=== PATIENT | male | born 1945 | race Caucasian/White ===

== ENCOUNTER 2018-05-02 20:27 | Inpatient (IN) | payer MEDICARE, OTHER ==
[~2018-05-02] VITALS: Ht 193 cm; Wt 123.4 kg
[~2018-05-02 20:27] MED LIST: ADDERALL 20 MG20 MG; ADDERALL 20 MG20 MG PO; ADDERALL 5 MG TA5 MG PO; AMLODIPINE BESYL5 MG PO; ASPIRIN BUFFER325 MG PO; ASPIRIN325 MG PO; AVAPRO150 MG PO; AVAPRO300 MG PO; AVAPRO75 MG PO; AVODART0.5 MG; BETA GLUCAN; BETA GLUCAN PO; CARAFATE1 GM/10 ML PO; COQ-10100 MG PO; COQ10 SG 100 S1 EACH PO; COUMADIN5 MG PO; DAILY VITAMIN1 EAC3 PO; DEMADEX10 MG PO; DEMADEX20 MG PO; DIOVAN HCT 1601 EACH PO; GABAPENTIN300 MG PO; GLUCOPHAGE500 MG PO; GLUCOSAMINE1000 MG PO; HUMALOG100 UNIT/3 SQ; INSULIN ASPART; INSULIN ASPART SQ; KEFLEX500 MG PO; LEVEMIR; LEVEMIR100 UNIT/1 SQ; LISINOPRIL20 MG PO; LOPRESSOR100 MG PO; LYCOPENE10 MG PO; METFORMIN HCL500 MG; METOLAZONE5 MG PO; METOPROLOL TART50 MG PO; MINOXIDIL2.5 MG PO; MIRALAX17 GM PO; NIACIN500 MG PO; NORCO 10-325 T1 EACH PO; NOVOLOG100 UNIT/1 SQ; NOVOLOG100 UNITS/ SQ; PLANT STEROLS PO; POTASSIUM CHLO10 MEQ PO; POTASSIUM PO; PRADAXA150 MG PO; PURE TAURINE500 MG PO; RAPAFLO8 MG; RAPAFLO8 MG PO; RESTORIL30 MG PO; ROBAXIN-750750 MG; STOOL SOFTENER240 MG PO; SUSTENEX PO; TURMERIC1 GM PO; VITAMIN D31000 UNI2 PO; XANAX0.5 MG PO; Z MINOXIDIL PO; Z.0.DIGOXIN250 MCG PO; Z.0.LISINOPRIL20 MG PO; Z.0.LOPRESSOR100 MG PO; Z.0.PRADAXA150 MG PO; Z.0.TORSEMIDE20 MG PO; Z.1.DIOVAN HCT 1601 PO; [UNRECOGNIZED DRUG - OTHER]; [UNRECOGNIZED DRUG - OTHER] PO; [UNRECOGNIZED DRUG - OTHER] PO; [UNRECOGNIZED DRUG - OTHER] PO; [UNRECOGNIZED DRUG - OTHER] PO; [UNRECOGNIZED DRUG - OTHER] PO; [UNRECOGNIZED DRUG - OTHER] SQ; [UNRECOGNIZED DRUG - OTHER] SQ
[2018-05-02] MEDS ORDERED: ONDANSETRON HCL INJ 2 MG/ML VIAL IV STA (20:44)
[2018-05-02] MEDS ORDERED: MORPHINE SULFATE 2 MG/ML SYR IV ONE (20:44)
[2018-05-02] MEDS ORDERED: ASPIRIN 81 MG CHEW TAB PO ONE (20:45)
[2018-05-02 21:20] LABS: BASOPHILS % 0.2 % (0.0-1.0); HEMATOCRIT 39.9 % (38.2-49.6); HEMOGLOBIN 13.3 g/dL (14.0-18.0); LYMPHOCYTES # (AUTO) 0.5 (1.0-3.2); LYMPHOCYTES % 3.3 % (18.0-39.1); MEAN CORPUSCULAR HGB CONC 33.3 g/dL (31-35); MEAN CORPUSCULAR VOLUME 87.1 fL (81-99); MONOCYTES # (AUTO) 1.5 (0.2-0.8); MONOCYTES % 9.1 % (4.4-11.3); NEUTROPHILS # (AUTO) 14.1 (2.1-6.9); NEUTROPHILS % 86.7 % (38.7-80.0); PLATELET COUNT 167 x10e3/uL (140-360); RED BLOOD COUNT 4.58 x10e6/uL (4.3-5.7); RED CELL DISTRIBUTION WIDTH 13.8 % (11.7-14.4)
[2018-05-02 21:22] LABS: INR 0.96; PROTHROMBIN TIME 13.7 seconds (11.9-14.5)
[2018-05-02 21:23] LABS: PARTIAL THROMBOPLASTIN TIME 33.6 seconds (23.8-35.5)
[2018-05-02 21:33] LABS: ALANINE AMINOTRANSFERASE 27 IU/L (0-55); ALBUMIN 3.6 g/dL (3.5-5.0); ALKALINE PHOSPHATASE 75 IU/L (40-150); ANION GAP 20.3 mmol/L (8-16); BLOOD UREA NITROGEN 16 mg/dL (7-26); BUN/CREATININE RATIO 12 (6-25); CALCIUM 9.5 mg/dL (8.4-10.2); CARBON DIOXIDE 21 mmol/L (22-29); CHLORIDE 98 mmol/L (98-107); CREATINE KINASE 233 IU/L (30-200); CREATININE, SERUM 1.29 mg/dL (0.72-1.25); EST GLOMERULAR FILTRATION RATE 55 ML/MIN (60-); GLUCOSE 339 mg/dL (74-118); MAGNESIUM 1.8 MG/DL (1.3-2.1); POTASSIUM 4.3 mmol/L (3.5-5.1); SODIUM 135 mmol/L (136-145)
[2018-05-02 21:37] LABS: LIPASE < 4 U/L (8-78)
--- NOTE | 2018-05-02 21:38 | Diagnostic Imaging Report ---
EXAMINATION: CHEST SINGLE (PORTABLE) INDICATION: Shortness of breath, history of cardiac disease COMPARISON: 11/22/2014 FINDINGS: TUBES and LINES: None. LUNGS: Lungs are not well inflated. Areas of interlobular septi thickening There is mild prominence of the central pulmonary vasculature, consistent with pulmonary venous congestion. PLEURA: No pleural effusion or pneumothorax. HEART AND MEDIASTINUM: Cardiac size is moderately enlarged. There are atherosclerotic calcifications within the aorta. There is evidence of a proximal descending aortic stent graft BONES AND SOFT TISSUES: No acute osseous lesion. Soft tissues are unremarkable. UPPER ABDOMEN: No free air under the diaphragm. IMPRESSION: Findings are compatible with mild cartilage thinning pulmonary edema Signed by: Dr. Saw Mendoza M.D. on 05/02/2018 9:34 PM
[2018-05-02 21:53] LABS: THYROID STIMULATING HORMONE 0.589 uIU/mL (0.350-4.940)
[2018-05-02] MEDS ORDERED: ACETAMINOPHEN 325 MG TAB PO ONE (23:00)
[2018-05-02 23:04] LABS: BILIRUBIN,URINE NEGATIVE (NEGATIVE); CLARITY,URINE CLEAR (CLEAR); COLOR,URINE YELLOW (YELLOW); KETONES,URINE 1+ (NEGATIVE); LEUKOCYTE ESTERASE ,URINE NEGATIVE (NEGATIVE); NITRITE,URINE NEGATIVE (NEGATIVE); PROTEIN,URINE DIPSTICK NEGATIVE (NEGATIVE); URINE UROBILINOGEN 0.2 mg/dL (0.2 - 1)
--- NOTE | 2018-05-02 23:06 | Diagnostic Imaging Report ---
EXAM: CT Chest WITH contrast 05/02/2018 9:57 PM INDICATION: Pulmonary embolism COMPARISON: None TECHNIQUE: Chest was scanned utilizing a multidetector helical scanner from the lung apex through the level of the adrenal glands without administration of IV contrast. Coronal and sagittal reformations were obtained. PE protocol was performed. IV CONTRAST: 100 mL of Isovue-370 RADIATION DOSE: Total DLP: 703.94 mGy*cm Estimated effective dose: (DLP x 0.014 x size factor) mSv COMPLICATIONS: None FINDINGS: LINES/ TUBES: None. LUNGS AND AIRWAYS: There is bibasilar atelectasis. More confluent airspace disease in the right lung base may represent developing infection Airways are normal. PLEURA: The pleural spaces are clear. HEART AND MEDIASTINUM: The thyroid gland is normal. No mediastinal, hilar or axillary lymphadenopathy. The heart is mildly enlarged. There is severe dilatation of the left atrium and mild dilatation of the left ventricle. There is no pericardial effusion. There are moderate atherosclerotic calcifications in the aorta and coronary arteries. There is a distal aortic arch and proximal descending aortic stent graft. The pulmonary artery measures 3.6 cm in diameter, dilated. Next UPPER ABDOMEN: Limited non-contrast views of the upper abdomen show no abnormality within the visualized liver, spleen, pancreas, or kidneys. The adrenal glands are normal. BONES: The visualized bony thorax is within normal limits. SOFT TISSUES: Unremarkable. IMPRESSION: 1. Cardiomegaly and coronary artery disease. 2. Aortic stent graft is in good position without evidence of complications. 3. No evidence of pulmonary embolism. 4. Bibasilar atelectasis. 5. More confluent airspace opacity in the right lower lobe may represent early infection. Signed by: Dr. Saw Mendoza M.D. on 05/02/2018 11:03 PM
[2018-05-02 23:07] LABS: BACTERIA,URINE RARE /HPF; MUCUS,URINE FEW (RARE)
[2018-05-02] MEDS ORDERED: ACETAMINOPHEN 1000 MG/100 ML IV STA (23:14)
[2018-05-02] MEDS ORDERED: ACETAMINOPHEN 1000 MG/100 ML IV PRN (23:15)
[2018-05-02] MEDS ORDERED: DEXTROSE 50% SYRINGE 50 ML IV PRN (23:15)
[2018-05-02] MEDS: ALBUTEROL SULF 0.083% NEB SOLN 3 ML NEB NEB SCH (23:15)
[2018-05-02] MEDS ORDERED: PIPER-TAZ 3.375 GM 50 ML IV SCH (23:15)
[2018-05-03] VITALS (15 sets, daily range): BP systolic 108–184; BP diastolic 48–88
[2018-05-03] MEDS: IPRATROPIUM BROMIDE 0.02% 2.5 ML NEB NEB SCH ×4 (01:00→19:30)
[2018-05-03] MEDS ORDERED: INSULIN REGULAR, HUMAN 100 UNIT/1 ML 3ML VIAL SQ ONE (01:45)
[2018-05-03] MEDS ORDERED: SODIUM CHLORIDE 0.9% 1000ML 1,000 ML IV ONE (01:45)
[2018-05-03] MEDS: VANCOMYCIN HCL 1GM/NS 250 ML BAG IV SCH ×3 (01:50→23:22)
[2018-05-03] MEDS ORDERED: SODIUM CHLORIDE 0.9% 50ML 50 ML ONE (02:48)
[2018-05-03] MEDS ORDERED: IOPAMIDOL 370 MG/ML 200 ML INFUS..BTL INJ ONE (02:49)
[2018-05-03] MEDS: ALBUTEROL SULF 0.083% NEB SOLN 3 ML NEB NEB SCH ×6 (03:00→23:50)
[2018-05-03] MEDS: HYDROCODONE/APAP 10MG-325MG TAB PO PRN ×2 (03:51→19:05)
[2018-05-03] MEDS ORDERED: KETOROLAC TROMETHAMINE 30 MG/ML VIAL IV STA (04:59)
[2018-05-03 05:07] LABS: BASOPHILS % 0.2 % (0.0-1.0); EOSINOPHILS % 0.1 % (0.0-6.0); HEMATOCRIT 38.8 % (38.2-49.6); HEMOGLOBIN 12.7 g/dL (14.0-18.0); LYMPHOCYTES # (AUTO) 0.6 (1.0-3.2); LYMPHOCYTES % 4.1 % (18.0-39.1); MEAN CORPUSCULAR HEMOGLOBIN 28.9 pg (28-32); MEAN CORPUSCULAR HGB CONC 32.7 g/dL (31-35); MEAN CORPUSCULAR VOLUME 88.2 fL (81-99); MONOCYTES # (AUTO) 1.5 (0.2-0.8); MONOCYTES % 10.3 % (4.4-11.3); NEUTROPHILS # (AUTO) 11.9 (2.1-6.9); NEUTROPHILS % 84.5 % (38.7-80.0); PLATELET COUNT 150 x10e3/uL (140-360); RED CELL DISTRIBUTION WIDTH 13.6 % (11.7-14.4)
[2018-05-03 05:38] LABS: ALANINE AMINOTRANSFERASE 23 IU/L (0-55); ALBUMIN 3.1 g/dL (3.5-5.0); ALBUMIN/GLOBULIN RATIO 0.9 (0.8-2.0); ALKALINE PHOSPHATASE 69 IU/L (40-150); ANION GAP 15.9 mmol/L (8-16); BLOOD UREA NITROGEN 13 mg/dL (7-26); BUN/CREATININE RATIO 12 (6-25); CALCIUM 9.1 mg/dL (8.4-10.2); CARBON DIOXIDE 25 mmol/L (22-29); CHLORIDE 100 mmol/L (98-107); CREATINE KINASE 192 IU/L (30-200); EST GLOMERULAR FILTRATION RATE > 60 ML/MIN (60-); GLUCOSE 245 mg/dL (74-118); POTASSIUM 3.9 mmol/L (3.5-5.1); SODIUM 137 mmol/L (136-145)
[2018-05-03] MEDS: METOLAZONE 5 MG TAB PO SCH (08:14)
[2018-05-03] MEDS: SUCRALFATE 1 GM/10 ML SUSP PO SCH (08:14)
[2018-05-03] MEDS: GABAPENTIN 300 MG CAP PO SCH ×3 (08:14→20:55)
[2018-05-03] MEDS: TORSEMIDE 10 MG TAB PO SCH (08:14)
[2018-05-03] MEDS: MINOXIDIL 2.5 MG TAB PO SCH (08:14)
[2018-05-03] MEDS: TAMSULOSIN HCL 0.4 MG CAP PO SCH (08:14)
[2018-05-03] MEDS: AMLODIPINE BESYLATE 5 MG TAB PO SCH (08:14)
[2018-05-03] MEDS: LISINOPRIL 20 MG TAB PO SCH ×2 (08:15→17:24)
[2018-05-03] MEDS: METOPROLOL TARTRATE 50 MG TAB PO SCH ×2 (08:15→17:24)
[2018-05-03] MEDS: PIPER-TAZ 3.375 GM 50 ML IV SCH ×2 (08:18→21:14)
[2018-05-03] MEDS: INSULIN REGULAR, HUMAN 100 UNIT/1 ML 3ML VIAL SQ SCH ×4 (08:18→20:56)
[2018-05-03] MEDS ORDERED: NON-FORMULARY MEDICATION (Silodosin (Rapaflo) 8 MG) PO SCH (09:00)
[2018-05-03] MEDS ORDERED: RAPAFLO 8 MG PO SCH (09:00)
[2018-05-03] MEDS ORDERED: METFORMIN HCL 500 MG TAB PO SCH (09:00)
[2018-05-03 13:07] LABS: LYMPHOCYTES % (MANUAL) 7 % (19-48); MONOCYTES % (MANUAL) 8 % (3.4-9.0); NEUTROPHILS % (MANUAL) 85 % (40-74); PLATELET ESTIMATE ADEQUATE; PLATELET MORPHOLOGY COMMENT NORMAL; RBC MORPHOLOGY COMMENT NORMAL
[2018-05-03 13:08] LABS: ANISOCYTOSIS SLIGHT
[2018-05-03 14:26] LABS: CREATINE KINASE MB 2.3 ng/mL (0-5.0)
--- NOTE | 2018-05-03 16:08 | Diagnostic Imaging Report ---
RIGHT SHOULDER - 2 VIEWS HISTORY: Pain, cellulitis COMPARISON: None available. FINDINGS: Soft tissue attenuation partially limits sensitivity of the exam. Bones: No acute displaced fracture. Mild lateral downsloping of the acromion. Joints: Mild degenerative changes of the acromioclavicular joint. Soft tissues: Incidentally, partially visualized aortic stent graft IMPRESSION: 1. No acute radiographic abnormality. 2. Specifically, no radiographic evidence of osteomyelitis. 3. Lateral downsloping of the acromium, can be associated with impingement syndrome. 4. Mild acromioclavicular osteoarthrosis. Signed by: Dr. Sunil Feliciano D.O., M.M.M. on 05/03/2018 4:04 PM
[2018-05-03] MEDS: ALPRAZOLAM 0.5 MG TAB PO SCH (20:55)
[2018-05-04] VITALS (12 sets, daily range): BP systolic 104–145; BP diastolic 51–84
[2018-05-04] MEDS: HYDROCODONE/APAP 10MG-325MG TAB PO PRN (02:51)
[2018-05-04] MEDS: ALBUTEROL SULF 0.083% NEB SOLN 3 ML NEB NEB SCH ×5 (03:30→19:30)
[2018-05-04] MEDS: IPRATROPIUM BROMIDE 0.02% 2.5 ML NEB NEB SCH ×4 (03:30→19:30)
[2018-05-04] MEDS: PIPER-TAZ 3.375 GM 50 ML IV SCH ×3 (05:21→21:06)
[2018-05-04] MEDS ORDERED: HYDROMORPHONE 1MG/1ML INJ IV PRN (07:15)
[2018-05-04 08:03] LABS: BASOPHILS % 0.2 % (0.0-1.0); EOSINOPHILS # (AUTO) 0.1 (0.0-0.4); EOSINOPHILS % 0.4 % (0.0-6.0); HEMATOCRIT 35.7 % (38.2-49.6); HEMOGLOBIN 11.7 g/dL (14.0-18.0); LYMPHOCYTES # (AUTO) 0.7 (1.0-3.2); MEAN CORPUSCULAR HGB CONC 32.8 g/dL (31-35); MEAN CORPUSCULAR VOLUME 88.6 fL (81-99); MONOCYTES # (AUTO) 1.2 (0.2-0.8); MONOCYTES % 10.3 % (4.4-11.3); NEUTROPHILS % 82.7 % (38.7-80.0); PLATELET COUNT 148 x10e3/uL (140-360); RED BLOOD COUNT 4.03 x10e6/uL (4.3-5.7); RED CELL DISTRIBUTION WIDTH 13.4 % (11.7-14.4)
[2018-05-04] MEDS: TAMSULOSIN HCL 0.4 MG CAP PO SCH (08:16)
[2018-05-04] MEDS: TORSEMIDE 10 MG TAB PO SCH (08:16)
[2018-05-04] MEDS: MINOXIDIL 2.5 MG TAB PO SCH (08:16)
[2018-05-04] MEDS: SUCRALFATE 1 GM/10 ML SUSP PO SCH (08:16)
[2018-05-04] MEDS: ACETAMINOPHEN 325 MG TAB PO PRN (08:17)
[2018-05-04] MEDS: AMLODIPINE BESYLATE 5 MG TAB PO SCH (08:17)
[2018-05-04] MEDS: METOLAZONE 5 MG TAB PO SCH (08:17)
[2018-05-04] MEDS: GABAPENTIN 300 MG CAP PO SCH ×3 (08:17→21:04)
[2018-05-04] MEDS: METOPROLOL TARTRATE 50 MG TAB PO SCH ×2 (08:17→17:19)
[2018-05-04] MEDS: LISINOPRIL 20 MG TAB PO SCH ×2 (08:17→17:19)
[2018-05-04] MEDS: INSULIN REGULAR, HUMAN 100 UNIT/1 ML 3ML VIAL SQ SCH ×4 (08:18→21:00)
[2018-05-04 08:25] LABS: ALANINE AMINOTRANSFERASE 34 IU/L (0-55); ALBUMIN 2.5 g/dL (3.5-5.0); ALBUMIN/GLOBULIN RATIO 0.7 (0.8-2.0); ALKALINE PHOSPHATASE 80 IU/L (40-150); ANION GAP 12.7 mmol/L (8-16); BLOOD UREA NITROGEN 15 mg/dL (7-26); BUN/CREATININE RATIO 15 (6-25); CARBON DIOXIDE 26 mmol/L (22-29); CHLORIDE 98 mmol/L (98-107); CREATININE, SERUM 0.97 mg/dL (0.72-1.25); EST GLOMERULAR FILTRATION RATE > 60 ML/MIN (60-); GLUCOSE 280 mg/dL (74-118); POTASSIUM 3.7 mmol/L (3.5-5.1); SODIUM 133 mmol/L (136-145)
[2018-05-04] MEDS ORDERED: HYDROMORPHONE 2MG/ML 2 MG/ML ML IV PRN (08:45)
[2018-05-04] MEDS ORDERED: NON-FORMULARY MEDICATION (Insulin Detemir (Levemir) 30 UNITS) SQ SCH (09:00)
[2018-05-04] MEDS ORDERED: INSULIN GLARGINE 100 UNITS/1 ML 3ML PEN SQ SCH (09:00)
[2018-05-04] MEDS: INSULIN DETEMIR 100 UNIT/ML PEN SQ SCH ×2 (12:03→21:05)
[2018-05-04] MEDS: INSULIN LISPRO 100 UNIT/1 ML 3ML VIAL SQ SCH ×2 (12:04→17:20)
[2018-05-04] MEDS: VANCOMYCIN HCL 1GM/NS 250 ML BAG IV SCH (12:06)
[2018-05-04 14:11] LABS: CREATINE KINASE MB 2.4 ng/mL (0-5.0)
[2018-05-04] MEDS ORDERED: SODIUM CHLORIDE 0.9% 250ML 250 ML ONE (15:42)
[2018-05-04] MEDS ORDERED: NALOXONE HCL INJ 0.4 MG/ML AMP IV PRN (16:45)
[2018-05-04] MEDS: HYDROMORPHONE 2MG/ML 2 MG/ML ML IV PRN ×2 (17:19→21:00)
--- NOTE | 2018-05-04 18:53 | Diagnostic Imaging Report ---
History: Pain right side of the neck Comparison studies: None Technique: Axial, coronal and sagittal images from the skull base to the thoracic inlet. Coronal and sagittal images reconstructed from the axial data. Intravenous contrast: 100 cc of Omnipaque 300. Findings: Soft tissues: No abnormalities. Masses: None. Lymph nodes: No radiographically significant adenopathy. Vessels: Atherosclerotic calcifications of the carotid pole with at least moderate stenosis on the left. Partially visualized descending aorta stent. Glands (thyroid, parotid and submandibular): Partially calcified right inferior pole thyroid nodule measuring 1.2 cm. The remaining glands are normal in size and symmetric. No other masses. . Orbits: No abnormalities. Paranasal sinuses: Clear. Temporal bones: No abnormalities. Skull base and facial bones: Intact. Cervical spine: Facet hypertrophy and uncinate process hypertrophy results in multilevel foraminal narrowing severe right at C4-C6; and moderate bilateral at C6-7. Fused C5-6. Diffuse posterior disc osteophyte complex C6-7 results in moderate canal stenosis. Changes of the atlantoaxial joint IMPRESSION: 1. Moderate to severe degenerative changes of the cervical spine. 2. Atherosclerotic calcifications of the carotid bulbs results in at least moderate stenosis of the left. 3. Partially calcified right thyroid nodule measuring 1.2 cm. No other significant neck abnormality. Signed by: DR Mazin Marin M.D. on 05/04/2018 6:49 PM
--- NOTE | 2018-05-04 19:00 | Consultation ---
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 Comes in after a long trip, found to have fever, chills, pain on his right shoulder, right side of his neck. The patient felt really bad today after and then got progressively worse, finally came here. Apparently, he has had gram-positive cocci in the blood. Infectious disease was consulted. Patient is just having severe pain on his right side. PAST MEDICAL HISTORY: Obesity; TEVAR type-B aortic dissection, October 2014; hypertension; sleep apnea; diabetes mellitus; atrial fibrillation, status post ablation in 2014, morbidly obese patient, degenerative joint disease, severe spinal stenosis, anemia, blood transfusion in 2014, hyperlipidemia, aortic dissection TEVAR in October 2011, tonsillectomy, 3rd left toe amputation, status post A-flutter, orchiectomy. ALLERGIES: NKA. SOCIAL HISTORY: There is no smoking, drug abuse, alcohol abuse. FAMILY HISTORY: Otherwise, hypertension. REVIEW OF SYSTEMS GENERAL: He is just not feeling well and in severe pain. HEENT: There is no headache, visual changes, hearing changes. GI: There is no nausea. No vomiting. CARDIAC: There is no arrhythmia. NEURO: No seizure activity. He does have pain on the right side. SKIN: There are no other rashes. LABORATORY DATA: Reviewed. Blood culture showing Staph aureus. White count on admission 16, today 12.09. Hemoglobin 11, sodium 133, potassium 3.7, creatinine 0.97. Liver enzymes 37. MEDICATIONS: He is currently on Atrovent, Zosyn, vancomycin, Dilaudid, Humalog. PHYSICAL EXAMINATION GENERAL: He is currently alert, oriented, does not seem to be in acute distress. VITALS: Stable. Currently afebrile. HEENT: Not icteric. NECK: Supple. CHEST: Clear. HEART: S1 and S2. No S3, S4, or murmur. ABDOMEN: Soft. EXTREMITIES: No edema. IMPRESSION 1. Sepsis on admission in a patient with history of thoracic endovascular aortic repair, history of obesity, concerned about infection, endocarditis. Would increase the vancomycin dose to 2 g q.12. Would recommend to obtain a transesophageal echocardiogram. 2. Pain in the right side of his shoulder. Would need a magnetic resonance imaging of the shoulder with contrast. Computed tomography of the cervical spine. We will follow with you. Job#: [id number] LPA
--- NOTE | 2018-05-04 19:08 | Diagnostic Imaging Report ---
EXAM: CT Abdomen and Pelvis WITH contrast INDICATION: Pain, infection COMPARISON: None. TECHNIQUE: Abdomen and pelvis were scanned utilizing a multidetector helical scanner from the lung base to the pubic symphysis after administration of IV contrast. Coronal and sagittal reformations were obtained. Routine protocol was performed. Scan was performed when during portal venous phase. IV CONTRAST: 100 mL of Isovue-370 ORAL CONTRAST: None RADIATION DOSE: Total DLP: 1290.06 mGy*cm Estimated effective dose: (DLP x 0.015 x size factor) mSv COMPLICATIONS: None FINDINGS: LINES and TUBES: None. LOWER THORAX: Small bilateral pleural effusions and atelectasis right greater than left. Confluent airspace opacity in the right lower lobe with air bronchogram. HEPATOBILIARY: No focal hepatic lesions. No biliary ductal dilation. GALLBLADDER: No radio-opaque stones or sludge. No wall thickening. SPLEEN: No splenomegaly. PANCREAS: No focal masses or ductal dilatation. ADRENALS: No adrenal nodules KIDNEYS/URETERS: Kidneys enhance symmetrically. No hydronephrosis. No cystic or solid mass lesions. No stones. GI TRACT: No abnormal distention, wall thickening, or evidence of bowel obstruction. There are diverticula within the colon without evidence of diverticulitis. Appendix is not clearly identified. There is however no fat stranding or adenopathy in the right lower quadrant to suggest appendicitis. PELVIC ORGANS/BLADDER: Duffy catheter is suboptimally positioned with balloon inflated within the prostatic urethra. The prostate is mildly enlarged. LYMPH NODES: No lymphadenopathy. VESSELS: There is severe atherosclerotic disease in the aorta and major arterial branches. PERITONEUM / RETROPERITONEUM: No free air or fluid. BONES: There are moderate to severe degenerative changes in the lumbar spine. SOFT TISSUES: There is a fat containing umbilical hernia. IMPRESSION: 1. No evidence of acute intra-abdominal or pelvic abnormality. 2. Small bilateral pleural effusions and atelectasis. 3. There is consolidation in the right lower lobe with mild air bronchogram. Differential diagnosis may include aspiration or developing pneumonia. 4. Repositioning of Duffy catheter is recommended. The balloon is inflated within the prostatic urethra. Repositioning should be performed after deflating the balloon. Signed by: Dr. Saw Mendoza M.D. on 05/04/2018 7:04 PM
[2018-05-04] MEDS ORDERED: IOPAMIDOL 370 MG/ML 200 ML INFUS..BTL INJ ONE (19:50)
[2018-05-04] MEDS ORDERED: SODIUM CHLORIDE 0.9% 50ML 50 ML ONE (19:50)
[2018-05-04] MEDS: ALPRAZOLAM 0.5 MG TAB PO SCH (21:04)
[2018-05-04] MEDS: VANCOMYCIN HCL 2 GM in SODIUM CHLORIDE 0.9% 500ML 500 ML IV SCH (22:23)
[2018-05-04] MEDS ORDERED: VANCOMYCIN HCL 1GM/NS 250 ML BAG IV SCH (23:15)
[2018-05-05] VITALS (10 sets, daily range): BP systolic 95–135; BP diastolic 48–81
[2018-05-05] MEDS: IPRATROPIUM BROMIDE 0.02% 2.5 ML NEB NEB SCH ×4 (01:00→18:55)
[2018-05-05] MEDS: ALBUTEROL SULF 0.083% NEB SOLN 3 ML NEB NEB SCH ×6 (02:00→23:00)
[2018-05-05] MEDS: HYDROMORPHONE 2MG/ML 2 MG/ML ML IV PRN ×3 (05:18→19:15)
[2018-05-05] MEDS: PIPER-TAZ 3.375 GM 50 ML IV SCH ×3 (05:18→21:49)
[2018-05-05] MEDS ORDERED: GADOBENATE DIMEGLUMINE 1 ML IV ONE (09:12)
[2018-05-05] MEDS: INSULIN DETEMIR 100 UNIT/ML PEN SQ SCH ×2 (12:07→21:35)
[2018-05-05] MEDS: INSULIN REGULAR, HUMAN 100 UNIT/1 ML 3ML VIAL SQ SCH ×3 (12:07→21:00)
[2018-05-05] MEDS: INSULIN LISPRO 100 UNIT/1 ML 3ML VIAL SQ SCH ×2 (12:07→16:50)
[2018-05-05] MEDS: SUCRALFATE 1 GM/10 ML SUSP PO SCH (12:21)
[2018-05-05] MEDS: MINOXIDIL 2.5 MG TAB PO SCH (12:22)
[2018-05-05] MEDS: TAMSULOSIN HCL 0.4 MG CAP PO SCH (12:22)
[2018-05-05] MEDS: TORSEMIDE 10 MG TAB PO SCH (12:22)
[2018-05-05] MEDS: METOPROLOL TARTRATE 50 MG TAB PO SCH ×2 (12:22→18:26)
[2018-05-05] MEDS: METOLAZONE 5 MG TAB PO SCH (12:23)
[2018-05-05] MEDS: GABAPENTIN 300 MG CAP PO SCH ×3 (12:23→21:49)
[2018-05-05] MEDS: AMLODIPINE BESYLATE 5 MG TAB PO SCH (12:23)
[2018-05-05] MEDS: VANCOMYCIN HCL 2 GM in SODIUM CHLORIDE 0.9% 500ML 500 ML IV SCH ×2 (12:23→22:54)
[2018-05-05] MEDS: LISINOPRIL 20 MG TAB PO SCH ×2 (12:23→18:27)
--- NOTE | 2018-05-05 12:31 | Diagnostic Imaging Report ---
Exam: foot series, 3 views. Clinical History: Rule out osteomyelitis. Comparison: Report from MRI foot from 11/25/11. No images are available for review. Findings: There has been amputation of the second through fifth toes. There is soft tissue edema at the distal aspects of the second through metatarsals. There is focal gas adjacent to the third metatarsal head. There appear to be linear lucencies and erosions involving the second and third metatarsal heads. There is soft tissue edema within the great toe. No definite destructive bony changes involving the first metatarsal or great toe. No evidence of fracture or malalignment. Impression: Status post amputation of the second through fifth toes. Findings suspicious for osteomyelitis involving the second and third metatarsal heads, which could be evaluated with MRI if clinically indicated. Signed by: Dr. Jessica Dsouza MD on 05/05/2018 12:28 PM
--- NOTE | 2018-05-05 15:23 | Consultation ---
DATE OF CONSULTATION: May 05, 2018 REASON FOR CONSULTATION: Bacteremia with Staph aureus. HISTORY: This is a 72-year-old gentleman who is know us with past medical history of hypertension, dyslipidemia, diabetes mellitus, history of type B aortic dissection, treated with stenting starting distal to the left subclavian through the thoracic descending aorta. He is also known to have atrial fibrillation and flutter, status post ablation in May 2014. Patient does have also chronic swelling of the lower extremities with chronic venous stasis and repeated infection. In fact, he does have also peripheral neuropathy. He does have amputation of all the left foot toes with the exception of the great toe. There is nonhealing ulcer, which is chronic on the bottom of the left foot on the metatarsal area. 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 He started having severe right shoulder pain. He thought he pulled the muscle. The pain was very severe. He came to the emergency room on May 02, 2018. Chest x-ray and CT scan were suggestive of possible early right lower lobe pneumonia. Patient started on antibiotics. CT scan done at that time showed nicely positioned stent in the descending thoracic aorta. No pus and no abnormalities were noted. Blood culture came back positive showing Staph aureus, seen by Dr. Cedeno. Cardiac consultation is obtained for worry about aortic valve endocarditis. Patient seen and evaluated today. He does have fever and chills since admission. He does have only one IV site and is not changed and I inspected it and it looks clear. He does have the swelling and the cellulitis of the lower extremity, worse on the left leg and he is telling me it is now better. He does have his usual easy fatigability, shortness of breath on exertion. PAST MEDICAL HISTORY 1. Descending aortic aneurysm TVAR for complicated type B aortic dissection in October 2013. 2. Hypertension. 3. Diabetes mellitus. 4. Sleep apnea. 5. Atrial flutter ablation in May 2014. 6. Morbid obesity. 7. Severe degenerative joint disease with spinal stenosis. 8. Anemia. 9. Severe peripheral neuropathy. 10. Repeated skin infection. 11. Amputation of the left foot toes with the exception of the great toe. 12. Chronic ulcer on the bottom of his foot at the metatarsal level. 13. Chronic skin changes. 14. Past history of scrotal infection in October 2016. 15. Tonsillectomy. 16. Orchiectomy. FAMILY HISTORY: Mother at age 84 with liver tumor. Father at age 65 from CVA complication and was hypertensive. Two siblings are healthy. Two children are also healthy. SOCIAL HISTORY: He is . 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 He is life-long time nonsmoker. He is rarely taking drink of alcohol. CURRENT MEDICATIONS: Include Zaroxolyn 5 mg a day. Torsemide 20 mg a day. Metoprolol 100 mg twice a day. Lisinopril 20 mg twice a day. Amlodipine 5 mg a day. Insulin. Flomax 0.4 mg a day. Minoxidil 2.5 mg a day. Gabapentin 300 mg 3 times a day. Since admission, patient on vancomycin and Zosyn. ALLERGIES: NONE. REVIEW OF SYSTEMS GENERAL: Weakness, fatigue. SKIN: Chronic skin changes of the lower extremities and nonhealing ulcer on the left foot with redness and now "it is better." HEENT: Denies any vision problem. PULMONARY: [id number] shortness of breath on exertion. Activities are limited. Sleep apnea. CARDIAC: No angina. GI: No nausea. No vomiting. : Increased frequency of urination LOWER EXTREMITY: chronic severe peripheral neuropathy, chronic skin changes, ulcer on the foot. MUSCULOSKELETAL: Aches and pain. Others, right shoulder pain. HEMATOLOGY: No easy bruising or bleeding. PHYSICAL EXAMINATION VITALS: Height of 6 feet 4 inches, weight of 320 pounds, blood pressure 135/55, heart rate of 80, respiratory rate of 18, temperature currently at 98. HEENT: Pupils are equal and reactive. There are no conjunctival lesions. NECK: No elevation of jugular venous pulsation. CHEST: Clear to auscultation and percussion. HEART: PMI 5th left intercostal space. Normal 1st and 2nd heart sounds. ABDOMEN: Soft. No organomegaly. EXTREMITIES: Chronic skin changes. Amputation of the left foot toes with the exception of the great toe. Nonhealing ulcer of the left foot. IV site, no infection. NEUROLOGIC: Awake, alert, and oriented. LABORATORY DATA: Sodium of 133, potassium of 3.7, BUN of 15, creatinine of 1. White blood cell count of 12,000, hemoglobin 7.7, hematocrit 35%, platelet count of 148,000. Urine culture positive for Enterobacter. Blood culture is positive for Staph aureus. X-rays report as per chart. IMPRESSION AND PLAN 1. Staphylococcus aureus bacteremia. 2. Most likely sores is his left leg and left foot. 3. Right shoulder pain. 4. Hypertension. 5. Status post repair thoracic vascular aortic repair. 6. Chronic cellulitis of the lower extremities. 7. Obesity. 8. Chronic left ventricular diastolic dysfunction. Most likely source of infection as I mentioned is from the left lower extremity. He is on appropriate therapy. I reviewed his x-ray. Patient never had any aortic valve procedures or replacement. So, we discussed the case with Dr. Cedeno who will be satisfied with transthoracic echo for the time being. We will do more blood culture to ensure clearance of blood, regardless patient need prolonged therapy because of the presence of thoracic endograft and need to be treated as such. We will follow patient progression pending on his scores, pending on the finding further steps to be done. Case discussed and explained. Job#: [id number] EZIO
[2018-05-05] MEDS: ACETAMINOPHEN 325 MG TAB PO PRN (19:15)
[2018-05-05] MEDS ORDERED: METOPROLOL TARTRATE 50 MG TAB PO ONE (20:30)
[2018-05-05] MEDS: ALPRAZOLAM 0.5 MG TAB PO SCH (21:49)
[2018-05-06] MEDS: IPRATROPIUM BROMIDE 0.02% 2.5 ML NEB NEB SCH ×4 (01:00→19:15)
[2018-05-06] MEDS: ALBUTEROL SULF 0.083% NEB SOLN 3 ML NEB NEB SCH ×5 (03:00→19:15)
[2018-05-06 03:05] VITALS: BP 144/79
[2018-05-06] MEDS: HYDROMORPHONE 2MG/ML 2 MG/ML ML IV PRN ×7 (03:14→22:45)
[2018-05-06 04:31] VITALS: BP 115/70
[2018-05-06] MEDS: PIPER-TAZ 3.375 GM 50 ML IV SCH (05:03)
[2018-05-06 05:24] LABS: BASOPHILS % 0.4 % (0.0-1.0); EOSINOPHILS # (AUTO) 0.2 (0.0-0.4); EOSINOPHILS % 1.6 % (0.0-6.0); HEMATOCRIT 38.4 % (38.2-49.6); HEMOGLOBIN 12.4 g/dL (14.0-18.0); LYMPHOCYTES # (AUTO) 0.9 (1.0-3.2); MEAN CORPUSCULAR HEMOGLOBIN 28.9 pg (28-32); MEAN CORPUSCULAR HGB CONC 32.3 g/dL (31-35); MEAN CORPUSCULAR VOLUME 89.5 fL (81-99); MONOCYTES # (AUTO) 1.2 (0.2-0.8); MONOCYTES % 12.6 % (4.4-11.3); NEUTROPHILS # (AUTO) 7.4 (2.1-6.9); NEUTROPHILS % 75.6 % (38.7-80.0); PLATELET COUNT 193 x10e3/uL (140-360); RED BLOOD COUNT 4.29 x10e6/uL (4.3-5.7); RED CELL DISTRIBUTION WIDTH 13.6 % (11.7-14.4)
[2018-05-06 05:54] LABS: ALANINE AMINOTRANSFERASE 34 IU/L (0-55); ALBUMIN 2.3 g/dL (3.5-5.0); ALBUMIN/GLOBULIN RATIO 0.6 (0.8-2.0); ALKALINE PHOSPHATASE 73 IU/L (40-150); ANION GAP 9.3 mmol/L (8-16); BLOOD UREA NITROGEN 16 mg/dL (7-26); BUN/CREATININE RATIO 20 (6-25); CALCIUM 8.5 mg/dL (8.4-10.2); CARBON DIOXIDE 29 mmol/L (22-29); CHLORIDE 97 mmol/L (98-107); CHOL/HDL RATIO 3.7 (3.9-4.7); CHOLESTEROL 151 MD/DL (0-199); CREATININE, SERUM 0.82 mg/dL (0.72-1.25); EST GLOMERULAR FILTRATION RATE > 60 ML/MIN (60-); HDL CHOLESTEROL 41 MG/DL (40-60); LDL CHOLESTEROL 99 MG/DL (60-130); POTASSIUM 3.3 mmol/L (3.5-5.1); SODIUM 132 mmol/L (136-145); TRIGLYCERIDES 55 MG/DL (0-149)
[2018-05-06] MEDS: ACETAMINOPHEN 325 MG TAB PO PRN (06:06)
[2018-05-06 06:15] LABS: GLUCOSE 58 mg/dL (74-118)
[2018-05-06 07:00] VITALS: BP 100/50
[2018-05-06] MEDS: INSULIN LISPRO 100 UNIT/1 ML 3ML VIAL SQ SCH ×3 (07:30→16:30)
[2018-05-06] MEDS: INSULIN REGULAR, HUMAN 100 UNIT/1 ML 3ML VIAL SQ SCH ×4 (07:30→20:38)
--- NOTE | 2018-05-06 08:15 | Diagnostic Imaging Report ---
TECHNIQUE: Magnetic resonance imaging of the RIGHT SHOULDER was performed WITHOUT injected contrast. COMPARISON: None available. HISTORY: Right shoulder pain FINDINGS: MUSCLES AND TENDONS: Rotator Cuff: Tendons: The rotator cuff tendons intact. No tear. Muscles: No focal muscle atrophy. Biceps Tendon: The long head of the biceps tendon is intact and within the intertubercular groove. GLENOHUMERAL JOINT: Glenoid Labrum: Fraying of the superior and posterior labrum. Articular Cartilage: Thickness cartilage loss. AC JOINT AND ACROMION: Mild hypertrophic degenerative changes of the acromioclavicular joint. The acromion is unremarkable. BONE: No focal or infiltrative bone marrow replacing abnormality. No acute fracture. SOFT TISSUES: Mild edema of the soft tissues of the anterior shoulder. IMPRESSION: Soft tissue edema/cellulitis of the shoulder. No abscess or osteomyelitis. Intact rotator cuff. Signed by: Dr. Idris Alexander M.D. on 05/06/2018 8:11 AM
[2018-05-06] MEDS: SUCRALFATE 1 GM/10 ML SUSP PO SCH (08:16)
[2018-05-06] MEDS: TAMSULOSIN HCL 0.4 MG CAP PO SCH (08:16)
[2018-05-06] MEDS: TORSEMIDE 10 MG TAB PO SCH (08:16)
[2018-05-06] MEDS: GABAPENTIN 300 MG CAP PO SCH ×3 (08:16→21:08)
[2018-05-06] MEDS: AMLODIPINE BESYLATE 5 MG TAB PO SCH (08:17)
[2018-05-06] MEDS: METOLAZONE 5 MG TAB PO SCH (08:17)
[2018-05-06] MEDS: METOPROLOL TARTRATE 50 MG TAB PO SCH ×3 (08:34→18:21)
[2018-05-06] MEDS: MINOXIDIL 2.5 MG TAB PO SCH (08:34)
[2018-05-06] MEDS: LISINOPRIL 20 MG TAB PO SCH (08:35)
[2018-05-06] MEDS: INSULIN DETEMIR 100 UNIT/ML PEN SQ SCH ×2 (08:45→21:00)
[2018-05-06 09:00] LABS: ANISOCYTOSIS SLIGHT; PLATELET ESTIMATE ADEQUATE; PLATELET MORPHOLOGY COMMENT NORMAL; RBC MORPHOLOGY COMMENT NORMAL
[2018-05-06] MEDS ORDERED: INSULIN DETEMIR 100 UNIT/ML PEN SQ ONE (09:00)
[2018-05-06 09:54] VITALS: BP 100/50
--- NOTE | 2018-05-06 10:43 | Consultation ---
DATE OF CONSULTATION: May 06, 2018 REASON FOR CONSULTATION: Nonhealing ulcerations to both lower extremities with patient being an insulin-dependent diabetic. HISTORY OF PRESENT ILLNESS: This is a pleasant 72-year-old white male with a history of insulin-dependent diabetes and hypertension for more than 20+ years, who just came back from [place] from multiple flights having some musculoskeletal pain to right side of his body. He was found to have gram-positive cocci in his blood, is denying any history of fever, chills, nausea or vomiting at this time. PAST MEDICAL HISTORY: Remarkable for insulin-dependent diabetes and hypertension. PAST SURGICAL HISTORY: Remarkable for left foot surgery, multiple toe amputations, and aortic stent. SOCIAL HISTORY: No smoking, drinking, or recreational drug use. Lives with his . Has 2 kids. CURRENT MEDICATIONS: Noted and listed in the chart including IV vancomycin. FAMILY HISTORY: Remarkable for diabetes. ALLERGIES: PATIENT DENIES. REVIEW OF SYSTEMS: CARDIAC: Denying any palpitations or arrhythmias. RESPIRATORY: Denies any shortness of breath, productive cough. GASTROINTESTINAL: Denies any diarrhea or constipation. GENITOURINARY: Denies any problems voiding. VITAL SIGNS: Afebrile, pulse rate 77, respirations 18, blood pressure 115/70, O2 saturation 95%. LABS: Noted. Has a white blood cell count dropping from 16.2 to 9.7, hemoglobin 12.4 with a platelet count of 193,000. PODIATRIC PHYSICAL EXAMINATION: Reveals the following: VASCULATURE: Both the DP and PT are palpable, but diminished. Skin temperature between warm and cool to touch . NEUROLOGICAL: Reveals a complete loss of protective sensation when utilizing [employer] 5.07 monofilament wire. MUSCULOSKELETAL: Reveals muscle mass to be symmetrical. Muscle strength to be 3/5 to 4/5 to all muscle groups. DERMATOLOGICAL: There is a grade 2 ulcer/grade 2 to 3 ulceration, plantar aspect, left foot measuring 1.5 to 2 cm diameter. Necrotic scab noted. No bone or tendon exposed. Has bullae to the dorsal aspect of the second toe, right foot. Grade 2 ulcer, distal aspect, third digit right with periwound cellulitis present. Has eczema to both legs with dry excoriations noted from the knee distally. ASSESSMENT: 1. Diabetic neuropathy. 2. Grade 3 ulcer, left. 3. Grade 2 ulcer, right. 4. Bullae formation, second toe, right foot with eczema and neuropathy. PLAN: Continue IV antibiotics. Will start Santyl followed by diluted wet-to-dry Betadine to both ulcerations. Lac-Hydrin 12% lotion to both legs and feet daily. X-rays, 3 views, both feet will be ordered. Will continue to follow. Job#: [id number]
--- NOTE | 2018-05-06 12:20 | Diagnostic Imaging Report ---
Exam: Left foot 3 views, right foot 3 views History: Cellulitis Comparison: Left foot 3 views 05/05/2018 Findings: Left foot: No appreciable interval change relative to 05/05/2018. Persistent findings include post amputation defects of the second through fifth rays at the level of the metatarsophalangeal joints, with findings again suspicious for osteomyelitis involving the second and third residual metatarsal heads. Postsurgical changes related to first ray amputation of the distal phalanx also unchanged. Right foot: No acute, displaced fracture or dislocation. Appropriate alignment between the medial cuneiform and second metatarsal base in keeping with an intact Lisfranc ligament. No osseous destructive changes. Soft tissues are unremarkable. Impression: Postsurgical changes of the left foot with findings again suspicious for osteomyelitis of the second and third metatarsal heads, unchanged relative to 05/05/2018. No acute osseous abnormalities of the right foot. Signed by: Dr. Clement Cartagena M.D. on 05/06/2018 12:17 PM
[2018-05-06] MEDS ORDERED: CEFAZOLIN SOD 1 GM/D5W 50ML 50 ML IV SCH (14:00)
[2018-05-06] MEDS: CEFAZOLIN SOD 1 GM VIAL IV SCH ×2 (14:37→22:48)
[2018-05-06] MEDS ORDERED: BALSAM PERU/CASTOR OIL 60 GM OINT...G. TP PRN (16:00)
[2018-05-06] MEDS: COLLAGENASE 5 GM TUBE TOP SCH (16:28)
[2018-05-06] MEDS: AMMONIUM LACTATE 12% LOTION 225GM BTL TOP SCH (16:28)
--- NOTE | 2018-05-06 16:34 | Diagnostic Imaging Report ---
Examination: Single AP view of the chest. COMPARISON: CT chest 05/02/2018 INDICATION: PICC placement DISCUSSION: Interval placement of a left upper extremity PICC. The tip terminates over the expected region of the low superior vena cava. Lungs remain well-inflated. Bibasilar subsegmental atelectasis. No new consolidation. Stable cardiomediastinal contour with descending aortic endograft. No overt pulmonary edema. No acute osseous abnormality. IMPRESSION: Tip of left upper extremity PICC projects over the low superior vena cava. Signed by: Dr. Clement Cartagena M.D. on 05/06/2018 4:31 PM
[2018-05-06] MEDS ORDERED: INSULIN LISPRO 100 UNIT/1 ML 3ML VIAL SQ SCH (17:45)
[2018-05-06] MEDS ORDERED: POTASSIUM CHLORIDE 20 MEQ TAB CR PO ONE (17:45)
[2018-05-06] MEDS: HYDROCODONE/APAP 10MG-325MG TAB PO PRN (18:00)
[2018-05-06] MEDS: RIFAMPIN 300 MG CAP PO SCH (18:45)
[2018-05-06 20:00] VITALS: BP 122/61
[2018-05-06] MEDS: ALPRAZOLAM 0.5 MG TAB PO SCH (21:08)
[2018-05-06] MEDS ORDERED: SODIUM CHLORIDE 0.9% 50ML 50 ML ONE (22:27)
[2018-05-07] VITALS: BP 140/70
[2018-05-07] MEDS: IPRATROPIUM BROMIDE 0.02% 2.5 ML NEB NEB SCH ×4 (00:10→19:35)
[2018-05-07] MEDS: ALBUTEROL SULF 0.083% NEB SOLN 3 ML NEB NEB SCH ×7 (00:10→19:35)
[2018-05-07] MEDS: HYDROMORPHONE 2MG/ML 2 MG/ML ML IV PRN ×5 (02:50→22:30)
[2018-05-07 04:00] VITALS: BP 137/68
[2018-05-07] MEDS ORDERED: SODIUM CHLORIDE 0.9% 50ML 50 ML ONE ×2 (06:12→22:09)
[2018-05-07] MEDS: CEFAZOLIN SOD 1 GM VIAL IV SCH ×3 (06:20→22:30)
[2018-05-07] MEDS: INSULIN LISPRO 100 UNIT/1 ML 3ML VIAL SQ SCH ×3 (07:30→18:49)
[2018-05-07] MEDS: INSULIN REGULAR, HUMAN 100 UNIT/1 ML 3ML VIAL SQ SCH ×4 (07:30→20:32)
[2018-05-07] MEDS: SUCRALFATE 1 GM/10 ML SUSP PO SCH (07:34)
[2018-05-07] MEDS: RIFAMPIN 300 MG CAP PO SCH ×2 (07:34→16:22)
[2018-05-07] MEDS: TORSEMIDE 10 MG TAB PO SCH (07:59)
[2018-05-07 08:00] VITALS: BP 165/88
[2018-05-07] MEDS: GABAPENTIN 300 MG CAP PO SCH ×3 (08:00→20:20)
[2018-05-07] MEDS: LISINOPRIL 20 MG TAB PO SCH (08:00)
[2018-05-07] MEDS: HYDROCODONE/APAP 10MG-325MG TAB PO PRN (08:00)
[2018-05-07] MEDS: METOLAZONE 5 MG TAB PO SCH (08:00)
[2018-05-07] MEDS: METOPROLOL TARTRATE 50 MG TAB PO SCH ×2 (08:00→16:22)
[2018-05-07] MEDS ORDERED: BALSAM PERU/CASTOR OIL 5 GM OINT...G. TP SCH (09:00)
[2018-05-07] MEDS: BALSAM PERU/CASTOR OIL 60 GM OINT...G. TP SCH (09:55)
[2018-05-07] MEDS: AMMONIUM LACTATE 12% LOTION 225GM BTL TOP SCH (09:55)
[2018-05-07] MEDS: COLLAGENASE 5 GM TUBE TOP SCH (09:55)
[2018-05-07] MEDS: ACETAMINOPHEN 325 MG TAB PO PRN (10:12)
--- NOTE | 2018-05-07 10:12 | Progress Note ---
DATE: May 07, 2018 SUBJECTIVE: Patient is at bedside. Doing somewhat better. Denies any history fever, chills, nausea, or vomiting. OBJECTIVE VITALS: Afebrile, pulse rate 77, respirations 18, blood pressure 137/68, O2 saturation 99%. EXTREMITIES: Ulcerations to both lower extremities looking better. Has a grade 3 ulcer on plantar aspect of left foot. Grade 2 ulcer to the distal aspect, 3rd digit with a bullae formation on dorsal aspect, 2nd digit, right foot. LABS: Noted. White blood cell count 9.7. ASSESSMENT 1. Grade 3 ulcer, left. 2. Grade 2 ulcer, right with bullae. 3. Diabetic neuropathy. 4. Cellulitis. PLAN: Will continue IV antibiotics. Continue local wound care. Continue offloading. Ulcerations will be debrided possibly tomorrow. Job#: [id number] [place]
[2018-05-07] MEDS: INSULIN DETEMIR 100 UNIT/ML PEN SQ SCH ×2 (10:14→20:32)
[2018-05-07 12:00] VITALS: BP 161/77
[2018-05-07] MEDS ORDERED: BISACODYL 5 MG TAB EC PO ONE (12:00)
[2018-05-07] MEDS: HYDROCODONE/APAP 10MG-325MG TAB PO SCH ×3 (12:35→20:20)
[2018-05-07 16:00] VITALS: BP 159/80
[2018-05-07 20:00] VITALS: BP 148/69
[2018-05-07] MEDS: TAMSULOSIN HCL 0.4 MG CAP PO SCH (20:20)
[2018-05-07] MEDS: ALPRAZOLAM 0.5 MG TAB PO SCH (20:20)
[2018-05-08] VITALS (7 sets, daily range): BP systolic 136–157; BP diastolic 66–96
[2018-05-08] MEDS: HYDROCODONE/APAP 10MG-325MG TAB PO SCH ×7 (00:08→23:39)
[2018-05-08] MEDS: IPRATROPIUM BROMIDE 0.02% 2.5 ML NEB NEB SCH ×4 (03:00→18:55)
[2018-05-08] MEDS: ALBUTEROL SULF 0.083% NEB SOLN 3 ML NEB NEB SCH ×6 (03:00→22:35)
[2018-05-08] MEDS: HYDROMORPHONE 2MG/ML 2 MG/ML ML IV PRN ×4 (05:25→18:25)
[2018-05-08] MEDS ORDERED: SODIUM CHLORIDE 0.9% 50ML 50 ML ONE (05:48)
[2018-05-08 05:51] LABS: BASOPHILS % 0.3 % (0.0-1.0); EOSINOPHILS # (AUTO) 0.1 (0.0-0.4); EOSINOPHILS % 1.3 % (0.0-6.0); HEMATOCRIT 35.8 % (38.2-49.6); HEMOGLOBIN 11.6 g/dL (14.0-18.0); LYMPHOCYTES # (AUTO) 0.9 (1.0-3.2); LYMPHOCYTES % 8.7 % (18.0-39.1); MEAN CORPUSCULAR HEMOGLOBIN 28.6 pg (28-32); MEAN CORPUSCULAR HGB CONC 32.4 g/dL (31-35); MEAN CORPUSCULAR VOLUME 88.4 fL (81-99); MONOCYTES % 9.7 % (4.4-11.3); NEUTROPHILS # (AUTO) 8.1 (2.1-6.9); NEUTROPHILS % 78.9 % (38.7-80.0); PLATELET COUNT 238 x10e3/uL (140-360); RED BLOOD COUNT 4.05 x10e6/uL (4.3-5.7); RED CELL DISTRIBUTION WIDTH 13.4 % (11.7-14.4)
[2018-05-08 06:07] LABS: ANION GAP 14.2 mmol/L (8-16); BLOOD UREA NITROGEN 10 mg/dL (7-26); BUN/CREATININE RATIO 12 (6-25); CALCIUM 9.6 mg/dL (8.4-10.2); CARBON DIOXIDE 33 mmol/L (22-29); CHLORIDE 91 mmol/L (98-107); CREATININE, SERUM 0.81 mg/dL (0.72-1.25); EST GLOMERULAR FILTRATION RATE > 60 ML/MIN (60-); GLUCOSE 167 mg/dL (74-118); POTASSIUM 3.2 mmol/L (3.5-5.1); SODIUM 135 mmol/L (136-145)
[2018-05-08] MEDS: CEFAZOLIN SOD 1 GM VIAL IV SCH ×3 (06:17→21:10)
[2018-05-08] MEDS ORDERED: POTASSIUM CHLORIDE 20 MEQ TAB CR PO ONE (08:15)
[2018-05-08] MEDS: TORSEMIDE 10 MG TAB PO SCH (08:27)
[2018-05-08] MEDS: SUCRALFATE 1 GM/10 ML SUSP PO SCH (08:27)
[2018-05-08] MEDS: RIFAMPIN 300 MG CAP PO SCH ×2 (08:28→17:14)
[2018-05-08] MEDS: METOPROLOL TARTRATE 50 MG TAB PO SCH ×2 (08:28→17:13)
[2018-05-08] MEDS: GABAPENTIN 300 MG CAP PO SCH ×3 (08:28→19:59)
[2018-05-08] MEDS: LISINOPRIL 20 MG TAB PO SCH (08:28)
[2018-05-08] MEDS: METOLAZONE 5 MG TAB PO SCH (08:28)
[2018-05-08] MEDS: AMMONIUM LACTATE 12% LOTION 225GM BTL TOP SCH (08:29)
[2018-05-08] MEDS: BALSAM PERU/CASTOR OIL 60 GM OINT...G. TP SCH (08:29)
[2018-05-08] MEDS: INSULIN REGULAR, HUMAN 100 UNIT/1 ML 3ML VIAL SQ SCH ×4 (08:30→21:00)
[2018-05-08] MEDS: INSULIN LISPRO 100 UNIT/1 ML 3ML VIAL SQ SCH ×3 (08:30→17:16)
[2018-05-08] MEDS: INSULIN DETEMIR 100 UNIT/ML PEN SQ SCH ×2 (08:30→21:00)
--- NOTE | 2018-05-08 09:05 | Progress Note ---
DATE: May 08, 2018 SUBJECTIVE: Patient is feeling better. In better spirits today. Denies any history of fever, chills, nausea, or vomiting. OBJECTIVE VITAL SIGNS: Afebrile, pulse rate 77, respirations 18, blood pressure 152/67, O2 saturation 95%. EXTREMITIES: Ulcerations to both lower extremities stabilizing. Has a grade 2 ulcer plantar aspect left foot measuring 1.5 to 2 cm in diameter with necrosis noted down to muscle. No bone or tendon exposed. Periwound cellulitis present with minimal foul smell. Has a grade 2 ulcer of distal aspect of 3rd digit of right foot will bullae formation to the dorsal aspect of the 2nd toe, right foot. Pedal pulses are palpable. LABS: Show a white blood cell count of 10.2, hemoglobin 11.6, hematocrit 35.8 with a platelet count of 238,000. ASSESSMENT 1. Diabetic neuropathy. 2. Grade 3 ulcer, left. 3. Grade 2 ulcer, right with bullae of 2nd toe, right foot. PLAN: Sharp excisional debridement was performed to both the left and right foot. Necrotic tissue was removed down to muscle, including muscle of left foot and down to subcutaneous tissue, including subcutaneous of right 3rd digit. Necrotic tissue was sharply excised until good viable bleeding tissue was achieved. Sterile dressing was applied. Will continue Santyl followed by diluted wet-to-dry Betadine to affected areas. Bullae was also I and D. Will continue offloading and Cefazolin 1 g IVPB q.8 h. Job#: [id number] KATEY
[2018-05-08] MEDS: COLLAGENASE 5 GM TUBE TOP SCH (09:19)
--- NOTE | 2018-05-08 15:11 | Consultation ---
DATE OF CONSULTATION: May 08, 2018 CHIEF COMPLAINT: Right shoulder pain. HISTORY OF PRESENT ILLNESS: The patient is a 72-year-old gentleman who was complaining of right shoulder pain. He states that about 10 days ago he had to travel to and from [place]. He says he was on a plane for about 10 hours. He was carrying his roller suitcase. He says that when he got home he had some pain diffusely around his right chest and shoulder. He was seen in the emergency room. There was some concern that he may have developed a pulmonary embolism. He had a full workup for this and a cardiac event. Both of these were negative. He was noted to have some pneumonia. Because of his previous medical history and placement of an aortic stent, he was admitted for IV antibiotics. He was also noted to have a urinary tract infection. He has been in the hospital getting antibiotics, [place] and occasional Dilaudid. He states that the shoulder pain has been progressive. Orthopedic consultation was requested. PAST MEDICAL HISTORY: Please see admission H and P. He has multiple medical comorbidities including diabetes, hypertension, and the previous aortic dissection. PHYSICAL EXAMINATION: In general, he is in no obvious distress. He has nasal cannula oxygen at present. He is morbidly obese and weighs about 320 pounds. His BMI is roughly 39. Gross inspection of his right shoulder reveals no swelling, redness or atrophy. There is no specific point tenderness or fluctuance. Active range of motion is uncomfortable, but he demonstrates 160 degrees of elevation and abduction. Internal rotation is roughly to his posterior-superior iliac spine. The passive range of motion is painful. Strength testing is compromised secondary to discomfort. He has markedly positive impingement signs. LABORATORY STUDIES: X-rays were reviewed. There are no bone abnormalities. MRI was reviewed. There is no evidence of a rotator cuff tear. There is also no evidence of an abscess. He is noted to have some generalized soft-tissue inflammation. White blood cell count is 10.2. IMPRESSION: Rotator cuff impingement/tendonitis, right shoulder. The findings and options were discussed with the patient. He is presently admitted for IV antibiotics. It do not see any evidence of an infection coming from his shoulder. We will obtain the medicine for a subacromial corticosteroid injection. The patient is in agreement that he would like to try this. We will likely be able to follow him up as an outpatient. Thank you for the consultation. Job#: [id number] JOSE RAFAEL
[2018-05-08] MEDS: ALPRAZOLAM 0.5 MG TAB PO SCH (19:59)
[2018-05-08] MEDS: TAMSULOSIN HCL 0.4 MG CAP PO SCH (19:59)
[2018-05-09] VITALS (8 sets, daily range): BP systolic 139–188; BP diastolic 65–89
[2018-05-09] MEDS: HYDROMORPHONE 2MG/ML 2 MG/ML ML IV PRN ×5 (02:15→23:40)
[2018-05-09] MEDS: IPRATROPIUM BROMIDE 0.02% 2.5 ML NEB NEB SCH ×4 (02:15→20:25)
[2018-05-09] MEDS: HYDROCODONE/APAP 10MG-325MG TAB PO SCH ×6 (05:15→21:33)
[2018-05-09] MEDS: CEFAZOLIN SOD 1 GM VIAL IV SCH ×3 (05:23→21:34)
[2018-05-09] MEDS: ALBUTEROL SULF 0.083% NEB SOLN 3 ML NEB NEB SCH ×5 (07:30→23:45)
[2018-05-09] MEDS: INSULIN REGULAR, HUMAN 100 UNIT/1 ML 3ML VIAL SQ SCH ×4 (07:30→21:33)
[2018-05-09] MEDS ORDERED: MOVANTIK PO (08:24)
[2018-05-09] MEDS: MOVANTIK PO SCH (09:00)
[2018-05-09] MEDS ORDERED: MOVANTIK PO SCH (09:00)
--- NOTE | 2018-05-09 09:05 | Progress Note ---
DATE: May 09, 2018 SUBJECTIVE: Patient is doing somewhat better. Still having some pain to his right shoulder and right pec area. Denies any history of fever, chills, nausea, or vomiting. Has some burning sensation and tingling to the plantar forefoot aspect of both feet. OBJECTIVE VITAL SIGNS: Afebrile, pulse rate 76, respirations 18, blood pressure 188/87, O2 saturation 94%. EXTREMITIES: Ulcerations to both lower extremities improving. Decreased cellulitis. Negative foul smell. Ulceration to the plantar aspect of the left foot is less than 2.5 cm in diameter. The ulcer to the 3rd digit right foot is less than 1.5 cm in diameter with decreased cellulitis and negative foul smell. Minimal drainage. Pedal pulses are palpable. LABS: Show a white blood cell count of 10.2, hemoglobin 11.6 with a platelet count of 238,000. ASSESSMENT 1. Diabetic neuropathy. 2. Grade 3 ulcer, left. 3. Grade 2 ulcer, right with cellulitis. PLAN: Continue local wound care. Continue IV antibiotics. Continue off loading. Will continue to follow. Job#: [id number] [place]
[2018-05-09] MEDS: INSULIN DETEMIR 100 UNIT/ML PEN SQ SCH ×2 (09:13→21:30)
[2018-05-09] MEDS: INSULIN LISPRO 100 UNIT/1 ML 3ML VIAL SQ SCH ×3 (09:13→16:30)
[2018-05-09] MEDS: LISINOPRIL 20 MG TAB PO SCH (09:14)
[2018-05-09] MEDS: METOPROLOL TARTRATE 50 MG TAB PO SCH ×2 (09:14→17:08)
[2018-05-09] MEDS: GABAPENTIN 300 MG CAP PO SCH ×3 (09:14→20:45)
[2018-05-09] MEDS: METOLAZONE 5 MG TAB PO SCH (09:14)
[2018-05-09] MEDS: BALSAM PERU/CASTOR OIL 60 GM OINT...G. TP SCH (09:14)
[2018-05-09] MEDS: RIFAMPIN 300 MG CAP PO SCH ×2 (09:14→17:08)
[2018-05-09] MEDS: BACLOFEN 10 MG TAB PO SCH ×3 (09:14→20:45)
[2018-05-09] MEDS: SUCRALFATE 1 GM/10 ML SUSP PO SCH (09:14)
[2018-05-09] MEDS: TORSEMIDE 10 MG TAB PO SCH (09:14)
[2018-05-09] MEDS: COLLAGENASE 5 GM TUBE TOP SCH (11:26)
[2018-05-09] MEDS: AMMONIUM LACTATE 12% LOTION 225GM BTL TOP SCH (11:26)
[2018-05-09] MEDS: ALPRAZOLAM 0.5 MG TAB PO SCH (20:45)
[2018-05-09] MEDS: TAMSULOSIN HCL 0.4 MG CAP PO SCH (20:45)
[2018-05-10] VITALS (7 sets, daily range): BP systolic 143–192; BP diastolic 66–84
[2018-05-10] MEDS: ALBUTEROL SULF 0.083% NEB SOLN 3 ML NEB NEB SCH ×6 (03:45→23:20)
[2018-05-10] MEDS: IPRATROPIUM BROMIDE 0.02% 2.5 ML NEB NEB SCH ×5 (03:45→23:20)
[2018-05-10] MEDS: HYDROCODONE/APAP 10MG-325MG TAB PO SCH ×6 (04:27→21:00)
[2018-05-10] MEDS: CEFAZOLIN SOD 1 GM VIAL IV SCH ×3 (05:45→22:06)
[2018-05-10] MEDS: BISACODYL 5 MG TAB EC PO SCH (06:03)
--- NOTE | 2018-05-10 08:53 | Progress Note ---
DATE: May 10, 2018 SUBJECTIVE: Patient seen at bedside. Doing better. Decreased pain to his right shoulder. Denies any history of fever, chills, nausea, vomiting. OBJECTIVE: Vitals: Afebrile. Pulse rate 78, respirations 20. Blood pressure 192/84. O2 saturation 94%. Labs noted. White blood cell count 10.2. Ulcerations to both lower extremities continue to improve. Grade-3 ulcer to the plantar aspect of the left foot measuring 2.5 to 3 cm in diameter with a grade-2 ulcer at the distal aspect of 3rd digit right. ASSESSMENT 1. Grade-3 ulcer left and grade-2 ulcer right. 2. Diabetic neuropathy with cellulitis. PLAN: Will continue cefazolin 1 gram IV piggyback q.8 h. Continue local wound care. Continue offloading. Will continue to follow. Job#: [id number]
[2018-05-10] MEDS: INSULIN DETEMIR 100 UNIT/ML PEN SQ SCH ×2 (09:00→22:07)
[2018-05-10] MEDS: INSULIN LISPRO 100 UNIT/1 ML 3ML VIAL SQ SCH ×3 (09:00→17:59)
[2018-05-10] MEDS: INSULIN REGULAR, HUMAN 100 UNIT/1 ML 3ML VIAL SQ SCH ×4 (09:00→20:08)
[2018-05-10] MEDS: BACLOFEN 10 MG TAB PO SCH ×3 (09:01→22:06)
[2018-05-10] MEDS: AMMONIUM LACTATE 12% LOTION 225GM BTL TOP SCH (09:01)
[2018-05-10] MEDS: RIFAMPIN 300 MG CAP PO SCH ×2 (09:01→17:58)
[2018-05-10] MEDS: METOPROLOL TARTRATE 50 MG TAB PO SCH ×2 (09:01→17:58)
[2018-05-10] MEDS: TORSEMIDE 10 MG TAB PO SCH (09:01)
[2018-05-10] MEDS: COLLAGENASE 5 GM TUBE TOP SCH (09:01)
[2018-05-10] MEDS: GABAPENTIN 300 MG CAP PO SCH ×3 (09:01→22:06)
[2018-05-10] MEDS: LISINOPRIL 20 MG TAB PO SCH (09:01)
[2018-05-10] MEDS: BALSAM PERU/CASTOR OIL 60 GM OINT...G. TP SCH (09:01)
[2018-05-10] MEDS: METOLAZONE 5 MG TAB PO SCH (09:01)
[2018-05-10] MEDS: SUCRALFATE 1 GM/10 ML SUSP PO SCH (09:01)
[2018-05-10] MEDS: MOVANTIK PO SCH (09:02)
[2018-05-10] MEDS: HYDROMORPHONE 2MG/ML 2 MG/ML ML IV PRN ×3 (11:00→22:27)
[2018-05-10] MEDS: GUAIFENESIN 600 MG TAB PO SCH ×2 (13:24→17:58)
[2018-05-10] MEDS ORDERED: GUAIFENESIN 600 MG TAB PO SCH (17:00)
[2018-05-10] MEDS ORDERED: IOPAMIDOL 370 MG/ML 200 ML INFUS..BTL INJ ONE (19:06)
[2018-05-10] MEDS ORDERED: SODIUM CHLORIDE 0.9% 50ML 50 ML ONE (19:06)
[2018-05-10] MEDS: TAMSULOSIN HCL 0.4 MG CAP PO SCH (22:05)
[2018-05-11] VITALS (8 sets, daily range): BP systolic 155–206; BP diastolic 70–89
[2018-05-11] MEDS: HYDROCODONE/APAP 10MG-325MG TAB PO SCH ×6 (00:20→20:30)
[2018-05-11] MEDS: BISACODYL 5 MG TAB EC PO SCH (00:49)
[2018-05-11] MEDS ORDERED: BISACODYL 5 MG TAB EC PO PRN (01:00)
[2018-05-11] MEDS: ALBUTEROL SULF 0.083% NEB SOLN 3 ML NEB NEB SCH ×6 (02:52→23:04)
[2018-05-11] MEDS: ACETAMINOPHEN 325 MG TAB PO PRN (04:53)
[2018-05-11] MEDS: CEFAZOLIN SOD 1 GM VIAL IV SCH ×3 (05:24→22:00)
[2018-05-11] MEDS: IPRATROPIUM BROMIDE 0.02% 2.5 ML NEB NEB SCH ×3 (07:00→19:07)
[2018-05-11] MEDS: INSULIN REGULAR, HUMAN 100 UNIT/1 ML 3ML VIAL SQ SCH ×4 (07:30→20:44)
[2018-05-11] MEDS: HYDROMORPHONE 2MG/ML 2 MG/ML ML IV PRN ×4 (07:46→22:00)
[2018-05-11] MEDS: HYDRALAZINE HCL 20 MG/ML VIAL IV PRN ×2 (07:46→12:15)
[2018-05-11] MEDS: SUCRALFATE 1 GM/10 ML SUSP PO SCH (09:05)
[2018-05-11] MEDS: BACLOFEN 10 MG TAB PO SCH ×3 (09:05→20:30)
[2018-05-11] MEDS: TORSEMIDE 10 MG TAB PO SCH (09:05)
[2018-05-11] MEDS: MOVANTIK PO SCH (09:05)
[2018-05-11] MEDS: INSULIN LISPRO 100 UNIT/1 ML 3ML VIAL SQ SCH ×3 (09:05→17:17)
[2018-05-11] MEDS: COLLAGENASE 5 GM TUBE TOP SCH (09:06)
[2018-05-11] MEDS: METOPROLOL TARTRATE 50 MG TAB PO SCH ×2 (09:06→17:18)
[2018-05-11] MEDS: INSULIN DETEMIR 100 UNIT/ML PEN SQ SCH ×2 (09:06→20:44)
[2018-05-11] MEDS: LISINOPRIL 20 MG TAB PO SCH ×2 (09:06→17:18)
[2018-05-11] MEDS: AMMONIUM LACTATE 12% LOTION 225GM BTL TOP SCH (09:06)
[2018-05-11] MEDS: GUAIFENESIN 600 MG TAB PO SCH ×2 (09:06→17:18)
[2018-05-11] MEDS: METOLAZONE 5 MG TAB PO SCH (09:06)
[2018-05-11] MEDS: RIFAMPIN 300 MG CAP PO SCH ×2 (09:06→17:18)
[2018-05-11] MEDS: GABAPENTIN 300 MG CAP PO SCH ×3 (09:06→20:30)
[2018-05-11] MEDS: BALSAM PERU/CASTOR OIL 60 GM OINT...G. TP SCH (09:07)
[2018-05-11] MEDS ORDERED: HYDRALAZINE HCL 20 MG/ML VIAL IV PRN (11:00)
--- NOTE | 2018-05-11 16:10 | Progress Note ---
DATE: May 11, 2018 SUBJECTIVE: Patient seen at bedside. Doing better. Decreased pain and tenderness. Denies any history of fever, chills, nausea, or vomiting. OBJECTIVE VITAL SIGNS: Afebrile, pulse rate 59, respirations 20, blood pressure 193/73, and O2 saturation 95%. EXTREMITIES: Ulceration to the left and right foot healing and is down to muscle and subcutaneous tissue left and 3rd digit right foot respectively. There is some drainage. Negative foul smell. Cellulitis is greatly diminished. LABS: Noted. Has a white blood cell count 10.2, hemoglobin 11.6 with a platelet count of 238. ASSESSMENT 1. Grade III ulcer left foot. 2. Diabetic neuropathy with grade II ulcer, 3rd digit right. PLAN: Sharp excisional debridement of the ulcers were carried down to muscle and subcutaneous tissue respectively to the left and right foot until good viable bleeding tissue was achieved via sharp dissection. Sterile dressing was applied. We will continue applying Santyl followed by diluted wet-to-dry Betadine. Continue IV antibiotics. Continue offloading as best as possible. We will continue to follow him as before. Job#: [id number] ÓSCAR
[2018-05-11 17:21] LABS: BILIRUBIN,URINE NEGATIVE (NEGATIVE); CLARITY,URINE CLEAR (CLEAR); COLOR,URINE YELLOW (YELLOW); KETONES,URINE NEGATIVE (NEGATIVE); LEUKOCYTE ESTERASE ,URINE TRACE (NEGATIVE); NITRITE,URINE NEGATIVE (NEGATIVE); PROTEIN,URINE DIPSTICK NEGATIVE (NEGATIVE); URINE UROBILINOGEN 0.2 mg/dL (0.2 - 1)
[2018-05-11 17:41] LABS: EPITHELIAL CELLS,URINE FEW /LPF; TRANSITIONAL EPI CELLS,URINE FEW
[2018-05-11 17:42] LABS: RBC,URINE 21-50 /HPF (0-5)
[2018-05-11 17:44] LABS: BACTERIA,URINE RARE /HPF; WBC,URINE (MAN) 0-5 /HPF (0-5)
[2018-05-11 17:45] LABS: HYALINE CASTS 0-1 (0-1)
--- NOTE | 2018-05-11 19:42 | Diagnostic Imaging Report ---
EXAM: CT CHEST W INDICATION: Clavicle, sternal osteomyelitis COMPARISON: CT of the chest August 14, 2013 TECHNIQUE: Multidetector CT scanning of the chest was performed. Coronal and sagittal multiplanar reformations were obtained. Dose modulation, iterative reconstruction, and/or weight based adjustment of the mA/kV was utilized to reduce the radiation dose to as low as reasonably achievable. Routine protocol performed. IV Contrast: 100 cc Isovue-370 CTDIvol has been reviewed. It is below the limits set by the Radiation Protocol Committee (RPC). FINDINGS: LUNGS AND AIRWAYS: The trachea and major bronchi are unremarkable. No consolidations or edema. PLEURA: Trace bilateral pleural effusions. HEART, MEDIASTINUM, VESSELS: Left approach PICC terminates at the atriocaval junction. Trace pericardial effusion. The heart is mildly enlarged. There is a descending thoracic aortic stent graft. No mediastinal mass or lymphadenopathy. UPPER ABDOMEN: No acute findings MUSCULOSKELETAL: There is mild asymmetric enlargement of the right pectoralis muscle (series 2, image 14) and mild asymmetric soft tissue swelling of the anterior and posterior aspects of the right sternoclavicular joint. No erosive changes. IMPRESSION: There is mild asymmetric enlargement of the right pectoralis muscle medially and mild asymmetric soft tissue swelling of the anterior and posterior aspects of the right sternoclavicular joint without CT findings of osteomyelitis. Consider MRI to evaluate for septic right sternoclavicular joint. Signed by: Dr. Yenny Vilchis M.D. on 05/11/2018 7:39 PM
[2018-05-11] MEDS: TAMSULOSIN HCL 0.4 MG CAP PO SCH (20:30)
[2018-05-11] MEDS ORDERED: ALPRAZOLAM 0.5 MG TAB PO PRN (21:00)
[2018-05-11] MEDS ORDERED: SODIUM CHLORIDE 0.9% 50ML 50 ML ONE (21:50)
[2018-05-12] VITALS: BP 184/76
[2018-05-12] MEDS: HYDROCODONE/APAP 10MG-325MG TAB PO SCH ×7 (00:24→23:58)
[2018-05-12] MEDS: HYDRALAZINE HCL 20 MG/ML VIAL IV PRN ×2 (01:16→17:45)
[2018-05-12] MEDS: HYDROMORPHONE 2MG/ML 2 MG/ML ML IV PRN ×4 (01:16→23:29)
[2018-05-12] MEDS: ALBUTEROL SULF 0.083% NEB SOLN 3 ML NEB NEB SCH ×5 (02:05→19:15)
[2018-05-12] MEDS: IPRATROPIUM BROMIDE 0.02% 2.5 ML NEB NEB SCH ×4 (02:05→19:15)
[2018-05-12 04:00] VITALS: BP 136/70
[2018-05-12] MEDS ORDERED: SODIUM CHLORIDE 0.9% 50ML 50 ML ONE ×2 (05:31→23:26)
[2018-05-12 06:16] LABS: BASOPHILS % 0.4 % (0.0-1.0); EOSINOPHILS # (AUTO) 0.1 (0.0-0.4); EOSINOPHILS % 1.8 % (0.0-6.0); HEMOGLOBIN 12.7 g/dL (14.0-18.0); LYMPHOCYTES # (AUTO) 1.1 (1.0-3.2); LYMPHOCYTES % 13.6 % (18.0-39.1); MEAN CORPUSCULAR HEMOGLOBIN 28.3 pg (28-32); MEAN CORPUSCULAR HGB CONC 32.6 g/dL (31-35); MEAN CORPUSCULAR VOLUME 86.9 fL (81-99); MONOCYTES # (AUTO) 0.7 (0.2-0.8); MONOCYTES % 8.7 % (4.4-11.3); NEUTROPHILS # (AUTO) 5.7 (2.1-6.9); NEUTROPHILS % 73.6 % (38.7-80.0); PLATELET COUNT 314 x10e3/uL (140-360); RED BLOOD COUNT 4.49 x10e6/uL (4.3-5.7); RED CELL DISTRIBUTION WIDTH 13.6 % (11.7-14.4)
[2018-05-12] MEDS: CEFAZOLIN SOD 1 GM VIAL IV SCH ×3 (06:22→22:30)
[2018-05-12 06:51] LABS: ALANINE AMINOTRANSFERASE 24 IU/L (0-55); ALBUMIN 3.1 g/dL (3.5-5.0); ALBUMIN/GLOBULIN RATIO 0.7 (0.8-2.0); ALKALINE PHOSPHATASE 70 IU/L (40-150); ANION GAP 17.4 mmol/L (8-16); BLOOD UREA NITROGEN 10 mg/dL (7-26); BUN/CREATININE RATIO 13 (6-25); CARBON DIOXIDE 29 mmol/L (22-29); CHLORIDE 98 mmol/L (98-107); CREATININE, SERUM 0.75 mg/dL (0.72-1.25); EST GLOMERULAR FILTRATION RATE > 60 ML/MIN (60-); GLUCOSE 97 mg/dL (74-118); POTASSIUM 3.4 mmol/L (3.5-5.1); SODIUM 141 mmol/L (136-145)
[2018-05-12] MEDS: INSULIN REGULAR, HUMAN 100 UNIT/1 ML 3ML VIAL SQ SCH ×4 (07:30→20:13)
[2018-05-12 08:00] VITALS: BP 178/74
[2018-05-12] MEDS: CIPROFLOXACIN 250 MG TAB PO SCH ×2 (08:30→17:24)
[2018-05-12] MEDS: BACLOFEN 10 MG TAB PO SCH ×3 (08:30→20:23)
[2018-05-12] MEDS: SUCRALFATE 1 GM/10 ML SUSP PO SCH (08:30)
[2018-05-12] MEDS: MOVANTIK PO SCH (08:30)
[2018-05-12] MEDS: TORSEMIDE 10 MG TAB PO SCH (08:30)
[2018-05-12] MEDS: INSULIN LISPRO 100 UNIT/1 ML 3ML VIAL SQ SCH ×3 (08:30→17:23)
[2018-05-12] MEDS: INSULIN DETEMIR 100 UNIT/ML PEN SQ SCH ×2 (08:31→20:23)
[2018-05-12] MEDS: RIFAMPIN 300 MG CAP PO SCH ×2 (08:31→17:25)
[2018-05-12] MEDS: METOPROLOL TARTRATE 50 MG TAB PO SCH ×2 (08:31→17:25)
[2018-05-12] MEDS: GABAPENTIN 300 MG CAP PO SCH ×3 (08:31→20:23)
[2018-05-12] MEDS: GUAIFENESIN 600 MG TAB PO SCH ×2 (08:31→17:25)
[2018-05-12] MEDS: PHENAZOPYRIDINE HCL 100 MG TAB PO SCH ×3 (08:31→17:26)
[2018-05-12] MEDS: METOLAZONE 5 MG TAB PO SCH (08:31)
[2018-05-12] MEDS: COLLAGENASE 5 GM TUBE TOP SCH (08:31)
[2018-05-12] MEDS: LISINOPRIL 20 MG TAB PO SCH ×2 (08:31→17:25)
[2018-05-12] MEDS: AMMONIUM LACTATE 12% LOTION 225GM BTL TOP SCH (08:31)
[2018-05-12] MEDS: BALSAM PERU/CASTOR OIL 60 GM OINT...G. TP SCH (08:32)
[2018-05-12 12:00] VITALS: BP 157/71
--- NOTE | 2018-05-12 14:28 | Progress Note ---
DATE: May 12, 2018 SUBJECTIVE: Patient seen at bedside. Doing better. Denies any history of fever, chills, nausea, or vomiting. Decreased pain to his right shoulder. OBJECTIVE VITAL SIGNS: Afebrile. Pulse rate 56, respirations 20, blood pressure 157/71, and O2 saturation 95%. EXTREMITIES: Pedal pulses are palpable. Ulceration to the left and right foot respectively doing better, down to muscle and subcutaneous tissue. There is decreased drainage. No foul smell. Decreased edema with decreased cellulitis. LABS: Noted. Has a white blood cell count of 7.72, hemoglobin 12.7, hematocrit 39.0 with a platelet count of 314. ASSESSMENT: Grade III ulcer left, grade II ulcer right, measuring 1.5 to 2 cm in diameter left foot and less than 1.5 cm in diameter 3rd digit right with diabetic neuropathy and cellulitis. PLAN: We will continue ciprofloxacin. Continue cefazolin IV. Continue local wound care. Continue offloading. We will continue to follow. Job#: [id number] [facility]
[2018-05-12 16:00] VITALS: BP 180/81
[2018-05-12 20:00] VITALS: BP 143/61
--- NOTE | 2018-05-12 20:05 | Consultation ---
DATE OF CONSULTATION: May 11, 2018 UROLOGY CONSULTATION REASON FOR CONSULTATION: Urinary discomfort. HISTORY OF PRESENT ILLNESS: Young Puga is a 72-year-old man who has been a long-standing patient of Dr. Enrique Linda. Dr. Enrique Linda is currently unavailable and urological consultation was sought with him, I am seeing the patient in coverage. Patient has an enlarged prostate. He has had prostate biopsies in the past that were negative for carcinoma. 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 He is status post bilateral orchiectomy due to atrophic testes that were uncomfortable. 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 The nurse evaluated the patient with a bladder scanner and was found to have a postvoid residual of only 37 mL. The patient takes no alpha-rishi medication. He used to be on a 5-alpha reductase inhibitor but this was discontinued due to the fact that it did not seem to make a difference in the urination and it caused hirsutism. The patient is currently hospitalized due to sepsis and had a Duffy catheter in place for the first several days of the hospitalization. PAST MEDICAL AND SURGICAL HISTORY 1. Obesity. 2. TEVAR type B aortic dissection, status post aortic stent placement. 3. Hypertension. 4. Sleep apnea. 5. Diabetes mellitus. 6. Atrial fibrillation. 7. Status post ablation for atrial fibrillation. 8. Degenerative joint disease. 9. Severe spinal stenosis. 10. Anemia. 11. Hyperlipidemia. 12. Status post tonsillectomy. 13. 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 14. History of atrial flutter. 15. Status post bilateral orchiectomy. 16. Hypergonadism. 17. Prostatism. 18. Elevated PSA with negative biopsies. 19. Right shoulder pain. 20. Pneumonia. ALLERGIES: NONE KNOWN. CURRENT MEDICATIONS: Please refer to the MAR. SOCIAL HISTORY: The patient denies smoking, alcohol, and drug use. 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 FAMILY HISTORY: Noncontributory to the active urological problems. It is significant for hypertension. REVIEW OF SYSTEMS: Consistent with the above history of present illness and past medical history, otherwise negative for all other systems. PHYSICAL EXAMINATION GENERAL: A very pleasant elderly man, sitting up in bed, in no apparent distress. VITAL SIGNS: He is currently afebrile. Vital signs are currently stable. ABDOMEN: Soft, nondistended, and nontender. He is obese. GENITOURINARY: Testes are absent. There is erythema at the distal penis as well as the glans penis consistent with chronic balanoposthitis. Meatus appears normal. No obvious or suspicious genitourinary lesions. For the remainder of the physical examination systems, please refer to the admission history and physical on the chart. LABORATORY STUDIES: The patient had a urine culture that was positive for Enterobacter aerogenes upon admission to the hospital. The patient had a white blood cell count that was highly elevated but it is now normalized at 10,260. Patient's last hemoglobin was 11.6. Platelets are normal at 238,000. The patient's last sodium was low at 135 as well as potassium was low at 3.2. Urinalysis performed today revealed 21 to 50 rbc's, 0 to 5 wbc's, and rare bacteria. Urine culture is not pending from today yet. CT scan of the abdomen and pelvis from May 04 revealed that the Duffy catheter balloon was inflated within the prostatic urethra, and the prostate was enlarged. ASSESSMENT 1. Incomplete bladder emptying with postvoid residual of 37 mL. 2. Benign prostatic hypertrophy. 3. Elevated prostate specific antigen with negative prostate biopsies. 4. Balanoposthitis. 5. Hypergonadism, on testosterone replacement. 6. Leukocytosis, improved. 7. Anemia. 8. Hyponatremia. 9. Hypokalemia. 10. Microhematuria. 11. Urinary tract infection that has been treated. 12. Urethral trauma with Duffy balloon inflated in the prostatic urethra. PLAN 1. I have asked for a urine culture, and I will reorder that. 2. I will order the patient Pyridium. 3. The patient is on broad-spectrum antibiotics; however, the patient's prior urine culture was resistant to cefazolin. We will place the patient empirically on Bactrim to which the prior infection was sensitive. 4. I instructed the patient in penile care for his balanoposthitis. 5. Ongoing urologic followup is a must. 6. The patient has microhematuria which will need followup. 7. The patient at some point should have a cystoscopic examination to ensure there is no residual damage from the malpositioned Duffy catheter. Thank you very much for involving us in the care of your patient. We will turn the case back over to Dr. Linda upon his return. Job#: [id number] LPA cc:DR. GLIBERT DOMINGUEZ
[2018-05-12] MEDS: TAMSULOSIN HCL 0.4 MG CAP PO SCH (20:23)
[2018-05-13] VITALS: BP 122/70
[2018-05-13] MEDS: IPRATROPIUM BROMIDE 0.02% 2.5 ML NEB NEB SCH ×2 (00:02→08:10)
[2018-05-13] MEDS: ALBUTEROL SULF 0.083% NEB SOLN 3 ML NEB NEB SCH ×4 (00:02→11:00)
[2018-05-13 04:00] VITALS: BP 169/79
[2018-05-13] MEDS: HYDROCODONE/APAP 10MG-325MG TAB PO SCH ×3 (04:58→12:05)
[2018-05-13 05:58] LABS: BASOPHILS % 0.3 % (0.0-1.0); EOSINOPHILS # (AUTO) 0.1 (0.0-0.4); HEMATOCRIT 39.6 % (38.2-49.6); HEMOGLOBIN 12.6 g/dL (14.0-18.0); MEAN CORPUSCULAR HEMOGLOBIN 28.1 pg (28-32); MEAN CORPUSCULAR HGB CONC 31.8 g/dL (31-35); MEAN CORPUSCULAR VOLUME 88.2 fL (81-99); MONOCYTES # (AUTO) 0.5 (0.2-0.8); MONOCYTES % 7.1 % (4.4-11.3); NEUTROPHILS # (AUTO) 5.1 (2.1-6.9); NEUTROPHILS % 73.7 % (38.7-80.0); PLATELET COUNT 300 x10e3/uL (140-360); RED BLOOD COUNT 4.49 x10e6/uL (4.3-5.7); RED CELL DISTRIBUTION WIDTH 13.7 % (11.7-14.4)
[2018-05-13] MEDS: HYDROMORPHONE 2MG/ML 2 MG/ML ML IV PRN (05:58)
[2018-05-13] MEDS: CEFAZOLIN SOD 1 GM VIAL IV SCH (06:01)
[2018-05-13 06:09] LABS: ALANINE AMINOTRANSFERASE 24 IU/L (0-55); ALBUMIN 3.1 g/dL (3.5-5.0); ALBUMIN/GLOBULIN RATIO 0.7 (0.8-2.0); ALKALINE PHOSPHATASE 65 IU/L (40-150); ANION GAP 15.6 mmol/L (8-16); BLOOD UREA NITROGEN 12 mg/dL (7-26); BUN/CREATININE RATIO 14 (6-25); CALCIUM 9.6 mg/dL (8.4-10.2); CARBON DIOXIDE 28 mmol/L (22-29); CHLORIDE 99 mmol/L (98-107); CREATININE, SERUM 0.87 mg/dL (0.72-1.25); EST GLOMERULAR FILTRATION RATE > 60 ML/MIN (60-); GLUCOSE 222 mg/dL (74-118); POTASSIUM 3.6 mmol/L (3.5-5.1); SODIUM 139 mmol/L (136-145)
[2018-05-13 07:05] VITALS: BP 171/81
[2018-05-13 07:20] VITALS: BP 171/81
[2018-05-13] MEDS: CIPROFLOXACIN 250 MG TAB PO SCH (08:21)
[2018-05-13] MEDS: LISINOPRIL 20 MG TAB PO SCH (08:21)
[2018-05-13] MEDS: TORSEMIDE 10 MG TAB PO SCH (08:21)
[2018-05-13] MEDS: GABAPENTIN 300 MG CAP PO SCH (08:21)
[2018-05-13] MEDS: SUCRALFATE 1 GM/10 ML SUSP PO SCH (08:21)
[2018-05-13] MEDS: PHENAZOPYRIDINE HCL 100 MG TAB PO SCH (08:21)
[2018-05-13] MEDS: GUAIFENESIN 600 MG TAB PO SCH (08:21)
[2018-05-13] MEDS: METOPROLOL TARTRATE 50 MG TAB PO SCH (08:21)
[2018-05-13] MEDS: MOVANTIK PO SCH (08:21)
[2018-05-13] MEDS: RIFAMPIN 300 MG CAP PO SCH (08:21)
[2018-05-13] MEDS: METOLAZONE 5 MG TAB PO SCH (08:21)
[2018-05-13] MEDS: BACLOFEN 10 MG TAB PO SCH (08:21)
[2018-05-13] MEDS: INSULIN REGULAR, HUMAN 100 UNIT/1 ML 3ML VIAL SQ SCH ×2 (08:24→12:10)
[2018-05-13] MEDS: INSULIN DETEMIR 100 UNIT/ML PEN SQ SCH (08:24)
[2018-05-13] MEDS: BALSAM PERU/CASTOR OIL 60 GM OINT...G. TP SCH (08:24)
[2018-05-13] MEDS: INSULIN LISPRO 100 UNIT/1 ML 3ML VIAL SQ SCH ×2 (08:24→12:06)
--- NOTE | 2018-05-13 09:13 | Progress Note ---
DATE: May 13, 2018 SUBJECTIVE: Patient seen at bedside, ready to go home. Denies any history of fever, chills, nausea or vomiting. OBJECTIVE: Vitals: Afebrile. Vital signs stable. Ulcerations to both lower extremities continue to improve. Grade-3 ulcer left foot. Grade-2 ulcer, 3rd digit, right. Periwound cellulitis present. No foul smell. Minimal drainage. ASSESSMENT: Grade-3 ulcer with diabetic neuropathy with cellulitis with a grade-2 ulcer, 2nd toe, right. PLAN: Will continue local wound care. Patient will continue oral antibiotics at home. He is to follow up within a couple of weeks in the office. Instructed on proper offloading with a surgical shoe. Job#: [id number]
[2018-05-13] MEDS: AMMONIUM LACTATE 12% LOTION 225GM BTL TOP SCH (10:35)
[2018-05-13] MEDS: COLLAGENASE 5 GM TUBE TOP SCH (10:35)
[2018-05-13 10:57] VITALS: BP 167/73
--- OUTSIDE RECORDS SUMMARY | 2018-05-14 10:58 | XMS REPORT ---
Author Author [facility] Address Unknown Phone Unavailable Care Team Providers Care Assistant Professor Of Education Name Role Phone GILBERT DOMINGUEZ Unavailable Unavailable Problems This patient has no known problems. Allergies, Adverse Reactions, Alerts This patient has no known allergies or adverse reactions. Medications This patient has no known medications. Results Test Description Test Time Test Comments Text Results Atomic Results Result Comments CT CHEST W 2018-05-11 19:24:00 [place] [address] Patient Name: ISAAC STILL MR #: [id number] : 1945 Age/Sex: 72/M Req #: [id number] Adm Physician: GILBERT DOMINGUEZ MD Ordered by: GREGORY HERNANDES MD Report #: [id number] Location: [facility] Room/Bed: [facility] Procedure: [id number] CT/CT CHEST W Exam Date: 05/10/18 Exam Time: 1824 REPORT STATUS: Signed EXAM: CT CHEST W INDICATION: Clavicle, sternal osteomyelitis COMPARISON: CT of the chest August 14, 2013 TECHNIQUE: Multidetector CT scanning of the chest was performed. Coronal and sagittal multiplanar reformations were obtained. Dose modulation, iterative reconstruction, and/or weight based adjustment of the mA/kV was utilized to reduce the radiation dose to as low as reasonably achievable. Routine protocol performed. IV Contrast: 100 cc Isovue-370 CTDIvol has been reviewed. It is below the limits set by the Radiation Protocol Committee (RPC). FINDINGS: LUNGS AND AIRWAYS: The trachea and major bronchi are unremarkable. No consolidations or edema. PLEURA: Trace bilateral pleural effusions. HEART, MEDIASTINUM, VESSELS: Left approach PICC terminates at the atriocaval junction. Trace pericardial effusion. The heart is mildly enlarged. There is a descending thoracic aortic stent graft. No mediastinal mass or lymphadenopathy. UPPER ABDOMEN: No acute findings MUSCULOSKELETAL: There is mild asymmetric enlargement of the right pectoralis muscle (series 2, image 14) and mild asymmetric soft tissue swelling of the anterior and posterior aspects of the right sternoclavicular joint. No erosive changes. IMPRESSION: There is mild asymmetric enlargement of the right pectoralis muscle medially and mild asymmetric soft tissue swelling of the anterior and posterior aspects of the right sternoclavicular joint without CT findings of osteomyelitis. Consider MRI to evaluate for septic right sternoclavicular joint. Signed by: Dr. Viet Vilchis M.D. on 05/11/2018 7:39 PM Dictated By: VIET VILCHIS MD 38 Transcribed By: BARTOLOME on 05/11/181938 COPY TO: GREGORY HERNANDES MD CHEST XRAY LINE PLACEMENT 2018-05-06 16:30:00 [place] [address] Patient Name: ISAAC STILL MR #: [id number] : 1945 Age/Sex: 72/M Req #: [id number] Adm Physician: GILBERT DOMINGUEZ MD Ordered by: ISAIAS BUSTILLO Report #: [id number] Location: [facility] Room/Bed: [place] [address] Procedure: [id number] DX/CHEST XRAY LINE PLACEMENT Exam Date: 05/06/18 Exam Time: 1600 REPORT STATUS: Signed Examination: Single AP view of the chest. COMPARISON: CT chest 05/02/2018 INDICATION: PICC placement DISCUSSION: Interval placement of a left upper extremity PICC. The tip terminates over the expected region of the low superior vena cava. Lungs remain well-inflated. Bibasilar subsegmental atelectasis. No new consolidation. Stable cardiomediastinal contour with descending aortic endograft. No overt pulmonary edema. No acute osseous abnormality. IMPRESSION: Tip of left upper extremity PICC projects over the low superior vena cava. Signed by: Dr. Chrissy Cartagena M.D. on 05/06/2018 4:31 PM Dictated By: CHRISSY CARTAGENA MD 1631 Transcribed By: BARTOLOME on 05/06/18 1631 COPY TO: ISAIAS BUSTILLO PA FOOT COMPLETE BILATERAL 2018-05-06 12:15:00 [place] [address] Patient Name: ISAAC STILL MR #: [id number] : 1945 Age/Sex: 72/M Req #: [id number] Adm Physician: GILBERT DOMINGUEZ MD Ordered by: SAUNDRA ENG DPJero Report #: [id number] Location: [facility] Room/Bed: [place] [address] Procedure: [id number] DX/FOOT COMPLETE BILATERAL Exam Date: 05/06/18 Exam Time: 1102 REPORT STATUS: Signed Exam: Left foot 3 views, right foot 3 views History: Cellulitis Comparison: Left foot 3 views 05/05/2018 Findings: Left foot: No appreciable interval change relative to 05/05/2018. Persistent findings include post amputation defects of the second through fifth rays at the level of the metatarsophalangeal joints, with findings again suspicious for osteomyelitis involving the second and third residual metatarsal heads. Postsurgical changes related to first ray amputation of the distal phalanx also unchanged. Right foot: No acute, displaced fracture or dislocation. Appropriate alignment between the medial cuneiform and second metatarsal base in keeping with an intact Lisfranc ligament. No osseous destructive changes. Soft tissues are unremarkable. Impression: Postsurgical changes of the left foot with findings again suspicious for osteomyelitis of the second and third metatarsal heads, unchanged relative to 05/05/2018. No acute osseous abnormalities of the right foot. Signed by: Dr. Chrissy Cartagena M.D. on 05/06/2018 12:17 PM Dictated By: CHRISSY CARTAGENA MD 1217 Transcribed By: BARTOLOME on 05/06/18 1217 COPY TO: SAUNDRA ENG DPM MRI SHOULDER RIGHT WWO 2018-05-06 08:09:00 [place] [address] Patient Name: ISAAC STILL MR #: [id number] : 1945 Age/Sex: 72/M Req #: [id number] Adm Physician: GILBERT DOMINGUEZ MD Ordered by: GREGORY HERNANDES MD Report #: [id number] Location: [facility] Room/Bed: [place] [address] Procedure: [id number] MRI/MRI SHOULDER RIGHT WWO Exam Date: Exam Time: REPORT STATUS: Signed TECHNIQUE: Magnetic resonance imaging of the RIGHT SHOULDER was performed WITHOUT injected contrast. COMPARISON: None available. HISTORY: Right shoulder pain FINDINGS: MUSCLES AND TENDONS: Rotator Cuff: Tendons: The rotator cuff tendons intact. No tear. Muscles: No focal muscle atrophy. Biceps Tendon: The long head of the biceps tendon is intact and within the intertubercular groove. GLENOHUMERAL JOINT: Glenoid Labrum: Fraying of the superior and posterior labrum. Articular Cartilage: Thickness cartilage loss. AC JOINT AND ACROMION: Mild hypertrophic degenerative changes of the acromioclavicular joint. The acromion is unremarkable. BONE: No focal or infiltrative bone marrow replacing abnormality. No acute fracture. SOFT TISSUES: Mild edema of the soft tissues of the anterior shoulder. IMPRESSION: Soft tissue edema/cellulitis of the shoulder. No abscess or osteomyelitis. Intact rotator cuff. Signed by: Dr. Pj Mares M.D. on 05/06/2018 8:11 AM Dictated By: PJ MARES MD 0 Transcribed By: BARTOLOME on 05/06/18810 COPY TO: GREGORY HERNANDES MD FOOT LEFT COMPLETE 2018-05-05 12:24:00 [place] [address] Patient Name: ISAAC STILL MR #: [id number] : 1945 Age/Sex: 72/M Req #: [id number] Adm Physician: GILBERT DOMINGUEZ MD Ordered by: GILBERT DOMINGUEZ MD Report #: [id number] Location: [facility] Room/Bed: [place] [address] Procedure: [id number] DX/FOOT LEFT COMPLETE Exam Date: 05/05/18 Exam Time: 1040 REPORT STATUS: Signed Exam: foot series, 3 views. Clinical History: Rule out osteomyelitis. Comparison: Report from MRI foot from 11/25/11. No images are available for review. Findings: There has been amputation of the second through fifth toes. There is soft tissue edema at the distal aspects of the second through metatarsals. There is focal gas adjacent to the third metatarsal head. There appear to be linear lucencies and erosions involving the second and third metatarsal heads. There is soft tissue edema within the great toe. No definite destructive bony changes involving the first metatarsal or great toe. No evidence of fracture or malalignment. Impression: Status post amputation of the second through fifth toes. Findings suspicious for osteomyelitis involving the second and third metatarsal heads, which could be evaluated with MRI if clinically indicated. Signed by: Dr. Sadia Patel MD on 05/05/2018 12:28 PM Dictated By: SADIA PATEL MD 1228 Transcribed By: BARTOLOME on 05/05/18 1228 COPY TO: GILBERT DOMINGUEZ MD CT ABDOMEN/PELVIS W 2018-05-04 19:00:00 [place] [address] Patient Name: ISAAC STILL MR #: [id number] : 1945 Age/Sex: 72/M Req #: [id number] Adm Physician: GILBERT DOMINGUEZ MD Ordered by: GREGORY HERNANDES MD Report #: [id number] Location: [facility] Room/Bed: [place] [address] Procedure: [id number] CT/CT ABDOMEN/PELVIS W Exam Date: 05/04/18 Exam Time: 1740 REPORT STATUS: Signed EXAM: CT Abdomen and Pelvis WITH contrast INDICATION: Pain, infection COMPARISON: None. TECHNIQUE: Abdomen and pelvis were scanned utilizing a multidetector helical scanner from the lung base to the pubic symphysis after administration of IV contrast. Coronal and sagittal reformations were obtained. Routine protocol was performed. Scan was performed when during portal venous phase. IV CONTRAST: 100 mL of Isovue-370 ORAL CONTRAST: None RADIATION DOSE: Total DLP: 1290.06 mGy*cm Estimated effective dose: (DLP x 0.015 x size factor) mSv COMPLICATIONS: None FINDINGS: LINES and TUBES: None. LOWER THORAX: Small bilateral pleural effusions and atelectasis right greater than left. Confluent airspace opacity in the right lower lobe with air bronchogram. HEPATOBILIARY: No focal hepatic lesions. No biliary ductal dilation. GALLBLADDER: No radio-opaque stones or sludge. No wall thickening. SPLEEN: No splenomegaly. PANCREAS: No focal masses or ductal dilatation. ADRENALS: No adrenal nodules KIDNEYS/URETERS: Kidneys enhance symmetrically. No hydronephrosis. No cystic or solid mass lesions. No stones. GI TRACT: No abnormal distention, wall thickening, or evidence of bowel obstruction. There are diverticula within the colon without evidence of diverticulitis. Appendix is not clearly identified. There is however no fat stranding or adenopathy in the right lower quadrant to suggest appendicitis. PELVIC ORGANS/BLADDER: Duffy catheter is suboptimally positioned with balloon inflated within the prostatic urethra. The prostate is mildly enlarged. LYMPH NODES: No lymphadenopathy. VESSELS: There is severe atherosclerotic disease in the aorta and major arterial branches. PERITONEUM / RETROPERITONEUM: No free air or fluid. BONES: There are moderate to severe degenerative changes in the lumbar spine. SOFT TISSUES: There is a fat containing umbilical hernia. IMPRESSION: 1. No evidence of acute intra-abdominal or pelvic abnormality. 2. Small bilateral pleural effusions and atelectasis. 3. There is conso lidation in the right lower lobe with mild air bronchogram. Differential diagnosis may include aspiration or developing pneumonia. 4. Repositioning of Duffy catheter is recommended. The balloon is inflated within the prostatic urethra. Repositioning should be performed after deflating the balloon. Signed by: Dr. Saw Mendoza M.D. on 05/04/2018 7:04 PM Dictated By: SAW ANTONIO MD 03 Transcribed By: BARTOLOME on 05/04/181903 COPY TO: GREGORY HERNANDES MD CT SOFT TISSUE NECK W 2018-05-04 18:42:00 [place] [id number] [place] [address] Patient Name: ISAAC STILL MR #: [id number] : 1945 Age/Sex: 72/M Req #: [id number] Adm Physician: GILBERT DOMINGUEZ MD Ordered by: GREGORY HERNANDES MD Report #: [id number] Location: [facility] Room/Bed: [place] [address] Procedure: [id number] CT/CT SOFT TISSUE NECK W Exam Date: 05/04/18 Exam Time: 1740 REPORT STATUS: Signed History: Pain right side of the neck Comparison studies: None Technique: Axial, coronal and sagittal images from the skull base to the thoracic inlet. Coronal and sagittal images reconstructed from the axial data. Intravenous contrast: 100 cc of Omnipaque 300. Findings: Soft tissues: No abnormalities. Masses: None. Lymph nodes: No radiographically significant adenopathy. Vessels: Atherosclerotic calcifications of the carotid pole with at least moderate stenosis on the left. Partially visualized descending aorta stent. Glands (thyroid, parotid and submandibular): Partially calcified right inferior pole thyroid nodule measuring 1.2 cm. The remaining glands are normal in size and symmetric. No other masses. . Orbits: No abnormalities. Paranasal sinuses: Clear. Temporal bones: No abnormalities. Skull base and facial bones: Intact. Cervical spine: Facet hypertrophy and uncinate process hypertrophy results in multilevel foraminal narrowing severe right at C4-C6; and moderate bilateral at C6-7. Fused C5-6. Diffuse posterior disc osteophyte complex C6-7 results in moderate canal stenosis. Changes of the atlantoaxial joint IMPRESSION: 1. Moderate to severe degenerative changes of the cervical spine. 2. Atherosclerotic calcifications of the carotid bulbs results in at least moderate stenosis of the left. 3. Partially calcified right thyroid nodule measuring 1.2 cm. No other significant neck abnormality. Signed by: DR Mazin Marni M.D. on 05/04/2018 6:49 PM Dictated By: MAZIN CHACON MD 48 Transcribed By: BARTOLOME on 05/04/181848 COPY TO: GREGORY HERNANDES MD SHOULDER RIGHT COMPLETE 2018-05-03 16:02:00 [place] [address] Patient Name: ISAAC STILL MR #: [id number] : 1945 Age/Sex: 72/M Req #: [id number] [facility] Physician: GILBERT DOMINGUEZ MD Ordered by: GILBERT DOMINGUEZ MD Report #: [id number] Location: [facility] Room/Bed: [place] [address] Procedure: [id number] DX/SHOULDER RIGHT COMPLETE Exam Date: Exam Time: REPORT STATUS: Signed RIGHT SHOULDER - 2 VIEWS HISTORY: Pain, cellulitis COMPARISON: None available. FINDINGS: Soft tissue attenuation partially limits sensitivity of the exam. Bones: No acute displaced fracture. Mild lateral downsloping of the acromion. Joints: Mild degenerative changes of the acromioclavicular joint. Soft tissues: Incidentally, partially visualized aortic stent graft IMPRESSION: 1. No acute radiographic abnormality. 2. Specifically, no radiographic evidence of osteomyelitis. 3. Lateral downsloping of the acromium, can be associated with impingement syndrome. 4. Mild acromioclavicular osteoarthrosis. Signed by: Dr. Sunil Khan D.O., M.M.M. on 05/03/2018 4:04 PM Dictated By: SUNIL KHAN DO 1604 Transcribed By: BARTOLOME on 05/03/18 160 COPY TO: GILBERT DOMINGUEZ MD CT CHEST W 2018-05-02 22:59:00 [place] [address] Patient Name: ISAAC STILL MR #: [id number] : 1945 Age/Sex: 72/M Req #: [id number] Adm Physician: Ordered by: NICOLE SHERIFF MD Report #: [id number] Location: ER Room/Bed: Procedure: [id number] CT/CT CHEST W Exam Date: 05/02/18 Exam Time: 3 REPORT STATUS: Signed EXAM: CT Chest WITH contrast 05/02/2018 9:57 PM INDICATION: Pulmonary embolism COMPARISON: None TECHNIQUE: Chest was scanned utilizing a multidetector helical scanner from the lung apex through the level of the adrenal glands without administration of IV contrast. Coronal and sagittal reformations were obtained. PE protocol was performed. IV CONTRAST: 100 mL of Isovue-370 RADIATION DOSE: Total DLP: 703.94 mGy*cm Estimated effective dose: (DLP x 0.014 x size factor) mSv COMPLICATIONS: None FINDINGS: LINES/ TUBES: None. LUNGS AND AIRWAYS: There is bibasilar atelectasis. More confluent airspace disease in the right lung base may represent developing infection Airways are normal. PLEURA: The pleural spaces are clear. HEART AND MEDIASTINUM: The thyroid gland is normal. No mediastinal, hilar or axillary lymphadenopathy. The heart is mildly enlarged. There is severe dilatation of the left atrium and mild dilatation of the left ventricle. There is no pericardial effusion. There are moderate atherosclerotic calcifications in the aorta and coronary arteries. There is a distal aortic arch and proximal descending aortic stent graft. The pulmonary artery measures 3.6 cm in diameter, dilated. Next UPPER ABDOMEN: Limited non-contrast views of the upper abdomen show no abnormality within the visualized liver, spleen, pancreas, or kidneys. The adrenal glands are normal. BONES: The visualized bony thorax is within normal limits. SOFT TISSUES: Unremarkable. IMPRESSION: 1. Cardiomegaly and coronary artery disease. 2. Aortic stent graft is in good position without evidence of complications. 3. No evidence of pulmonary embolism. 4. Bibasilar atelectasis. 5. More confluent airspace opacity in the right lower lobe may represent early infection. Signed by: Dr. Saw Mendoza M.D. on 05/02/2018 11:03 PM Dictated By: SAW ANTONIO MD 02 Transcribed By: BARTOLOME on 05/02/182302 COPY TO: NICOLE SHERIFF MD CHEST SINGLE (PORTABLE) 2018-05-02 21:31:00 [place] [address] Patient Name: ISAAC STILL MR #: [id number] : 1945 Age/Sex: 72/M Req #: [id number] Adm Physician: Ordered by: JUAN SOLORIO APPEALS EXAMINER Report #: [id number] Location: ER Room/Bed: Procedure: [id number] DX/CHEST SINGLE (PORTABLE) Exam Date: 05/02/18 Exam Time: 2100 REPORT STATUS: Signed EXAMINATION: CHEST SINGLE (PORTABLE) INDICATION: Shortness of breath, history of cardiac disease COMPARISON: 11/22/2014 FINDINGS: TUBES and LINES: None. LUNGS: Lungs are not well inflated. Areas of interlobular septi thickening There is mild prominence of the central pulmonary vasculature, consistent with pulmonary venous congestion. PLEURA: No pleural effusion or pneumothorax. HEART AND MEDIASTINUM: Cardiac size is moderately enlarged. There are atherosclerotic calcifications within the aorta. There is evidence of a proximal descending aortic stent graft BONES AND SOFT TISSUES: No acute osseous lesion. Soft tissues are unremarkable. UPPER ABDOMEN: No free air under the diaphragm. IMPRESSION: Findings are compatible with mild cartilage thinning pulmonary edema Signed by: Dr. Saw Mendoza M.D. on 05/02/2018 9:34 PM Dictated By: SAW ANTONIO MD 33 Transcribed By: BARTOLOME on 05/02/182133 COPY TO: JUAN SOLORIO NP
--- NOTE | 2018-06-14 23:25 | Discharge Summary ---
DISCHARGE DIAGNOSES 1. Pneumonia right lower lobe. 2. Hypertension. 3. Diabetes. HISTORY OF PRESENT ILLNESS AND HOSPITAL COURSE: See hospital chart for full details. Patient is a gentleman who presented with right chest pain, was noticed to have evidence of right lower lobe pneumonia on chest x-ray. He was brought in and placed on IV antibiotics. He had blood cultures positive for Staph aureus secondary to methicillin-sensitive Staph aureus pneumonia. He had a lot of right shoulder pain with an extensive workup showing soft tissue issues but evidence of abscess. Echo showed an EF of 55%. At the time of discharge, patient was actually doing much better. He was discharged home with cefazolin for 8 weeks and rifampin for 2-4 weeks and follow up with Dr. Cedeno. Please see hospital chart for full details. GILBERT DOMINGUEZ MD Job#: [id number] JASMEET
== END 2018-05-13 12:14 | disposition home or self-care (01) | DRG 853 ==
LOC: ER 20:27 → ERHOLD 23:14 → IMCU 05-03 02:17 → MED/SURG3 05-06 18:18
PROVIDERS: ADMIT Internal Medicine; ATTEND Internal Medicine
PROC: 02HV33Z Insertion of Infusion Device into Superior Vena Cava, Percutaneous Approach (ICD-10-PCS; 2018-05-06)
PROC: 0KBW0ZZ Excision of Left Foot Muscle, Open Approach (ICD-10-PCS; principal; 2018-05-08)
PROC: 0JBQ0ZZ Excision of Right Foot Subcutaneous Tissue and Fascia, Open Approach (ICD-10-PCS; 2018-05-08)
PROC: 0KBW0ZZ Excision of Left Foot Muscle, Open Approach (ICD-10-PCS; 2018-05-11)
PROC: 0JBQ0ZZ Excision of Right Foot Subcutaneous Tissue and Fascia, Open Approach (ICD-10-PCS; 2018-05-11)
DX: A41.01 Sepsis due to Methicillin susceptible Staphylococcus aureus (principal); J15.211 Pneumonia due to Methicillin susceptible Staphylococcus aureus; I71.01 Dissection of thoracic aorta; I33.0 Acute and subacute infective endocarditis; L03.116 Cellulitis of left lower limb; I13.0 Hypertensive heart and chronic kidney disease with heart failure and stage 1 through stage 4 chronic kidney disease, or unspecified chronic kidney disease; I50.32 Chronic diastolic (congestive) heart failure; N39.0 Urinary tract infection, site not specified; E87.1 Hypo-osmolality and hyponatremia; L03.113 Cellulitis of right upper limb; M86.8X7 Other osteomyelitis, ankle and foot; T85.79XA Infection and inflammatory reaction due to other internal prosthetic devices, implants and grafts, initial encounter; E11.22 Type 2 diabetes mellitus with diabetic chronic kidney disease; N18.3 Chronic kidney disease, stage 3 (moderate); E11.42 Type 2 diabetes mellitus with diabetic polyneuropathy; M54.9 Dorsalgia, unspecified; E66.9 Obesity, unspecified; R06.03 Acute respiratory distress; Z89.422 Acquired absence of other left toe(s); L97.529 Non-pressure chronic ulcer of other part of left foot with unspecified severity; L97.519 Non-pressure chronic ulcer of other part of right foot with unspecified severity; Z79.4 Long term (current) use of insulin; R23.8 Other skin changes; M25.811 Other specified joint disorders, right shoulder; E29.0 Testicular hyperfunction; R33.9 Retention of urine, unspecified; N40.0 Benign prostatic hyperplasia without lower urinary tract symptoms; N47.6 Balanoposthitis; E87.6 Hypokalemia; R31.29 Other microscopic hematuria; T19.0XXA Foreign body in urethra, initial encounter; T83.091A Other mechanical complication of indwelling urethral catheter, initial encounter; E11.628 Type 2 diabetes mellitus with other skin complications; Z68.38 Body mass index [BMI] 38.0-38.9, adult; G47.33 Obstructive sleep apnea (adult) (pediatric); E11.69 Type 2 diabetes mellitus with other specified complication; I48.91 Unspecified atrial fibrillation
CPT/HCPCS: 36415; 36569; 70491; 71045; 71260; 74177; 80048; 80053; 80061; 80202; 81001; 82550; 82553; 82948; 83605; 83690; 83735; 83880; 84443; 84484; 85025; 85379; 85610; 85730; 87040; 87071; 87086; 87186; 87205; 93005; 93306; 93880; 94640; 94660; 96360; 96365; 96372; 97139; 99284; J0360; J0690; J1885; J2270; J2405; J2543; J3370; J7030; J7040; J7050; Q9967

== ENCOUNTER → 2018-05-16 | Outpatient (CLI) | payer MEDICARE, OTHER ==
[~2018-05-16] MED LIST changes: +MOVANTIK PO
--- NOTE | 2018-05-16 16:25 | Diagnostic Imaging Report ---
Examination: Single AP view of the chest. COMPARISON: CT chest 05/10/2018 INDICATION: PICC line placement IMPRESSION: 1. Lines and Tubes: Interval placement of right-sided PICC line with distal tip projecting in the proximal to mid SVC. 2. Lungs are grossly clear. No consolidation or effusion. 3. Mild enlargement of the cardiac silhouette. Pulmonary vasculature is normal. 4. No acute bony abnormalities. Signed by: Dr. Herb Buck M.D. on 05/16/2018 4:22 PM
== END ==
LOC: DX 15:31
PROVIDERS: ATTEND Internal Medicine Infectious Disease
DX: L03.113 Cellulitis of right upper limb (principal)
CPT/HCPCS: 36569; 71045

== ENCOUNTER → 2018-06-21 | Outpatient (CLI) | payer MEDICARE, OTHER ==
--- NOTE | 2018-06-21 10:06 | Diagnostic Imaging Report ---
PROCEDURE: A single AP view of the chest (two separate views). COMPARISON: [facility], , CHEST XRAY LINE PLACEMENT, 05/16/2018, 16:14. INDICATIONS: BACTEREMIA FINDINGS: Lines/tubes: Initial chest shows a left-sided PICC extending into the neck and internal jugular vein. Second image after placement of a PICC from the right side demonstrates the tip overlying the SVC. Lungs: The lungs are well inflated and clear. There is no evidence of pneumonia or pulmonary edema. Pleura: There is no pleural effusion or pneumothorax. Heart and mediastinum: The heart and the mediastinum are unremarkable. Thoracic aortic stent graft is noted. Bones: No acute bony abnormality. Degenerative changes of the spine. IMPRESSION: 1. No acute cardiopulmonary disease. 2. Right PICC in appropriate location. Alec Mason D.O. Dictated by: Alec Mason D.O. on 06/21/2018 at 10:15 Electronically approved by: Alec Mason D.O. on 06/21/2018 at 10:15
== END ==
LOC: DX 07:48
PROVIDERS: ATTEND Internal Medicine Infectious Disease
DX: R78.81 Bacteremia (principal)
CPT/HCPCS: 36569; 71045

== ENCOUNTER → 2018-09-10 | Day surgery (SDC) | payer MEDICARE, OTHER ==
[~2018-09-10] MED LIST changes: +ACETAMINOPHEN 1000 MG/100 ML 100 ML IV ONE; +CITALOPRAM HBR20 MG PO; +EPHEDRINE SULFATE INJ 50 MG/10 ML SYR ONE; +FENTANYL CITRATE/PF 100MCG/2 ML INJ ONE; +HYDROCODONE/APAP 7.5MG-325MG 1 EA TAB ONE; +HYDROMORPHONE 2MG/ML 2 MG/ML ML ONE; +INSULIN REGULAR, HUMAN 100 UNIT/1 ML 3ML VIAL ONE; +KETOROLAC TROMETHAMINE 30 MG/ML VIAL ONE; +LIDOCAINE HCL 2% LOCAL INJ 5 ML SDV VIAL INJ ONE; +MIDAZOLAM HCL 2 MG/2 ML VIAL ONE; +MORPHINE SULFATE INJ 10 MG/ML ONE; +ONDANSETRON HCL INJ 2MG/ML 2ML 2 MG/ML VIAL ONE; +PROPOFOL IV EMULSION 10 MG/ML 20 ML VIAL ONE; +SEVOFLURANE INHAL SOLN 250 ML PEN BTL ONE
[2018-09-10 11:16] LABS: BASOPHILS % 0.3 % (0.0-1.0); EOSINOPHILS # (AUTO) 0.1 (0.0-0.4); EOSINOPHILS % 1.7 % (0.0-6.0); HEMATOCRIT 36.8 % (38.2-49.6); HEMOGLOBIN 11.6 g/dL (14.0-18.0); LYMPHOCYTES # (AUTO) 0.8 (1.0-3.2); LYMPHOCYTES % 11.2 % (18.0-39.1); MEAN CORPUSCULAR HGB CONC 31.5 g/dL (31-35); MEAN CORPUSCULAR VOLUME 88.9 fL (81-99); MONOCYTES # (AUTO) 0.7 (0.2-0.8); MONOCYTES % 8.7 % (4.4-11.3); NEUTROPHILS # (AUTO) 5.8 (2.1-6.9); PLATELET COUNT 235 x10e3/uL (140-360); RED BLOOD COUNT 4.14 x10e6/uL (4.3-5.7); RED CELL DISTRIBUTION WIDTH 12.8 % (11.7-14.4)
[2018-09-10 11:36] LABS: ALANINE AMINOTRANSFERASE 20 IU/L (0-55); ALBUMIN 3.3 g/dL (3.5-5.0); ALBUMIN/GLOBULIN RATIO 0.9 (0.8-2.0); ALKALINE PHOSPHATASE 83 IU/L (40-150); BLOOD UREA NITROGEN 17 mg/dL (7-26); BUN/CREATININE RATIO 17 (6-25); CARBON DIOXIDE 23 mmol/L (22-29); CHLORIDE 100 mmol/L (98-107); CREATININE, SERUM 1.03 mg/dL (0.72-1.25); EST GLOMERULAR FILTRATION RATE > 60 ML/MIN (60-); GLUCOSE 210 mg/dL (74-118); SODIUM 134 mmol/L (136-145)
[2018-09-10 15:00] VITALS: BP 103/48
--- NOTE | 2018-09-10 15:13 | Operative Report ---
DATE OF PROCEDURE: September 10, 2018 PREOPERATIVE DIAGNOSIS: Abscess of the left upper leg and knee. POSTOPERATIVE DIAGNOSIS: Abscess of the left upper leg and knee. OPERATION PERFORMED: Incision and drainage of abscess of the left upper leg and knee. ANESTHESIA: General. COMPLICATIONS: None. ESTIMATED BLOOD LOSS: Minimal. DESCRIPTION OF PROCEDURE: With the patient lying in bed in the supine position under good general anesthesia, the left leg was prepped with Betadine solution and draped in the usual manner. An incision was then made in the lowest aspect of the fluctuant abscess of the left leg below the knee, and immediately a large gush of pus was encountered. Cultures were taken. The abscess cavity was then entered and it communicated all the way down to the midline of the area just below the patella and also lateral to this area. All of this was slowly and carefully aspirated. A 2nd incision was then made anteriorly at the highest most point. The whole wound was then copiously irrigated with dilute Betadine solution. After this was done, a Alis was placed to communicate the 2 wounds to keep them from closing. The wounds were then packed with 0.25-inch Iodoform gauze. A dressing was applied. The sponge, lap and needle count was correct. The patient tolerated the procedure well and returned to the recovery room in stable condition. Job#: [id number] KATEY
== END | disposition home or self-care (01) ==
LOC: OR 10:07
PROVIDERS: ATTEND Surgery
DX: L02.416 Cutaneous abscess of left lower limb (principal); I83.90 Asymptomatic varicose veins of unspecified lower extremity; M19.90 Unspecified osteoarthritis, unspecified site; E11.9 Type 2 diabetes mellitus without complications; G47.33 Obstructive sleep apnea (adult) (pediatric); I10 Essential (primary) hypertension; I44.0 Atrioventricular block, first degree; I45.10 Unspecified right bundle-branch block; E66.01 Morbid (severe) obesity due to excess calories; F32.9 Major depressive disorder, single episode, unspecified; F41.9 Anxiety disorder, unspecified; Z79.4 Long term (current) use of insulin
CPT/HCPCS: 10061; 36415; 80053; 82948; 85025; 87071; 87075; 87186; 87205; 93005; J0131; J1170; J1885; J2001; J2250; J2270; J2405; J2704

== ENCOUNTER 2019-01-27 12:57 | Inpatient (IN) | payer MEDICARE, OTHER ==
[~2019-01-27] VITALS: Ht 193 cm; Wt 124.7 kg
[~2019-01-27 12:57] MED LIST changes: -ACETAMINOPHEN 1000 MG/100 ML 100 ML IV ONE; -EPHEDRINE SULFATE INJ 50 MG/10 ML SYR ONE; -FENTANYL CITRATE/PF 100MCG/2 ML INJ ONE; -HYDROCODONE/APAP 7.5MG-325MG 1 EA TAB ONE; -HYDROMORPHONE 2MG/ML 2 MG/ML ML ONE; -INSULIN REGULAR, HUMAN 100 UNIT/1 ML 3ML VIAL ONE; -KETOROLAC TROMETHAMINE 30 MG/ML VIAL ONE; -LIDOCAINE HCL 2% LOCAL INJ 5 ML SDV VIAL INJ ONE; -MIDAZOLAM HCL 2 MG/2 ML VIAL ONE; -MORPHINE SULFATE INJ 10 MG/ML ONE; -ONDANSETRON HCL INJ 2MG/ML 2ML 2 MG/ML VIAL ONE; -PROPOFOL IV EMULSION 10 MG/ML 20 ML VIAL ONE; -SEVOFLURANE INHAL SOLN 250 ML PEN BTL ONE
[2019-01-27 15:42] LABS: BASOPHILS % 0.2 % (0.0-1.0); EOSINOPHILS # (AUTO) 0.1 (0.0-0.4); EOSINOPHILS % 0.7 % (0.0-6.0); HEMATOCRIT 33.9 % (38.2-49.6); HEMOGLOBIN 11.4 g/dL (14.0-18.0); LYMPHOCYTES # (AUTO) 0.8 (1.0-3.2); LYMPHOCYTES % 10.2 % (18.0-39.1); MEAN CORPUSCULAR HGB CONC 33.6 g/dL (31-35); MEAN CORPUSCULAR VOLUME 86.3 fL (81-99); MONOCYTES # (AUTO) 0.6 (0.2-0.8); MONOCYTES % 7.3 % (4.4-11.3); NEUTROPHILS # (AUTO) 6.7 (2.1-6.9); NEUTROPHILS % 81.2 % (38.7-80.0); PLATELET COUNT 277 x10e3/uL (140-360); RED BLOOD COUNT 3.93 x10e6/uL (4.3-5.7); RED CELL DISTRIBUTION WIDTH 13.2 % (11.7-14.4)
[2019-01-27 15:44] LABS: BILIRUBIN,URINE NEGATIVE (NEGATIVE); CLARITY,URINE SL CLOUDY (CLEAR); COLOR,URINE YELLOW (YELLOW); KETONES,URINE NEGATIVE (NEGATIVE); LEUKOCYTE ESTERASE ,URINE MODERATE (NEGATIVE); NITRITE,URINE NEGATIVE (NEGATIVE); PROTEIN,URINE DIPSTICK NEGATIVE (NEGATIVE); URINE UROBILINOGEN 0.2 mg/dL (0.2 - 1)
[2019-01-27 15:54] LABS: INR 1.02; PARTIAL THROMBOPLASTIN TIME 33.7 seconds (23.8-35.5); PROTHROMBIN TIME 13.9 seconds (11.9-14.5)
[2019-01-27 16:01] LABS: BACTERIA,URINE MODERATE /HPF; RBC,URINE 0-5 /HPF (0-5); WBC,URINE (MAN) 21-50 /HPF (0-5)
[2019-01-27 16:11] LABS: ALANINE AMINOTRANSFERASE 27 IU/L (0-55); ALBUMIN 3.6 g/dL (3.5-5.0); ALBUMIN/GLOBULIN RATIO 1.3 (0.8-2.0); ALKALINE PHOSPHATASE 49 IU/L (40-150); ANION GAP 16.9 mmol/L (8-16); BLOOD UREA NITROGEN 17 mg/dL (7-26); BUN/CREATININE RATIO 16 (6-25); CALCIUM 8.9 mg/dL (8.4-10.2); CARBON DIOXIDE 24 mmol/L (22-29); CHLORIDE 100 mmol/L (98-107); CREATINE KINASE 53 IU/L (30-200); CREATININE, SERUM 1.05 mg/dL (0.72-1.25); EST GLOMERULAR FILTRATION RATE > 60 ML/MIN (60-); GLUCOSE 174 mg/dL (74-118); POTASSIUM 3.9 mmol/L (3.5-5.1); SODIUM 137 mmol/L (136-145)
--- NOTE | 2019-01-27 17:16 | Diagnostic Imaging Report ---
EXAMINATION: CHEST SINGLE (PORTABLE) INDICATION: Shortness of breath COMPARISON: Multiple prior chest radiograph, most recently of 05/16/2018; chest CT of 05/10/2018 FINDINGS: TUBES and LINES: EKG leads overlie the chest LUNGS: The lungs are moderately inflated. There is perihilar fullness and indistinctness of the pulmonary vasculature. PLEURA: No pleural effusion or pneumothorax. HEART AND MEDIASTINUM: Mild cardiomegaly. Unchanged appearance of thoracic aortic stent graft. BONES AND SOFT TISSUES: No acute fracture or dislocation Soft tissues are unremarkable. UPPER ABDOMEN: No free air under the diaphragm. IMPRESSION: Mild pulmonary edema. No focal pneumonia. Signed by: Azul Escobedo MD on 01/27/2019 5:13 PM
[2019-01-27] MEDS ORDERED: CEFTRIAXONE SOD 1 GM/NS 50 ML 50 ML IV ONE (18:15)
[2019-01-27] MEDS ORDERED: ALPRAZOLAM 0.5 MG TAB PO ONE (18:15)
[2019-01-27] MEDS ORDERED: HYDROCODONE/APAP 10MG-325MG TAB PO ONE (18:15)
[2019-01-27] MEDS ORDERED: ALPRAZOLAM 0.25 MG TAB PO NR (19:00)
[2019-01-27] MEDS ORDERED: HYDROCODONE/APAP 5MG-325MG TAB PO NR (19:00)
[2019-01-27] MEDS ORDERED: MEROPENEM 500MG/ NS 50ML 50 ML IV SCH (19:15)
[2019-01-27] MEDS ORDERED: SODIUM CHLORIDE FLUSH 10 ML SYR INJ PRN (19:15)
[2019-01-27] MEDS ORDERED: HYDROCODONE/APAP 10MG-325MG TAB PO NR (19:15)
[2019-01-27] MEDS ORDERED: ONDANSETRON HCL INJ 2MG/ML 2ML 2 MG/ML VIAL IV PRN (19:15)
--- OUTSIDE RECORDS SUMMARY | 2019-01-27 19:47 | XMS REPORT | Clinical Summary ---
Author Author [facility] Organization [facility] Address Unknown Phone Unavailable Care Team Providers Care Psychiatry Teacher Name Role Phone Manoj Navarro MD PCP Allergies No Known Allergies Medications End Date Status Medication Sig Dispensed Refills Start Date Active ALPRAZolam (XANAX) 0.5 MG Take 1 tablet 0 tablet by mouth 2 9 (two) times a day. Active baclofen (LIORESAL) 10 MG Take 1 tablet 0 tablet by mouth 3 9 (three) times a day. Active busPIRone (BUSPAR) 10 MG Take 10 mg by 0 tablet mouth 2 (two) 9 times a day. Active citalopram (CeleXA) 20 MG Take 20 mg by 1 tablet mouth every 9 evening. Active dextroamphetamine-ampheta Take 1 tablet 0 mine (ADDERALL) 30 mg by mouth 2 9 tablet (two) times a day. 0600 AND 1200 Active HYDROcodone-acetaminophen Take 1 tablet 0 (NORCO) 10-325 mg per by mouth 9 tablet every 8 (eight) hours as needed. Active lisinopril Take 20 mg by 1 (PRINIVIL,ZESTRIL) 20 mg mouth 2 (two) 9 tablet times a day. Active metFORMIN (GLUCOPHAGE) Take 500 mg 0 500 mg tablet by mouth 2 9 (two) times a day with meals. Active minoxidil (LONITEN) 10 MG Take 10 mg by 4 tablet mouth 2 (two) 9 times a day. Active predniSONE (DELTASONE) 5 Take 5 mg by 0 mg tablet mouth every 9 morning. Active tamsulosin (FLOMAX) 0.4 Take 1 3 mg capsule capsule by 9 mouth 2 (two) times a day. Active predniSONE (DELTASONE) 5 Take 2.5 mg 0 mg tablet by mouth every evening. Active insulin detemir U-100 Inject 20 0 (LEVEMIR) 100 unit/mL Units under injection the skin 2 (two) times a day. Active insulin ASPART (NovoLOG) Inject 25 0 100 unit/mL injection Units under the skin 3 (three) times a day before meals. Active metOLazone (ZAROXOLYN) 5 Take 5 mg by 0 MG tablet mouth daily as needed. Active naloxegol (MOVANTIK) 25 Take 25 mg by 0 mg tablet tablet mouth daily as needed. Active torsemide (DEMADEX) 20 MG Take 20 mg by 0 tablet mouth daily as needed. Active acetaminophen (TYLENOL) Take 500 mg 0 500 MG tablet by mouth every 6 (six) hours as needed for mild pain. Active alpha lipoic acid 300 mg Take 1 0 capsule capsule by mouth every morning. Active THIAMINE HCL, VITAMIN B1, Take 160 mg 0 ORAL by mouth every morning. Active BETA 1,3 GLUCAN, BULK, Take 250 mg 0 MISC by mouth every morning. Active coenzyme Q10 400 mg Take 1 0 capsule capsule by mouth 2 (two) times a day. Active MAGNESIUM ORAL Take 1 tablet 0 by mouth every morning. Active multivitamin (THERAGRAN) Take 1 tablet 0 tablet by mouth every morning. Active NON FORMULARY Take 1 tablet 0 by mouth every morning. nattokinase 200mg tablet Active niacin 500 MG tablet Take 500 mg 0 by mouth 3 (three) times a day with meals. Active NON FORMULARY Take 1 tablet 0 by mouth every morning. theracurmin tablet Active cyanocobalamin (VITAMIN Take 500 mcg 0 B-12) 500 MCG tablet by mouth daily with lunch. Active ascorbic acid, vitamin C, Take 1,000 mg 0 (VITAMIN C) 1000 MG by mouth tablet daily with lunch. Active cholecalciferol, vitamin Take 5,000 0 D3, (VITAMIN D3) 5,000 Units by unit capsule mouth daily with lunch. Active vitamin E 400 UNIT Take 400 0 capsule Units by mouth daily with lunch. Active LYCOPENE ORAL Take 20 mg by 0 mouth daily with lunch. 03/16/2019 Active silver sulfadiazine Apply 25 g 1 (AYAD, CRISPIN) 1 % topically 2 9 cream (two) times a day for 60 days. 02/14/2019 Active metoprolol tartrate Take 1 tablet 90 tablet 1 (LOPRESSOR) 50 mg tablet (50 mg total) 9 by mouth 3 (three) times a day for 30 days. 01/15/2019 Discontinued metoprolol tartrate Take 100 mg 2 (LOPRESSOR) 100 mg tablet by mouth 3 9 (three) times a day. 01/15/2019 Discontinued furosemide (LASIX) 20 mg Take 1 tablet 60 tablet 0 tablet (20 mg total) 9 by mouth 2 (two) times a day for 30 days. 01/15/2019 Discontinued potassium chloride Take 1 tablet 60 tablet 0 (K-DUR,KLOR-CON) 10 MEQ (10 mEq 9 CR tablet total) by mouth 2 (two) times a day for 30 days. Active Problems Problem Noted Date Acute hypoxemic respiratory failure 01/13/2019 Pneumonia due to infectious organism 01/13/2019 Pulmonary edema 01/13/2019 Cellulitis of lower leg 01/13/2019 Diabetes mellitus 01/13/2019 Hypertension 01/13/2019 Chronic venous stasis 01/13/2019 Leukocytosis 01/13/2019 Shortness of breath 01/12/2019 Encounters Care Team Description Date Type Specialty Murali Choudhury MD Mayen Nunez, Jose Isaias, MD Shortness of breath (Primary Dx); Cellulitis of left lower extremity; Acute hypoxemic respiratory failure (HCC); Acute pulmonary edema (HCC); Cellulitis of lower leg; Diabetes mellitus due to underlying condition with hyperosmolarity without coma, without long-term current use of insulin (HCC); Essential hypertension; Chronic venous stasis; Leukemoid reaction 01/11/2019 [facility] - Encounter 01/15/2019 after 01/26/2018 Social History Date Tobacco Use Types Packs/Day Years Used Never Smoker Smokeless Tobacco: Never Used Alcohol Use Drinks/Week oz/Week Comments Not Currently Sex Assigned at Date Recorded Not on file Industry Job Start Date Occupation Not on file Not on file Not on file Travel End Travel History Travel Start No recent travel history available. Last Filed Vital Signs Time Taken Vital Sign Reading 01/15/2019 11:34 AM CDT Blood Pressure 161/73 01/15/2019 11:34 AM CDT Pulse 54 01/15/2019 11:34 AM CDT Temperature 36.8 C (98.2 F) 01/15/2019 11:34 AM CDT Respiratory Rate 16 01/15/2019 11:34 AM CDT Oxygen Saturation 95% - Inhaled Oxygen - Concentration 01/11/2019 8:55 PM CDT Weight 129 kg (285 lb) 01/11/2019 8:55 PM CDT Height 193 cm (6' 4") 01/11/2019 8:55 PM CDT Body Mass Index 34.69 Plan of Treatment Health Maintenance Due Date Last Done Comments DIABETIC RETINAL EYE EXAM 1945 DIABETIC FOOT EXAM 1955 URINE MICROALBUMIN 1955 COLONOSCOPY SCREENING 1995 SHINGLES VACCINES (#1) 1995 65+ PNEUMOCOCCAL VACCINE 2010 (1 of 2 - PCV13) INFLUENZA VACCINE 02/27/2019 Procedures Comments Procedure Name Priority Date/Time Associated Diagnosis POC GLUCOSE Routine 01/15/2019 11:52 AM CDT POC GLUCOSE Routine 01/15/2019 5:56 AM CDT ESTIMATED GFR Routine 01/15/2019 5:01 AM CDT CREATININE LEVEL Routine 01/15/2019 5:01 AM CDT POC GLUCOSE Routine 01/14/2019 7:58 PM CDT XR CHEST 2 VW Routine 01/14/2019 5:18 PM CDT POC GLUCOSE Routine 01/14/2019 4:42 PM CDT ESTIMATED GFR Routine 01/14/2019 11:55 AM CDT HC COMPLETE BLD COUNT Routine 01/14/2019 W/AUTO DIFF 11:55 AM CDT BASIC METABOLIC PANEL Routine 01/14/2019 11:55 AM CDT VANCOMYCIN LEVEL, TROUGH Routine 01/14/2019 11:55 AM CDT POC GLUCOSE Routine 01/14/2019 11:46 AM CDT ECHOCARDIOGRAM 2D Routine 01/14/2019 COMPLETE W MMODE SPECTRAL 7:48 AM CDT COLOR DOPPLER ([id number]) POC GLUCOSE Routine 01/14/2019 5:37 AM CDT POC GLUCOSE Routine 01/13/2019 8:58 PM CDT POC GLUCOSE Routine 01/13/2019 4:59 PM CDT ESTIMATED GFR Routine 01/13/2019 2:58 PM CDT BASIC METABOLIC PANEL Routine 01/13/2019 2:58 PM CDT US DUPLEX VENOUS LOWER Routine 01/13/2019 EXTREMITY LEFT 2:40 PM CDT POC GLUCOSE Routine 01/13/2019 11:51 AM CDT POC GLUCOSE Routine 01/13/2019 5:51 AM CDT POC GLUCOSE Routine 01/12/2019 8:38 PM CDT POC GLUCOSE Routine 01/12/2019 4:24 PM CDT ARTERIAL BLOOD GAS Routine 01/12/2019 3:58 PM CDT POC GLUCOSE Routine 01/12/2019 11:54 AM CDT POC GLUCOSE Routine 01/12/2019 5:24 AM CDT MAGNESIUM LEVEL Routine 01/12/2019 4:41 AM CDT MANUAL DIFFERENTIAL Routine 01/12/2019 4:41 AM CDT ESTIMATED GFR Routine 01/12/2019 4:41 AM CDT COMPREHENSIVE METABOLIC Routine 01/12/2019 PANEL 4:41 AM CDT CBC WITH PLATELET AND Routine 01/12/2019 DIFFERENTIAL 4:41 AM CDT TROPONIN Timed 01/12/2019 4:41 AM CDT TROPONIN Timed 01/11/2019 11:28 PM CDT ESTIMATED GFR STAT 01/11/2019 9:57 PM CDT B NATRIURETIC PEPTIDE STAT 01/11/2019 9:57 PM CDT TROPONIN STAT 01/11/2019 9:57 PM CDT COMPREHENSIVE METABOLIC STAT 01/11/2019 PANEL 9:57 PM CDT PARTIAL THROMBOPLASTIN STAT 01/11/2019 TIME (PTT) 9:57 PM CDT PROTHROMBIN TIME WITH INR STAT 01/11/2019 9:57 PM CDT HC COMPLETE BLD COUNT STAT 01/11/2019 W/AUTO DIFF 9:57 PM CDT BLOOD CULTURE, AEROBIC & Routine 01/11/2019 ANAEROBIC 9:50 PM CDT BLOOD CULTURE, AEROBIC & Routine 01/11/2019 ANAEROBIC 9:45 PM CDT XR TIBIA FIBULA 2 VW LEFT STAT 01/11/2019 9:30 PM CDT XR CHEST 1 VW PORTABLE STAT 01/11/2019 9:30 PM CDT ECG ED PRELIMINARY Routine 01/11/2019 INTERPRETATION 9:00 PM CDT ECG 12-LEAD STAT 01/11/2019 8:48 PM CDT after 01/26/2018 Results * POC glucose (01/15/2019 11:52 AM CDT) Only the most recent of 14 results within the time period is included. POC glucose 190 (H) 65 - 99 mg/dL [facility] Comment: [place] Meter ID: [id number] [facility] Scouring Machine Operator: Paras Quevedo Specimen Performing Organization Address City/State/Zipcode [place] [address] [place] [address] PATHOLOGY AND GENOMIC MEDICINE [facility] [place] [address] * Estimated GFR (01/15/2019 5:01 AM CDT) Only the most recent of 5 results within the time period is included. Estimated GFR 88 mL/min/1.73 m2 [facility] Comment: [place] [facility] rpretation G1 >=90 Normal or high G2 60-89Mildly decreased S0y14-30 Mildly to moderately decreased [id number] Moderately to severely decreased G4 15-29Severely decreased G5 <15Kidney failure The eGFR was calculated using the Chronic Kidney Disease Epidemiology Collaboration (CKD-EPI) equation. Interpretation is based on recommendations of the National Kidney Foundation-Kidney Disease Outcomes Quality Initiative (NKF-KDOQI) published in 2014. Specimen Plasma specimen Performing Organization Address City/[facility] Phone Number [facility] [place] [address] [place] [address] PATHOLOGY AND GENOMIC MEDICINE [facility] [address] [place] [address] * Creatinine level (01/15/2019 5:01 AM CDT) Creatinine 0.80 0.70 - 1.20 mg/dL [facility] Specimen Plasma specimen Performing Organization Address City/[facility] Phone Number [facility] [place] [address] [address] [place] [address] PATHOLOGY AND GENOMIC MEDICINE [facility] [address] [place] [address] * XR Chest 2 Vw (01/14/2019 5:18 PM CDT) Specimen Narrative Performed At EXAMINATION:XR CHEST 2 VW RADIANT CLINICAL HISTORY:hypoxia COMPARISON:January 11 IMPRESSION: Atelectasis in left lower lobe small left-sided pleural effusion Heart remains slightly enlarged 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 [id number] Performing Organization Address City/State/Zipcode Phone Number [facility] [address] [place] [address] * CBC with platelet and differential (01/14/2019 11:55 AM CDT) Only the most recent of 3 results within the time period is included. WBC 8.64Comment: Called Raquel on 4.50 - 11.00 k/uL [facility] 3Surg 01/14/2019 16:19 [facility] RBC 3.74 (L) 4.40 - 6.00 m/uL [facility] HGB 10.6 (L) 14.0 - 18.0 g/dL [facility] HCT 33.8 (L) 41.0 - 51.0 % [facility] MCV 90.4 82.0 - 100.0 fL [facility] MCH 28.3 27.0 - 34.0 pg [facility] MCHC 31.4 31.0 - 37.0 g/dL [facility] RDW - SD 43.6 37.0 - 55.0 fL [facility] MPV 11.5 8.8 - 13.2 fL [facility] Platelet count 144 (L) 150 - 400 k/uL [facility] Nucleated RBC 0.00 /100 WBC [facility] Neutrophils 82.4 (H) 39.0 - 69.0 % [facility] Lymphocytes 9.6 (L) 25.0 - 45.0 % [facility] Monocytes 6.5 0.0 - 10.0 % [facility] Eosinophils 1.2 0.0 - 5.0 % [facility] Basophils 0.0 0.0 - 1.0 % [facility] Specimen Blood Performing Organization Address City/[facility]/Zipcode Phone Number [place] [address] [place] [address] PATHOLOGY AND GENOMIC MEDICINE [facility] [address] [place] [address] [facility] * Vancomycin level, trough (01/14/2019 11:55 AM CDT) Vancomycin, 14.1 10.0 - 20.0 ug/mL [facility] trough Comment: [facility] Therapeutic Ranges: [facility] Peak 30.0 - 40.0 ug/mL Qlbtuv95.0 - 20.0 ug/mL Specimen Serum Performing Organization Address [facility] Phone Number [facility] DEPARTMENT OF [facility] [place] [address] PATHOLOGY AND GENOMIC MEDICINE [address] [address] * Basic metabolic panel (01/14/2019 11:55 AM CDT) Only the most recent of 2 results within the time period is included. [facility] Sodium 138 135 - 148 mEq/L [facility] Potassium 4.3 3.5 - 5.0 mEq/L [facility] Chloride 101 98 - 112 mEq/L [facility] CO2 30 24 - 31 mEq/L [facility] Anion gap 7@ANIO 7 - 15 mEq/L [facility] BUN 19 8 - 23 mg/dL [facility] Creatinine 0.80 0.70 - 1.20 mg/dL [facility] Glucose 154 (H) 65 - 99 mg/dL [facility] Calcium 8.6 (L) 8.8 - 10.2 mg/dL [facility] Specimen Plasma specimen Performing Organization Address [facility] Phone Number [facility] DEPARTMENT OF [facility] [place] [address] PATHOLOG[facility] AND [facility] [address] * Echocardiogram complete w contrast and 3D if needed (01/14/2019 7:48 AM CDT) Pathologist [facility] [place] AoV Area, Vmax 3.18 cm2 [facility] AoV Area, VTI 3.31 cm2 [facility] Ao[facility] Mean PG 4.84 mmHg [facility] A[facility] Peak PG 8.87 mmHg [facility] Vmax 1.49 m/s [facility] AoV VTI 0.34 m [facility] IVS,d 1.46 cm [facility] LV,d 5.69 cm [facility] LV EF,A2C 44.04 % [facility] LV EF,A4C 49.73 % [facility] LV EF,BP 47.51 % [facility] [place],d A2C 9.97 cm [facility] [place],d A4C 9.69 cm [facility] [place],s A2C 8.67 cm [facility] [place],s A4C 8.64 cm [facility] LV,s 4.48 cm [facility] LV SV,A2C 90.13 % [facility] LV SV,A4C 111.87 % [facility] LV Vol,d A2C 204.66 mL [facility] LV Vol,d A4C 224.96 ml [facility] LV Vol,d BP 216.39 ml [facility] LV Vol,s A2C 114.52 mL [facility] LV Vol,s A4C 113.09 ml [facility] LV Vol,s BP 113.59 nl [facility] LVOT Diam,S 2.49 cm [facility] LVOT Vmax 0.97 m/s [facility] LVOT VTI 0.23 m [facility] LVPWD,d 1.53 cm [facility] TR Vpeak 2.48 mm/s [facility] TR pk grad 24.56 mmHg [facility] MR Vmax 3.87 m/s [facility] MR peak grad 59.85 mmHg [facility] MV valve area p 3.23 cm2 [facility] 1/2 method MV stenosis 68.13 ms [facility] pressure 1/2 time AV LVOT peak 3.79 mmHg [facility] gradient LV SYS VOL 91.49 ml [facility] LV ZHENG VOL 159.21 ml [facility] LA area s A4C 42.65 cm2 [facility] LV SV Teich 2D 67.72 ml [facility] LVOT SI 44.14 ml/m2 [facility] AoV Cusp sep 1.05 [facility] AoV Vmn 1.05 [facility] IVS s 2D 1.60 [facility] LA Ao Ratio 2.25 [facility] Mmode LVOT Vmn 0.66 [facility] Pt Size 193.04 [facility] Pt Wt 129.27 [facility] PV AT 105.61 msec [facility] LVOT mean grad 1.91 mmHg [facility] LVPW s PLAX 1.70 cm [facility] Velocity Ratio 0.65 m/s [facility] (V1/V2) EF 42.54 % [facility] LVOT area 4.87 cm2 [facility] LA volume 180.00 cm3 [facility] LA Area d A4C 181 cm2 [facility] RA pressure 5.00 mmHg [facility] RVSP 29.56 mmHg [facility] LA diam s 6.90 cm [facility] Aortic Root 3.06 cm [facility] D E excurs 1.50 [facility] E f slope 0.06 [facility] E prime lat 0.12 [facility] E chirag sept 0.09 [facility] PV acc T slope 7.90 [facility] Specimen Narrative Performed At [facility] Left ventricular systolic function is normal. Left Ventricular ejection fraction is 50 - 55%. Left atrium size is mildly dilated. Unable to assess diastolic filling. Elevated LV filling pressure. Hepatic vein pressure elevated; RA pressure 10-15 mmHg. Performing Organization Address City/[facility] Phone Number [email or web address] [address] [place] [address] * Us duplex venous lower extremity (01/13/2019 2:40 PM CDT) Specimen Narrative Performed At [facility] There is no evidence of DVT in the left lower extremity and right common femoral vein. Performing Organization Address [facility] Phone Number [email or web address] [address] [place] [address] * Arterial blood gas (01/12/2019 3:58 PM CDT) pH, arterial 7.55 (H) 7.35 - 7.45 [facility] pCO2, arterial 28 (L) 35 - 45 mmHg [facility] pO2, arterial 232 (H) 80 - 90 mmHg [facility] Bicarbonate, 27.2 21.0 - 28.0 mmol/L [facility] Base excess, 3 (H) -2 - 2 mEq/L [facility] O2 saturation, 100 95 - 100 % [facility] FiO2, inspired 50 % [facility] O2% [facility] Specimen Blood Performing Organization Address City/[facility]/Zipcode Phone Number [facility] [place] [id number] [place] [address] [place] [address] PATHOLOGY AND GENOMIC MEDICINE [facility] [address] [place] [id number] [facility] * Troponin (01/12/2019 4:41 AM CDT) Only the most recent of 3 results within the time period is included. Pathologist [facility] [place] Troponin 0.022 0.000 - 0.040 ng/mL [facility] Comment: [facility] changed methodology effective: 12/03/2018 at 10:00 am The new method has a 99th percentile cutoff of 0.040 ng/mL Specimen Plasma specimen Performing Organization Address [facility] Phone Number [facility] DEPARTMENT [place] [address] [place] [address] PATHOLOGY AND GENOMIC MEDICINE [place] [address] [address] * Manual differential (01/12/2019 4:41 AM CDT) [facility] Manual PERFORMED [facility] differential [facility] Neutrophils 93.0 (H) 39.0 - 69.0 % [facility] Lymphocytes 1.0 (L) 25.0 - 45.0 % [facility] Monocytes 5.0 0.0 - 10.0 % [facility] Eosinophils 0.0 0.0 - 5.0 % [facility] Basophils 0.0 0.0 - 1.0 % [facility] Metamyelocytes 1 % [facility] Promyelocytes 0 % [facility] Platelet slide Brian adequate [facility] review [facility] Specimen Performing Organization Address [facility] Phone Number [facility] DEPARTMENT [place] [address] [place] [address] PATHOLOGY AND [facility] [place] [address] [address] * Magnesium level (01/12/2019 4:41 AM CDT) [facility] Magnesium 2.1 1.6 - 2.4 mg/dL [facility] Specimen Plasma specimen Performing Organization Address [facility] Phone Number [facility] DEPARTMENT [place] [address] [place] [address] PATHOLOGY AND [facility] [place] [address] [address] * Comprehensive metabolic panel (01/12/2019 4:41 AM CDT) Only the most recent of 2 results within the time period is included. [facility] Sodium 132 (L) 135 - 148 mEq/L [facility] Potassium 5.2 (H) 3.5 - 5.0 mEq/L [facility] Chloride 97 (L) 98 - 112 mEq/L [facility] CO2 24 24 - 31 mEq/L [facility] Anion gap 11@ANIO 7 - 15 mEq/L [facility] BUN 28 (H) 8 - 23 mg/dL [facility] Creatinine 1.10 0.70 - 1.20 mg/dL [facility] Glucose 419 (HH) 65 - 99 mg/dL [facility] Comment: [facility] Results called to and read [facility] back by ZAFAR at 01/12/2019 05:21 by [email or web address]. Calcium 9.1 8.8 - 10.2 mg/dL [facility] Protein 6.1 (L) 6.3 - 8.3 g/dL [facility] Comment: [facility] Garrett [facility] 4.6-7.0 g/dL 1 week 4.4-7.6 g/dL 7 months-1year 5.1-7.3 g/dL 1-2 years5.6-7 .5 g/dL >3 years6.0-8 .0 g/dL 18-150 6.3-8.3 g/dL Albumin 3.6 3.5 - 5.0 g/dL [facility] A/G ratio 1.4 0.7 - 3.8 [facility] Alkaline 70 40 - 129 U/L [facility] phosphatase [facility] AST 14 10 - 50 U/L [facility] ALT 39 5 - 50 U/L [facility] Total bilirubin 1.0 0.0 - 1.2 mg/dL [facility] Specimen Plasma specimen Performing Organization Address City/State/Zipcode [place] Number [place] [address] [place] [address] PATHOLOGY AND GENOMIC MEDICINE [facility] [address] [place] [address] [facility] * Partial thromboplastin time, activated (01/11/2019 9:57 PM CDT) PTT 27.9 23.0 - 36.0 sec [facility] Comment: [facility] PTT therapeutic range for [facility] unfractionated heparin is 61.0-112.0 seconds which corresponds to Anti-Xa 0.3-0.7 U/ml. Specimen Blood Performing Organization Address [facility]/Zipcode Phone Number [facility] DEPARTMENT OF [address] [place] [address]. [place] [address] PATHOLOGY AND GENOMIC MEDICINE [facility] [address] * Prothrombin time with INR (01/11/2019 9:57 PM CDT) Pathologist [facility] [place] Prothrombin 14.4 11.5 - 14.5 sec [facility] INR 1.2 [facility] [facility] Comment: [facility] The International Normalized [facility] Ratio (INR) is a therapeutic monitoring tool for patients who are stable on oral anticoagulant therapy. An INR of 2.0-3.0 is suggested for deep vein thrombosis/pulmonary embolism. Specimen Blood Performing Organization Address [facility] Phone Number [address] [place] [address] PATHOLOGY AND GENOMIC MEDICINE [address] * B natriuretic peptide (01/11/2019 9:57 PM CDT) Pathologist [facility] [place] BNP 169 (H) 0 - 100 pg/mL [facility] Specimen Blood Performing Organization Address [facility] Services[facility] Phone Number [facility] DEPARTMENT [address] [place] [address] PATHOLOGY AND GENOMIC MEDICINE [address] Kamar Pichardo [address] * Blood culture, aerobic & anaerobic (01/11/2019 9:50 PM CDT) Only the most recent of 2 results within the time period is included. Pathologist [facility] [place] Blood culture No growth after 5 days of [place] isolate incubation. [facility] Comment: HOSPITAL Specimen Information Specimen Source: Blood Specimen Site: Hand, right Specimen Blood - Hand, right Performing Organization Address City/[facility]/Zipcode Phone Number [facility] DEPARTMENT [address] [place] [address] PATHOLOGY AND GENOMIC MEDICINE [address] * XR Tibia Fibula 2 Vw Left (01/11/2019 9:30 PM CDT) Specimen Narrative Performed At EXAM:XR TIBIA FIBULA 2 VW LEFT RADIANT CLINICAL HISTORY:swelling LLE COMPARISON:None. IMPRESSION: No evidence of acute displaced fracture or dislocation of the left tibia or fibula. Soft tissues are unremarkable. Vascular calcifications are noted. Soft tissues are otherwise normal. [facility]-[id number] Procedure Note Interface, Radiology Results Incoming - 01/11/2019 10:06 PM CDT EXAM: XR TIBIA FIBULA 2 VW LEFT CLINICAL HISTORY: swelling LLE COMPARISON: None. IMPRESSION: No evidence of acute displaced fracture or dislocation of the left tibia or fibula. Soft tissues are unremarkable. Vascular calcifications are noted. Soft tissues are otherwise normal. [facility]-[id number] Performing Organization Address [facility] Servicescode Phone Number [facility] [address] [place] [address] * XR Chest 1 Vw Portable (01/11/2019 9:30 PM CDT) Specimen Narrative Performed At EXAMINATION:XR CHEST 1 VW PORTABLE RADIANT CLINICAL HISTORY: SOB COMPARISON:09/06/2010 IMPRESSION: The heart is mildly enlarged. Interval partial visualization of a descending thoracic aortic stent. Correlate findings with clinical history. Pulmonary vasculature is mildly prominent. No focal or confluent airspace consolidation is seen to suggest acute pneumonia. No sizable pleural effusion. No pneumothorax identified. No acute osseous abnormalities are visualized. [facility]-[id number] Procedure Note Interface, Radiology Results Incoming - 01/11/2019 9:49 PM CDT EXAMINATION: XR CHEST 1 VW PORTABLE CLINICAL HISTORY: SOB COMPARISON: 09/06/2010 IMPRESSION: The heart is mildly enlarged. Interval partial visualization of a descending thoracic aortic stent. Correlate findings with clinical history. Pulmonary vasculature is mildly prominent. No focal or confluent airspace consolidation is seen to suggest acute pneumonia. No sizable pleural effusion. No pneumothorax identified. No acute osseous abnormalities are visualized. [facility]-[id number] Performing Organization Address [facility] Servicescode Phone Number [facility] [address] [place] [address] * ECG ED Preliminary Interpretation - Not an Order (01/11/2019 9:00 PM CDT) Narrative Performed At Murali Choudhury MD 01/12/2019 12:36 AM ECG ED Preliminary Interpretation - Not an Order Performed by: Murali Choudhury MD Authorized by: Murali Choudhury MD ECG reviewed by ED Physician in the absence of a pediatric nephrologist: yes Interpretation: Interpretation: normal Rate: ECG rate:78 ECG rate assessment: normal Rhythm: Rhythm: sinus rhythm Ectopy: Ectopy: none QRS: QRS axis:Normal QRS intervals:Normal Conduction: Conduction: normal ST segments: ST segments:Normal T waves: T waves: normal * ECG 12 lead (01/11/2019 8:48 PM CDT) Ventricular 78 [facility] rate Atrial rate 78 [facility] HI interval 196 [facility] QRSD interval 98 [facility] QT interval 378 [facility] QTC interval 430 [facility] P axis 1 55 [facility] QRS axis 1 -41 [facility] T wave axis 63 [facility] EKG impression Sinus rhythm with occasional [facility] premature ventricular complexes-Left axis deviation-ST abnormality, possible digitalis effect-Abnormal ECG-- Specimen Narrative Performed At Performing Organization Address City/State/Zipcode Phone Number [facility] [address] [place] [address] after 01/26/2018 Insurance Type Payer Benefit Subscriber ID Effective Phone Address Plan / Dates Group Medicare MEDICARE MEDICARE xxxxxxxxxxx [id number] [place], PART [place] AND resent [place] B Commercial COLONIAL COLONIAL xxxxxxxxxx 2010-P [facility] Advance Directives Patient has advance care planning documents, and code status on file. For more i nformation, please contact: Ace Shields [address] [place] [address] Date Inactivated Comments Code Status Date Activated 01/15/2019 7:05 PM Full Code 01/12/2019 12:49 AM Code Status decision reached by: Patient
--- OUTSIDE RECORDS SUMMARY | 2019-01-27 19:49 | XMS REPORT ---
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 Active Problem Obesity E66.9 Active Problem Hypercholesterolemia E78.01 Active Problem Anemia D64.9 Active Problem Acute on chronic diastolic congestive heart failure I50.33 Active Problem Chronic diastolic heart failure I50.32 Active Problem Bradycardia R00.1 Active Problem Hypertension I10 Active Problem Diabetes mellitus with complication E11.8 Active Problem Exertional dyspnea R06.09 Active Problem Atrial flutter I48.92 Active Medications Medication Code System Code Instructions Start Date End Date Status Dosage Amlodipine Besylate [facility] [address]-77 5 MG Orally Once a day Active 1 tablet Results No Known Results Summary Purpose [employer] Submission
--- OUTSIDE RECORDS SUMMARY | 2019-01-27 19:49 | XMS REPORT ---
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
--- OUTSIDE RECORDS SUMMARY | 2019-01-27 19:49 | XMS REPORT | Continuity of Care Document ---
Author Author Notice Kiosk Address Unknown Phone Unavailable Care Team Providers Care Template Inspector Name Role Phone [employer] Information Exchange Unavailable Unavailable Problems Problem Status Onset Date Classification Date Reported Comments Source Anemia Active 05/10/2015 Problem 05/13/2018 [facility] Renal failure Active 11/22/2014 Problem 05/13/2018 [facility] Back pain Active 06/08/2014 Problem 05/13/2018 [facility] Descending thoracic aortic dissection Active Problem 06/11/2018 Mohjuan Rice Obesity Active Problem 06/11/2018 Mohamed O Krystal Hypercholesterolemia Active Problem 06/11/2018 Mohjuan Rice Anemia Active Problem 06/11/2018 Mohamed Luis Manuel Rice Acute on chronic diastolic congestive heart failure Active Problem 06/11/2018 Mohamed O Krystal Chronic diastolic heart failure Active Problem 06/11/2018 Mohamed O Krystal Bradycardia Active Problem 06/11/2018 Mohamed O Krystal Hypertension Active Problem 06/11/2018 Mohamed O Krystal Diabetes mellitus with complication Active Problem 06/11/2018 Mohamed Luis Manuel Rice Exertional dyspnea Active Problem 06/11/2018 Mohamed O Krystal Atrial flutter Active Problem 06/11/2018 Mohamed Luis Manuel Rice LAE Active Problem 06/11/2018 Mohamed O Krystal Non-rheumatic mitral regurgitation Active Problem 06/11/2018 Mohamed O Krystal Nonrheumatic tricuspid insufficiency Active Problem 06/11/2018 Mohjuan Rice Cellulitis of left leg Active Problem 05/13/2018 [facility] Dyspnea Active Problem 05/13/2018 [facility] Pneumonia Active Problem 05/13/2018 [facility] Renal failure , acute on chronic Active Problem 05/13/2018 [facility] Medications Medication Details Route Status Patient Instructions Ordering Provider Order Date Source Amlodipine Besylate 1 tablet Orally Active 5 MG Orally Once a day Krystal 03/14/2018 Roger Luis Manuel Rice Aspirin 325 Mg Tablet, 325 Mg Oral Daily Active 11/13/2016 [facility] Irbesartan (Avapro) 75 Mg Tablet, 75 Mg Oral Twice A Day Active 11/13/2016 [facility] Silodosin (Rapaflo) 8 Mg Capsule, 8 Mg Oral Daily Active 07/20/2015 [facility] Warfarin Sodium (Coumadin) 5 Mg Tablet, 5 Mg Oral Today At 5:00PM Active 05/14/2015 [facility] Amphet Asp/Amphet/D-Amphet (Adderall 5 Mg Tablet) 5 Mg Tablet, 5 Mg Oral Twice A Day Active 05/11/2015 [facility] Cephalexin Monohydrate (Keflex) 500 Mg Capsule, Mg Oral Twice A Day Active 05/11/2015 [facility] Hydrocodone Bit/Acetaminophen (Epping 10-325 Tablet) 1 Each Tablet, 1 Tab Oral Every 4 Hours Active 05/11/2015 [facility] Insulin Detemir (Levemir) 100 Unit/1 Ml Vial, 40 Sub-Q Twice A Day Active 05/11/2015 [facility] Insulin Lispro (Humalog) 100 Unit/1 Ml Insuln.pen, 40 Sub-Q Three Times A Day Active 05/11/2015 [facility] Torsemide (Demadex) 20 Mg Tablet, 20 Mg Oral Twice A Day Active 11/24/2014 [facility] Insulin Aspart (Novolog) 100 Units/Ml Ml, 40 Sub-Q Before Meals Active 11/23/2014 [facility] Polyethylene Glycol 3350 (Miralax) 17 Gm Powd.pack, 1 Pkt Oral Every Morning Active 11/22/2014 [facility] Potassium Chloride 10 Meq Tablet.er, 10 Meq Oral Twice A Day Active 11/22/2014 [facility] Dabigatran Etexilate Mesylate (Pradaxa) 150 Mg Capsule, 150 Mg Oral Twice A Day Active 08/21/2014 [facility] Amphet Asp/Amphet/D-Amphet (Adderall 20 Mg Tablet) 20 Mg Tablet, 20 Mg Oral Twice A Day Active 08/14/2013 [facility] Irbesartan (Avapro) 300 Mg Tablet, 150 Mg Oral Daily Active 08/14/2013 [facility] Metolazone 5 Mg Tablet, 5 Mg Oral Daily Active 08/14/2013 [facility] Valsartan/Hydrochlorothiazide (Diovan Hct 160-12.5 Mg Tab) 1 Each Tablet, 1 Tab Oral Daily Active 08/14/2013 [facility] Dutasteride (Avodart) 0.5 Mg Capsule, Daily Active 02/13/2013 [facility] Methocarbamol (Robaxin-750) 750 Mg Tablet, Twice A Day Active 02/13/2013 [facility] [id number] Daily , Active 02/13/2013 [facility] Valsartan/Hydrochlorothiazide (Diovan Hct 160-12.5 Mg Tab) 1 Each Tablet, 1 Each Oral Twice A Day Active 02/13/2013 [facility] Amlodipine Besylate 1 tablet Orally Active 5 MG Orally Once a day Krystal Rice Amlodipine Besylate TAKE 1 TABLET BY MOUTH EVERY DAY by mouth Active 5 MG by mouth once a day Krystal Rice Alprazolam (Xanax) 0.5 Mg Tablet Bedtime Active [facility] Amlodipine Besylate 5 Mg Tablet Daily Active [facility] Amphet Asp/Amphet/D-Amphet (Adderall 20 Mg Tablet) 20 Mg Tablet Every 12 Hours Active [facility] Docusate Calcium (Stool Softener) 240 Mg Capsule Daily Active [facility] Gabapentin 300 Mg Capsule Three Times A Day Active [facility] Hydrocodone Bit/Acetaminophen (Epping 10-325 Tablet) 1 Each Tablet Daily Active [facility] Insulin Aspart (Novolog) 100 Unit/1 Ml Cartridge Before Meals Active [facility] Insulin Detemir (Levemir) 100 Unit/1 Ml Vial Twice A Day Active [facility] Lisinopril (Prinavil / Zestril) 20 Mg Tablet Twice A Day Active [facility] Metformin Hcl (Glucophage) 500 Mg Tablet Twice A Day Active [facility] Metolazone 5 Mg Tablet Daily Active [facility] Metoprolol Tartrate 50 Mg Tablet Twice A Day Active [facility] Minoxidil 2.5 Mg Tablet Daily Active [facility] Movantik Daily Active [facility] Silodosin (Rapaflo) 8 Mg Capsule Daily Active [facility] Sucralfate (Carafate) 1 Gm/10 Ml Oral.susp Daily Active [facility] Torsemide (Demadex) 10 Mg Tablet Daily Active [facility] Allergies, Adverse Reactions, Alerts Substance Category Reaction Severity Reaction type Status Date Reported Comments Source No Known Drug Allergies Mild Allergy to Substance Active 05/02/2018 [facility] Immunizations No Data Provided for This Section Results Order Name Results Value Reference Range Date Interpretation Comments Source Capillary blood glucose measurement by glucometer (mass/volume) Capillary blood glucose measurement by glucometer (mass/volume) 163 70 - 120 05/13/2018 [facility] Automated blood basophil count (count/volume) Automated blood basophil count (count/volume) 0.0 0.0 - 0.1 05/13/2018 [facility] Automated blood basophil count as percentage of total leukocytes Automated blood basophil count as percentage of total leukocytes 0.3 0.0 - 1.0 05/13/2018 [facility] Automated blood eosinophil count Automated blood eosinophil count 0.1 0.0 - 0.4 05/13/2018 [facility] Automated blood eosinophil count as percentage of total leukocytes Automated blood eosinophil count as percentage of total leukocytes 2.0 0.0 - 6.0 05/13/2018 [facility] Automated blood hematocrit (volume fraction) Automated blood hematocrit (volume fraction) 39.6 38.2 - 49.6 05/13/2018 [facility] Automated blood lymphocyte count as percentage ot total leukocytes Automated blood lymphocyte count as percentage ot total leukocytes 15.0 18.0 - 39.1 05/13/2018 [facility] Automated blood monocyte count as percentage of total leukocytes Automated blood monocyte count as percentage of total leukocytes 7.1 4.4 - 11.3 05/13/2018 [facility] Automated blood neutrophil count Automated blood neutrophil count 5.1 2.1 - 6.9 05/13/2018 [facility] Automated blood platelet count (count/volume) Automated blood platelet count (count/volume) 300 140 - 360 05/13/2018 [facility] Automated blood segmented neutrophil count as percentage of total leukocytes Automated blood segmented neutrophil count as percentage of total leukocytes 73.7 38.7 - 80.0 05/13/2018 [facility] Automated erythrocyte mean corpuscular hemoglobin (mass per erythrocyte) Automated erythrocyte mean corpuscular hemoglobin (mass per erythrocyte) 28.1 28 - 32 05/13/2018 [facility] Automated erythrocyte mean corpuscular hemoglobin concentration measurement (mass/volume) Automated erythrocyte mean corpuscular hemoglobin concentration measurement (mass/volume) 31.8 31 - 35 05/13/2018 [facility] Automated erythrocyte mean corpuscular volume Automated erythrocyte mean corpuscular volume 88.2 81 - 99 05/13/2018 [facility] Blood erythrocytes automated count (number/volume) Blood erythrocytes automated count (number/volume) 4.49 4.3 - 5.7 05/13/2018 [facility] Blood hemoglobin measurement (moles/volume) Blood hemoglobin measurement (moles/volume) 12.6 14.0 - 18.0 05/13/2018 [facility] Blood leukocytes automated count (number/volume) Blood leukocytes automated count (number/volume) 6.93 4.8 - 10.8 05/13/2018 [facility] Blood lymphocytes count (number/volume) Blood lymphocytes count (number/volume) 1.0 1.0 - 3.2 05/13/2018 [facility] Blood monocytes automated count (number/volume) Blood monocytes automated count (number/volume) 0.5 0.2 - 0.8 05/13/2018 [facility] Estimated glomerular filtration rate (GFR) determination Estimated glomerular filtration rate (GFR) determination >60 60 05/13/2018 [facility] Glucose measurement Glucose measurement 222 74 - 118 05/13/2018 [facility] Plasma globulin measurement (mass/volume) Plasma globulin measurement (mass/volume) 4.3 2.3 - 3.5 05/13/2018 [facility] Serum or plasma alanine aminotransferase measurement (enzymatic activity/volume) Serum or plasma alanine aminotransferase measurement (enzymatic activity/volume) 24 0 - 55 05/13/2018 [facility] Serum or plasma albumin measurement (mass/volume) Serum or plasma albumin measurement (mass/volume) 3.1 3.5 - 5.0 05/13/2018 [facility] Serum or plasma albumin/globulin mass ratio Serum or plasma albumin/globulin mass ratio 0.7 0.8 - 2.0 05/13/2018 [facility] Serum or plasma alkaline phosphatase measurement (enzymatic activity/volume) Serum or plasma alkaline phosphatase measurement (enzymatic activity/volume) 65 40 - 150 05/13/2018 [facility] Serum or plasma anion gap Serum or plasma anion gap 15.6 8 - 16 05/13/2018 [facility] Serum or plasma calcium measurement (mass/volume) Serum or plasma calcium measurement (mass/volume) 9.6 8.4 - 10.2 05/13/2018 [facility] Serum or plasma carbon dioxide, total measurement (moles/volume) Serum or plasma carbon dioxide, total measurement (moles/volume) 28 22 - 29 05/13/2018 [facility] Serum or plasma chloride measurement (moles/volume) Serum or plasma chloride measurement (moles/volume) 99 98 - 107 05/13/2018 [facility] Serum or plasma creatinine measurement (mass/volume) Serum or plasma creatinine measurement (mass/volume) 0.87 0.72 - 1.25 05/13/2018 [facility] Serum or plasma potassium measurement (moles/volume) Serum or plasma potassium measurement (moles/volume) 3.6 3.5 - 5.1 05/13/2018 [facility] Serum or plasma protein measurement (mass/volume) Serum or plasma protein measurement (mass/volume) 7.4 6.5 - 8.1 05/13/2018 [facility] Serum or plasma sodium measurement (moles/volume) Serum or plasma sodium measurement (moles/volume) 139 136 - 145 05/13/2018 [facility] Serum or plasma total bilirubin measurement (mass/volume) Serum or plasma total bilirubin measurement (mass/volume) 0.5 0.2 - 1.2 05/13/2018 [facility] Serum or plasma urea nitrogen measurement (mass/volume) Serum or plasma urea nitrogen measurement (mass/volume) 12 7 - 26 05/13/2018 [facility] Serum or plasma urea nitrogen/creatinine mass ratio Serum or plasma urea nitrogen/creatinine mass ratio 14 6 - 25 05/13/2018 [facility] Red Cell Distribution Width 13.7 11.7 - 14.4 05/13/2018 [facility] IM GRANULOCYTES % 1.9 0.0 - 1.0 05/13/2018 [facility] Absolute Immature Granulocyte (auto 0.13 0 - 0.1 05/13/2018 [facility] Aspartate Amino Transf (AST/SGOT) 19 5 - 34 05/13/2018 [facility] Automated urine sediment leukocyte count by microscopy (number/high power field) Automated urine sediment leukocyte count by microscopy (number/high power field) <5 0 - 5 05/11/2018 [facility] Bacteria detection in urine sediment by light microscopy Bacteria detection in urine sediment by light microscopy RARE NONE 05/11/2018 [facility] Epithelial cells detection in urine sediment by light microscopy Epithelial cells detection in urine sediment by light microscopy FEW NONE 05/11/2018 [facility] Erythrocytes detection in urine sediment by light microscopy Erythrocytes detection in urine sediment by light microscopy <50 0 - 5 05/11/2018 [facility] Hyaline casts detection in urine sediment by light microscopy Hyaline casts detection in urine sediment by light microscopy <1 0 - 1 05/11/2018 [facility] Specific gravity of Urine by Test strip Specific gravity of Urine by Test strip 1.010 1.010 - 1.025 05/11/2018 [facility] Transitional cells detection in urine sediment by light microscopy Transitional cells detection in urine sediment by light microscopy FEW NONE 05/11/2018 [facility] Urine clarity Urine clarity CLEAR CLEAR 05/11/2018 [facility] Urine color determination Urine color determination YELLOW YELLOW 05/11/2018 [facility] Urine erythrocytes detection Urine erythrocytes detection 1+ NEGATIVE 05/11/2018 [facility] Urine glucose detection Urine glucose detection 2+ NEGATIVE 05/11/2018 [facility] Urine ketones detection by automated test strip Urine ketones detection by automated test strip NEGATIVE NEGATIVE 05/11/2018 [facility] Urine leukocyte esterase detection by dipstick Urine leukocyte esterase detection by dipstick TRACE NEGATIVE 05/11/2018 [facility] Urine nitrite detection Urine nitrite detection NEGATIVE NEGATIVE 05/11/2018 [facility] Urine pH measurement by automated test strip Urine pH measurement by automated test strip 8 5 - 7 05/11/2018 [facility] Urine protein measurement by test strip (mass/volume) Urine protein measurement by test strip (mass/volume) NEGATIVE NEGATIVE 05/11/2018 [facility] Urine total bilirubin measurement (mass/volume) Urine total bilirubin measurement (mass/volume) NEGATIVE NEGATIVE 05/11/2018 [facility] Urine urobilinogen measurement by test strip (mass/volume) Urine urobilinogen measurement by test strip (mass/volume) 0.2 0.2 - 1 05/11/2018 [facility] Blood culture Blood culture NO GROWTH AFTER 72 HOURS 05/10/2018 [facility] Serum or plasma trough vancomycin level at trough (mass/volume) Serum or plasma trough vancomycin level at trough (mass/volume) 24.3 5.0 - 10.0 05/06/2018 [facility] Blood anisocytosis detection by light microscopy Blood anisocytosis detection by light microscopy SLIGHT 05/06/2018 [facility] Blood platelets count by estimate (number/volume) Blood platelets count by estimate (number/volume) ADEQUATE 05/06/2018 [facility] Platelet morphology Platelet morphology NORMAL 05/06/2018 [facility] RBC morphology RBC morphology NORMAL 05/06/2018 [facility] Serum or plasma cholesterol in HDL measurement (mass/volume) Serum or plasma cholesterol in HDL measurement (mass/volume) 41 40 - 60 05/06/2018 [facility] Serum or plasma cholesterol in LDL measurement (mass/volume) Serum or plasma cholesterol in LDL measurement (mass/volume) 99 60 - 130 05/06/2018 [facility] Serum or plasma cholesterol measurement (mass/volume) Serum or plasma cholesterol measurement (mass/volume) 151 0 - 199 05/06/2018 [facility] Serum or plasma thyrotropin measurement by detection limit <=0.005 miu/l (units/volume) Serum or plasma thyrotropin measurement by detection limit <=0.005 miu/l (units/volume) 0.930 0.350 - 4.940 05/06/2018 [facility] Serum or plasma total cholesterol/cholesterol in HDL mass ratio Serum or plasma total cholesterol/cholesterol in HDL mass ratio 3.7 3.9 - 4.7 05/06/2018 [facility] Serum or plasma triglyceride measurement (mass/volume) Serum or plasma triglyceride measurement (mass/volume) 55 0 - 149 05/06/2018 [facility] Bacterial blood culture Bacterial blood culture Organism: STAPHYLOCOCCUS AUREUS 05/05/2018 [facility] Lactic Acid Level 13.2 4.5 - 19.8 05/05/2018 [facility] Serum or plasma creatine kinase MB measurement (mass/volume) Serum or plasma creatine kinase MB measurement (mass/volume) 2.40 0 - 5.0 05/04/2018 [facility] Serum or plasma creatine kinase measurement (enzymatic activity/volume) Serum or plasma creatine kinase measurement (enzymatic activity/volume) 532 30 - 200 05/04/2018 [facility] Troponin I measurement by highly sensitive enzyme immunoassay Troponin I measurement by highly sensitive enzyme immunoassay 0.197 0 - 0.300 05/04/2018 [facility] Serum or plasma magnesium measurement (mass/volume) Serum or plasma magnesium measurement (mass/volume) 1.8 1.3 - 2.1 05/04/2018 [facility] Manual blood lymphocytes/100 leukocytes Manual blood lymphocytes/100 leukocytes 7 19 - 48 05/03/2018 [facility] Manual blood monocytes/100 leukocytes Manual blood monocytes/100 leukocytes 8 3.4 - 9.0 05/03/2018 [facility] Manual blood neutrophils/100 leukocytes Manual blood neutrophils/100 leukocytes 85 40 - 74 05/03/2018 [facility] Differential Total Cells Counted 100 05/03/2018 [facility] Mucus detection in urine sediment by light microscopy Mucus detection in urine sediment by light microscopy FEW RARE 05/02/2018 [facility] Activated partial thromboplastin time (aPTT) in platelet poor plasma bycoagulation assay Activated partial thromboplastin time (aPTT) in platelet poor plasma bycoagulation assay 33.6 23.8 - 35.5 05/02/2018 [facility] Fibrin D-dimer DDU measurement in platelet poor plasma (mass/volume) Fibrin D-dimer DDU measurement in platelet poor plasma (mass/volume) 0.75 0.00 - 0.45 05/02/2018 [facility] INR in Platelet poor plasma by Coagulation assay INR in Platelet poor plasma by Coagulation assay 0.96 05/02/2018 [facility] Prothrombin time (PT) in platelet poor plasma by coagulation assay Prothrombin time (PT) in platelet poor plasma by coagulation assay 13.7 11.9 - 14.5 05/02/2018 [facility] Serum or plasma lipase measurement (enzymatic activity/volume) Serum or plasma lipase measurement (enzymatic activity/volume) <4 8 - 78 05/02/2018 [facility] B-Type Natriuretic Peptide 140.5 0 - 100 05/02/2018 [facility] Bacterial urine culture Bacterial urine culture Urine Culture [facility] Pathology Reports No Data Provided for This Section Diagnostic Reports No Data Provided for This Section Consultation Notes No Data Provided for This Section Discharge Summaries No Data Provided for This Section History and Physicals No Data Provided for This Section Vital Signs No Data Provided for This Section Encounters Location Location Details Encounter Type Encounter Number Reason For Visit Attending Provider ADM Date DC Date Status Source Discharged Inpatient [id number] GILBERT NAVARRO MD 05/02/2018 05/13/2018 [facility] Procedures Procedure Code Date Perfomer Comments Source Computed tomography of chest with contrast [id number] 05/10/2018 [facility] MRI joint extremity upper wo then w contrast [id number] 05/05/2018 [facility] Computed tomography of abdomen and pelvis with contrast [id number] 05/04/2018 [facility] Computed tomography of soft tissues of neck with contrast [id number] 05/04/2018 [facility] Computed tomography of chest with contrast [id number] 05/02/2018 [facility] Assessment and Plan No Data Provided for This Section Plan of Care Plan of Care Date Source Discharge Date 05/13/18 12:14pm Disposition HOME, SELF-CARE Instructions/Education Provided Pneumonia - Bacterial Prescriptions See Medication Section Additional Instructions/Education Follow up in [address] Navarro 05/13/2018 [facility] Social History Social History Date Source Social History Problem Response Recorded Date/Time Onset Date Status Hx Psychiatric Problems No 11/13/2016 10:33pm Not Applicable Not Applicable Hx Eating Disorder No 11/13/2016 10:33pm Not Applicable Not Applicable Hx Substance Use Disorder No 11/13/2016 10:33pm Not Applicable Not Applicable Hx Depression No 11/13/2016 10:33pm Not Applicable Not Applicable Hx Alcohol Use No 11/13/2016 10:33pm Not Applicable Not Applicable Hx Substance Use Treatment No 11/13/2016 10:33pm Not Applicable Not Applicable Hx Physical Abuse No 11/13/2016 10:33pm Not Applicable Not Applicable Smoking Status Start Date Stop Date Never Smoker 05/13/2018 [facility] Family History No Data Provided for This Section Advance Directives Order Name Results Value Date Source Advance Directives Advance Directives Directive Response Recorded Date/Time Does the patient have an advance directive? Yes 05/03/18 2:25am If yes, is advance directive on file with [facility]? Yes 05/03/18 2:25am If not on file with [facility] will patient provide a copy? Yes 05/03/18 2:25am Do you have a Directive to Physician? No 05/02/18 8:46pm Do you have a Medical Power of [employer] Consultant? No 05/02/18 8:46pm Do you have an out of hospital Do Not Resuscitate Order? No 05/02/18 8:46pm Do you have any special needs we should be aware of? No 05/02/18 8:46pm Do you have a support person here with you today? Yes 05/02/18 8:46pm Did patient receive Notice of Privacy Practices? Yes 05/02/18 8:46pm Did patient receive patient rights and responsibilities? Yes 05/02/18 8:46pm 05/13/2018 [facility] Functional Status No Data Provided for This Section
--- OUTSIDE RECORDS SUMMARY | 2019-01-27 19:49 | XMS REPORT ---
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 Active Problem LAE (left atrial enlargement) I51.7 Active Problem Non-rheumatic mitral regurgitation I34.0 Active Problem Nonrheumatic tricuspid (valve) insufficiency I36.1 Active Problem Atrial flutter I48.92 Active Problem Anemia D64.9 Active Problem Bradycardia R00.1 Active Problem Acute on chronic diastolic congestive heart failure I50.33 Active Problem Hypertension I10 Active Problem Obesity E66.9 Active Problem Chronic diastolic heart failure I50.32 Active Problem Diabetes mellitus with complication E11.8 Active Medications No Known Medications Results No Known Results Summary Purpose eClinicalWorks Submission
--- OUTSIDE RECORDS SUMMARY | 2019-01-27 19:49 | XMS REPORT ---
Author Author Stoney Rice Organization [employer] Address Unknown Phone Unavailable Care Team Providers Care Pegger Name Role Phone Stoney Rice CP Unavailable [...] Diabetes mellitus with complication E11.8 Active Medications Medication Code System Code Instructions Start Date End Date Status Dosage Amlodipine Besylate [facility] [id number] 5 MG by mouth once a day Active TAKE 1 TABLET BY MOUTH EVERY DAY Results No Known Results Summary Purpose eClinicalWorks Submission
--- OUTSIDE RECORDS SUMMARY | 2019-01-27 19:49 | XMS REPORT ---
Author Author Stoney Rice Organization [employer] Address Unknown Phone Unavailable Care Team Providers Care Filter Cloth Maker Name Role Phone Stoney Rice CP Unavailable [...] Date End Date Status Dosage Amlodipine Besylate [facility] [id number] 5 MG Orally Once a day Mar 14, 2018 Active 1 tablet Results No Known Results Summary Purpose eClinicalWorks Submission
--- NOTE | 2019-01-27 20:00 | Consultation ---
DATE OF CONSULTATION: 01/27/2019 REASON FOR CONSULTATION: Bradyarrhythmia, shortness of breath, hypertension, and multiple medical health problems. HISTORY: This is a 73-year-old gentleman, who is known to me with hypertension, dyslipidemia, diabetes mellitus, type B aortic dissection, treated with stenting distal to the left subclavian as well as thoracic descending aorta. He is known with past history of atrial flutter, status post ablation in May 2014. He does have chronic venous stasis and repeated cellulitis of the lower extremities. He does have severe peripheral neuropathy. He had amputation of all the left foot toes with the exception of the great toe. There is history of repeated nonhealing ulcer on the lower extremities. The patient just left the hospital recently. He was in [facility] in [place] with shortness of breath, cellulitis and cellulitis involving the left lower extremity all the way to the groin. The patient received some antibiotics "new antibiotics" for Staph. He was given diuretics and he improved. He went home. He started again having shortness of breath. Of note, the patient had several times infection with Staph aureus. He came to the emergency room and he was given Lasix. It was noted he does have Wenckebach and with heart rate in the 50s. Cardiac consultation is obtained. I visited the patient on his shortness of breath, is almost back to baseline. He denied having any chest pain. He said he does not have fever or chills and his cellulitis of the lower extremities improving. His swelling of his lower extremities is by far much better. He does have his usual easy fatigability, shortness of breath on exertion, class III Heart Association Classification. PAST MEDICAL HISTORY: 1. 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 2. Hypertension. 3. Diabetes mellitus. 4. Sleep apnea. 5. Atrial fibrillation, status post ablation. 6. Morbid obesity. 7. Degenerative joint disease. Spinal stenosis. 8. Severe peripheral neuropathy. 9. Venous stasis and repeated skin infection and cellulitis. 10. 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 11. History of repeated ulcer. 12. Chronic skin changes. 13. History of scrotal infection. 14. Tonsillectomy. 15. Orchiectomy. FAMILY HISTORY: Mother of age 84 with liver tumor. Father at age 65 with CVA complication. Two healthy children and two healthy siblings. 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 He is non-alcohol drinker. HOME MEDICATIONS: Include Zaroxolyn 5 mg a day. Demadex 20 mg a day. Lopressor 50 mg t.i.d., lisinopril 20 mg a day, and minoxidil 10 mg twice a day, insulin, Flomax, gabapentin, alprazolam, citalopram, buspirone, vitamin D3, vitamin C, baclofen, Proscar, and Flomax. ALLERGIES: NONE. REVIEW OF SYSTEMS: GENERAL: Weakness, fatigue. No fever. SKIN: Chronic skin changes and chronic infection. Recent severe cellulitis of the left lower extremity, which is better. HEENT: No vision abnormality. No hearing abnormality. PULMONARY: Shortness of breath on minimal activity, which is chronic. The patient back at baseline, sleep apnea, obesity. CARDIAC: No angina. GI: No nausea, no vomiting. : Increased frequency of urination. EXTREMITIES: Lower extremity, chronic severe peripheral neuropathy, chronic skin changes, repeated ulcer, repeated staph infection. MUSCULOSKELETAL: Aches and pain. HEMATOLOGY: No easy bruising or bleeding. PHYSICAL EXAMINATION: VITAL SIGNS: Height of 6 feet 4 inches, weight of almost 300 pounds. Blood pressure 140/60, heart rate of 50, respiratory rate of 18. HEENT: Pupils are reactive. NECK: No elevation of jugular venous pulsation. CHEST: Decreased lung expansion. HEART: PMI at 5th left intercostal space. Normal first and second heart sounds. ABDOMEN: Obese. No organomegaly. EXTREMITIES: Chronic skin changes. Amputation of the left toes with the exception of the great toe. Chronic skin changes. There is evidence of cellulitis on the medial aspect of the left lower extremity. NEUROLOGIC: Awake, alert, oriented. No motor deficits. LABORATORY DATA: Sodium of 137, potassium 3.9, BUN of 17, creatinine of 1.05, and glucose of 174. White blood cell count of 8.3, hemoglobin of 11.4, hematocrit 34%, and platelet count of 277,000. EKG showing normal sinus rhythm with the PAC. Second EKG definitely showing Wenckebach. IMPRESSION AND PLAN: 1. Recent cellulitis of the left lower extremity. 2. Severe venous stasis and chronic skin changes. 3. Hypertension. 4. Status post repair of thoracic vascular aortic aneurysm. 5. Repeated cellulitis of the lower extremities. 6. Obesity. 7. Left ventricular diastolic dysfunction. 8. History of atrial flutter, status post ablation. 9. Diastolic heart failure. Cardiac lugo, definitely the treatment will be medical. His cellulitis is better. We will continue his diuretics. We will continue his minoxidil. We will continue his lisinopril. We decreased his Lopressor for 50 mg twice a day and probably, we will decrease it even further. We will allow his heart rate to be in the 70s to 80, which should give him more energy and strength and maybe decrease his shortness of breath. Prognosis is really very guarded. He is aware about all his illnesses and his repeated infection. MD MICKI Avalos/DEIONL /[id number]
[2019-01-27] MEDS: MEROPENEM 500MG/ NS 50ML 50 ML IV SCH (20:07)
[2019-01-27] MEDS: FAMOTIDINE 20 MG TAB PO SCH (20:07)
--- NOTE | 2019-01-27 20:33 | NUR ---
patient received from ER on stretcher, alert and oriented, moved from stretcher to bed with personal cane device. bed in low and locked position, call light with in reach, no complaints at this time.
[2019-01-27] MEDS ORDERED: MEROPENEM 500MG 500 MG in SODIUM CHLORIDE 0.9% 50ML 50 ML IV SCH (21:00)
[2019-01-27] MEDS: FUROSEMIDE INJ 10 MG/ML 4 ML VIAL IV SCH (21:37)
--- NOTE | 2019-01-27 22:50 | NUR ---
paged Dr. Navarro per pateint request for pain medications spoke to Trini with his answering service
--- NOTE | 2019-01-27 22:58 | NUR ---
Orders received Olla 10/325 mg PO Q 4hrs PRN as needed for pain
[2019-01-28] VITALS (7 sets, daily range): BP systolic 117–151; BP diastolic 56–65
[2019-01-28] MEDS: HYDROCODONE/APAP 10MG-325MG TAB PO PRN ×4 (02:25→20:06)
[2019-01-28] MEDS ORDERED: VITAMIN B-121000 MCG PO (03:31)
[2019-01-28] MEDS ORDERED: SILVADENE20 GM TOP (03:31)
[2019-01-28] MEDS ORDERED: ALPHA LIPOIC A300 MG PO (03:31)
[2019-01-28] MEDS ORDERED: MULTI-VITAMIN1 EACH PO (03:31)
[2019-01-28] MEDS ORDERED: VITAMIN E400 UNI1 (03:31)
[2019-01-28] MEDS ORDERED: ASCORBIC ACID500 M2 (03:31)
[2019-01-28] MEDS ORDERED: NIACIN500 M2 PO (03:31)
[2019-01-28] MEDS ORDERED: BACLOFEN10 MG PO (03:31)
[2019-01-28] MEDS ORDERED: PREDNISONE2.5 MG PO (03:31)
[2019-01-28] MEDS ORDERED: BETA GLUCAN (1-31 GM (03:31)
[2019-01-28] MEDS ORDERED: BUSPIRONE HCL10 MG (03:31)
[2019-01-28] MEDS ORDERED: VITAMIN D1000 UNI1 PO (03:31)
[2019-01-28] MEDS ORDERED: FLOMAX0.4 MG PO (03:31)
[2019-01-28] MEDS ORDERED: THIAMINE H100 MG/1 M PO (03:31)
[2019-01-28] MEDS ORDERED: LYCOPENE10 MG (03:31)
[2019-01-28] MEDS ORDERED: COENZYME Q10200 MG (03:31)
[2019-01-28] MEDS ORDERED: METOLAZONE5 MG PO (03:31)
[2019-01-28 05:22] LABS: BASOPHILS % 0.4 % (0.0-1.0); EOSINOPHILS # (AUTO) 0.1 (0.0-0.4); EOSINOPHILS % 2.5 % (0.0-6.0); HEMATOCRIT 31.6 % (38.2-49.6); HEMOGLOBIN 10.3 g/dL (14.0-18.0); LYMPHOCYTES # (AUTO) 0.8 (1.0-3.2); LYMPHOCYTES % 15.9 % (18.0-39.1); MEAN CORPUSCULAR HGB CONC 32.6 g/dL (31-35); MEAN CORPUSCULAR VOLUME 85.9 fL (81-99); MONOCYTES # (AUTO) 0.5 (0.2-0.8); MONOCYTES % 10.5 % (4.4-11.3); NEUTROPHILS # (AUTO) 3.6 (2.1-6.9); NEUTROPHILS % 70.3 % (38.7-80.0); PLATELET COUNT 181 x10e3/uL (140-360); RED BLOOD COUNT 3.68 x10e6/uL (4.3-5.7); RED CELL DISTRIBUTION WIDTH 12.9 % (11.7-14.4)
[2019-01-28 05:39] LABS: ANION GAP 12.6 mmol/L (8-16); BLOOD UREA NITROGEN 15 mg/dL (7-26); BUN/CREATININE RATIO 15 (6-25); CALCIUM 8.9 mg/dL (8.4-10.2); CARBON DIOXIDE 30 mmol/L (22-29); CHLORIDE 100 mmol/L (98-107); CHOL/HDL RATIO 5.1 (3.9-4.7); CHOLESTEROL 172 MD/DL (0-199); CREATININE, SERUM 0.97 mg/dL (0.72-1.25); EST GLOMERULAR FILTRATION RATE > 60 ML/MIN (60-); GLUCOSE 283 mg/dL (74-118); HDL CHOLESTEROL 34 MG/DL (40-60); LDL CHOLESTEROL 109 MG/DL (60-130); POTASSIUM 3.6 mmol/L (3.5-5.1); SODIUM 139 mmol/L (136-145); TRIGLYCERIDES 144 MG/DL (0-149)
[2019-01-28] MEDS ORDERED: HYDROCODONE/APAP 10MG-325MG TAB PO PRN (06:00)
[2019-01-28 06:01] LABS: CREATINE KINASE MB 2.4 ng/mL (0-5.0)
--- NOTE | 2019-01-28 07:05 | NUR ---
report and walking rounds completed with Bia HELLER, IV iron infusing at this time, bed low and locked, iv intact
--- NOTE | 2019-01-28 07:08 | NUR ---
report and walking rounds completed Bia RN, bed low and locked, IV intact
[2019-01-28] MEDS: INSULIN LISPRO 100 UNIT/1 ML 3ML VIAL SQ SCH ×3 (08:00→16:30)
[2019-01-28] MEDS: CITALOPRAM HYDROBROMIDE 20 MG TAB PO SCH (08:24)
[2019-01-28] MEDS: FAMOTIDINE 20 MG TAB PO SCH ×2 (08:24→20:06)
[2019-01-28] MEDS: CYANOCOBALAMIN 1,000 MCG TAB PO SCH (08:24)
[2019-01-28] MEDS: CHOLECALCIFEROL 1,000 UNIT TAB PO SCH (08:24)
[2019-01-28] MEDS: MEROPENEM 500MG/ NS 50ML 50 ML IV SCH ×2 (08:24→20:06)
[2019-01-28] MEDS: ALPRAZOLAM 0.5 MG TAB PO SCH ×2 (08:24→17:44)
[2019-01-28] MEDS: LISINOPRIL 20 MG TAB PO SCH ×2 (08:24→17:44)
[2019-01-28] MEDS: BACLOFEN 10 MG TAB PO SCH ×3 (08:24→20:06)
[2019-01-28] MEDS: TAMSULOSIN HCL 0.4 MG CAP PO SCH (08:24)
[2019-01-28] MEDS: MULTIVITAMINS/MINERALS TAB PO SCH (08:24)
[2019-01-28] MEDS: FUROSEMIDE INJ 10 MG/ML 4 ML VIAL IV SCH ×2 (08:24→20:06)
[2019-01-28] MEDS: MINOXIDIL 2.5 MG TAB PO SCH ×2 (08:24→17:44)
[2019-01-28] MEDS: BUSPIRONE HCL 10 MG TABLET PO SCH ×2 (08:24→17:43)
[2019-01-28] MEDS: ASPIRIN 81 MG ENTERIC COATED PO SCH (08:24)
[2019-01-28] MEDS: METOLAZONE 5 MG TAB PO SCH (08:24)
[2019-01-28] MEDS ORDERED: METOLAZONE 5 MG TAB PO SCH (09:00)
--- NOTE | 2019-01-28 15:05 | NUR ---
Visit made by the Spiritual Care Department Pastoral Visitor, Kayla Peres. Pt sleeping soundly and no family present. Pastoral Visitor left a card describing availability of product sales representative and instructions on how to contact a product sales representative. OZ RICHMOND Pile Driving Technician Spiritual Care Department O: [phone] Pager: [phone] ([phone] number calling from)
[2019-01-28] MEDS ORDERED: ONDANSETRON HCL 4 MG ORAL DISINTEGRATING TAB PO PRN (15:45)
--- NOTE | 2019-01-28 17:07 | NUR ---
Nutrition Screen Note RD Recommendation for Physician: -Rec adding cardiac to ADA diet as medically appropriate Plan of Care: RD following, monitoring for tolerance and adequacy Nutrition reason for involvement: Nutrition Risk Trigger MST Primary Diagnose(s): chronic HOLLEY, second degree heart block, venous stasis dermatitis, UTI PMH: 1. 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 2. Hypertension. 3. Diabetes mellitus. 4. Sleep apnea. 5. Atrial fibrillation, status post ablation. 6. Morbid obesity. 7. Degenerative joint disease. Spinal stenosis. 8. Severe peripheral neuropathy. 9. Venous stasis and repeated skin infection and cellulitis. 10. 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 11. History of repeated ulcer. 12. Chronic skin changes. 13. History of scrotal infection. 14. Tonsillectomy. 15. Orchiectomy. Ht: 76in Wt: 275lb BMI: 33.5kg/m2 IBW: 202lb +/- 10% RD Assessment: (01/28) Chart reviewed. Labs and meds reviewed. 73yo M, who is admitted for dyspnea on exertion. Visited pt in the room. Pt reports fair appetite without any nausea or vomiting. PCT recorded 75-100% meal intake since admission. Normal BM. Pt denies any chewing or swallowing difficulty. Weight has been fluctuating due to fluid retention and recent medication changes. Will continue to monitor and follow. Current Diet: ADA diet Malnutrition Evaluation (01/28/2019) The patient does not meet criteria for a specified degree of malnutrition at this time. Will re-evaluate at follow-up as appropriate. Diet Education Needs Assessment: Diet education indicated. Discussed some meal planning tips, sodium restriction, and blood glucose management Nutrition Care Level: low Signed: Beth Maxwell, MS, RD, LD
[2019-01-29] VITALS: BP_SYST 105; BP_SYST 125; BP_DIAS 58
[2019-01-29 04:00] VITALS: BP 135/64
--- NOTE | 2019-01-29 07:00 | NUR ---
RCD PT AT BED PT IS ALERT AND ORIENTED PT RESTING ON BED NO SIGNS OF ANY DISTRESS NOTED IV PATENT BED LOW AND LOCKED CALL LIGHT IN REACH
[2019-01-29] MEDS: INSULIN LISPRO 100 UNIT/1 ML 3ML VIAL SQ SCH ×2 (07:30→11:30)
[2019-01-29] MEDS: FAMOTIDINE 20 MG TAB PO SCH (07:30)
[2019-01-29] MEDS: MEROPENEM 500MG/ NS 50ML 50 ML IV SCH (07:30)
[2019-01-29 07:53] VITALS: BP 181/75
[2019-01-29] MEDS ORDERED: SODIUM CHLORIDE 0.9% 250ML 250 ML ONE (07:57)
[2019-01-29] MEDS: HYDROCODONE/APAP 10MG-325MG TAB PO PRN (08:00)
[2019-01-29] MEDS: FUROSEMIDE INJ 10 MG/ML 4 ML VIAL IV SCH (09:00)
[2019-01-29] MEDS: BUSPIRONE HCL 10 MG TABLET PO SCH (09:00)
[2019-01-29] MEDS: LISINOPRIL 20 MG TAB PO SCH (09:00)
[2019-01-29] MEDS ORDERED: METOPROLOL TARTRATE 25 MG TAB PO SCH (09:00)
[2019-01-29] MEDS: MINOXIDIL 2.5 MG TAB PO SCH (09:00)
[2019-01-29] MEDS: ASPIRIN 81 MG ENTERIC COATED PO SCH (09:00)
[2019-01-29] MEDS: METOLAZONE 5 MG TAB PO SCH (09:00)
[2019-01-29] MEDS: MULTIVITAMINS/MINERALS TAB PO SCH (09:00)
[2019-01-29] MEDS: BACLOFEN 10 MG TAB PO SCH (09:00)
[2019-01-29] MEDS: CHOLECALCIFEROL 1,000 UNIT TAB PO SCH (09:00)
[2019-01-29] MEDS: ALPRAZOLAM 0.5 MG TAB PO SCH (09:00)
[2019-01-29] MEDS: CYANOCOBALAMIN 1,000 MCG TAB PO SCH (09:00)
[2019-01-29] MEDS: CITALOPRAM HYDROBROMIDE 20 MG TAB PO SCH (09:00)
[2019-01-29] MEDS: TAMSULOSIN HCL 0.4 MG CAP PO SCH (09:00)
[2019-01-29 09:05] VITALS: BP 181/75
--- NOTE | 2019-01-29 10:00 | NUR ---
CM SPOKE TO PATIENT AT BEDSIDE REGARDING IMM LETTER. IMM LETTER GIVEN WITH EXPLANATION BASED ON ANTICIPATED DISCHARGE DATE. ORIGINAL SIGNED AND PLACED IN CHART; COPY OF ORIGINAL DOCUMENT GIVEN TO PATIENT AT BEDSIDE AND PLACED IN CARE TRANSITION FOLDER. CM CONTACT INFORMATION GIVEN TO PATIENT FOR ANY NEEDS OR CONCERNS. PATIENT WITH NO FURTHER QUESTIONS.
[2019-01-29] MEDS ORDERED: CEFTRIAXONE SOD 1 GM/NS 50 ML 50 ML IV SCH (11:30)
[2019-01-29] MEDS ORDERED: CIPRO500 MG PO (11:47)
[2019-01-29 11:49] VITALS: BP 99/56
--- NOTE | 2019-01-29 12:27 | NUR ---
AC TO DR HERNANDES PT CAN GO HOME PAGED AND NOTIFIED DR DOMINGUEZ GOT THE DISCHARGE ORDER
--- NOTE | 2019-01-29 15:32 | NUR ---
PT WENT HOME IN SAFE CONDITION WITH HIS
--- NOTE | 2019-01-30 07:07 | Discharge Summary ---
DISCHARGE DIAGNOSES: 1. Cellulitis on left leg. 2. Urinary tract infection. 3. Sleep apnea. 4. Congestive heart failure. 5. Diabetes. 6. Morbid obesity. HISTORY OF PRESENT ILLNESS AND HOSPITAL COURSE: The patient is a gentleman with multiple comorbidities, who presented with some dyspnea on exertion, but he was noticed to have a recent left lower leg cellulitis at outside hospital and there was evidence of a urinary tract infection as well. He was brought in and placed on IV antibiotics and urinalysis end up showing enterobacteria sensitive to the Cipro that he was discharged home, which the patient was really happy to be discharged home. He will follow up in 1 to 2 weeks with me as well as with Dr. Cedeno of Infectious Disease. He was also seen by his ham sawyer, Dr. Rice, while he is in the hospital. Please see hospital chart for full details. MD STEPHEN Cesar/MERA /[id number]
--- NOTE | 2019-02-03 03:09 | Consultation ---
DATE OF CONSULTATION: 01/28/2019 REASON FOR CONSULTATION: Shortness of breath, concern about urinary tract infection, concerned about sepsis, pyelonephritis, cellulitis of the leg. Thank you so much for seeing this patient. 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 Has a history of hypertension, history of obesity, diabetes mellitus, type B aortic dissection, treated with stenting distal to the left subclavian as well thoracic descending aorta, history of multiple infection, history of bacteremia and infection treated with prolonged course of antibiotic with . The patient was recently in the [facility], apparently had some cellulitis of the leg and he was given antibiotic and he was discharged to follow up with me. The patient called me yesterday, that he is really short of breath, not feeling well. When I was talking to him on the phone, he was not able to finish his sentence and told him to come to the emergency room. The patient did come to the emergency room; in the emergency room, he was evaluated and admitted. I was contacted by the ER physician and he was concerned about pulmonary edema as well as also UTI. The patient is being missed on IV antibiotic. I asked the ER physician to get the blood cultures, urine cultures, and consult Cardiology. the patient was admitted, he is currently feeling better. 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 Venous stasis dermatitis, multiple infection. FAMILY HISTORY: Liver tumor. Father who at age 65 with CVA. 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 No drug abuse or alcohol abuse. MEDICATIONS: He is on Zaroxolyn, Demadex, Lopressor, insulin, vitamin C, alprazolam, gabapentin, baclofen, and Proscar. ALLERGIES: NKA. REVIEW OF SYSTEMS: GENERAL: He is just weak all over. HEENT: There is no headache, visual changes, or hearing changes. GI: There is no nausea, no vomiting, no diarrhea. CARDIAC: There is no arrhythmia. No chest pain, but he was extremely weak when he first came. All other systems within normal limits. PHYSICAL EXAMINATION: GENERAL: He is alert, oriented. Does not seem to be in acute distress. VITAL SIGNS: Stable, afebrile. HEENT: Not icteric. NECK: Supple. CHEST: Clear. HEART: S1, S2. No S3, S4, or murmur. ABDOMEN: Soft. Bowel sounds present. No tenderness. EXTREMITIES: No edema. MEDICATIONS: Medication list reviewed. LABORATORY DATA: Reviewed. His chart reviewed. His urine cultures showed gram-negative rods so far. His white count is 8.7, hemoglobin 11.4. Sodium 139, potassium 3.6, creatinine 0.97. IMPRESSION: 1. Sepsis on admission, concerned about urinary tract infection. Continue with meropenem. When the patient who has been in the hospital concerned about multidrug resistant. Continue with meropenem for the time being. 2. Cellulitis of the leg, resolved. 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 3. Shortness of breath due to bradycardia, fluid overload, concerned about sepsis as part of it also. We will await the cultures. A Cardiology is managing the shortness of breath and congestive heart failure. We will follow with you. To summarize urinary tract infection, fluid overload, obesity, history of sepsis, and cellulitis. Other medical problems as above. We will follow. MD MARVA Mckeon/MERA /[id number]
== END 2019-01-29 15:32 | disposition home or self-care (01) | DRG 871 ==
LOC: ER 12:57 → ERHOLD 19:44 → MED/SURG2 20:33
PROVIDERS: ADMIT Internal Medicine; ATTEND Internal Medicine
DX: A41.9 Sepsis, unspecified organism (principal); I50.33 Acute on chronic diastolic (congestive) heart failure; L03.116 Cellulitis of left lower limb; N39.0 Urinary tract infection, site not specified; I50.32 Chronic diastolic (congestive) heart failure; I48.92 Unspecified atrial flutter; I13.0 Hypertensive heart and chronic kidney disease with heart failure and stage 1 through stage 4 chronic kidney disease, or unspecified chronic kidney disease; G47.30 Sleep apnea, unspecified; E66.9 Obesity, unspecified; Z68.33 Body mass index [BMI] 33.0-33.9, adult; I10 Essential (primary) hypertension; Z86.79 Personal history of other diseases of the circulatory system; E11.42 Type 2 diabetes mellitus with diabetic polyneuropathy; Z79.4 Long term (current) use of insulin; I87.2 Venous insufficiency (chronic) (peripheral); I48.91 Unspecified atrial fibrillation; Z79.01 Long term (current) use of anticoagulants; Z89.422 Acquired absence of other left toe(s); I11.0 Hypertensive heart disease with heart failure; B96.89 Other specified bacterial agents as the cause of diseases classified elsewhere; Z16.19 Resistance to other specified beta lactam antibiotics; N18.9 Chronic kidney disease, unspecified
CPT/HCPCS: 36415; 71045; 80048; 80053; 80061; 81001; 82550; 82553; 82948; 83880; 84484; 85025; 85610; 85730; 87086; 87186; 93005; 99284; J0696; J1940; J2185; J7050

== ENCOUNTER 2019-04-08 15:25 | Inpatient (IN) | payer MEDICARE, OTHER ==
[~2019-04-08] VITALS: Ht 188 cm; Wt 131.5 kg
[~2019-04-08 15:25] MED LIST changes: +ALPHA LIPOIC A300 MG PO; +ASCORBIC ACID500 M2; +BACLOFEN10 MG PO; +BETA GLUCAN (1-31 GM; +BUSPIRONE HCL10 MG; +CIPRO500 MG PO; +COENZYME Q10200 MG; +FLOMAX0.4 MG PO; +LYCOPENE10 MG; +MULTI-VITAMIN1 EACH PO; +NIACIN500 M2 PO; +PREDNISONE2.5 MG PO; +SILVADENE20 GM TOP; +THIAMINE H100 MG/1 M PO; +VITAMIN B-121000 MCG PO; +VITAMIN D1000 UNI1 PO; +VITAMIN E400 UNI1
--- OUTSIDE RECORDS SUMMARY | 2019-04-08 15:29 | XMS REPORT | Clinical Summary ---
Author Author [facility] Organization [facility] Address Unknown Phone Unavailable Care Team Providers Care Hardener Helper Name Role Phone Manoj Navarro MD PCP [...] mg by 0 mouth daily with lunch. 01/15/2019 Discontinued (Stop Taking at Discharge) metoprolol tartrate Take 100 mg 2 (LOPRESSOR) 100 mg tablet by mouth 3 9 (three) times a day. 03/16/2019 silver sulfadiazine Apply 25 g 1 (SILVADENE, SSD) 1 % topically 2 9 cream (two) times a day for 60 days. 02/14/2019 metoprolol tartrate Take 1 tablet 90 tablet 1 (LOPRESSOR) 50 mg tablet (50 mg total) 9 by mouth 3 (three) times a day for 30 days. 01/15/2019 Discontinued (Stop Taking at Discharge) furosemide (LASIX) 20 mg Take 1 tablet 60 tablet 0 tablet (20 mg total) 9 by mouth 2 (two) times a day for 30 days. 01/15/2019 Discontinued (Stop Taking at Discharge) potassium chloride Take 1 tablet 60 tablet [...] hypertension; Chronic venous stasis; Leukemoid reaction 01/11/2019 Hospital General Surgery - Encounter 01/15/2019 after 04/07/2018 Social History Date Tobacco Use Types Packs/Day Years Used Never Smoker Smokeless Tobacco: Never Used Drinks/Week oz/Week Comments Alcohol Use Not Currently Sex Assigned at Date Recorded Not on file Industry Job Start Date Occupation Not on file Not on file Not on file Travel End Travel History Travel Start No recent travel history available. Last Filed Vital Signs Reading Time Taken Comments Vital Sign 161/73 01/15/2019 11:34 AM CDT Blood Pressure 54 01/15/2019 11:34 AM CDT Pulse 36.8 C (98.2 F) 01/15/2019 11:34 AM CDT Temperature 16 01/15/2019 11:34 AM CDT Respiratory Rate 95% 01/15/2019 11:34 AM CDT Oxygen Saturation - - Inhaled Oxygen Concentration 129 kg (285 lb) 01/11/2019 8:55 PM CDT Weight 193 cm (6' 4") 01/11/2019 8:55 PM CDT Height 34.69 01/11/2019 8:55 PM CDT Body Mass Index Plan of Treatment Health Maintenance Due Date [...] MMODE SPECTRAL 7:48 AM CDT COLOR DOPPLER (59418) POC GLUCOSE Routine 01/14/2019 5:37 AM CDT [...] 12-LEAD STAT 01/11/2019 8:48 PM CDT after 04/07/2018 Results * POC glucose (01/15/2019 11:52 AM CDT) Only the most recent of 14 results within the time period is included. POC glucose 190 (H) 65 - 99 mg/dL PAAUILO Comment: SABIANIST CLEAR Meter ID: [id number] [facility] Hat Copyist: Paras Quevedo Specimen Performing Organization Address City/State/Zipcode [place] [address] [place] [address] PATHOLOGY AND GENOMIC MEDICINE [facility] [address] [place] [address] * Estimated GFR (01/15/2019 5:01 AM CDT) Only the most recent of 5 results within the time period is included. Estimated GFR 88 mL/min/1.73 m2 PAAUILO Comment: [facility] rpretation G1 >=90 Normal or high G2 60-89Mildly decreased N4y58-32 Mildly to moderately decreased Q8d84-01 Moderately to severely decreased G4 15-29Severely decreased G5 <15Kidney failure The eGFR was calculated using the Chronic Kidney Disease Epidemiology Collaboration (CKD-EPI) equation. Interpretation is based on recommendations of the National Kidney Foundation-Kidney Disease Outcomes Quality Initiative (NKF-KDOQI) published in 2014. Specimen Plasma specimen Performing Organization Address City/[facility] Phone Number [facility] DEPARTMENT [address] [place] [address] PATHOLOGY AND GENOMIC MEDICINE [address] * Creatinine level (01/15/2019 5:01 AM CDT) Pathologist [facility] Creatinine 0.80 0.70 - 1.20 mg/dL [facility] Specimen Plasma specimen Performing Organization Address 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 [id number] Performing Organization Address City/State/Zipcode Phone Number MATT MONTEMAYOR [address] [place] [address] * CBC with platelet and differential (01/14/2019 11:55 AM CDT) Only the most recent of 3 results within the time period is included. WBC 8.64Comment: Called Raquel on 4.50 - 11.00 k/uL [address] 01/14/2019 16:19 [facility] RBC 3.74 (L) 4.40 - 6.00 m/uL [facility] HGB 10.6 (L) 14.0 - 18.0 g/dL [facility] HCT 33.8 (L) 41.0 - 51.0 % [facility] MCV 90.4 82.0 - 100.0 fL [facility] MCH 28.3 27.0 - 34.0 pg [facility] MCHC 31.4 31.0 - 37.0 g/dL [facility] RDW - SD 43.6 37.0 - 55.0 fL [facility] MPV 11.5 8.8 - 13.2 fL [facility] Platelet count 144 (L) 150 - 400 k/uL [facility] Nucleated RBC 0.00 /100 WBC [facility] Neutrophils 82.4 (H) 39.0 - 69.0 % [facility] Lymphocytes 9.6 (L) 25.0 - 45.0 % [facility] Monocytes 6.5 0.0 - 10.0 % [facility] Eosinophils 1.2 0.0 - 5.0 % [facility] Basophils 0.0 0.0 - 1.0 % [facility] Specimen Blood Performing Organization Address City/State/Zipcode Phone Number [place] [address] [place] [place] [address] PATHOLOGY AND GENOMIC MEDICINE [facility] [id number] [place] [address] [place] [address] [facility] * Vancomycin level, trough (01/14/2019 11:55 AM CDT) Pathologist [facility] Vancomycin, 14.1 10.0 - 20.0 ug/mL PAAUILO trough Comment: [facility] Therapeutic Ranges: [facility] Peak 30.0 - 40.0 ug/mL Kipmhg16.0 - 20.0 ug/mL Specimen Serum Performing Organization Address [facility] Phone Number [facility] DEPARTMENT OF [address] [place] [address] [place] [address] PATHOLOGY AND GENOMIC MEDICINE [address] * Basic metabolic panel (01/14/2019 11:55 AM CDT) Only the most recent of 2 results within the time period is included. [facility] Sodium 138 135 - 148 mEq/L [facility] Potassium 4.3 3.5 - 5.0 mEq/L [facility] Chloride 101 98 - 112 mEq/L [facility] CO2 30 24 - 31 mEq/L [facility] Anion gap 7@ANIO 7 - 15 mEq/L [facility] BUN 19 8 - 23 mg/dL [facility] Creatinine 0.80 0.70 - 1.20 mg/dL [facility] Glucose 154 (H) 65 - 99 mg/dL [facility] Calcium 8.6 (L) 8.8 - 10.2 mg/dL [facility] Specimen Plasma specimen Performing Organization Address [facility] Phone Number [facility] DEPARTMENT OF [address] [place] [address] [place] [address] PATHOLOGY AND GENOMIC MEDICINE [address] * Echocardiogram complete w contrast and 3D if needed (01/14/2019 7:48 AM CDT) [facility] AoV Area, Vmax 3.18 cm2 [facility] AoV Area, VTI 3.31 cm2 [facility] AoV Mean PG 4.84 mmHg HM [facility] AoV Peak PG 8.87 mmHg HM [facility] AoV Vmax 1.49 m/s HM [facility] AoV VTI 0.34 m [facility] IVS,d 1.46 cm HM [facility] LV,d 5.69 cm [facility] LV EF,A2C 44.04 % HM [facility] LV EF,A4C 49.73 % [facility] LV EF,BP 47.51 % [facility] [place],d A2C 9.97 cm HM [facility] [place],d A4C 9.69 cm HM [facility] [place],s A2C 8.67 cm HM [facility] [place],s A4C 8.64 cm HM [facility] LV,s 4.48 [...] RA pressure 10-15 mmHg. Performing Organization Address City/[facility]/Zipcode Phone Number [facility] [address] [place] [address] * Us duplex venous lower extremity (01/13/2019 2:40 PM CDT) Specimen Narrative Performed At [facility] There is no evidence of DVT in the left lower extremity and right common femoral vein. Performing Organization Address City/[facility] Phone Number [employer] [address] [place] [address] * Arterial blood gas (01/12/2019 3:58 PM CDT) pH, arterial 7.55 (H) 7.35 - 7.45 [facility] pCO2, arterial 28 (L) 35 - 45 mmHg [facility] pO2, arterial 232 (H) 80 - 90 mmHg [facility] Bicarbonate, 27.2 21.0 - 28.0 mmol/L [facility] Base excess, 3 (H) -2 - 2 mEq/L [facility] O2 saturation, 100 95 - 100 % [facility] FiO2, inspired 50 % PAA[facility]ILO O2% [facility] Specimen Blood Performing Organization Address City/[facility]/Zipcode Phone Number [facility] DEPARTMENT OF [address] [place] [address] [place] [address] PATHOLOGY AND GENOMIC MEDICINE [address] [place] [id number] [facility] * Troponin (01/12/2019 4:41 AM CDT) Only the most recent of 3 results within the time period is included. Pathologist [facility] Troponin 0.022 0.000 - 0.040 ng/mL PAAUILO Comment: [facility] changed methodology effective: 12/03/2018 at 10:00 am The new method has a 99th percentile cutoff of 0.040 ng/mL Specimen Plasma specimen Performing Organization Address [facility] Phone Number [facility] DEPARTMENT [address] [place] [address] PATHOLOGY AND GENOMIC MEDICINE [address] * Manual differential (01/12/2019 4:41 AM CDT) [facility] Manual PERFORMED PAAUILO differential [facility] Neutrophils 93.0 (H) 39.0 - 69.0 % [facility] Lymphocytes 1.0 (L) 25.0 - 45.0 % [facility] Monocytes 5.0 0.0 - 10.0 % [facility] Eosinophils 0.0 0.0 - 5.0 % [facility] Basophils 0.0 0.0 - 1.0 % [facility] Metamyelocytes 1 % [facility] Promyelocytes 0 % [facility] Platelet slide Brian adequate PAAUILO review [facility] Specimen Performing Organization Address [facility] Phone Number [facility] DEPARTMENT [place] [address] [place] [address] PATHOLOGY AND [facility] MEDICINE [address] [place] [address] * Magnesium level (01/12/2019 4:41 AM CDT) [facility] Magnesium 2.1 1.6 - 2.4 mg/dL [facility] Specimen Plasma specimen Performing Organization Address [facility] Phone Number [facility] DEPARTMENT [place] [address] [place] [address] PATHOLOGY AND GENOMIC MEDICINE [address] [place] [address] * Comprehensive metabolic panel (01/12/2019 4:41 AM CDT) Only the most recent of 2 results within the time period is included. Pathologist [facility] Sodium 132 (L) 135 - 148 mEq/L [facility] Potassium 5.2 (H) 3.5 - 5.0 mEq/L [facility] Chloride 97 (L) 98 - 112 mEq/L [facility] CO2 24 24 - 31 mEq/L [facility] Anion gap 11@ANIO 7 - 15 mEq/L [facility] BUN 28 (H) 8 - 23 mg/dL [facility] Creatinine 1.10 0.70 - 1.20 mg/dL [facility] Glucose 419 (HH) 65 - 99 mg/dL PAA[facility]ILO Comment: [facility] Results called to and read [facility] back by ZAFAR at 01/12/2019 05:21 by [id number]. Calcium 9.1 8.8 - 10.2 mg/dL [facility] Protein 6.1 (L) 6.3 - 8.3 g/dL PAAUILO Comment: [facility] 4.6-7.0 g/dL 1 week 4.4-7.6 g/dL 7 months-1year 5.1-7.3 g/dL 1-2 years5.6-7 .5 g/dL >3 years6.0-8 .0 g/dL 18-150 6.3-8.3 g/dL Albumin 3.6 3.5 - 5.0 g/dL [facility] A/G ratio 1.4 0.7 - 3.8 [facility] Alkaline 70 40 - 129 U/L [facility] phosphatase [facility] AST 14 10 - 50 U/L [facility] ALT 39 5 - 50 U/L [facility] Total bilirubin 1.0 0.0 - 1.2 mg/dL [facility] Specimen Plasma specimen Performing Organization Address City/State/Zipcode [place] Number [place] [address] [place] [address] PATHOLOGY AND GENOMIC MEDICINE [facility] [address] [place] [address] [facility] * Partial thromboplastin time, activated (01/11/2019 9:57 PM CDT) Pathologist [facility] PTT 27.9 23.0 - 36.0 sec PAAUILO Comment: BETSY STOKES PTT therapeutic range for [facility] unfractionated heparin is 61.0-112.0 seconds which corresponds to Anti-Xa 0.3-0.7 U/ml. Specimen Blood Performing Organization Address [facility] Phone Number [facility] DE[facility] OF [facility] [place] [address] PATHOLOGY AND [facility] MEDICINE [address] [place] [address] * Prothrombin time with INR (01/11/2019 9:57 PM CDT) Pathologist [facility] Prothrombin 14.4 11.5 - 14.5 sec [facility] INR 1.2 PAAUILO Comment: BETSY STOKES The International Normalized [facility] Ratio (INR) is a therapeutic monitoring tool for patients who are stable on oral anticoagulant therapy. An INR of 2.0-3.0 is suggested for deep vein thrombosis/pulmonary embolism. Specimen Blood Performing Organization Address [facility] Phone Number [facility] DEPARTMENT [address] [place] [place] [address] PATHOLOGY AND [facility] MEDICINE [address] [place] [address] * B natriuretic peptide (01/11/2019 9:57 PM CDT) Pathologist [facility] BNP 169 (H) 0 - 100 pg/mL [facility] Specimen Blood Performing Organization Address [facility] Phone Number [facility] DEPARTMENT [place] [address] [place] [address] PATHOLOGY AND [facility] MEDICINE [address] * Blood culture, aerobic & anaerobic (01/11/2019 9:50 PM CDT) Only the most recent of 2 results within the time period is included. Pathologist [facility] Blood culture No growth after 5 days of PAAUILO isolate incubation. SABIANIST Comment: HOSPITAL Specimen Information Specimen Source: Blood Specimen Site: Hand, right Specimen Blood - Hand, right Performing Organization Address City/[facility] Phone Number [facility] DEPARTMENT OF [address] [place] [address] PATHOLOGY AND GENOMIC MEDICINE [address] * XR Tibia Fibula 2 Vw Left (01/11/2019 9:30 PM CDT) Specimen Narrative Performed At EXAM:XR TIBIA FIBULA 2 VW LEFT [facility] CLINICAL HISTORY:swelling LLE COMPARISON:None. IMPRESSION: No evidence of acute displaced fracture or dislocation of the left tibia or fibula. Soft tissues are unremarkable. Vascular calcifications are noted. Soft tissues are otherwise normal. [facility]-[id number] Procedure Note Interface, Radiology Results Incoming - 01/11/2019 10:06 PM CDT EXAM: XR TIBIA FIBULA 2 VW LEFT CLINICAL HISTORY: swelling LLE COMPARISON: None. IMPRESSION: No evidence of acute displaced fracture or dislocation of the left tibia or fibula. Soft tissues are unremarkable. Vascular calcifications are noted. Soft tissues are otherwise normal. [id number] Performing Organization Address [facility] Phone Number [facility] [address] [place] [address] * XR Chest 1 Vw Portable (01/11/2019 [...] identified. No acute osseous abnormalities are visualized. [facility]-[id number] Procedure Note Interface, Radiology Results Incoming - [...] identified. No acute osseous abnormalities are visualized. [facility]-[id number] Performing Organization Address [facility] Phone Number [facility] [address] [place] [address] * ECG ED Preliminary Interpretation - Not an Order (01/11/2019 9:00 PM CDT) Narrative Performed At Murali Choudhury MD 01/12/2019 12:36 AM ECG ED Preliminary Interpretation - Not an Order Performed by: Murali Choudhury MD Authorized by: Murali Choudhury MD ECG reviewed by ED Physician in the absence of a process specialist: yes Interpretation: Interpretation: normal Rate: ECG rate:78 ECG rate assessment: normal Rhythm: Rhythm: sinus rhythm Ectopy: Ectopy: none QRS: QRS axis:Normal QRS intervals:Normal Conduction: Conduction: normal ST segments: ST segments:Normal T waves: T waves: normal * ECG 12 lead (01/11/2019 8:48 PM CDT) Ventricular 78 [facility] rate Atrial rate 78 [facility] CO interval 196 [facility] QRSD interval 98 [...] At Performing Organization Address City/State/Zipcode Phone Number [facility] MUSE [address] [place] [address] after 04/07/2018 Insurance Type Payer Benefit Subscriber ID Effective Phone Address Plan / Dates Group Medicare MEDICARE MEDICARE xxxxxxxxxxx 2010-P PAAUILO, PART A AND resent [place] B Commercial COLONIAL COLONIAL xxxxxxxxxx 2010-P [facility] Advance Directives For more information, please contact: [phone] 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
--- OUTSIDE RECORDS SUMMARY | 2019-04-08 15:30 | XMS REPORT | Continuity of Care Document ---
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 [...] Cellulitis of left leg Active Problem 05/13/2018 [facility] Dyspnea Active Problem 05/13/2018 [facility] Pneumonia Active Problem 05/13/2018 [facility] Renal failure , acute on chronic Active Problem 05/13/2018 [facility] Medications Medication Details Route Status Patient Instructions Ordering Provider Order Date Source Amlodipine Besylate 1 tablet Orally Active 5 MG Orally Once a day Krystal 03/14/2018 Roger Luis Manuel Rice Aspirin 325 Mg Tablet, 325 Mg Oral Daily Active 11/13/2016 [facility] Irbesartan (Avapro) 75 Mg Tablet, 75 Mg Oral Twice A Day Active 11/13/2016 [facility] Silodosin (Rapaflo) 8 Mg Capsule, 8 Mg Oral Daily Active 07/20/2015 [facility] Warfarin Sodium (Coumadin) 5 Mg Tablet, 5 Mg Oral Today At 5:00PM Active 05/14/2015 [facility] Amphet Asp/Amphet/D-Amphet (Adderall 5 Mg Tablet) 5 Mg Tablet, 5 Mg Oral Twice A Day Active 05/11/2015 [facility] Cephalexin Monohydrate (Keflex) 500 Mg Capsule, Mg Oral Twice A Day Active 05/11/2015 [facility] Hydrocodone Bit/Acetaminophen ([place] 10-325 Tablet) 1 Each Tablet, 1 Tab Oral Every 4 Hours Active 05/11/2015 [facility] Insulin Detemir (Levemir) 100 Unit/1 Ml Vial, 40 Sub-Q Twice A Day Active 05/11/2015 [facility] Insulin Lispro (Humalog) 100 Unit/1 Ml Insuln.pen, 40 Sub-Q Three Times A Day Active 05/11/2015 [facility] Torsemide (Demadex) 20 Mg Tablet, 20 Mg Oral Twice A Day Active 11/24/2014 [facility] Insulin Aspart (Novolog) 100 Units/Ml Ml, 40 Sub-Q Before Meals Active 11/23/2014 [facility] Polyethylene Glycol 3350 (Miralax) 17 Gm Powd.pack, 1 Pkt Oral Every Morning Active 11/22/2014 [facility] Potassium Chloride 10 Meq Tablet.er, 10 Meq Oral Twice A Day Active 11/22/2014 [facility] Dabigatran Etexilate Mesylate (Pradaxa) 150 Mg Capsule, 150 Mg Oral Twice A Day Active 08/21/2014 [facility] Amphet Asp/Amphet/D-Amphet (Adderall 20 Mg Tablet) 20 Mg Tablet, 20 Mg Oral Twice A Day Active 08/14/2013 [facility] Irbesartan (Avapro) 300 Mg Tablet, 150 Mg Oral Daily Active 08/14/2013 [facility] Metolazone 5 Mg Tablet, 5 Mg Oral Daily Active 08/14/2013 [facility] Valsartan/Hydrochlorothiazide (Diovan Hct 160-12.5 Mg Tab) 1 Each Tablet, 1 Tab Oral Daily Active 08/14/2013 [facility] Dutasteride (Avodart) 0.5 Mg Capsule, Daily Active 02/13/2013 [facility] Methocarbamol (Robaxin-750) 750 Mg Tablet, Twice A Day Active 02/13/2013 [facility] [id number] Daily , Active 02/13/2013 [facility] Valsartan/Hydrochlorothiazide (Diovan Hct 160-12.5 Mg Tab) 1 Each Tablet, 1 Each Oral Twice A Day Active 02/13/2013 [facility] Amlodipine Besylate 1 tablet Orally Active 5 MG Orally Once a day Krystal Rice Amlodipine Besylate TAKE 1 TABLET BY MOUTH EVERY DAY by mouth Active 5 MG by mouth once a day Krystal Rice Alprazolam (Xanax) 0.5 Mg Tablet Bedtime Active [facility] Amlodipine Besylate 5 Mg Tablet Daily Active [facility] Amphet Asp/Amphet/D-Amphet (Adderall 20 Mg Tablet) 20 Mg Tablet Every 12 Hours Active [facility] Docusate Calcium (Stool Softener) 240 Mg Capsule Daily Active [facility] Gabapentin 300 Mg Capsule Three Times A Day Active [facility] Hydrocodone Bit/Acetaminophen ([place] 10-325 Tablet) 1 Each Tablet Daily Active [facility] Insulin Aspart (Novolog) 100 Unit/1 Ml Cartridge Before Meals Active [facility] Insulin Detemir (Levemir) 100 Unit/1 Ml Vial Twice A Day Active [facility] Lisinopril (Prinavil / Zestril) 20 Mg Tablet Twice A Day Active [facility] Metformin Hcl (Glucophage) 500 Mg Tablet Twice A Day Active [facility] Metolazone 5 Mg Tablet Daily Active [facility] Metoprolol Tartrate 50 Mg Tablet Twice A Day Active [facility] Minoxidil 2.5 Mg Tablet Daily Active [facility] Movantik Daily Active [facility] Silodosin (Rapaflo) 8 Mg Capsule Daily Active [facility] Sucralfate (Carafate) 1 Gm/10 Ml Oral.susp Daily Active [facility] Torsemide (Demadex) 10 Mg Tablet Daily Active [facility] Allergies, Adverse Reactions, Alerts Substance Category Reaction Severity Reaction type Status Date Reported Comments Source No Known Drug Allergies Mild Allergy to Substance Active 05/02/2018 [facility] Immunizations No Data Provided for This Section Results Order Name Results Value Reference Range Date Interpretation Comments Source Capillary blood glucose measurement by glucometer (mass/volume) Capillary blood glucose measurement by glucometer (mass/volume) 163 70 - 120 05/13/2018 [facility] Automated blood basophil count (count/volume) Automated blood basophil count (count/volume) 0.0 0.0 - 0.1 05/13/2018 [facility] Automated blood basophil count as percentage of total leukocytes Automated blood basophil count as percentage of total leukocytes 0.3 0.0 - 1.0 05/13/2018 [facility] Automated blood eosinophil count Automated blood eosinophil count 0.1 0.0 - 0.4 05/13/2018 [facility] Automated blood eosinophil count as percentage of total leukocytes Automated blood eosinophil count as percentage of total leukocytes 2.0 0.0 - 6.0 05/13/2018 [facility] Automated blood hematocrit (volume fraction) Automated blood hematocrit (volume fraction) 39.6 38.2 - 49.6 05/13/2018 [facility] Automated blood lymphocyte count as percentage ot total leukocytes Automated blood lymphocyte count as percentage ot total leukocytes 15.0 18.0 - 39.1 05/13/2018 [facility] Automated blood monocyte count as percentage of total leukocytes Automated blood monocyte count as percentage of total leukocytes 7.1 4.4 - 11.3 05/13/2018 [facility] Automated blood neutrophil count Automated blood neutrophil count 5.1 2.1 - 6.9 05/13/2018 [facility] Automated blood platelet count (count/volume) Automated blood platelet count (count/volume) 300 140 - 360 05/13/2018 [facility] Automated blood segmented neutrophil count as percentage of total leukocytes Automated blood segmented neutrophil count as percentage of total leukocytes 73.7 38.7 - 80.0 05/13/2018 [facility] Automated erythrocyte mean corpuscular hemoglobin (mass per erythrocyte) Automated erythrocyte mean corpuscular hemoglobin (mass per erythrocyte) 28.1 28 - 32 05/13/2018 [facility] Automated erythrocyte mean corpuscular hemoglobin concentration measurement (mass/volume) Automated erythrocyte mean corpuscular hemoglobin concentration measurement (mass/volume) 31.8 31 - 35 05/13/2018 [facility] Automated erythrocyte mean corpuscular volume Automated erythrocyte mean corpuscular volume 88.2 81 - 99 05/13/2018 [facility] Blood erythrocytes automated count (number/volume) Blood erythrocytes automated count (number/volume) 4.49 4.3 - 5.7 05/13/2018 [facility] Blood hemoglobin measurement (moles/volume) Blood hemoglobin measurement (moles/volume) 12.6 14.0 - 18.0 05/13/2018 [facility] Blood leukocytes automated count (number/volume) Blood leukocytes automated count (number/volume) 6.93 4.8 - 10.8 05/13/2018 [facility] Blood lymphocytes count (number/volume) Blood lymphocytes count (number/volume) 1.0 1.0 - 3.2 05/13/2018 [facility] Blood monocytes automated count (number/volume) Blood monocytes automated count (number/volume) 0.5 0.2 - 0.8 05/13/2018 [facility] Estimated glomerular filtration rate (GFR) determination Estimated glomerular filtration rate (GFR) determination >60 60 05/13/2018 [facility] Glucose measurement Glucose measurement 222 74 - 118 05/13/2018 [facility] Plasma globulin measurement (mass/volume) Plasma globulin measurement (mass/volume) 4.3 2.3 - 3.5 05/13/2018 [facility] Serum or plasma alanine aminotransferase measurement (enzymatic activity/volume) Serum or plasma alanine aminotransferase measurement (enzymatic activity/volume) 24 0 - 55 05/13/2018 [facility] Serum or plasma albumin measurement (mass/volume) Serum or plasma albumin measurement (mass/volume) 3.1 3.5 - 5.0 05/13/2018 [facility] Serum or plasma albumin/globulin mass ratio Serum or plasma albumin/globulin mass ratio 0.7 0.8 - 2.0 05/13/2018 [facility] Serum or plasma alkaline phosphatase measurement (enzymatic activity/volume) Serum or plasma alkaline phosphatase measurement (enzymatic activity/volume) 65 40 - 150 05/13/2018 [facility] Serum or plasma anion gap Serum or plasma anion gap 15.6 8 - 16 05/13/2018 [facility] Serum or plasma calcium measurement (mass/volume) Serum or plasma calcium measurement (mass/volume) 9.6 8.4 - 10.2 05/13/2018 [facility] Serum or plasma carbon dioxide, total measurement (moles/volume) Serum or plasma carbon dioxide, total measurement (moles/volume) 28 22 - 29 05/13/2018 [facility] Serum or plasma chloride measurement (moles/volume) Serum or plasma chloride measurement (moles/volume) 99 98 - 107 05/13/2018 [facility] Serum or plasma creatinine measurement (mass/volume) Serum or plasma creatinine measurement (mass/volume) 0.87 0.72 - 1.25 05/13/2018 [facility] Serum or plasma potassium measurement (moles/volume) Serum or plasma potassium measurement (moles/volume) 3.6 3.5 - 5.1 05/13/2018 [facility] Serum or plasma protein measurement (mass/volume) Serum or plasma protein measurement (mass/volume) 7.4 6.5 - 8.1 05/13/2018 [facility] Serum or plasma sodium measurement (moles/volume) Serum or plasma sodium measurement (moles/volume) 139 136 - 145 05/13/2018 [facility] Serum or plasma total bilirubin measurement (mass/volume) Serum or plasma total bilirubin measurement (mass/volume) 0.5 0.2 - 1.2 05/13/2018 [facility] Serum or plasma urea nitrogen measurement (mass/volume) Serum or plasma urea nitrogen measurement (mass/volume) 12 7 - 26 05/13/2018 [facility] Serum or plasma urea nitrogen/creatinine mass ratio Serum or plasma urea nitrogen/creatinine mass ratio 14 6 - 25 05/13/2018 [facility] Red Cell Distribution Width 13.7 11.7 - 14.4 05/13/2018 [facility] IM GRANULOCYTES % 1.9 0.0 - 1.0 05/13/2018 [facility] Absolute Immature Granulocyte (auto 0.13 0 - 0.1 05/13/2018 [facility] Aspartate Amino Transf (AST/SGOT) 19 5 - 34 05/13/2018 [facility] Automated urine sediment leukocyte count by microscopy (number/high power field) Automated urine sediment leukocyte count by microscopy (number/high power field) <5 0 - 5 05/11/2018 [facility] Bacteria detection in urine sediment by light microscopy Bacteria detection in urine sediment by light microscopy RARE NONE 05/11/2018 [facility] Epithelial cells detection in urine sediment by light microscopy Epithelial cells detection in urine sediment by light microscopy FEW NONE 05/11/2018 [facility] Erythrocytes detection in urine sediment by light microscopy Erythrocytes detection in urine sediment by light microscopy <50 0 - 5 05/11/2018 [facility] Hyaline casts detection in urine sediment by light microscopy Hyaline casts detection in urine sediment by light microscopy <1 0 - 1 05/11/2018 [facility] Specific gravity of Urine by Test strip Specific gravity of Urine by Test strip 1.010 1.010 - 1.025 05/11/2018 [facility] Transitional cells detection in urine sediment by light microscopy Transitional cells detection in urine sediment by light microscopy FEW NONE 05/11/2018 [facility] Urine clarity Urine clarity CLEAR CLEAR 05/11/2018 [facility] Urine color determination Urine color determination YELLOW YELLOW 05/11/2018 [facility] Urine erythrocytes detection Urine erythrocytes detection 1+ NEGATIVE 05/11/2018 [facility] Urine glucose detection Urine glucose detection 2+ NEGATIVE 05/11/2018 [facility] Urine ketones detection by automated test strip Urine ketones detection by automated test strip NEGATIVE NEGATIVE 05/11/2018 [facility] Urine leukocyte esterase detection by dipstick Urine leukocyte esterase detection by dipstick TRACE NEGATIVE 05/11/2018 [facility] Urine nitrite detection Urine nitrite detection NEGATIVE NEGATIVE 05/11/2018 [facility] Urine pH measurement by automated test strip Urine pH measurement by automated test strip 8 5 - 7 05/11/2018 [facility] Urine protein measurement by test strip (mass/volume) Urine protein measurement by test strip (mass/volume) NEGATIVE NEGATIVE 05/11/2018 [facility] Urine total bilirubin measurement (mass/volume) Urine total bilirubin measurement (mass/volume) NEGATIVE NEGATIVE 05/11/2018 [facility] Urine urobilinogen measurement by test strip (mass/volume) Urine urobilinogen measurement by test strip (mass/volume) 0.2 0.2 - 1 05/11/2018 [facility] Blood culture Blood culture NO GROWTH AFTER 72 HOURS 05/10/2018 [facility] Serum or plasma trough vancomycin level at trough (mass/volume) Serum or plasma trough vancomycin level at trough (mass/volume) 24.3 5.0 - 10.0 05/06/2018 [facility] Blood anisocytosis detection by light microscopy Blood anisocytosis detection by light microscopy SLIGHT 05/06/2018 [facility] Blood platelets count by estimate (number/volume) Blood platelets count by estimate (number/volume) ADEQUATE 05/06/2018 [facility] Platelet morphology Platelet morphology NORMAL 05/06/2018 [facility] RBC morphology RBC morphology NORMAL 05/06/2018 [facility] Serum or plasma cholesterol in HDL measurement (mass/volume) Serum or plasma cholesterol in HDL measurement (mass/volume) 41 40 - 60 05/06/2018 [facility] Serum or plasma cholesterol in LDL measurement (mass/volume) Serum or plasma cholesterol in LDL measurement (mass/volume) 99 60 - 130 05/06/2018 [facility] Serum or plasma cholesterol measurement (mass/volume) Serum or plasma cholesterol measurement (mass/volume) 151 0 - 199 05/06/2018 [facility] Serum or plasma thyrotropin measurement by detection limit <=0.005 miu/l (units/volume) Serum or plasma thyrotropin measurement by detection limit <=0.005 miu/l (units/volume) 0.930 0.350 - 4.940 05/06/2018 [facility] Serum or plasma total cholesterol/cholesterol in HDL mass ratio Serum or plasma total cholesterol/cholesterol in HDL mass ratio 3.7 3.9 - 4.7 05/06/2018 [facility] Serum or plasma triglyceride measurement (mass/volume) Serum or plasma triglyceride measurement (mass/volume) 55 0 - 149 05/06/2018 [facility] Bacterial blood culture Bacterial blood culture Organism: STAPHYLOCOCCUS AUREUS 05/05/2018 [facility] Lactic Acid Level 13.2 4.5 - 19.8 05/05/2018 [facility] Serum or plasma creatine kinase MB measurement (mass/volume) Serum or plasma creatine kinase MB measurement (mass/volume) 2.40 0 - 5.0 05/04/2018 [facility] Serum or plasma creatine kinase measurement (enzymatic activity/volume) Serum or plasma creatine kinase measurement (enzymatic activity/volume) 532 30 - 200 05/04/2018 [facility] Troponin I measurement by highly sensitive enzyme immunoassay Troponin I measurement by highly sensitive enzyme immunoassay 0.197 0 - 0.300 05/04/2018 [facility] Serum or plasma magnesium measurement (mass/volume) Serum or plasma magnesium measurement (mass/volume) 1.8 1.3 - 2.1 05/04/2018 [facility] Manual blood lymphocytes/100 leukocytes Manual blood lymphocytes/100 leukocytes 7 19 - 48 05/03/2018 [facility] Manual blood monocytes/100 leukocytes Manual blood monocytes/100 leukocytes 8 3.4 - 9.0 05/03/2018 [facility] Manual blood neutrophils/100 leukocytes Manual blood neutrophils/100 leukocytes 85 40 - 74 05/03/2018 [facility] Differential Total Cells Counted 100 05/03/2018 [facility] Mucus detection in urine sediment by light microscopy Mucus detection in urine sediment by light microscopy FEW RARE 05/02/2018 [facility] Activated partial thromboplastin time (aPTT) in platelet poor plasma bycoagulation assay Activated partial thromboplastin time (aPTT) in platelet poor plasma bycoagulation assay 33.6 23.8 - 35.5 05/02/2018 [facility] Fibrin D-dimer DDU measurement in platelet poor plasma (mass/volume) Fibrin D-dimer DDU measurement in platelet poor plasma (mass/volume) 0.75 0.00 - 0.45 05/02/2018 [facility] INR in Platelet poor plasma by Coagulation assay INR in Platelet poor plasma by Coagulation assay 0.96 05/02/2018 [facility] Prothrombin time (PT) in platelet poor plasma by coagulation assay Prothrombin time (PT) in platelet poor plasma by coagulation assay 13.7 11.9 - 14.5 05/02/2018 [facility] Serum or plasma lipase measurement (enzymatic activity/volume) Serum or plasma lipase measurement (enzymatic activity/volume) <4 8 - 78 05/02/2018 [facility] B-Type Natriuretic Peptide 140.5 0 - 100 05/02/2018 [facility] Bacterial urine culture Bacterial urine culture Urine Culture [facility] Pathology Reports No Data Provided for This [...] Date DC Date Status Source Discharged Inpatient [id number] GILBERT NAVARRO MD 05/02/2018 05/13/2018 [facility] Procedures Procedure Code Date Perfomer Comments Source Computed tomography of chest with contrast [id number] 05/10/2018 [facility] MRI joint extremity upper wo then w contrast [id number] 05/05/2018 [facility] Computed tomography of abdomen and pelvis with contrast [id number] 05/04/2018 [facility] Computed tomography of soft tissues of neck with contrast [id number] 05/04/2018 [facility] Assessment and Plan No Data Provided for This Section Plan of Care Plan of Care Date Source Discharge Date 05/13/18 12:14pm Disposition HOME, SELF-CARE Instructions/Education Provided Pneumonia - Bacterial Prescriptions See Medication Section Additional Instructions/Education Follow up in [address] Navarro 05/13/2018 [facility] Social History Social History Date Source Social [...] Start Date Stop Date Never Smoker 05/13/2018 [facility] Family History No Data Provided for This Section Advance Directives Order Name Results Value Date Source Advance Directives Advance Directives Directive Response Recorded Date/Time Does the patient have an advance directive? Yes 05/03/18 2:25am If yes, is advance directive on file with [facility]? Yes 05/03/18 2:25am If not on file with [facility] will patient provide a copy? Yes 05/03/18 2:25am Do you have a Directive to Physician? No 05/02/18 8:46pm Do you have a Medical Power of Travel Pta? No 05/02/18 8:46pm Do you have an [...] rights and responsibilities? Yes 05/02/18 8:46pm 05/13/2018 [facility] Functional Status No Data Provided for This Section
[2019-04-08 16:29] LABS: BASOPHILS % 0.1 % (0.0-1.0); EOSINOPHILS # (AUTO) 0.2 (0.0-0.4); EOSINOPHILS % 1.3 % (0.0-6.0); HEMATOCRIT 32.5 % (38.2-49.6); HEMOGLOBIN 10.6 g/dL (14.0-18.0); LYMPHOCYTES # (AUTO) 0.8 (1.0-3.2); LYMPHOCYTES % 7.3 % (18.0-39.1); MEAN CORPUSCULAR HEMOGLOBIN 27.2 pg (28-32); MEAN CORPUSCULAR HGB CONC 32.6 g/dL (31-35); MEAN CORPUSCULAR VOLUME 83.5 fL (81-99); MONOCYTES # (AUTO) 0.8 (0.2-0.8); MONOCYTES % 6.7 % (4.4-11.3); NEUTROPHILS # (AUTO) 9.4 (2.1-6.9); PLATELET COUNT 255 x10e3/uL (140-360); RED BLOOD COUNT 3.89 x10e6/uL (4.3-5.7); RED CELL DISTRIBUTION WIDTH 13.8 % (11.7-14.4)
[2019-04-08 16:46] LABS: ALBUMIN 3.1 g/dL (3.5-5.0); ALBUMIN/GLOBULIN RATIO 0.8 (0.8-2.0); ANION GAP 15.8 mmol/L (8-16); CREATININE, SERUM 2.08 mg/dL (0.72-1.25); POTASSIUM 4.8 mmol/L (3.5-5.1)
[2019-04-08] MEDS ORDERED: VANCOMYCIN HCL IV ONE (17:00)
[2019-04-08] MEDS ORDERED: SODIUM CHLORIDE 0.9% IV ONE (17:00)
[2019-04-08] MEDS ORDERED: CEFEPIME 2 GM/NS 0.9% 100 ML 100 ML IV NR (17:00)
[2019-04-08] MEDS ORDERED: MORPHINE SULFATE 2 MG/ML SYR 1ML IV PRN (17:00)
[2019-04-08] MEDS ORDERED: VANCOMYCIN 500MG/NS 0.9% 100ML 100 ML IV SCH (17:00)
--- OUTSIDE RECORDS SUMMARY | 2019-04-08 17:16 | XMS REPORT | Clinical Summary ---
Author Author [facility] Organization [facility] Address Unknown Phone Unavailable Care Team Providers Care Chrome Cleaner Name Role Phone Manoj Navarro MD PCP [...] MMODE SPECTRAL 7:48 AM CDT COLOR DOPPLER ([id number]) POC GLUCOSE Routine 01/14/2019 5:37 AM CDT [...] glucose 190 (H) 65 - 99 mg/dL [place] Comment: YARSANI CLEAR Meter ID: [id number] [facility] Feeder Loader: Paras Quevedo Specimen Performing Organization Address City/State/Zipcode [place] [address] [place] [address] PATHOLOGY AND GENOMIC MEDICINE [facility] [address] [place] [address] * Estimated GFR (01/15/2019 5:01 AM CDT) Only the most recent of 5 results within the time period is included. Estimated GFR 88 mL/min/1.73 m2 [place] Comment: [facility] rpretation G1 >=90 Normal or high G2 60-89Mildly decreased [id number] Mildly to moderately decreased R7c63-50 Moderately to severely decreased G4 15-29Severely decreased G5 <15Kidney failure The eGFR was calculated using the Chronic Kidney Disease Epidemiology Collaboration (CKD-EPI) equation. Interpretation is based on recommendations of the National Kidney Foundation-Kidney Disease Outcomes Quality Initiative (NKF-KDOQI) published in 2014. Specimen Plasma specimen Performing Organization Address City/[facility] Phone Number [facility] DEPARTMENT [address] [place] [address] PATHOLOGY AND GENOMIC MEDICINE [address] * Creatinine level (01/15/2019 5:01 AM CDT) Pathologist [facility] Creatinine 0.80 0.70 - 1.20 mg/dL [facility] Specimen Plasma specimen Performing Organization Address [facility] Phone Number [facility] DEPARTMENT [address] [place] [address] PATHOLOGY AND GENOMIC MEDICINE [address] * XR Chest 2 Vw (01/14/2019 5:18 PM CDT) Specimen Narrative Performed At EXAMINATION:XR CHEST 2 VW HM RADIANT CLINICAL HISTORY:hypoxia COMPARISON:January 11 IMPRESSION: Atelectasis in left lower lobe small left-sided pleural effusion Heart remains slightly enlarged 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 [id number] Performing Organization Address City/State/Zipcode Phone Number MATT MONTEMAYOR [address] [place] [address] * CBC with platelet and differential (01/14/2019 11:55 AM CDT) Only the most recent of 3 results within the time period is included. WBC 8.64Comment: Called Raquel on 4.50 - 11.00 k/uL [address] 01/14/2019 16:19 [facility] RBC 3.74 (L) 4.40 - 6.00 m/uL [facility] HGB 10.6 (L) 14.0 - 18.0 g/dL [facility] HCT 33.8 (L) 41.0 - 51.0 % [facility] MCV 90.4 82.0 - 100.0 fL [facility] MCH 28.3 27.0 - 34.0 pg [facility] MCHC 31.4 31.0 - 37.0 g/dL [facility] RDW - SD 43.6 37.0 - 55.0 fL [facility] MPV 11.5 8.8 - 13.2 fL [facility] Platelet count 144 (L) 150 - 400 k/uL [facility] Nucleated RBC 0.00 /100 WBC [facility] Neutrophils 82.4 (H) 39.0 - 69.0 % [facility] Lymphocytes 9.6 (L) 25.0 - 45.0 % [facility] Monocytes 6.5 0.0 - 10.0 % [facility] Eosinophils 1.2 0.0 - 5.0 % [facility] Basophils 0.0 0.0 - 1.0 % [facility] Specimen Blood Performing Organization Address City/State/Zipcode Phone Number [place] [address] [place] [address] PATHOLOGY AND GENOMIC MEDICINE [facility] [address] [place] [address] [place] [address] [facility] * Vancomycin level, trough (01/14/2019 11:55 AM CDT) Pathologist [facility] Vancomycin, 14.1 10.0 - 20.0 ug/mL [place] trough Comment: [facility] Therapeutic Ranges: [facility] Peak 30.0 - 40.0 ug/mL Bnmoep89.0 - 20.0 ug/mL Specimen Serum Performing Organization Address [facility] Phone Number [facility] DEPARTMENT OF [address] [place] [address] [place] [address] PATHOLOGY AND GENOMIC MEDICINE [address] * Basic metabolic panel (01/14/2019 11:55 AM CDT) Only the most recent of 2 results within the time period is included. [facility] Sodium 138 135 - 148 mEq/L [facility] Potassium 4.3 3.5 - 5.0 mEq/L [facility] Chloride 101 98 - 112 mEq/L [facility] CO2 30 24 - 31 mEq/L [facility] Anion gap 7@ANIO 7 - 15 mEq/L [facility] BUN 19 8 - 23 mg/dL [facility] Creatinine 0.80 0.70 - 1.20 mg/dL [facility] Glucose 154 (H) 65 - 99 mg/dL [facility] Calcium 8.6 (L) 8.8 - 10.2 mg/dL [facility] Specimen Plasma specimen Performing Organization Address [facility] Phone Number [facility] DEPARTMENT OF [address] [place] [address] [place] [address] PATHOLOGY AND GENOMIC MEDICINE [address] * Echocardiogram complete w contrast and 3D if needed (01/14/2019 7:48 AM CDT) [facility] AoV Area, Vmax 3.18 cm2 [facility] AoV [...] LV EF,BP 47.51 % HM [facility] [place],d A2C 9.97 cm [facility] [place],d A4C 9.69 cm [facility] [place],s A2C 8.67 cm [facility] [place],s A4C 8.64 cm [facility] LV,s 4.48 [...] RA pressure 10-15 mmHg. Performing Organization Address City/[facility]/Zipcode Phone Number [facility] [address] [place] [address] * Us duplex venous lower extremity (01/13/2019 2:40 PM CDT) Specimen Narrative Performed At SYNGO There is no evidence of DVT in the left lower extremity and right common femoral vein. Performing Organization Address City/[facility] Phone Number [facility] [address] [place] [address] * Arterial blood gas (01/12/2019 3:58 PM CDT) pH, arterial 7.55 (H) 7.35 - 7.45 [facility] pCO2, arterial 28 (L) 35 - 45 mmHg [facility] pO2, arterial 232 (H) 80 - 90 mmHg [facility] Bicarbonate, 27.2 21.0 - 28.0 mmol/L [facility] Base excess, 3 (H) -2 - 2 mEq/L [facility] O2 saturation, 100 95 - 100 % [facility] FiO2, inspired 50 % [place] O2% [facility] Specimen Blood Performing Organization Address City/[facility]/Zipcode Phone Number [facility] DEPARTMENT OF [address] [place] [address] [place] [address] PATHOLOGY AND GENOMIC MEDICINE [address] [place] [id number] [facility] * Troponin (01/12/2019 4:41 AM CDT) Only the most recent of 3 results within the time period is included. Pathologist [facility] Troponin 0.022 0.000 - 0.040 ng/mL [place] Comment: [facility] changed methodology effective: 12/03/2018 at 10:00 am The new method has a 99th percentile cutoff of 0.040 ng/mL Specimen Plasma specimen Performing Organization Address [facility] Phone Number [facility] DEPARTMENT [address] [place] [address] PATHOLOGY AND GENOMIC MEDICINE [address] * Manual differential (01/12/2019 4:41 AM CDT) [facility] Manual PERFORMED [place] differential [facility] Neutrophils 93.0 (H) 39.0 - 69.0 % [facility] Lymphocytes 1.0 (L) 25.0 - 45.0 % [facility] Monocytes 5.0 0.0 - 10.0 % [facility] Eosinophils 0.0 0.0 - 5.0 % [facility] Basophils 0.0 0.0 - 1.0 % [facility] Metamyelocytes 1 % [facility] Promyelocytes 0 % [facility] Platelet slide Brian adequate [place] review [facility] Specimen Performing Organization Address [facility] Phone Number [facility] DEPARTMENT [place] [address] [place] [address] PATHOLOGY AND [facility] MEDICINE [address] [place] [address] * Magnesium level (01/12/2019 4:41 AM CDT) [facility] Magnesium 2.1 1.6 - 2.4 mg/dL [facility] Specimen Plasma specimen Performing Organization Address [facility] Phone Number [facility] DEPARTMENT [place] [address] [place] [address] PATHOLOGY AND GENOMIC MEDICINE [address] [place] [address] * Comprehensive metabolic panel (01/12/2019 4:41 AM CDT) Only the most recent of 2 results within the time period is included. Pathologist [facility] Sodium 132 (L) 135 - 148 mEq/L [facility] Potassium 5.2 (H) 3.5 - 5.0 mEq/L [facility] Chloride 97 (L) 98 - 112 mEq/L [facility] CO2 24 24 - 31 mEq/L [facility] Anion gap 11@ANIO 7 - 15 mEq/L [facility] BUN 28 (H) 8 - 23 mg/dL [facility] Creatinine 1.10 0.70 - 1.20 mg/dL [facility] Glucose 419 (HH) 65 - 99 mg/dL [place] Comment: [facility] Results called to and read [facility] back by ZAFAR at 01/12/2019 05:21 by [id number]. Calcium 9.1 8.8 - 10.2 mg/dL [facility] Protein 6.1 (L) 6.3 - 8.3 g/dL [place] Comment: [facility] 4.6-7.0 g/dL 1 week 4.4-7.6 g/dL 7 months-1year 5.1-7.3 g/dL 1-2 years5.6-7 .5 g/dL >3 years6.0-8 .0 g/dL 18-150 6.3-8.3 g/dL Albumin 3.6 3.5 - 5.0 g/dL [facility] A/G ratio 1.4 0.7 - 3.8 [facility] Alkaline 70 40 - 129 U/L [place] phosphatase [facility] AST 14 10 - 50 U/L [facility] ALT 39 5 - 50 U/L [facility] Total bilirubin 1.0 0.0 - 1.2 mg/dL [facility] Specimen Plasma specimen Performing Organization Address City/State/Zipcode [place] Number [place] [address] [place] [address] PATHOLOGY AND GENOMIC MEDICINE [facility] [address] [place] [address] [facility] * Partial thromboplastin time, activated (01/11/2019 9:57 PM CDT) Pathologist [facility] PTT 27.9 23.0 - 36.0 sec [place] Comment: BETSY STOKES PTT therapeutic range for [facility] unfractionated heparin is 61.0-112.0 seconds which corresponds to Anti-Xa 0.3-0.7 U/ml. Specimen Blood Performing Organization Address [facility] Phone Number [facility] DEPART[facility] OF [facility] [address] [place] [address] PATHOLOGY AND [facility] MEDICINE [address] [place] [address] * Prothrombin time with INR (01/11/2019 9:57 PM CDT) Pathologist [facility] Prothrombin 14.4 11.5 - 14.5 sec [facility] INR 1.2 [place] Comment: BETSY STOKES The International Normalized [facility] Ratio (INR) is a therapeutic monitoring tool for patients who are stable on oral anticoagulant therapy. An INR of 2.0-3.0 is suggested for deep vein thrombosis/pulmonary embolism. Specimen Blood Performing Organization Address [facility] Phone Number [facility] DEPARTMENT [address] [place] [address] PATHOLOGY AND [facility] MEDICINE [address] [place] [address] * B natriuretic peptide (01/11/2019 9:57 PM CDT) Pathologist [facility] BNP 169 (H) 0 - 100 pg/mL [facility] Specimen Blood Performing Organization Address [facility] Phone Number [facility] DEPARTMENT [place] [address] [place] [address] PATHOLOGY AND [facility] MEDICINE [address] [place] [address] * Blood culture, aerobic & anaerobic (01/11/2019 9:50 PM CDT) Only the most recent of 2 results within the time period is included. Pathologist [facility] Blood culture No growth after 5 days of [place] isolate incubation. YARSANI Comment: HOSPITAL Specimen Information Specimen Source: Blood Specimen Site: Hand, right Specimen Blood - Hand, right Performing Organization Address City/[facility] Phone Number [facility] DEPARTMENT OF [address] [place] [address] PATHOLOGY AND GENOMIC MEDICINE [address] * XR Tibia Fibula 2 Vw Left (01/11/2019 9:30 PM CDT) Specimen Narrative Performed At EXAM:XR TIBIA FIBULA 2 VW LEFT RADIANT CLINICAL HISTORY:swelling LLE COMPARISON:None. IMPRESSION: No evidence of acute displaced fracture or dislocation of the left tibia or fibula. Soft tissues are unremarkable. Vascular calcifications are noted. Soft tissues are otherwise normal. [facility]-[id number] Procedure Note Interface, Radiology Results Incoming - 01/11/2019 10:06 PM CDT EXAM: XR TIBIA FIBULA 2 VW LEFT CLINICAL HISTORY: swelling LLE COMPARISON: None. IMPRESSION: No evidence of acute displaced fracture or dislocation of the left tibia or fibula. Soft tissues are unremarkable. Vascular calcifications are noted. Soft tissues are otherwise normal. [id number] Performing Organization Address [facility] Phone Number [facility] [address] [place] [address] * XR Chest 1 Vw Portable (01/11/2019 [...] identified. No acute osseous abnormalities are visualized. [id number] Procedure Note Interface, Radiology Results Incoming - [...] identified. No acute osseous abnormalities are visualized. [facility]-[id number] Performing Organization Address [facility] Phone Number [facility] [address] [place] [address] * ECG ED Preliminary Interpretation - Not an Order (01/11/2019 9:00 PM CDT) Narrative Performed At Murali Choudhury MD 01/12/2019 12:36 AM ECG ED Preliminary Interpretation - Not an Order Performed by: Murali Choudhury MD Authorized by: Murali Choudhury MD ECG reviewed by ED Physician in the absence of a hand flesher: yes Interpretation: Interpretation: normal Rate: ECG rate:78 ECG rate assessment: normal Rhythm: Rhythm: sinus rhythm Ectopy: Ectopy: none QRS: QRS axis:Normal QRS intervals:Normal Conduction: Conduction: normal ST segments: ST segments:Normal T waves: T waves: normal * ECG 12 lead (01/11/2019 8:48 PM CDT) Ventricular 78 [facility] rate Atrial rate 78 [facility] [place] interval 196 [facility] QRSD interval 98 [...] At Performing Organization Address City/State/Zipcode Phone Number [facility] MUSE [address] [place] [address] after 04/07/2018 Insurance Type Payer Benefit Subscriber ID Effective Phone Address Plan / Dates Group Medicare MEDICARE MEDICARE xxxxxxxxxxx 2010-P [place], PART A AND resent [place] B Commercial COLONIAL COLONIAL xxxxxxxxxx 2010-P [facility] Advance Directives For more information, please contact: [phone] 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
--- OUTSIDE RECORDS SUMMARY | 2019-04-08 17:17 | XMS REPORT | Continuity of Care Document ---
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 [...] Cellulitis of left leg Active Problem 05/13/2018 [facility] Dyspnea Active Problem 05/13/2018 [facility] Pneumonia Active Problem 05/13/2018 [facility] Renal failure , acute on chronic Active Problem 05/13/2018 [facility] Medications Medication Details Route Status Patient Instructions Ordering Provider Order Date Source Amlodipine Besylate 1 tablet Orally Active 5 MG Orally Once a day Krystal 03/14/2018 Roger Luis Manuel Rice Aspirin 325 Mg Tablet, 325 Mg Oral Daily Active 11/13/2016 [facility] Irbesartan (Avapro) 75 Mg Tablet, 75 Mg Oral Twice A Day Active 11/13/2016 [facility] Silodosin (Rapaflo) 8 Mg Capsule, 8 Mg Oral Daily Active 07/20/2015 [facility] Warfarin Sodium (Coumadin) 5 Mg Tablet, 5 Mg Oral Today At 5:00PM Active 05/14/2015 [facility] Amphet Asp/Amphet/D-Amphet (Adderall 5 Mg Tablet) 5 Mg Tablet, 5 Mg Oral Twice A Day Active 05/11/2015 [facility] Cephalexin Monohydrate (Keflex) 500 Mg Capsule, Mg Oral Twice A Day Active 05/11/2015 [facility] Hydrocodone Bit/Acetaminophen (Bernice 10-325 Tablet) 1 Each Tablet, 1 Tab Oral Every 4 Hours Active 05/11/2015 [facility] Insulin Detemir (Levemir) 100 Unit/1 Ml Vial, 40 Sub-Q Twice A Day Active 05/11/2015 [facility] Insulin Lispro (Humalog) 100 Unit/1 Ml Insuln.pen, 40 Sub-Q Three Times A Day Active 05/11/2015 [facility] Torsemide (Demadex) 20 Mg Tablet, 20 Mg Oral Twice A Day Active 11/24/2014 [facility] Insulin Aspart (Novolog) 100 Units/Ml Ml, 40 Sub-Q Before Meals Active 11/23/2014 [facility] Polyethylene Glycol 3350 (Miralax) 17 Gm Powd.pack, 1 Pkt Oral Every Morning Active 11/22/2014 [facility] Potassium Chloride 10 Meq Tablet.er, 10 Meq Oral Twice A Day Active 11/22/2014 [facility] Dabigatran Etexilate Mesylate (Pradaxa) 150 Mg Capsule, 150 Mg Oral Twice A Day Active 08/21/2014 [facility] Amphet Asp/Amphet/D-Amphet (Adderall 20 Mg Tablet) 20 Mg Tablet, 20 Mg Oral Twice A Day Active 08/14/2013 [facility] Irbesartan (Avapro) 300 Mg Tablet, 150 Mg Oral Daily Active 08/14/2013 [facility] Metolazone 5 Mg Tablet, 5 Mg Oral Daily Active 08/14/2013 [facility] Valsartan/Hydrochlorothiazide (Diovan Hct 160-12.5 Mg Tab) 1 Each Tablet, 1 Tab Oral Daily Active 08/14/2013 [facility] Dutasteride (Avodart) 0.5 Mg Capsule, Daily Active 02/13/2013 [facility] Methocarbamol (Robaxin-750) 750 Mg Tablet, Twice A Day Active 02/13/2013 [facility] [id number] Daily , Active 02/13/2013 [facility] Valsartan/Hydrochlorothiazide (Diovan Hct 160-12.5 Mg Tab) 1 Each Tablet, 1 Each Oral Twice A Day Active 02/13/2013 [facility] Amlodipine Besylate 1 tablet Orally Active 5 MG Orally Once a day Krystal Rice Amlodipine Besylate TAKE 1 TABLET BY MOUTH EVERY DAY by mouth Active 5 MG by mouth once a day Krystal Rice Alprazolam (Xanax) 0.5 Mg Tablet Bedtime Active [facility] Amlodipine Besylate 5 Mg Tablet Daily Active [facility] Amphet Asp/Amphet/D-Amphet (Adderall 20 Mg Tablet) 20 Mg Tablet Every 12 Hours Active [facility] Docusate Calcium (Stool Softener) 240 Mg Capsule Daily Active [facility] Gabapentin 300 Mg Capsule Three Times A Day Active [facility] Hydrocodone Bit/Acetaminophen (Bernice 10-325 Tablet) 1 Each Tablet Daily Active [facility] Insulin Aspart (Novolog) 100 Unit/1 Ml Cartridge Before Meals Active [facility] Insulin Detemir (Levemir) 100 Unit/1 Ml Vial Twice A Day Active [facility] Lisinopril (Prinavil / Zestril) 20 Mg Tablet Twice A Day Active [facility] Metformin Hcl (Glucophage) 500 Mg Tablet Twice A Day Active [facility] Metolazone 5 Mg Tablet Daily Active [facility] Metoprolol Tartrate 50 Mg Tablet Twice A Day Active [facility] Minoxidil 2.5 Mg Tablet Daily Active [facility] Movantik Daily Active [facility] Silodosin (Rapaflo) 8 Mg Capsule Daily Active [facility] Sucralfate (Carafate) 1 Gm/10 Ml Oral.susp Daily Active [facility] Torsemide (Demadex) 10 Mg Tablet Daily Active [facility] Allergies, Adverse Reactions, Alerts Substance Category Reaction Severity Reaction type Status Date Reported Comments Source No Known Drug Allergies Mild Allergy to Substance Active 05/02/2018 [facility] Immunizations No Data Provided for This Section Results Order Name Results Value Reference Range Date Interpretation Comments Source Capillary blood glucose measurement by glucometer (mass/volume) Capillary blood glucose measurement by glucometer (mass/volume) 163 70 - 120 05/13/2018 [facility] Automated blood basophil count (count/volume) Automated blood basophil count (count/volume) 0.0 0.0 - 0.1 05/13/2018 [facility] Automated blood basophil count as percentage of total leukocytes Automated blood basophil count as percentage of total leukocytes 0.3 0.0 - 1.0 05/13/2018 [facility] Automated blood eosinophil count Automated blood eosinophil count 0.1 0.0 - 0.4 05/13/2018 [facility] Automated blood eosinophil count as percentage of total leukocytes Automated blood eosinophil count as percentage of total leukocytes 2.0 0.0 - 6.0 05/13/2018 [facility] Automated blood hematocrit (volume fraction) Automated blood hematocrit (volume fraction) 39.6 38.2 - 49.6 05/13/2018 [facility] Automated blood lymphocyte count as percentage ot total leukocytes Automated blood lymphocyte count as percentage ot total leukocytes 15.0 18.0 - 39.1 05/13/2018 [facility] Automated blood monocyte count as percentage of total leukocytes Automated blood monocyte count as percentage of total leukocytes 7.1 4.4 - 11.3 05/13/2018 [facility] Automated blood neutrophil count Automated blood neutrophil count 5.1 2.1 - 6.9 05/13/2018 [facility] Automated blood platelet count (count/volume) Automated blood platelet count (count/volume) 300 140 - 360 05/13/2018 [facility] Automated blood segmented neutrophil count as percentage of total leukocytes Automated blood segmented neutrophil count as percentage of total leukocytes 73.7 38.7 - 80.0 05/13/2018 [facility] Automated erythrocyte mean corpuscular hemoglobin (mass per erythrocyte) Automated erythrocyte mean corpuscular hemoglobin (mass per erythrocyte) 28.1 28 - 32 05/13/2018 [facility] Automated erythrocyte mean corpuscular hemoglobin concentration measurement (mass/volume) Automated erythrocyte mean corpuscular hemoglobin concentration measurement (mass/volume) 31.8 31 - 35 05/13/2018 [facility] Automated erythrocyte mean corpuscular volume Automated erythrocyte mean corpuscular volume 88.2 81 - 99 05/13/2018 [facility] Blood erythrocytes automated count (number/volume) Blood erythrocytes automated count (number/volume) 4.49 4.3 - 5.7 05/13/2018 [facility] Blood hemoglobin measurement (moles/volume) Blood hemoglobin measurement (moles/volume) 12.6 14.0 - 18.0 05/13/2018 [facility] Blood leukocytes automated count (number/volume) Blood leukocytes automated count (number/volume) 6.93 4.8 - 10.8 05/13/2018 [facility] Blood lymphocytes count (number/volume) Blood lymphocytes count (number/volume) 1.0 1.0 - 3.2 05/13/2018 [facility] Blood monocytes automated count (number/volume) Blood monocytes automated count (number/volume) 0.5 0.2 - 0.8 05/13/2018 [facility] Estimated glomerular filtration rate (GFR) determination Estimated glomerular filtration rate (GFR) determination >60 60 05/13/2018 [facility] Glucose measurement Glucose measurement 222 74 - 118 05/13/2018 [facility] Plasma globulin measurement (mass/volume) Plasma globulin measurement (mass/volume) 4.3 2.3 - 3.5 05/13/2018 [facility] Serum or plasma alanine aminotransferase measurement (enzymatic activity/volume) Serum or plasma alanine aminotransferase measurement (enzymatic activity/volume) 24 0 - 55 05/13/2018 [facility] Serum or plasma albumin measurement (mass/volume) Serum or plasma albumin measurement (mass/volume) 3.1 3.5 - 5.0 05/13/2018 [facility] Serum or plasma albumin/globulin mass ratio Serum or plasma albumin/globulin mass ratio 0.7 0.8 - 2.0 05/13/2018 [facility] Serum or plasma alkaline phosphatase measurement (enzymatic activity/volume) Serum or plasma alkaline phosphatase measurement (enzymatic activity/volume) 65 40 - 150 05/13/2018 [facility] Serum or plasma anion gap Serum or plasma anion gap 15.6 8 - 16 05/13/2018 [facility] Serum or plasma calcium measurement (mass/volume) Serum or plasma calcium measurement (mass/volume) 9.6 8.4 - 10.2 05/13/2018 [facility] Serum or plasma carbon dioxide, total measurement (moles/volume) Serum or plasma carbon dioxide, total measurement (moles/volume) 28 22 - 29 05/13/2018 [facility] Serum or plasma chloride measurement (moles/volume) Serum or plasma chloride measurement (moles/volume) 99 98 - 107 05/13/2018 [facility] Serum or plasma creatinine measurement (mass/volume) Serum or plasma creatinine measurement (mass/volume) 0.87 0.72 - 1.25 05/13/2018 [facility] Serum or plasma potassium measurement (moles/volume) Serum or plasma potassium measurement (moles/volume) 3.6 3.5 - 5.1 05/13/2018 [facility] Serum or plasma protein measurement (mass/volume) Serum or plasma protein measurement (mass/volume) 7.4 6.5 - 8.1 05/13/2018 [facility] Serum or plasma sodium measurement (moles/volume) Serum or plasma sodium measurement (moles/volume) 139 136 - 145 05/13/2018 [facility] Serum or plasma total bilirubin measurement (mass/volume) Serum or plasma total bilirubin measurement (mass/volume) 0.5 0.2 - 1.2 05/13/2018 [facility] Serum or plasma urea nitrogen measurement (mass/volume) Serum or plasma urea nitrogen measurement (mass/volume) 12 7 - 26 05/13/2018 [facility] Serum or plasma urea nitrogen/creatinine mass ratio Serum or plasma urea nitrogen/creatinine mass ratio 14 6 - 25 05/13/2018 [facility] Red Cell Distribution Width 13.7 11.7 - 14.4 05/13/2018 [facility] IM GRANULOCYTES % 1.9 0.0 - 1.0 05/13/2018 [facility] Absolute Immature Granulocyte (auto 0.13 0 - 0.1 05/13/2018 [facility] Aspartate Amino Transf (AST/SGOT) 19 5 - 34 05/13/2018 [facility] Automated urine sediment leukocyte count by microscopy (number/high power field) Automated urine sediment leukocyte count by microscopy (number/high power field) <5 0 - 5 05/11/2018 [facility] Bacteria detection in urine sediment by light microscopy Bacteria detection in urine sediment by light microscopy RARE NONE 05/11/2018 [facility] Epithelial cells detection in urine sediment by light microscopy Epithelial cells detection in urine sediment by light microscopy FEW NONE 05/11/2018 [facility] Erythrocytes detection in urine sediment by light microscopy Erythrocytes detection in urine sediment by light microscopy <50 0 - 5 05/11/2018 [facility] Hyaline casts detection in urine sediment by light microscopy Hyaline casts detection in urine sediment by light microscopy <1 0 - 1 05/11/2018 [facility] Specific gravity of Urine by Test strip Specific gravity of Urine by Test strip 1.010 1.010 - 1.025 05/11/2018 [facility] Transitional cells detection in urine sediment by light microscopy Transitional cells detection in urine sediment by light microscopy FEW NONE 05/11/2018 [facility] Urine clarity Urine clarity CLEAR CLEAR 05/11/2018 [facility] Urine color determination Urine color determination YELLOW YELLOW 05/11/2018 [facility] Urine erythrocytes detection Urine erythrocytes detection 1+ NEGATIVE 05/11/2018 [facility] Urine glucose detection Urine glucose detection 2+ NEGATIVE 05/11/2018 [facility] Urine ketones detection by automated test strip Urine ketones detection by automated test strip NEGATIVE NEGATIVE 05/11/2018 [facility] Urine leukocyte esterase detection by dipstick Urine leukocyte esterase detection by dipstick TRACE NEGATIVE 05/11/2018 [facility] Urine nitrite detection Urine nitrite detection NEGATIVE NEGATIVE 05/11/2018 [facility] Urine pH measurement by automated test strip Urine pH measurement by automated test strip 8 5 - 7 05/11/2018 [facility] Urine protein measurement by test strip (mass/volume) Urine protein measurement by test strip (mass/volume) NEGATIVE NEGATIVE 05/11/2018 [facility] Urine total bilirubin measurement (mass/volume) Urine total bilirubin measurement (mass/volume) NEGATIVE NEGATIVE 05/11/2018 [facility] Urine urobilinogen measurement by test strip (mass/volume) Urine urobilinogen measurement by test strip (mass/volume) 0.2 0.2 - 1 05/11/2018 [facility] Blood culture Blood culture NO GROWTH AFTER 72 HOURS 05/10/2018 [facility] Serum or plasma trough vancomycin level at trough (mass/volume) Serum or plasma trough vancomycin level at trough (mass/volume) 24.3 5.0 - 10.0 05/06/2018 [facility] Blood anisocytosis detection by light microscopy Blood anisocytosis detection by light microscopy SLIGHT 05/06/2018 [facility] Blood platelets count by estimate (number/volume) Blood platelets count by estimate (number/volume) ADEQUATE 05/06/2018 [facility] Platelet morphology Platelet morphology NORMAL 05/06/2018 [facility] RBC morphology RBC morphology NORMAL 05/06/2018 [facility] Serum or plasma cholesterol in HDL measurement (mass/volume) Serum or plasma cholesterol in HDL measurement (mass/volume) 41 40 - 60 05/06/2018 [facility] Serum or plasma cholesterol in LDL measurement (mass/volume) Serum or plasma cholesterol in LDL measurement (mass/volume) 99 60 - 130 05/06/2018 [facility] Serum or plasma cholesterol measurement (mass/volume) Serum or plasma cholesterol measurement (mass/volume) 151 0 - 199 05/06/2018 [facility] Serum or plasma thyrotropin measurement by detection limit <=0.005 miu/l (units/volume) Serum or plasma thyrotropin measurement by detection limit <=0.005 miu/l (units/volume) 0.930 0.350 - 4.940 05/06/2018 [facility] Serum or plasma total cholesterol/cholesterol in HDL mass ratio Serum or plasma total cholesterol/cholesterol in HDL mass ratio 3.7 3.9 - 4.7 05/06/2018 [facility] Serum or plasma triglyceride measurement (mass/volume) Serum or plasma triglyceride measurement (mass/volume) 55 0 - 149 05/06/2018 [facility] Bacterial blood culture Bacterial blood culture Organism: STAPHYLOCOCCUS AUREUS 05/05/2018 [facility] Lactic Acid Level 13.2 4.5 - 19.8 05/05/2018 [facility] Serum or plasma creatine kinase MB measurement (mass/volume) Serum or plasma creatine kinase MB measurement (mass/volume) 2.40 0 - 5.0 05/04/2018 [facility] Serum or plasma creatine kinase measurement (enzymatic activity/volume) Serum or plasma creatine kinase measurement (enzymatic activity/volume) 532 30 - 200 05/04/2018 [facility] Troponin I measurement by highly sensitive enzyme immunoassay Troponin I measurement by highly sensitive enzyme immunoassay 0.197 0 - 0.300 05/04/2018 [facility] Serum or plasma magnesium measurement (mass/volume) Serum or plasma magnesium measurement (mass/volume) 1.8 1.3 - 2.1 05/04/2018 [facility] Manual blood lymphocytes/100 leukocytes Manual blood lymphocytes/100 leukocytes 7 19 - 48 05/03/2018 [facility] Manual blood monocytes/100 leukocytes Manual blood monocytes/100 leukocytes 8 3.4 - 9.0 05/03/2018 [facility] Manual blood neutrophils/100 leukocytes Manual blood neutrophils/100 leukocytes 85 40 - 74 05/03/2018 [facility] Differential Total Cells Counted 100 05/03/2018 [facility] Mucus detection in urine sediment by light microscopy Mucus detection in urine sediment by light microscopy FEW RARE 05/02/2018 [facility] Activated partial thromboplastin time (aPTT) in platelet poor plasma bycoagulation assay Activated partial thromboplastin time (aPTT) in platelet poor plasma bycoagulation assay 33.6 23.8 - 35.5 05/02/2018 [facility] Fibrin D-dimer DDU measurement in platelet poor plasma (mass/volume) Fibrin D-dimer DDU measurement in platelet poor plasma (mass/volume) 0.75 0.00 - 0.45 05/02/2018 [facility] INR in Platelet poor plasma by Coagulation assay INR in Platelet poor plasma by Coagulation assay 0.96 05/02/2018 [facility] Prothrombin time (PT) in platelet poor plasma by coagulation assay Prothrombin time (PT) in platelet poor plasma by coagulation assay 13.7 11.9 - 14.5 05/02/2018 [facility] Serum or plasma lipase measurement (enzymatic activity/volume) Serum or plasma lipase measurement (enzymatic activity/volume) <4 8 - 78 05/02/2018 [facility] B-Type Natriuretic Peptide 140.5 0 - 100 05/02/2018 [facility] Bacterial urine culture Bacterial urine culture Urine Culture [facility] Pathology Reports No Data Provided for This [...] Date DC Date Status Source Discharged Inpatient [id number] GILBERT NAVARRO MD 05/02/2018 05/13/2018 [facility] Procedures Procedure Code Date Perfomer Comments Source Computed tomography of chest with contrast [id number] 05/10/2018 [facility] MRI joint extremity upper wo then w contrast [id number] 05/05/2018 [facility] Computed tomography of abdomen and pelvis with contrast [id number] 05/04/2018 [facility] Computed tomography of soft tissues of neck with contrast [id number] 05/04/2018 [facility] Assessment and Plan No Data Provided for This Section Plan of Care Plan of Care Date Source Discharge Date 05/13/18 12:14pm Disposition HOME, SELF-CARE Instructions/Education Provided Pneumonia - Bacterial Prescriptions See Medication Section Additional Instructions/Education Follow up in [address] Navarro 05/13/2018 [facility] Social History Social History Date Source Social [...] Start Date Stop Date Never Smoker 05/13/2018 [facility] Family History No Data Provided for This Section Advance Directives Order Name Results Value Date Source Advance Directives Advance Directives Directive Response Recorded Date/Time Does the patient have an advance directive? Yes 05/03/18 2:25am If yes, is advance directive on file with [facility]? Yes 05/03/18 2:25am If not on file with [facility] will patient provide a copy? Yes 05/03/18 2:25am Do you have a Directive to Physician? No 05/02/18 8:46pm Do you have a Medical Power of [employer] Technician? No 05/02/18 8:46pm Do you have an [...] rights and responsibilities? Yes 05/02/18 8:46pm 05/13/2018 [facility] Functional Status No Data Provided for This Section
--- NOTE | 2019-04-08 17:25 | Diagnostic Imaging Report ---
Chest, 1 view, 04/08/2019. History: Foot wound. Comparison: 70 08/18/2018. Findings: The cardiomediastinal silhouette and pulmonary vasculature are mildly prominent. Aortic stent graft is again noted. There is no focal consolidation or pleural effusion. There are no acute osseous or soft tissue abnormalities. Impression: Mild cardiomegaly and vascular congestion without significant change. Signed by: Simon Rodriguez on 04/08/2019 5:21 PM
[2019-04-08 17:36] LABS: CREATINE KINASE MB 4.1 ng/mL (0-5.0)
[2019-04-08] MEDS ORDERED: SODIUM CHLORIDE 0.9% 1000ML 1,000 ML, SODIUM CHLORIDE 0.9% 1000ML 1,000 ML IV SCH ×2 (18:45)
[2019-04-08] MEDS ORDERED: INSULIN REGULAR, HUMAN 100 UNIT/1 ML 3ML VIAL IV NR (19:00)
[2019-04-08] MEDS: FAMOTIDINE 20 MG/2 ML VIAL IV SCH (19:09)
[2019-04-08] MEDS: SODIUM CHLORIDE 0.9% 1000ML 1,000 ML IV SCH (19:09)
[2019-04-08] MEDS: CEFEPIME 2 GM/NS 0.9% 100 ML 100 ML IV SCH (19:09)
[2019-04-08] MEDS: ONDANSETRON HCL INJ 2MG/ML 2ML 2 MG/ML VIAL IV PRN ×2 (19:18→23:58)
[2019-04-08] MEDS: HYDROMORPHONE 1MG/1ML INJ IV PRN ×2 (19:18→23:58)
[2019-04-08 20:00] VITALS: BP 119/53
[2019-04-08 21:00] VITALS: BP 119/53
[2019-04-08] MEDS ORDERED: VANCOMYCIN 1GM/NS 250 ML 250 ML IV SCH (21:00)
--- NOTE | 2019-04-08 21:00 | NUR ---
Patient received to room 294 via stretcher from the ER. Pain minimal at this time. ivf continue to infuse without difficulty. dressing to left foot removed, wound culture obtained and betadine wet to dry dressing reapplied. admit assessment/history complete. patient instructed to call for assistance when needed.
--- NOTE | 2019-04-08 21:30 | NUR ---
will bring correct home medication list and home cpap in am. patient unaware of correct medication and dosages at this time.
[2019-04-08] MEDS ORDERED: DEXTROSE 50% SYRINGE 50 ML IV PRN (22:00)
[2019-04-08] MEDS ORDERED: VANCOMYCIN 1GM/NS 250 ML 500 ML ONE (22:16)
[2019-04-08] MEDS: VANCOMYCIN HCL 1.25 GM in SODIUM CHLORIDE 0.9% 250ML 250 ML IV SCH (22:30)
--- NOTE | 2019-04-08 22:30 | NUR ---
blood sugar 434. 10 units regular insulin iv given at this time.
--- NOTE | 2019-04-08 23:58 | NUR ---
patient medicated with dilaudid 0.5mg and zofran 4mg ivp for c/o left foot pain 02/05 at this time per patients request.
[2019-04-09] VITALS (8 sets, daily range): BP systolic 110–127; BP diastolic 52–58
[2019-04-09] MEDS: INSULIN REGULAR, HUMAN 100 UNIT/1 ML 3ML VIAL SQ SCH ×5 (01:50→21:45)
--- NOTE | 2019-04-09 01:50 | NUR ---
blood sugar 315. 16 units regular insulin given per sliding scale at this time.
[2019-04-09] MEDS: SODIUM CHLORIDE 0.9% 1000ML 1,000 ML IV SCH ×2 (02:57→19:24)
[2019-04-09] MEDS: CEFEPIME 2 GM/NS 0.9% 100 ML 100 ML IV SCH ×2 (04:05→16:56)
--- NOTE | 2019-04-09 05:00 | NUR ---
patient appears to be resting quietly. no further c/o pain noted. ivf continue to infuse without difficulty.
[2019-04-09] MEDS: VANCOMYCIN HCL 1.25 GM in SODIUM CHLORIDE 0.9% 250ML 250 ML IV SCH ×2 (05:31→19:32)
[2019-04-09] MEDS: FAMOTIDINE 20 MG/2 ML VIAL IV SCH ×2 (05:31→17:00)
[2019-04-09 06:17] LABS: BASOPHILS % 0.2 % (0.0-1.0); EOSINOPHILS # (AUTO) 0.2 (0.0-0.4); EOSINOPHILS % 2.2 % (0.0-6.0); HEMATOCRIT 31.4 % (38.2-49.6); HEMOGLOBIN 10.1 g/dL (14.0-18.0); LYMPHOCYTES % 10.3 % (18.0-39.1); MEAN CORPUSCULAR HEMOGLOBIN 27.1 pg (28-32); MEAN CORPUSCULAR HGB CONC 32.2 g/dL (31-35); MEAN CORPUSCULAR VOLUME 84.2 fL (81-99); MONOCYTES # (AUTO) 0.9 (0.2-0.8); MONOCYTES % 8.9 % (4.4-11.3); NEUTROPHILS # (AUTO) 7.4 (2.1-6.9); NEUTROPHILS % 77.7 % (38.7-80.0); PLATELET COUNT 192 x10e3/uL (140-360); RED BLOOD COUNT 3.73 x10e6/uL (4.3-5.7)
[2019-04-09 06:49] LABS: ALBUMIN 2.8 g/dL (3.5-5.0); ALBUMIN/GLOBULIN RATIO 0.8 (0.8-2.0); ANION GAP 12.4 mmol/L (8-16); CHOL/HDL RATIO 5.1 (3.9-4.7); CREATININE, SERUM 1.5 mg/dL (0.72-1.25); MAGNESIUM 2.3 MG/DL (1.3-2.1); PHOSPHORUS 3.3 MG/DL (2.3-4.7); POTASSIUM 4.4 mmol/L (3.5-5.1)
--- NOTE | 2019-04-09 07:20 | NUR ---
PATIENT IS AWAKE AND IN STABLE CONDITION WITH NO S/S OF RESPIRATORY DISTRESS. PATIENT C/O LEFT FOOT PAIN 10/- WILL ADMINISTER PAIN MEDICATION WHEN AVAILABLE. DRESSING IS DRY AND INTACT TO THE LEFT FOOT WOUND. TELEMETRY APPLIED. BED ALARM ON. CALL LIGHT IS WITHIN REACH, PATIENT INSTRUCTED TO CALL FOR ASSISTANCE NEEDED.
[2019-04-09] MEDS: INSULIN LISPRO 100 UNIT/1 ML 3ML VIAL SQ SCH ×3 (07:30→16:30)
[2019-04-09 07:36] LABS: CREATINE KINASE MB 2.4 ng/mL (0-5.0)
[2019-04-09] MEDS: HYDROMORPHONE 1MG/1ML INJ IV PRN ×3 (08:45→21:55)
--- NOTE | 2019-04-09 08:57 | Diagnostic Imaging Report ---
TECHNIQUE: Magnetic resonance imaging of the LEFT foot (forefoot) was performed WITHOUT injected contrast. HISTORY: Diabetic foot, ulcer, ball of foot, infection COMPARISON: Left foot radiographs May 06, 2018. 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 * Status post amputation of the second through fifth toes. * Marked, diffuse, heterogeneous signal throughout the first metatarsal bone and first proximal phalanx, on both fat and fluid sensitive images. The hypointense signal of the distal first metatarsal bone is slightly more confluent. * Subtle irregular linear hypointensity within the subchondral bone at the base of the first metatarsal bone. * Subtle bone marrow edema involving the heads of the second and third metatarsal bones. Chronic deformities in this region, but preservation of the fatty marrow signal. Joints: * Dorsal subluxation/dislocation of the proximal phalanx of the great toe. Soft Tissues: * Soft tissue defect at the plantar aspect of the foot at the level of the first metatarsophalangeal joint, with air extending to the first metatarsophalangeal joint. * Mild to moderate regional soft tissue edema, without a drainable fluid collection. IMPRESSION: 1. Diffuse, heterogeneous signal of the first metatarsal bone and proximal phalanx of the great toe, consider chronic osteomyelitis. Superimposed acute/progressive osteomyelitis involving the distal most aspect of the first metatarsal bone is a consideration. 2. Suspected incomplete, nondisplaced, insufficiency fracture at the base of the first metatarsal bone. 3. Findings involving the heads of the second and third metatarsal bones compatible with the sequela of healed remote osteomyelitis with subtle superimposed reactive bone marrow edema. Low probability of acute on chronic osteomyelitis. 4. No soft tissue abscess. Signed by: Dr. Sunil Feliciano D.O., M.M.M. on 04/09/2019 8:54 AM
[2019-04-09] MEDS: METOPROLOL TARTRATE 50 MG TAB PO SCH ×2 (09:00→15:00)
[2019-04-09] MEDS ORDERED: METOLAZONE 5 MG TAB PO SCH (09:00)
[2019-04-09] MEDS: TORSEMIDE 10 MG TAB PO SCH (09:00)
[2019-04-09] MEDS: CITALOPRAM HYDROBROMIDE 20 MG TAB PO SCH (09:25)
[2019-04-09] MEDS: BUSPIRONE HCL 10 MG TABLET PO SCH ×2 (09:25→16:56)
[2019-04-09] MEDS: TAMSULOSIN HCL 0.4 MG CAP PO SCH (09:27)
[2019-04-09] MEDS: BACLOFEN 10 MG TAB PO SCH ×3 (09:27→21:44)
[2019-04-09] MEDS: MINOXIDIL 2.5 MG TAB PO SCH ×2 (09:28→16:56)
[2019-04-09] MEDS: MULTIVITAMINS/MINERALS TAB PO SCH (09:28)
[2019-04-09] MEDS: CYANOCOBALAMIN 1,000 MCG TAB PO SCH (09:29)
[2019-04-09] MEDS: ALPRAZOLAM 0.5 MG TAB PO SCH ×2 (09:30→16:57)
[2019-04-09] MEDS: METOLAZONE 5 MG TAB PO SCH (09:30)
[2019-04-09] MEDS: LISINOPRIL 20 MG TAB PO SCH ×2 (09:31→16:57)
[2019-04-09] MEDS: CHOLECALCIFEROL 1,000 UNIT TAB PO SCH (09:32)
[2019-04-09] MEDS: NIACIN 500 MG TABSR PO SCH ×3 (09:32→21:44)
--- NOTE | 2019-04-09 10:53 | Diagnostic Imaging Report ---
EXAMINATION: FOOT LEFT COMPLETE INDICATION: Left foot wound COMPARISON: None FINDINGS: Postoperative findings of second through fourth digital amputation and great toe distal phalanx amputation. There are destructive changes in the periarticular osteopenia at the first MTP joint concerning for osteomyelitis. Irregular contour at the second and third metatarsal heads may be related to postoperative changes versus findings of chronic osteomyelitis. The base of first metatarsal insufficiency fracture described on the MRI of earlier the same day is not well appreciated by plain radiograph. There is great toe soft tissue swelling. Small plantar calcaneal spur and Achilles enthesopathy. IMPRESSION: Destructive changes of the first MTP joint concerning for osteomyelitis. Suspected insufficiency fracture of the first metatarsal base described on the MRI of earlier the same day is not well appreciated by plain radiograph, however MRI is far more sensitive for detection of insufficiency fractures. Postoperative changes as above. Signed by: Azul Escobedo MD on 04/09/2019 10:49 AM
--- NOTE | 2019-04-09 11:46 | History and Physical ---
REASON FOR ADMISSION: Osteomyelitis . HISTORY OF PRESENT ILLNESS: The patient is a 73-year-old obese gentleman with history of diabetes, peripheral arterial disease, history of aortic dissection, and chronic kidney disease, who presented with several ulceration in the 1st metatarsal on his left foot with exposed bone. The patient telling anyone, so he has been admitted for further evaluation and treatment. PAST MEDICAL HISTORY: Significant for prior history of osteomyelitis, diabetes, chronic kidney disease stage 3, hypertension, and history of aortic dissection. MEDICATIONS: See MAR. ALLERGIES: NONE. SOCIAL HISTORY: Nonsmoker. Nondrinker. Lives at home with his . FAMILY HISTORY: Hypertension. PHYSICAL EXAMINATION: VITAL SIGNS: . GENERAL: No apparent distress, lying in bed. NECK: Supple. CARDIOVASCULAR: Regular rate and rhythm. LUNGS: Clear to auscultation bilaterally. ABDOMEN: Good bowel sounds. Soft and nontender. EXTREMITIES: No clubbing or cyanosis. Left lower extremity stage IV ulceration with exposed bone on the left 1st metatarsal area, plantar side. No expressible discharge is noted. No redness. NEUROLOGIC: Nonfocal. ASSESSMENT AND PLAN: 1. Osteomyelitis, left foot. We will continue with IV antibiotics per Dr. Cedeno and consult Podiatry. metatarsal amputation. 2. Diabetes. Continue with current care monitoring. 3. Hypertension. Continue with his home medication. 4. Chronic kidney disease, stage 3. Continue to monitor. 5. Anemia. Continue to monitor. 6. History of . Please see hospital chart for full details. MD STEPHEN Cesar/MODL /[id number]
--- NOTE | 2019-04-09 12:25 | Consultation ---
DATE OF CONSULTATION: REASON FOR CONSULTATION: Osteomyelitis of the left foot. HISTORY OF PRESENT ILLNESS: This patient, who is very pleasant 73-year-old white male, well known to me, history of multiple infections including osteomyelitis, sepsis before, bacteremia before. The patient, who does have underlying history of obesity, diabetes mellitus, hypertension, neuropathy, aortic aneurysm with stent type B dissection, sleep apnea, atrial fibrillation, congestive heart failure, peripheral neuropathy, venous stasis, dermatitis, and amputation of his left toes except the big toe, all venous stasis dermatitis. The patient has been seen by Dr. Diez, having debridement on his left foot, comes in with redness and swelling, and pieces of bone were coming from the wound with bloody drainage, felt the patient has significant infection. He has been on oral antibiotic because he does have recurrent Staph aureus sepsis. The patient is being admitted for IV antibiotic. PAST MEDICAL HISTORY: As above. PAST SURGICAL HISTORY: As above. ALLERGIES: NKA. SOCIAL HISTORY: There is no smoking, drug abuse, or alcohol abuse. 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 FAMILY HISTORY: Otherwise, hypertension and diabetes. REVIEW OF SYSTEMS: HEENT: Negative. PULMONARY: Negative. CARDIAC: Negative. : Negative. SKIN: There are no other rashes. His review of systems otherwise unremarkable. Beside the drainage from the foot, which is bloody and pus and pieces of bone, generally weak. Otherwise unremarkable. MEDICATION LIST: He is currently on niacin, vitamin D3, Prinivil, zaroxolyn, Xanax, vitamin B12, multivitamin, minoxidil, and Flomax. LABORATORY DATA: White count was 11.17, hemoglobin 10.16, and platelet 255. Sodium 133, potassium 4.4, creatinine 1.50, and glucose of 188. PHYSICAL EXAMINATION: GENERAL: He is currently alert and oriented. Does not seem to be in acute distress. VITAL SIGNS: Stable. Afebrile. HEENT: Not icteric. NECK: Supple. CHEST: Clear. ABDOMEN: Soft. Bowel sounds present. No tenderness. EXTREMITIES: No edema. The left foot, there is erythema, there is edema, there is open wound. He underwent debridement earlier today. IMPRESSION: 1. Osteomyelitis of the left foot. 2. Diabetes with neuropathy. 3. Chronic kidney disease. 4. History of hypertension. 5. History of neuropathy. Continue vancomycin. Continue cefepime. Follow vancomycin trough. Obtain x-ray and MRI. The x-ray of the foot showed destructive changes of the 1st MTP joint concerning for osteomyelitis. The MRI of the foot shows diffuse signal of the 1st metatarsal bone. 6. Osteomyelitis. We will get a PICC line. Continue vancomycin. Continue cefepime. Surgical debridement. We will send bone for biopsy and culture and sensitivity. We will discuss with Podiatry. We will follow his laboratory data. MD MARVA Mckeon/MODAnali /[id number]
--- NOTE | 2019-04-09 13:37 | NUR ---
PATIENT BECAME CLAMMY AND SWEATY- BLOOD GLUCOSE ASSESSED RESULT 32. D50 ADMINISTERED AND PATIENT DRANK ORANGE JUICE- WILL REASSESS BLOOD GLUCOSE IN 30 MINUTES.
[2019-04-09 15:07] LABS: CREATINE KINASE MB 2.1 ng/mL (0-5.0)
--- NOTE | 2019-04-09 15:27 | Consultation ---
DATE OF CONSULTATION: 04/09/2019 REASON FOR CONSULTATION: Grade 4 ulcer, osteomyelitis, left foot with the patient being an insulin-dependent diabetic and having peripheral neuropathy. HISTORY OF PRESENT ILLNESS: This is a pleasant 73-year-old white male, who is very well known to me for several years now for continuous local wound care to both lower extremities, who relates he has had a nonhealing ulcerations to the plantar aspect of the left foot for approximately at least 4 to 5 months now. For the last several weeks, he has been smelling some foul smell to the ulceration site and does relate the bone started protruding through the ulceration approximately a week ago. PAST MEDICAL HISTORY: Remarkable for insulin-dependent diabetes, hypertension, and congestive heart failure. PAST SURGICAL HISTORY: Remarkable for aortic stent 3 years ago and amputation of the 2nd through 5th digit, left foot. ALLERGIES: THE PATIENT DENIES. SOCIAL HISTORY: Denies any smoking, drinking, or recreational drug use. Lives with his , has 2 kids. CURRENT MEDICATIONS: Include cefepime and vancomycin IV. FAMILY HISTORY: Noncontributory. REVIEW OF SYSTEMS: CARDIAC: Denies any palpitations or arrhythmias. RESPIRATORY: Denies any shortness of breath or productive cough. GASTROINTESTINAL: Denies any diarrhea or constipation. GENITOURINARY: Denies hematuria upon voiding. PHYSICAL EXAMINATION: VITAL SIGNS: Afebrile, pulse rate 73, respirations 20, blood pressure 127/58, and O2 saturation 100%. Podiatric physical examination reveals the following: VASCULATURE: Pedal pulses of both the DP and PT are palpable. CFT to all toes less than 4 seconds. NEUROLOGICAL: Reveals complete loss of protective sensation to both lower extremities when utilizing [place] 5.07 monofilament wire. MUSCULOSKELETAL: Shows muscle mass to be asymmetrical. Some swelling noted to the left lower extremity when compared to the right. Muscle strength is 4 to 5/5 to all muscle groups. DERMATOLOGICAL: Shows a grade 4 ulcer with bone protruding through the ulceration, measuring approximately 2 to 2.5 cm in diameter with foul smell and drainage noted. LABORATORY DATA: Labs show a white blood cell count dropping from 11.17 to 9.5, hemoglobin 10.1, hematocrit 31.4 with a platelet count of 192. ASSESSMENT: Grade 4 ulcer, osteomyelitis, diabetic neuropathy with cellulitis. PLAN: We will continue IV antibiotics. After discussing different options and after proper consent of the patient under no anesthesia secondary to severe peripheral neuropathy, the ulceration was debrided down to bone. Devitalized tissue sharply excised until good viable bleeding tissue was achieved. The head of the 1st metatarsal was excised from the debridement and sent for pathological analysis/cultures and biopsy. Following the debridement, the wound was packed with SilvaSorb gel, followed by diluted wet-to-dry Betadine and deep cultures were taken for aerobic and anaerobic growth. Upon debridement, the ulceration measured approximately 2.5 to 3 cm in diameter, but some bleeding tissue was achieved. The devitalized tissue was sharply excised utilizing a sterile 10 blade. We will continue to treat the patient conservatively for now with local wound care and IV antibiotics. The patient understands if not responsive, he may need a partial amputation of foot. We will continue to follow. DONNA Valladares/MERA /[id number]
--- NOTE | 2019-04-09 19:23 | NUR ---
PATIENT IS IN STABLE CONDITION WITH NO S/S OF RESPIRATORY DISTRESS. NO PAIN VOICED. DRESSING TO LEFT FOOT IS DRY AND INTACT. TELEMETRY APPLIED. IV FLUIDS INFUSING. BED ALARM ON. PRESENT IN ROOM. CALL LIGHT IS WITHIN REACH, PATIENT INSTRUCTED TO CALL FOR ASSISTANCE NEEDED. BEDSIDE REPORT GIVEN TO ONCOMING NURSE.
--- NOTE | 2019-04-09 19:30 | NUR ---
PT IS RESTING IN BED. RESPIRATION IS EVEN AND UNEVEN LABORED, NO DISTRESS NOTED. BED IN IN THE LOWEST POSITION, LOCKED, BED ALARM ON, AND CALL LIGHT WITHIN REACH. WILL CONTINUE TO MONITOR.
--- NOTE | 2019-04-09 19:31 | NUR ---
PT IS RESTING IN BED WITH FAMILY AT BEDSIDE. RESPIRATION IS EVEN AND UNEVEN LABORED, NO DISTRESS NOTED. BED IN IN THE LOWEST POSITION, LOCKED, AND CALL LIGHT WITHIN REACH. WILL CONTINUE TO MONITOR.
[2019-04-09] MEDS: METOPROLOL TARTRATE 25 MG TAB PO SCH (21:00)
[2019-04-09] MEDS ORDERED: METOPROLOL TARTRATE 50 MG TAB PO SCH (21:00)
[2019-04-09] MEDS: SILVER ANTIMICROBIAL WOUND GEL 45ML TOP SCH (21:46)
[2019-04-10] VITALS (8 sets, daily range): BP systolic 102–157; BP diastolic 47–73
[2019-04-10] MEDS: HYDROCODONE/APAP 10MG-325MG TAB PO PRN ×2 (00:30→09:17)
--- NOTE | 2019-04-10 01:53 | Consultation ---
DATE OF CONSULTATION: 04/09/2019 Cardiac Consultation REASON FOR CONSULTATION: Very complex case. 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 The patient is known with longstanding history of hypertension, dyslipidemia, diabetes mellitus, type B aortic dissection, treated with stenting distal to the left subclavian artery as well as thoracic descending aorta. History of atrial flutter, status post ablation in May 2014. Chronic venous stasis and repeated cellulitis of the lower extremities. Severe peripheral neuropathy. He had amputation of all the left foot toes with the exception of the great toe. There is repeated nonhealing ulcer of the lower extremities. There is chronic venous stasis and skin changes. He had several admissions with sepsis, osteomyelitis, and cellulitis. The patient now having severe infection of his left foot. He had several debridements by Dr. Diez. He came with swelling and piece of bone was coming out of the wound with bloody drainage. The patient started on IV antibiotics, seen by ID and director asset. He is considered also for surgery. Regarding his cardiac issues, they are described above. The patient activities are quite limited. His doses of medications were adjusted for his blood pressure. He was at this institution in January with deep arrhythmias and at that time, we changed his beta-rishi dose to be p.r.n. and to be given 25 mg every 6 hours, trying to keep his heart rate between 60 to 100 because of his heart rate with [place] to the 50 at that time. Regarding his hypertension, he is adjusting his medication and his volume status. He is followed carefully by Dr. Navarro for his renal function. The patient is debilitated. He is having limited activity. He does have shortness of breath on exertion, class III Heart Association classification. He does have shortness of breath. No angina. He does have chronic swelling of the lower extremities. PAST MEDICAL HISTORY: 1. 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 2. Hypertension. 3. Diabetes mellitus. 4. Sleep apnea. 5. Atrial flutter, status post ablation. 6. Morbid obesity. 7. Spinal stenosis and degenerative joint disease. 8. Severe peripheral neuropathy. 9. Venous stasis with repeated skin infection and cellulitis. 10. Amputation of all the toes, except of the great toe. 11. Repeated ulcers. 12. Chronic skin changes. 13. History of scrotal infection. 14. Tonsillectomy. 15. Orchiectomy. Admission following debridement and small piece of bone and drainage are present. SOCIAL HISTORY: He is . He is nonsmoker and non-alcohol drinker. FAMILY HISTORY: Mother at age 84 with liver tumor. Father at age 65 with severe complication. Two healthy children and two healthy siblings. HOME MEDICATIONS: 1. Zaroxolyn 5 mg a day. 2. Lisinopril 20 mg twice a day. 3. Minoxidil 10 mg twice a day. 4. Torsemide 20 mg a day. 5. Metoprolol 25 mg t.i.d. 6. Flomax 0.4 mg a day. 7. Insulin. 8. Xanax. 9. Citalopram. 10. Buspirone. 11. Vitamin D3. 12. Vitamin C. 13. Baclofen. 14. Proscar. 15. Vitamin B12. Following admission, the patient is on vancomycin and cefepime. ALLERGIES: NONE. REVIEW OF SYSTEMS: GENERAL: Weakness, fatigue. SKIN: Chronic skin changes and chronic repeated cellulitis of lower extremities, severe venous stasis changes. Currently, the patient is having described changes in his left foot. HEENT: No hearing problem. No vision problem. PULMONARY: Fatigability, shortness of breath on exertion class 3. Sleep apnea, obesity. CARDIAC: As per above. Surprisingly, no angina. GI: No nausea, no vomiting. : Increased frequency of urination. EXTREMITIES: Chronic severe peripheral neuropathy, chronic venous stasis, chronic skin changes, repeated ulcer, repeated staph infection. MUSCULOSKELETAL: Aches and pain. HEMATOLOGY: No easy bruising or bleeding. PHYSICAL EXAMINATION: VITAL SIGNS: Height of 6 feet 2 inches, weight of 273 pounds, blood pressure 110/50, heart rate of 70, respiratory rate of 18. HEENT: Pupils are reactive. NECK: No elevation of jugular venous pulsation. CHEST: Decreased lung expansion. HEART: PMI 5th left intercostal space. Normal first and second heart sounds. ABDOMEN: Soft. No organomegaly. No abdominal bruits. EXTREMITIES: Chronic severe skin changes. Amputation of all the toes with the exception of the great toe. There is dressing as described by other physician. There is drainage and small bone hanging from the foot, cellulitis, and infection of the left lower extremity. NEUROLOGIC: Awake, alert, oriented. No motor deficits. LABORATORY DATA: Sodium 143, potassium 4.4, BUN of 53, creatinine of 1.5, glucose of 188. White blood cell count of 9.4, hemoglobin 10.1, hematocrit 31%, platelet count of 192,000. EKG showed a normal sinus rhythm, rate at 60, first-degree AV block. IMPRESSION AND PLAN: 1. Cellulitis and osteomyelitis of the left foot, considered for surgery. 2. Severe venous stasis and chronic skin changes. 3. Repeated cellulitis. 4. Hypertension. 5. Status post repair of thoracic vascular aortic aneurysm. 6. Obesity. 7. Chronic renal insufficiency. 8. Status post ablation of atrial flutter. 9. Atrial arrhythmias. 10. Left ventricular diastolic dysfunction. PLAN: Adjust medication. Decrease metoprolol 25 every 8 hours with parameter. Decrease minoxidil 10 mg a day. Keep lisinopril at current dose, but parameters to be given. Continuation of metolazone and torsemide. Continuation of his other medication. The patient is cleared at surgery and he understands his risk. We will follow the patient's progression with you. MD MICKI Avalos/MERA /[id number]
[2019-04-10] MEDS: HYDROMORPHONE 1MG/1ML INJ IV PRN ×5 (02:30→22:31)
[2019-04-10] MEDS: CEFEPIME 2 GM/NS 0.9% 100 ML 100 ML IV SCH ×2 (04:07→16:10)
[2019-04-10] MEDS: FAMOTIDINE 20 MG/2 ML VIAL IV SCH ×2 (06:04→17:01)
[2019-04-10] MEDS: VANCOMYCIN HCL 1.25 GM in SODIUM CHLORIDE 0.9% 250ML 250 ML IV SCH ×2 (06:04→18:12)
--- NOTE | 2019-04-10 07:10 | NUR ---
PATIENT IS ALERT AND IN STABLE CONDITION WITH NO S/S OF RESPIRATORY DISTRESS. PATIENT C/O GENERALIZE PAIN AND RECENTLY RECEIVED IV DILAUDID. DRESSING TO LEFT FOOT IS DRY AND INTACT. TELEMETRY APPLIED. BED ALARM ON. CALL LIGHT IS WITHIN REACH, PATIENT INSTRUCTED TO CALL FOR ASSISTANCE NEEDED.
[2019-04-10] MEDS: SILVER ANTIMICROBIAL WOUND GEL 45ML TOP SCH ×2 (07:25→20:52)
--- NOTE | 2019-04-10 07:25 | NUR ---
ROUNDED WITH DR. ENG- WOUND CARE COMPLETED. PATIENT'S IS TO BRING HIS POST SURGICAL SHOES FROM HOME AND THEN THE PATIENT CAN AMBULATE PER DR. ENG.
[2019-04-10] MEDS: INSULIN REGULAR, HUMAN 100 UNIT/1 ML 3ML VIAL SQ SCH ×4 (07:30→20:52)
[2019-04-10] MEDS: BUSPIRONE HCL 10 MG TABLET PO SCH ×2 (08:37→16:10)
[2019-04-10] MEDS: ALPRAZOLAM 0.5 MG TAB PO SCH ×2 (08:38→16:10)
[2019-04-10] MEDS: CITALOPRAM HYDROBROMIDE 20 MG TAB PO SCH (08:38)
[2019-04-10] MEDS: NIACIN 500 MG TABSR PO SCH ×3 (08:38→20:51)
[2019-04-10] MEDS: LISINOPRIL 20 MG TAB PO SCH ×2 (08:39→16:29)
[2019-04-10] MEDS: CHOLECALCIFEROL 1,000 UNIT TAB PO SCH (08:40)
[2019-04-10] MEDS: METOPROLOL TARTRATE 25 MG TAB PO SCH ×3 (08:40→20:51)
[2019-04-10] MEDS: MULTIVITAMINS/MINERALS TAB PO SCH (08:40)
[2019-04-10] MEDS: CYANOCOBALAMIN 1,000 MCG TAB PO SCH (08:40)
[2019-04-10] MEDS: MINOXIDIL 2.5 MG TAB PO SCH (08:41)
[2019-04-10] MEDS: METOLAZONE 5 MG TAB PO SCH (08:41)
[2019-04-10] MEDS: TORSEMIDE 10 MG TAB PO SCH (08:43)
[2019-04-10] MEDS: BACLOFEN 10 MG TAB PO SCH ×3 (08:43→20:50)
[2019-04-10] MEDS: TAMSULOSIN HCL 0.4 MG CAP PO SCH (08:43)
--- NOTE | 2019-04-10 09:59 | NUR ---
SPOKE WITH INFECTIOUS DISEASE, P.AEdilson REGARDING PATIENT'S MICRO RESULTS- NO ORDER FOR ISOLATION.
[2019-04-10] MEDS: ONDANSETRON HCL INJ 2MG/ML 2ML 2 MG/ML VIAL IV PRN ×3 (12:16→22:31)
--- NOTE | 2019-04-10 14:01 | Progress Note ---
DATE: 04/10/2019 SUBJECTIVE: The patient is seen at bedside, doing better denies any history of fever, chills, nausea, or vomiting. OBJECTIVE: VITALS SIGNS: Afebrile, pulse rate 66, respirations 18, blood pressure 122/58, O2 saturation 98%. EXTREMITIES: Ulceration to the 1st metatarsal head is looking a little bit better. Still some drainage present down to bone. Positive edema of left lower extremity compared to the right. Pedal pulses are palpable to both the DP and PT. ASSESSMENT: Osteomyelitis, left foot, 1st metatarsal with osteolysis also noted to the 2nd metatarsal head upon examination under visualization of x-rays with no gas in the tissue. PLAN: We will continue IV antibiotics. Continue local wound care with SilvaSorb followed by diluted wet-to-dry Betadine. We will continue to let the foot demarcate. The patient is aware of possible impending amputation if not responsive to local wound care and conservative care with IV antibiotics. DONNA Valladares/MERA /[id number]
--- NOTE | 2019-04-10 19:33 | NUR ---
PATIENT IS AWAKE AND IN STABLE CONDITION WITH NO S/S OF RESPIRATORY DISTRESS. NO PAIN VOICED. BED ALARM APPLIED. DRESSING TO LEFT FOOT IS DRY AND INTACT. CALL LIGHT IS WITHIN REACH, PATIENT INSTRUCTED TO CALL FOR ASSISTANCE NEEDED. BEDSIDE REPORT GIVEN TO ONCOMING NURSE.
--- NOTE | 2019-04-10 19:50 | NUR ---
PT IS RESTING IN BED. RESPIRATION IS EVEN AND UNEVEN LABORED, NO DISTRESS NOTED. BED IN IN THE LOWEST POSITION, LOCKED, AND CALL LIGHT WITHIN REACH. WILL CONTINUE TO MONITOR.
[2019-04-11] VITALS (7 sets, daily range): BP systolic 107–157; BP diastolic 53–72
[2019-04-11] MEDS: HYDROMORPHONE 1MG/1ML INJ IV PRN ×6 (02:52→21:24)
[2019-04-11] MEDS: ONDANSETRON HCL INJ 2MG/ML 2ML 2 MG/ML VIAL IV PRN ×2 (03:44→09:54)
[2019-04-11] MEDS ORDERED: TEMAZEPAM 15 MG CAP PO PRN (05:45)
[2019-04-11] MEDS: CEFEPIME 2 GM/NS 0.9% 100 ML 100 ML IV SCH (05:49)
[2019-04-11 06:35] LABS: BASOPHILS % 0.4 % (0.0-1.0); EOSINOPHILS # (AUTO) 0.2 (0.0-0.4); EOSINOPHILS % 3.2 % (0.0-6.0); HEMATOCRIT 32.4 % (38.2-49.6); HEMOGLOBIN 9.9 g/dL (14.0-18.0); LYMPHOCYTES % 14.4 % (18.0-39.1); MEAN CORPUSCULAR HEMOGLOBIN 26.4 pg (28-32); MEAN CORPUSCULAR HGB CONC 30.6 g/dL (31-35); MEAN CORPUSCULAR VOLUME 86.4 fL (81-99); MONOCYTES # (AUTO) 0.5 (0.2-0.8); MONOCYTES % 7.4 % (4.4-11.3); NEUTROPHILS # (AUTO) 5.1 (2.1-6.9); NEUTROPHILS % 73.9 % (38.7-80.0); PLATELET COUNT 197 x10e3/uL (140-360); RED BLOOD COUNT 3.75 x10e6/uL (4.3-5.7); RED CELL DISTRIBUTION WIDTH 13.6 % (11.7-14.4)
[2019-04-11] MEDS: FAMOTIDINE 20 MG/2 ML VIAL IV SCH ×2 (06:44→17:52)
[2019-04-11] MEDS: VANCOMYCIN HCL 1.25 GM in SODIUM CHLORIDE 0.9% 250ML 250 ML IV SCH ×2 (06:44→17:53)
[2019-04-11 07:05] LABS: ALANINE AMINOTRANSFERASE 21 IU/L (0-55); ALBUMIN 2.6 g/dL (3.5-5.0); ALBUMIN/GLOBULIN RATIO 0.7 (0.8-2.0); ALKALINE PHOSPHATASE 79 IU/L (40-150); ANION GAP 9.7 mmol/L (8-16); BLOOD UREA NITROGEN 19 mg/dL (7-26); BUN/CREATININE RATIO 19 (6-25); CALCIUM 8.9 mg/dL (8.4-10.2); CARBON DIOXIDE 27 mmol/L (22-29); CHLORIDE 103 mmol/L (98-107); CREATININE, SERUM 0.98 mg/dL (0.72-1.25); EST GLOMERULAR FILTRATION RATE > 60 ML/MIN (60-); GLUCOSE 233 mg/dL (74-118); MAGNESIUM 2.1 MG/DL (1.3-2.1); POTASSIUM 4.7 mmol/L (3.5-5.1); SODIUM 135 mmol/L (136-145)
[2019-04-11] MEDS: INSULIN REGULAR, HUMAN 100 UNIT/1 ML 3ML VIAL SQ SCH ×4 (09:00→20:39)
[2019-04-11] MEDS: TORSEMIDE 10 MG TAB PO SCH (09:00)
[2019-04-11] MEDS: BUSPIRONE HCL 10 MG TABLET PO SCH ×2 (09:03→17:52)
[2019-04-11] MEDS: CITALOPRAM HYDROBROMIDE 20 MG TAB PO SCH (09:04)
[2019-04-11] MEDS: BACLOFEN 10 MG TAB PO SCH ×3 (09:05→20:37)
[2019-04-11] MEDS: MINOXIDIL 2.5 MG TAB PO SCH (09:05)
[2019-04-11] MEDS: TAMSULOSIN HCL 0.4 MG CAP PO SCH (09:05)
[2019-04-11] MEDS: METOPROLOL TARTRATE 25 MG TAB PO SCH ×4 (09:06→21:00)
[2019-04-11] MEDS: MULTIVITAMINS/MINERALS TAB PO SCH (09:06)
[2019-04-11] MEDS: NIACIN 500 MG TABSR PO SCH ×3 (09:06→20:37)
[2019-04-11] MEDS: LISINOPRIL 20 MG TAB PO SCH ×2 (09:07→17:00)
[2019-04-11] MEDS: CHOLECALCIFEROL 1,000 UNIT TAB PO SCH (09:07)
[2019-04-11] MEDS: ALPRAZOLAM 0.5 MG TAB PO SCH ×2 (09:07→17:52)
[2019-04-11] MEDS: SILVER ANTIMICROBIAL WOUND GEL 45ML TOP SCH ×2 (09:07→22:29)
[2019-04-11] MEDS: CYANOCOBALAMIN 1,000 MCG TAB PO SCH (09:07)
[2019-04-11] MEDS: METOLAZONE 5 MG TAB PO SCH (09:07)
[2019-04-11] MEDS: MEROPENEM 500MG/ NS 50ML 50 ML IV SCH ×2 (09:48→17:52)
--- NOTE | 2019-04-11 15:29 | Progress Note ---
DATE: 04/11/2019 SUBJECTIVE: The patient is seen at bedside, doing better. Denies any history of fever, chills, nausea, or vomiting. OBJECTIVE: VITAL SIGNS: Afebrile, pulse rate 62, respirations 20, blood pressure 126/57, and O2 saturation 98%. EXTREMITIES: Ulceration to the left first metatarsophalangeal joint plantarly tracking down to the bone. Some granulation tissue noted. Decreased foul smell. Decreased cellulitis and edema to the left lower extremity with pedal pulses palpable over both the DP and PT. LABORATORY DATA: Labs noted his white blood cell count dropping to 6.8 and hemoglobin 9.9. ASSESSMENT: Osteomyelitis with a grade 4 ulceration, left foot with cellulitis bilateral lower extremities and diabetic neuropathy. PLAN: We will continue IV antibiotic such as cefepime. Continue local wound care. Continue offloading. Wound cultures were reviewed. DONNA Valladares/MERA /[id number]
[2019-04-11 17:39] LABS: INR 0.94; PROTHROMBIN TIME 13.1 seconds (11.9-14.5)
[2019-04-11 17:40] LABS: PARTIAL THROMBOPLASTIN TIME 30.5 seconds (23.8-35.5)
[2019-04-11] MEDS ORDERED: MIDAZOLAM HCL 2 MG/2 ML VIAL ONE (18:28)
[2019-04-11] MEDS ORDERED: FENTANYL CITRATE/PF 100MCG/2 ML INJ ONE (18:28)
--- NOTE | 2019-04-11 18:30 | NUR ---
Pt being transferred to OR at this time for tunnelled catheter placement. Pt is aox4 at time of transfer. Consent has been signed.
--- NOTE | 2019-04-11 19:13 | NUR ---
Report received from [facility] [place]. Patient continues to be off the unit at this time for central line placement.
[2019-04-11] MEDS ORDERED: HEPARIN SOD (PORCINE) 1000 UNIT/ML SDV ONE (19:33)
--- NOTE | 2019-04-11 19:53 | NUR ---
Patient arrived back to unit at this time. Pt in no distress at this time. Pt denies any pain at central line site.
[2019-04-12] VITALS (8 sets, daily range): BP systolic 110–142; BP diastolic 50–64
[2019-04-12] MEDS: HYDROMORPHONE 1MG/1ML INJ IV PRN ×8 (00:57→22:10)
[2019-04-12] MEDS: MEROPENEM 500MG/ NS 50ML 50 ML IV SCH ×3 (01:00→17:26)
[2019-04-12] MEDS: FAMOTIDINE 20 MG/2 ML VIAL IV SCH ×2 (06:16→17:26)
[2019-04-12] MEDS: VANCOMYCIN HCL 1.25 GM in SODIUM CHLORIDE 0.9% 250ML 250 ML IV SCH ×2 (06:29→07:00)
--- NOTE | 2019-04-12 06:32 | NUR ---
Dr. Cedeno paged at this time regarding critical V[facility]rough at 17.1. Awaiting return call.
[2019-04-12] MEDS: INSULIN REGULAR, HUMAN 100 UNIT/1 ML 3ML VIAL SQ SCH ×4 (08:50→21:00)
[2019-04-12] MEDS: CITALOPRAM HYDROBROMIDE 20 MG TAB PO SCH (08:51)
[2019-04-12] MEDS: TORSEMIDE 10 MG TAB PO SCH (08:51)
[2019-04-12] MEDS: BUSPIRONE HCL 10 MG TABLET PO SCH ×2 (08:51→17:25)
[2019-04-12] MEDS: NIACIN 500 MG TABSR PO SCH ×3 (08:52→21:00)
[2019-04-12] MEDS: MULTIVITAMINS/MINERALS TAB PO SCH (08:52)
[2019-04-12] MEDS: MINOXIDIL 2.5 MG TAB PO SCH (08:52)
[2019-04-12] MEDS: TAMSULOSIN HCL 0.4 MG CAP PO SCH (08:52)
[2019-04-12] MEDS: BACLOFEN 10 MG TAB PO SCH ×3 (08:52→21:00)
[2019-04-12] MEDS: ALPRAZOLAM 0.5 MG TAB PO SCH ×2 (08:53→17:26)
[2019-04-12] MEDS: CHOLECALCIFEROL 1,000 UNIT TAB PO SCH (08:53)
[2019-04-12] MEDS: CYANOCOBALAMIN 1,000 MCG TAB PO SCH (08:53)
[2019-04-12] MEDS: METOLAZONE 5 MG TAB PO SCH (08:53)
[2019-04-12] MEDS: LISINOPRIL 20 MG TAB PO SCH ×2 (08:53→17:00)
[2019-04-12] MEDS: METOPROLOL TARTRATE 25 MG TAB PO SCH ×3 (09:00→21:00)
[2019-04-12] MEDS: SILVER ANTIMICROBIAL WOUND GEL 45ML TOP SCH ×2 (10:07→21:00)
[2019-04-12] MEDS: ONDANSETRON HCL INJ 2MG/ML 2ML 2 MG/ML VIAL IV PRN (10:08)
[2019-04-12] MEDS: VANCOMYCIN 1GM/NS 250 ML 250 ML IV SCH (17:26)
--- NOTE | 2019-04-12 19:05 | Progress Note ---
DATE: SUBJECTIVE: Mr. Puga is doing well. REVIEW OF SYSTEMS: HEENT: Negative. PULMONARY: Negative. CARDIAC: Negative. GENITOURINARY: Negative. EXTREMITIES: The foot is healing better. His culture did show a gram-negative bacilli, Klebsiella oxytoca, ESBL, Serratia marcescens, Enterococcus faecalis, sensitive only to meropenem. LABORATORY DATA: White count is 11.7, came down to 6.7; hemoglobin 9.9. His sodium 135 and potassium 4.7. PHYSICAL EXAMINATION: GENERAL: He is currently alert and oriented, does not seem to be in acute distress. VITAL SIGNS: Stable, currently afebrile. HEENT: Not icteric. NECK: Supple. CHEST: Clear. ABDOMEN: Obese. EXTREMITIES: No edema. SKIN: No rashes. The foot seems to be better healing, but there is still some edema. IMPRESSION: Osteomyelitis. Recommend meropenem 1 g IV q.8, plan on 6-8 weeks. Weekly CBC with Chem panel. The patient does have history of MRSA before, so far there is no evidence of it. We would need weekly CBC. We will get Chem panel. We will follow. MD MARVA Mckeon/MERA /[id number]
--- NOTE | 2019-04-12 19:10 | NUR ---
BS report completed with morning nurse. Pt alert to name. Pt sitting in recliner. Previously received pain med for 7 gen chronic pain. Call schmitz within reach. Will continue to monitor.
[2019-04-13] VITALS (7 sets, daily range): BP systolic 100–162; BP diastolic 42–71
[2019-04-13] MEDS: HYDROMORPHONE 1MG/1ML INJ IV PRN ×7 (01:30→22:05)
[2019-04-13] MEDS: MEROPENEM 500MG/ NS 50ML 50 ML IV SCH ×3 (01:49→16:29)
--- NOTE | 2019-04-13 04:57 | Progress Note ---
DATE: 04/12/2019 SUBJECTIVE: The patient is seen bedside and doing well. Denies any history of fever, chills, nausea, vomiting. Decreased edema to left lower extremity. OBJECTIVE: VITAL SIGNS: Afebrile, pulse rate 68, respiration 19, blood pressure 111/63, and O2 saturation 96%. EXTREMITIES: Ulceration to the left lower extremity continues to improve down to bone. Granulation tissue noted. Decreased foul smell. Some drainage present, but no fluctuance. LABORATORY DATA: White blood cell count is 6.8, blood glucose of 252. ASSESSMENT: Osteomyelitis, left foot. Grade 4 ulceration with cellulitis and diabetic neuropathy. PLAN: We will continue Iodosorb followed by diluted wet-to-dry Betadine. Continue IV antibiotics. Continue local wound care. We will continue to follow. DONNA Valladares/MERA /[id number]
[2019-04-13] MEDS: FAMOTIDINE 20 MG/2 ML VIAL IV SCH ×2 (06:00→16:29)
[2019-04-13] MEDS: VANCOMYCIN 1GM/NS 250 ML 250 ML IV SCH ×2 (06:00→17:26)
--- NOTE | 2019-04-13 06:50 | NUR ---
Report given to morning nurse. Pt alert and pleasant. Lying in bed watching TV. prn pain med given for 8/10 pain.
[2019-04-13] MEDS: INSULIN REGULAR, HUMAN 100 UNIT/1 ML 3ML VIAL SQ SCH ×4 (08:00→21:00)
[2019-04-13] MEDS: TORSEMIDE 10 MG TAB PO SCH (09:00)
[2019-04-13] MEDS: METOPROLOL TARTRATE 25 MG TAB PO SCH ×3 (09:00→21:00)
[2019-04-13] MEDS: BUSPIRONE HCL 10 MG TABLET PO SCH ×2 (09:06→16:29)
[2019-04-13] MEDS: TAMSULOSIN HCL 0.4 MG CAP PO SCH (09:07)
[2019-04-13] MEDS: CITALOPRAM HYDROBROMIDE 20 MG TAB PO SCH (09:07)
[2019-04-13] MEDS: BACLOFEN 10 MG TAB PO SCH ×3 (09:07→21:00)
[2019-04-13] MEDS: MINOXIDIL 2.5 MG TAB PO SCH (09:08)
[2019-04-13] MEDS: LISINOPRIL 20 MG TAB PO SCH ×2 (09:09→17:00)
[2019-04-13] MEDS: NIACIN 500 MG TABSR PO SCH ×3 (09:09→21:00)
[2019-04-13] MEDS: CYANOCOBALAMIN 1,000 MCG TAB PO SCH (09:09)
[2019-04-13] MEDS: MULTIVITAMINS/MINERALS TAB PO SCH (09:09)
[2019-04-13] MEDS: CHOLECALCIFEROL 1,000 UNIT TAB PO SCH (09:09)
[2019-04-13] MEDS: ALPRAZOLAM 0.5 MG TAB PO SCH ×2 (09:11→16:29)
[2019-04-13] MEDS: METOLAZONE 5 MG TAB PO SCH (09:11)
[2019-04-13] MEDS: SILVER ANTIMICROBIAL WOUND GEL 45ML TOP SCH ×2 (09:11→21:00)
[2019-04-13] MEDS: ONDANSETRON HCL INJ 2MG/ML 2ML 2 MG/ML VIAL IV PRN (09:30)
--- NOTE | 2019-04-13 18:34 | Progress Note ---
DATE: HISTORY OF PRESENT ILLNESS: Mr. Turner is doing better. No new complaints. He remains weak. REVIEW OF SYSTEMS: HEENT: Negative. PULMONARY: Negative. CARDIAC: Negative. : Negative. GI: Negative. PHYSICAL EXAMINATION: GENERAL: Currently alert, oriented, does not seem to be in acute distress. VITAL SIGNS: Stable, currently afebrile. HEENT: Normocephalic, not icteric. NECK: Supple. CHEST: Clear. HEART: S1, S2. No murmur. ABDOMEN: Soft. Bowel sounds present. No tenderness. EXTREMITIES: The left foot dressing looks good. There is no erythema or edema. IMPRESSION: 1. Osteomyelitis of the left foot. Pathogens are Klebsiella oxytoca ESBL with Serratia, Enterococcus faecalis. There is no methicillin-resistant Staphylococcus aureus that I can see. He would need meropenem for 8 weeks. In addition to wound care, meropenem would be 1 g q.8. 2. Obesity. 3. Diabetes mellitus. 4. Severe neuropathy. 5. Recurrent infection and sepsis. We will ask case management to see if we can do home health versus outpatient. LTAC because he stated he works once a day and he cannot afford to be in the hospital. But I am concerned that he may end up with [id number] amputation. It could be very difficult situation. We will discuss with Case Management to see what are the options. We will follow. MD MARVA Mckeon/MERA /[id number]
--- NOTE | 2019-04-13 19:05 | NUR ---
Report received from morning nurse. Pt alert to name. Lying bed HOB 75 degrees. O2 @2L via NC. Denies SOB. Denies pain or discomfort at this time. Call schmitz within reach. Will continue to monitor.
--- NOTE | 2019-04-13 19:59 | Progress Note ---
DATE: 04/13/2019 SUBJECTIVE: The patient is at bedside, doing better. Denies any history of fever, chills, nausea, or vomiting. OBJECTIVE: VITAL SIGNS: Afebrile, pulse rate 64, respirations 18, blood pressure 146/64, and O2 saturation 99% on nasal cannula with 2.5 L/min. EXTREMITIES: Ulceration to the left foot is looking better. Some granulation tissue noted tracking down to bone. Some tendinous structures noted with decreased cellulitis to the dorsal aspect of left foot. ASSESSMENT: Grade 4 ulcer with osteomyelitis, responding to local wound care. PLAN: We will continue IV antibiotics such as meropenem, continued Iodosorb, SilvaSorb, followed by diluted wet-to-dry Betadine every shift. Continue offloading. We will continue to follow. DONNA Valladares/MERA /[id number]
[2019-04-14] VITALS (8 sets, daily range): BP systolic 120–172; BP diastolic 41–70
[2019-04-14] MEDS: MEROPENEM 500MG/ NS 50ML 50 ML IV SCH ×3 (02:00→17:26)
[2019-04-14] MEDS: HYDROMORPHONE 1MG/1ML INJ IV PRN ×6 (02:15→21:03)
[2019-04-14] MEDS: VANCOMYCIN 1GM/NS 250 ML 250 ML IV SCH ×2 (06:00→18:06)
[2019-04-14] MEDS: FAMOTIDINE 20 MG/2 ML VIAL IV SCH ×2 (06:00→17:26)
--- NOTE | 2019-04-14 07:04 | NUR ---
RECEIVED PATIENT RESTING IN BED. NO ACUTE DISTRESS NOTED AT THIS TIME. CALL LIGHT WITHIN REACH. BED IN THE LOWEST POSITION.
[2019-04-14] MEDS: INSULIN REGULAR, HUMAN 100 UNIT/1 ML 3ML VIAL SQ SCH ×4 (08:30→21:00)
[2019-04-14] MEDS: LISINOPRIL 20 MG TAB PO SCH ×2 (08:44→17:00)
[2019-04-14] MEDS: MINOXIDIL 2.5 MG TAB PO SCH (08:44)
[2019-04-14] MEDS: METOPROLOL TARTRATE 25 MG TAB PO SCH ×4 (09:00→21:04)
[2019-04-14] MEDS: TORSEMIDE 10 MG TAB PO SCH (09:00)
[2019-04-14] MEDS: BACLOFEN 10 MG TAB PO SCH ×3 (09:42→21:04)
[2019-04-14] MEDS: TAMSULOSIN HCL 0.4 MG CAP PO SCH (09:42)
[2019-04-14] MEDS: BUSPIRONE HCL 10 MG TABLET PO SCH ×2 (09:42→17:25)
[2019-04-14] MEDS: CITALOPRAM HYDROBROMIDE 20 MG TAB PO SCH (09:42)
[2019-04-14] MEDS: ALPRAZOLAM 0.5 MG TAB PO SCH ×2 (09:42→17:26)
[2019-04-14] MEDS: METOLAZONE 5 MG TAB PO SCH (09:42)
[2019-04-14] MEDS: NIACIN 500 MG TABSR PO SCH ×3 (09:42→21:04)
[2019-04-14] MEDS: MULTIVITAMINS/MINERALS TAB PO SCH (09:42)
[2019-04-14] MEDS: CYANOCOBALAMIN 1,000 MCG TAB PO SCH (09:42)
[2019-04-14] MEDS: CHOLECALCIFEROL 1,000 UNIT TAB PO SCH (09:42)
[2019-04-14] MEDS: SILVER ANTIMICROBIAL WOUND GEL 45ML TOP SCH ×2 (09:54→21:03)
--- NOTE | 2019-04-14 10:12 | Diagnostic Imaging Report ---
PROCEDURE: PLACEMENT OF RIGHT IJ TUNNELED SMALL BORE CATHETER WITH ULTRASOUND AND FLUOROSCOPIC GUIDANCE INDICATION: Requiring IV access for antibiotics OPERATORS: Jessica Dsouza MD RADIATION EXPOSURE: Fluoroscopy Time: 0.4 min, Dose: 11.7 mGy CONSENT: The patient was informed of the nature of the proposed procedure. The purposes, alternatives, risks, and benefits were explained and discussed. All questions were answered and written consent was obtained. ANESTHESIA: Local sedation and IV Fentanyl. Continuous hemodynamic and respiratory monitoring was performed, including the use of pulse oximetry. MEDICATIONS: IV Fentanyl 75 mcg per nursing administration records 15 cc of 1% subcutaneous lidocaine TECHNIQUE: The patient was brought to the angiography suite, and the right neck and upper chest were prepped and draped in standard sterile fashion. All elements of maximal sterile barrier technique were followed including cap and mask, sterile gown, sterile gloves, large sterile sheet, hand hygiene and 2% chlorhexidine for cutaneous antisepsis. Pre-procedure time-out confirmed the patient identity and the procedure to be performed. Using standard sterile technique, 1 % lidocaine was administered subcutaneously for local anesthesia. Ultrasound demonstrated that the right internal jugular was patent and compressible. Under continuous sonographic guidance, the right internal jugular vein was accessed using a 21 G micropuncture needle. A permanent ultrasound image was stored. An .018'' microwire was placed to secure access and confirming venous access by advancement into the IVC. A needle was exchanged for the peel away sheath. Appropriate measurements were made using the microwire. Attention was then turned towards the subcutaneous tunnel. After administration of 1% lidocaine subcutaneously for local anesthesia, a 6 Fr x 24 cm double lumen tunneled small bore catheter was tunneled in an antegrade direction from skin exit site to venotomy site. The catheter was then advanced through the peel-away sheath into the superior vena cava. After confirming appropriate position with fluoroscopy the catheter tip at the cavoatrial junction, the peel-away sheath was removed, and the lumen was aspirated, check flushed, and terminally flushed with heparin solution. The catheter was secured using 3-0 Ethilon pursestring suture at the catheter exit site and also 3-0 Ethilon sutures at the catheter hub. The venotomy site was closed with steri-strips. Sterile dressings were applied. The patient tolerated the procedure well without immediate complication and was transported back to the floor in stable condition. FINDINGS: 1. Patent and compressible right IJV accessed with continuous ultrasound guidance. 2. Placement of 6 Fr x 24 cm double lumen tunneled right IJV small bore catheter. 3. Post-procedure intraprocedural chest radiograph showed catheter tip at the cavoatrial junction, no kinks along course of catheter, and no pneumothorax. Catheter is ready for use. IMPRESSION: Placement of right IJ tunneled single lumen small bore catheter with ultrasound and fluoroscopic guidance. Catheter is ready for immediate use. Signed by: Dr. Jesscia Dsouza MD on 04/14/2019 10:08 AM
--- NOTE | 2019-04-14 13:24 | Progress Note ---
DATE: 04/14/2019 SUBJECTIVE: The patient is seen at bedside, doing somewhat better. Has some anxiety and depression. Denies any history of fever, chills, nausea, or vomiting. OBJECTIVE: VITAL SIGNS: Afebrile, pulse rate 55, respirations 18, blood pressure 122/60, and O2 saturation 97%. EXTREMITIES: Has ulceration sub 1st metatarsophalangeal joint, tracking down to bone. Some granulation tissue noted. Tendon structures visualized, but getting better. There is drainage and minimal foul smell. The amount of cellulitis and edema of the left lower extremity is resolving significantly. LABORATORY DATA: Labs show a white blood cell count of 6.8. ASSESSMENT: Osteomyelitis with a grade 4 ulcer, healing and responding to conservative care. PLAN: We will continue IV antibiotics such as meropenem and vancomycin. We will continue Iodosorb followed by diluted wet-to-dry Betadine every shift. Continue offloading. The patient may be going home possibly on Sunday. DONNA Valladares/MERA /[id number]
--- NOTE | 2019-04-14 15:24 | NUR ---
Nutrition Screen Note RD Recommendation for Physician: - Continue current diet - BG and insulin management per MD Plan of Care: RD following, monitoring for tolerance and adequacy Nutrition reason for involvement: LOS Primary Diagnose(s): L foot infection and osteomyelitis PMH: osteomyelitis, DM, CKD3, HTN, aortic dissection Ht: 74 in Wt: 290 lb BMI: 37.2 kg/m2 IBW: [address] Assessment: (04/14) 73 YOM admitted for L foot infection and osteomyelitis requiring IV abx. Pt evaluated today for LOS. MD with pt at time of attempted visits. Pt with good appetite and po intake. No wt loss noted per prior admit wts, noted 15# wt gain- possible fluid shifts. Pt discussed during am rounds. Chart reviewed. Labs and meds reviewed, POC Gluc trend elevated. Pt with hx of refusing diet education per prior admits. Will monitor and continue to follow. Current Diet: 1800 ADA Malnutrition Evaluation (04/14/19) The patient does not meet criteria for a specified degree of malnutrition at this time. Will re-evaluate at follow-up as appropriate. Diet Education Needs Assessment: Diet education indicated, pt not appropriate at this time. Nutrition Care Level: low Signed: Simona Thompson RD, LD, CNSC
--- NOTE | 2019-04-14 19:14 | NUR ---
REPORT GIVEN TO ONCOMING NURSE. PATIENT IS RESTING IN BED. NO ACUTE DISTRESS NOTED. CALL LIGHT WITHIN REACH. BED IN THE LOWEST POSITION.
--- NOTE | 2019-04-14 20:21 | NUR ---
RESPIRATIONS ARE EVEN AND UNLABORED.LEFT FOOT WITH DRESSING .PT C/O MILD PAIN AT THE BACK .CALL LIGHT WITH IN REACH .CONTINUE TO MONITOR
[2019-04-14] MEDS: ONDANSETRON HCL INJ 2MG/ML 2ML 2 MG/ML VIAL IV PRN (21:03)
[2019-04-15] VITALS (7 sets, daily range): BP systolic 116–164; BP diastolic 59–77
[2019-04-15] MEDS: MEROPENEM 500MG/ NS 50ML 50 ML IV SCH ×3 (02:00→17:54)
[2019-04-15] MEDS: HYDROMORPHONE 1MG/1ML INJ IV PRN ×7 (03:00→20:25)
--- NOTE | 2019-04-15 05:27 | NUR ---
PT RESTED DURING THE NIGHT .DENIES PAIN CALL LIGHT WITH IN REACH .CONTINUE TO MONITOR Addendum: 04/15/19 at 0528 by Libia Hutson RN WRONG PT
--- NOTE | 2019-04-15 05:29 | NUR ---
PT RESTED DURING THE NIGHT .C/O PAIN AND GIVEN ORDERED PAIN MEDICATIONPAIN CALL LIGHT WITH IN REACH .CONTINUE TO MONITOR
[2019-04-15] MEDS: VANCOMYCIN 1GM/NS 250 ML 250 ML IV SCH ×2 (06:00→18:35)
[2019-04-15] MEDS: FAMOTIDINE 20 MG/2 ML VIAL IV SCH ×2 (06:14→17:54)
--- NOTE | 2019-04-15 07:04 | NUR ---
RECEIVED PATIENT RESTING IN BED. NO ACUTE DISTRESS NOTED, RESPIRATIONS EVEN AND UNLABORED. DENIES PAIN OR DISCOMFORT AT THIS TIME. CALL LIGHT WITHIN REACH. BED IN THE LOWEST POSITION.
--- NOTE | 2019-04-15 07:25 | NUR ---
BEDSIDE REPORT GIVEN TO THE ONCOMING NURSE
[2019-04-15] MEDS: INSULIN REGULAR, HUMAN 100 UNIT/1 ML 3ML VIAL SQ SCH ×4 (08:30→21:00)
[2019-04-15] MEDS: METOPROLOL TARTRATE 25 MG TAB PO SCH ×3 (09:00→21:00)
[2019-04-15] MEDS: TORSEMIDE 10 MG TAB PO SCH (09:00)
[2019-04-15] MEDS: MULTIVITAMINS/MINERALS TAB PO SCH (09:20)
[2019-04-15] MEDS: BACLOFEN 10 MG TAB PO SCH ×3 (09:20→21:00)
[2019-04-15] MEDS: METOLAZONE 5 MG TAB PO SCH (09:20)
[2019-04-15] MEDS: CHOLECALCIFEROL 1,000 UNIT TAB PO SCH (09:20)
[2019-04-15] MEDS: MINOXIDIL 2.5 MG TAB PO SCH (09:20)
[2019-04-15] MEDS: LISINOPRIL 20 MG TAB PO SCH ×2 (09:20→16:12)
[2019-04-15] MEDS: NIACIN 500 MG TABSR PO SCH ×3 (09:20→21:00)
[2019-04-15] MEDS: BUSPIRONE HCL 10 MG TABLET PO SCH ×2 (09:20→16:05)
[2019-04-15] MEDS: ALPRAZOLAM 0.5 MG TAB PO SCH ×2 (09:20→16:05)
[2019-04-15] MEDS: TAMSULOSIN HCL 0.4 MG CAP PO SCH (09:20)
[2019-04-15] MEDS: CYANOCOBALAMIN 1,000 MCG TAB PO SCH (09:20)
[2019-04-15] MEDS: CITALOPRAM HYDROBROMIDE 20 MG TAB PO SCH (09:20)
[2019-04-15] MEDS: POLYETHYLENE GLYCOL 3350 17 GM PACK PO SCH (09:20)
[2019-04-15] MEDS: SILVER ANTIMICROBIAL WOUND GEL 45ML TOP SCH ×2 (09:29→21:00)
--- NOTE | 2019-04-15 11:45 | NUR ---
CALL TO [facility] FOR HOME IV ABX QUOTE. STATES THEY ARE NOT ACCEPTING NEW PTS AT THIS TIME. THEIR INFUSION AREA IS UNDER CONSTRUCTION.
--- NOTE | 2019-04-15 13:30 | NUR ---
MET W THE PT AT THE BEDSIDE. DISCUSSED CHOICE. 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 INFORMED THE PT OF ATTEMPT TO GET A QUOTE FROM PHARMACY. INFORMED THE PT I SPOKE W THE LIASON FROM [facility] AND THEY SAID THEY MAY BE ABLE TO BILL HIM. PT STATES OK, BUT REITERATED THE IMPORTANCE OF HIS NEED TO WORK. ALSO OFFERED OTHER OPTIONS FOR INFUSION. STATES HE WOULD LIKE TO SEE WHAT [facility] WILL OFFER HIM. AGREED. DISCUSSED THE POSSIBILITY OF SNF OR LTAC AN OPTION. PT STILL VERY RESISTANT TO GOING TO ANOTHER FACILITY. REFERRAL WAS FAXED TO [facility] @ OFF: [phone] / FAX: [phone]
--- NOTE | 2019-04-15 15:06 | Progress Note ---
DATE: 04/15/2019 SUBJECTIVE: The patient is seen at bedside, doing better. Denies any history of fever, chills, nausea, or vomiting. OBJECTIVE: VITAL SIGNS: Afebrile. Pulse rate 50, respirations 18, blood pressure 164/68, and O2 saturation 98%. EXTREMITIES: Ulceration to the left lower extremity showing some granulation tissue, very little tendon exposed. Decreased drainage. Decreased foul smell. Decreased edema and cellulitis to the dorsal aspect left foot with pedal pulses palpable. ASSESSMENT: Grade 3 ulcer/4 ulceration with osteomyelitis left foot, responding to conservative care. PLAN: Continue IV antibiotics. Continue local wound care. Continue offloading. We will continue to follow. DONNA Valladares/MODL /[id number]
--- NOTE | 2019-04-15 17:10 | NUR ---
PER CASE MANAGEMENT, INFUSION COMPANY WILL BE CALLING WITH ALL THE INFORMATION FOR IV ABTS TO THE UNIT. THEN TO GET DC ORDER FROM .
--- NOTE | 2019-04-15 18:48 | NUR ---
SPOKE TO JACQUIE FROM [facility] IN REGARDS TO IV ABTS STATUS FOR PATIENT. PER JACQUIE, NOTHING IS SET UP YET. WILL NOTIFY NIGHT NURSE.
--- NOTE | 2019-04-15 19:36 | NUR ---
Report given to oncoming nurse. Walking rounds done. Patient is resting in bed. No acute distress noted, respirations even and unlabored. Call light within reach. Bed in the lowest position.
[2019-04-15] MEDS: ONDANSETRON HCL INJ 2MG/ML 2ML 2 MG/ML VIAL IV PRN (20:25)
--- NOTE | 2019-04-15 21:08 | NUR ---
RECEIVED PATIENT IN BED AOX3 , RESPIRATIONS EVEN AND UNLABORED. C/O PAIN WAITING FOR [facility] COMPANY CALL FOR TO D/C HOME CALL LIGHT WITHIN REACH. BED IN THE LOWEST POSITION
[2019-04-16] VITALS: BP 163/72
[2019-04-16] MEDS: HYDROMORPHONE 1MG/1ML INJ IV PRN ×4 (00:45→14:10)
[2019-04-16 01:09] VITALS: BP 130/59
[2019-04-16] MEDS: MEROPENEM 500MG/ NS 50ML 50 ML IV SCH ×2 (02:00→09:07)
[2019-04-16 04:00] VITALS: BP 129/61
[2019-04-16] MEDS: VANCOMYCIN 1GM/NS 250 ML 250 ML IV SCH (04:15)
[2019-04-16] MEDS: FAMOTIDINE 20 MG/2 ML VIAL IV SCH (05:40)
[2019-04-16] MEDS: ONDANSETRON HCL INJ 2MG/ML 2ML 2 MG/ML VIAL IV PRN (05:44)
--- NOTE | 2019-04-16 06:31 | NUR ---
PT C/O PAIN Q 3HRS AND GIVEN DILAUDID .CHANGED THE DRESSING AT THE LEFT FOOT .CALL LIGHT WITH IN REACH .CONTINUE TO MONITOR
--- NOTE | 2019-04-16 07:25 | NUR ---
BEDSIDE REPORT GIVEN TO THE ONCOMING NURSE
--- NOTE | 2019-04-16 07:25 | NUR ---
BEDSIDE REPORT GIVEN TO THE ONCOMING NURSE
[2019-04-16 07:49] VITALS: BP 172/76
[2019-04-16 08:00] VITALS: BP 172/76
[2019-04-16] MEDS: CITALOPRAM HYDROBROMIDE 20 MG TAB PO SCH (08:22)
[2019-04-16] MEDS: BUSPIRONE HCL 10 MG TABLET PO SCH (08:22)
[2019-04-16] MEDS: TORSEMIDE 10 MG TAB PO SCH (08:22)
[2019-04-16] MEDS: BACLOFEN 10 MG TAB PO SCH (08:23)
[2019-04-16] MEDS: MINOXIDIL 2.5 MG TAB PO SCH (08:23)
[2019-04-16] MEDS: TAMSULOSIN HCL 0.4 MG CAP PO SCH (08:23)
[2019-04-16] MEDS: METOPROLOL TARTRATE 25 MG TAB PO SCH (08:23)
[2019-04-16] MEDS: CYANOCOBALAMIN 1,000 MCG TAB PO SCH (08:24)
[2019-04-16] MEDS: MULTIVITAMINS/MINERALS TAB PO SCH (08:24)
[2019-04-16] MEDS: LISINOPRIL 20 MG TAB PO SCH (08:24)
[2019-04-16] MEDS: NIACIN 500 MG TABSR PO SCH (08:24)
[2019-04-16] MEDS: POLYETHYLENE GLYCOL 3350 17 GM PACK PO SCH (08:24)
[2019-04-16] MEDS: CHOLECALCIFEROL 1,000 UNIT TAB PO SCH (08:24)
[2019-04-16] MEDS: METOLAZONE 5 MG TAB PO SCH (08:25)
[2019-04-16] MEDS: INSULIN REGULAR, HUMAN 100 UNIT/1 ML 3ML VIAL SQ SCH ×2 (08:30→12:26)
[2019-04-16] MEDS: SILVER ANTIMICROBIAL WOUND GEL 45ML TOP SCH (09:08)
--- NOTE | 2019-04-16 11:29 | NUR ---
HOME HEALTH DISCHARGE NOTE PATIENT ADDRESS WHERE SERVICE WILL BE RECEIVED: [address] [place] [address], [id number] PATIENT CONTACT NUMBER: [phone] NAME OF HOME HEALTH COMPANY: [facility] TELEPHONE/FAX NUMBER OF COMPANY: OFF: [phone] / FAX: [phone] ADDRESS OF COMPANY: [address] [place] [address] [address] [facility] [address] [place]. [address] SERVICES TO RECEIVE: HOME IV ANTIBIOTICS: [facility] 1GM IV [id number] ANTICIPATED DATE SERVICES WILL BEGIN: 04/16/2019 [facility] PROVIDED BY [facility] @ OFF: [phone] Please call the company above if you have not received a call to schedule a home visit within 24 hours of discharge.
[2019-04-16 11:43] VITALS: BP 154/71
--- NOTE | 2019-04-16 15:40 | NUR ---
Pt discharged home at this time. Pt was discharged home with central line to right subclavian for use for home antibiotics. Dressing to central line was changed prior to discharge. Dressing to left foot changed prior to discharge. Pt and spouse verbalized understanding of all discharge instructions and follow up appt. Home health company here to see and educate pt on IV antibiotics prior to discharge. Pt and spouse verbalized understanding.
--- NOTE | 2019-04-16 16:02 | Progress Note ---
DATE: 04/16/2019 SUBJECTIVE: The patient is at bedside, doing significantly better. He is denying any history of fever, chills, nausea, or vomiting. OBJECTIVE: VITAL SIGNS: Afebrile. Pulse rate 56, respirations 18, blood pressure 172/76, and O2 saturation 99%. EXTREMITIES: Ulceration to the left lower extremity continues to improve, less than 2.5 to 3 cm in diameter, tracking down to bone. The flexor longus tendon is completely gone. Some of it is exposed. The patient not able to flex his left great toe, secondary to tendon atrophy. Pedal pulses are palpable. ASSESSMENT: Grade 3/4 ulceration with osteomyelitis of left foot. PLAN: The patient will be sent home possibly today on IV antibiotics. We will continue local wound care at home. We will try to get home health. We will try to avoid any type of amputation. The patient is to follow up within a week in the office upon discharge. DONNA Valladares/MERA /[id number]
--- NOTE | 2019-04-20 16:05 | Discharge Summary ---
DISCHARGE DIAGNOSIS: Osteomyelitis of the left foot. HISTORY OF PRESENT ILLNESS/HOSPITAL COURSE: The patient is a gentleman with a stage IV ulcer all the way down to the bone of the first metatarsal head of his left foot, where surgical debridement was performed and cultures were obtained that grew out multiple organisms, that was sensitive to meropenem and likely patient was able to be set up with outpatient IV antibiotics with meropenem q.[address] Cedeno. So, once this was arranged, the patient was then discharged home with a PICC line and continuation of that. Please see also chart for full details. MD STEPHEN Cesar/MERA /[id number]
== END 2019-04-16 15:37 | disposition home health service (06) | DRG 854 ==
LOC: ER 15:25 → ERHOLD 16:59 → MED/SURG3 21:17
PROVIDERS: ADMIT Internal Medicine; ATTEND Internal Medicine
PROC: 0QBP0ZZ Excision of Left Metatarsal, Open Approach (ICD-10-PCS; 2019-04-09)
PROC: 02HV33Z Insertion of Infusion Device into Superior Vena Cava, Percutaneous Approach (ICD-10-PCS; principal; 2019-04-11)
PROC: 0JH63XZ Insertion of Tunneled Vascular Access Device into Chest Subcutaneous Tissue and Fascia, Percutaneous Approach (ICD-10-PCS; 2019-04-11)
DX: A41.9 Sepsis, unspecified organism (principal); M86.8X7 Other osteomyelitis, ankle and foot; I48.92 Unspecified atrial flutter; I13.0 Hypertensive heart and chronic kidney disease with heart failure and stage 1 through stage 4 chronic kidney disease, or unspecified chronic kidney disease; I50.30 Unspecified diastolic (congestive) heart failure; E11.69 Type 2 diabetes mellitus with other specified complication; Z79.4 Long term (current) use of insulin; I12.9 Hypertensive chronic kidney disease with stage 1 through stage 4 chronic kidney disease, or unspecified chronic kidney disease; E11.22 Type 2 diabetes mellitus with diabetic chronic kidney disease; N18.3 Chronic kidney disease, stage 3 (moderate); D64.9 Anemia, unspecified; B96.1 Klebsiella pneumoniae [K. pneumoniae] as the cause of diseases classified elsewhere; B95.2 Enterococcus as the cause of diseases classified elsewhere; B96.89 Other specified bacterial agents as the cause of diseases classified elsewhere; Z16.12 Extended spectrum beta lactamase (ESBL) resistance; E11.42 Type 2 diabetes mellitus with diabetic polyneuropathy; Z89.422 Acquired absence of other left toe(s); Z89.421 Acquired absence of other right toe(s); M48.00 Spinal stenosis, site unspecified; Z79.01 Long term (current) use of anticoagulants; I87.2 Venous insufficiency (chronic) (peripheral); G47.33 Obstructive sleep apnea (adult) (pediatric); Z68.37 Body mass index [BMI] 37.0-37.9, adult; E66.01 Morbid (severe) obesity due to excess calories; N40.0 Benign prostatic hyperplasia without lower urinary tract symptoms; M19.90 Unspecified osteoarthritis, unspecified site
CPT/HCPCS: 36415; 36558; 71045; 74470; 76937; 77001; 80053; 80061; 80202; 82550; 82553; 82948; 83605; 83735; 83880; 84100; 84484; 85025; 85610; 85651; 85730; 86140; 87040; 87071; 87186; 87205; 88304; 88305; 88311; 93005; 99284; J1170; J1644; J1817; J2250; J2405; J3010; J3370; J7030; J7050; J7799

== ENCOUNTER 2019-04-18 13:21 | Emergency (ER) | payer MEDICARE, OTHER ==
[~2019-04-18] VITALS: Ht 188 cm; Wt 131.5 kg
--- OUTSIDE RECORDS SUMMARY | 2019-04-18 13:26 | XMS REPORT | Clinical Summary ---
Author Author [employer] [facility] Organization [employer] Address Unknown Phone Unavailable Care Team Providers Care Chief Lifestyle Officer Name Role Phone Manoj Navarro MD PCP [...] Hospital General Surgery - Encounter 01/15/2019 after 04/17/2018 Social History Date Tobacco Use Types Packs/Day [...] MMODE SPECTRAL 7:48 AM CDT COLOR DOPPLER ([id number]) POC GLUCOSE Routine 01/14/2019 5:37 AM CDT [...] 12-LEAD STAT 01/11/2019 8:48 PM CDT after 04/17/2018 Results * POC glucose (01/15/2019 11:52 AM CDT) Only the most recent of 14 results within the time period is included. POC glucose 190 (H) 65 - 99 mg/dL [place] Comment: EPISCOPALIAN CLEAR Meter ID: [id number] [facility] Inner Tube Cutter: Paras Quevedo Specimen Performing Organization Address City/State/Zipcode Phone Number [place] [address] [place] [address] PATHOLOGY AND GENOMIC MEDICINE [facility] [id number] [place] [address] * Estimated GFR (01/15/2019 5:01 AM CDT) Only the most recent of 5 results within the time period is included. Estimated GFR 88 mL/min/1.73 m2 [place] Comment: [facility] rpretation G1 >=90 Normal or high G2 60-89Mildly decreased E0b65-22 Mildly to moderately decreased E3x67-81 Moderately to severely decreased G4 15-29Severely decreased G5 <15Kidney failure The eGFR was calculated using the Chronic Kidney Disease Epidemiology Collaboration (CKD-EPI) equation. Interpretation is based on recommendations of the National Kidney Foundation-Kidney Disease Outcomes Quality Initiative (NKF-KDOQI) published in 2014. Specimen Plasma specimen Performing Organization Address City/[facility] Phone Number [facility] DEPARTMENT [address] [place] [address] PATHOLOGY AND GENOMIC MEDICINE [address] * Creatinine level (01/15/2019 5:01 AM CDT) Pathologist [facility] Creatinine 0.80 0.70 - 1.20 mg/dL [facility] Specimen Plasma specimen Performing Organization Address [facility] Phone Number [facility] DEPARTMENT [address] [place] [address] PATHOLOGY AND GENOMIC MEDICINE [address] * XR Chest 2 Vw (01/14/2019 5:18 PM CDT) Specimen Narrative Performed At EXAMINATION:XR CHEST 2 VW [facility] CLINICAL HISTORY:hypoxia COMPARISON:January 11 IMPRESSION: Atelectasis in left lower lobe small left-sided pleural effusion Heart remains slightly enlarged 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 [id number] Performing Organization Address City/State/Zipcode Phone Number MATT MONTEMAYOR [address] [place] [address] * CBC with platelet and differential (01/14/2019 11:55 AM CDT) Only the most recent of 3 results within the time period is included. WBC 8.64Comment: Called Raquel on 4.50 - 11.00 k/uL [address] 01/14/2019 16:19 [facility] RBC 3.74 (L) 4.40 - 6.00 m/uL [facility] HGB 10.6 (L) 14.0 - 18.0 g/dL [facility] HCT 33.8 (L) 41.0 - 51.0 % [facility] MCV 90.4 82.0 - 100.0 fL [facility] MCH 28.3 27.0 - 34.0 pg [facility] MCHC 31.4 31.0 - 37.0 g/dL [facility] RDW - SD 43.6 37.0 - 55.0 fL [facility] MPV 11.5 8.8 - 13.2 fL [facility] Platelet count 144 (L) 150 - 400 k/uL [facility] Nucleated RBC 0.00 /100 WBC [facility] Neutrophils 82.4 (H) 39.0 - 69.0 % [facility] Lymphocytes 9.6 (L) 25.0 - 45.0 % [facility] Monocytes 6.5 0.0 - 10.0 % [facility] Eosinophils 1.2 0.0 - 5.0 % [facility] Basophils 0.0 0.0 - 1.0 % [facility] Specimen Blood Performing Organization Address City/State/Zipcode [place] Number [place] [address] [place] [address] PATHOLOGY AND GENOMIC MEDICINE [facility] [id number] [place] [address] [place] [address] [facility] * Vancomycin level, trough (01/14/2019 11:55 AM CDT) Pathologist [facility] Vancomycin, 14.1 10.0 - 20.0 ug/mL [place] trough Comment: [facility] Therapeutic Ranges: [facility] Peak 30.0 - 40.0 ug/mL Nepcte34.0 - 20.0 ug/mL Specimen Serum Performing Organization Address [facility] Phone Number [facility] DEPARTMENT OF [address] [place] [address] [place] [address] PATHOLOGY AND GENOMIC MEDICINE [address] * Basic metabolic panel (01/14/2019 11:55 AM CDT) Only the most recent of 2 results within the time period is included. [facility] Sodium 138 135 - 148 mEq/L [facility] Potassium 4.3 3.5 - 5.0 mEq/L [facility] Chloride 101 98 - 112 mEq/L [facility] CO2 30 24 - 31 mEq/L [facility] Anion gap 7@ANIO 7 - 15 mEq/L [facility] BUN 19 8 - 23 mg/dL [facility] Creatinine 0.80 0.70 - 1.20 mg/dL [facility] Glucose 154 (H) 65 - 99 mg/dL [facility] Calcium 8.6 (L) 8.8 - 10.2 mg/dL [facility] Specimen Plasma specimen Performing Organization Address [facility] Phone Number [facility] DEPARTMENT OF [address] [place] [address] [place] [address] PATHOLOGY AND GENOMIC MEDICINE [address] * Echocardiogram complete w contrast and 3D if needed (01/14/2019 7:48 AM CDT) [facility] AoV Area, Vmax 3.18 cm2 SYN[facility] [...] LV EF,BP 47.51 % HM [facility] [place],d A2C 9.97 cm [facility] [place],d A4C 9.69 cm [facility] [place],s A2C 8.67 cm [facility] [place],s A4C 8.64 cm [facility] LV,s 4.48 [...] RA pressure 10-15 mmHg. Performing Organization Address City/[facility]/Zipcode Phone Number [employer] [address] [place] [address] * Us duplex venous lower extremity (01/13/2019 2:40 PM CDT) Specimen Narrative Performed At SYNGO There is no evidence of DVT in the left lower extremity and right common femoral vein. Performing Organization Address City/[facility] Phone Number [employer] [address] [place] [address] * Arterial blood gas (01/12/2019 3:58 PM CDT) pH, arterial 7.55 (H) 7.35 - 7.45 [facility] pCO2, arterial 28 (L) 35 - 45 mmHg [facility] pO2, arterial 232 (H) 80 - 90 mmHg [facility] Bicarbonate, 27.2 21.0 - 28.0 mmol/L [facility] Base excess, 3 (H) -2 - 2 mEq/L [facility] O2 saturation, 100 95 - 100 % [facility] FiO2, inspired 50 % [place] O2% [facility] Specimen Blood Performing Organization Address City/[facility]/Zipcode Phone Number [facility] DEPARTMENT OF [address] [place] [address] [place] [address] PATHOLOGY AND GENOMIC MEDICINE [address] [place] [id number] [facility] * Troponin (01/12/2019 4:41 AM CDT) Only the most recent of 3 results within the time period is included. Pathologist [facility] Troponin 0.022 0.000 - 0.040 ng/mL [place] Comment: [facility] changed methodology effective: 12/03/2018 at 10:00 am The new method has a 99th percentile cutoff of 0.040 ng/mL Specimen Plasma specimen Performing Organization Address [facility] Phone Number [facility] DEPARTMENT [address] [place] [address] PATHOLOGY AND GENOMIC MEDICINE [address] * Manual differential (01/12/2019 4:41 AM CDT) [facility] Manual PERFORMED [place] differential [facility] Neutrophils 93.0 (H) 39.0 - 69.0 % [facility] Lymphocytes 1.0 (L) 25.0 - 45.0 % [facility] Monocytes 5.0 0.0 - 10.0 % [facility] Eosinophils 0.0 0.0 - 5.0 % [facility] Basophils 0.0 0.0 - 1.0 % [facility] Metamyelocytes 1 % [facility] Promyelocytes 0 % [facility] Platelet slide Brian adequate [place] review [facility] Specimen Performing Organization Address [facility] Phone Number [facility] DEPARTMENT [place] [address] [place] [address] PATHOLOGY AND [facility] MEDICINE [address] [place] [address] * Magnesium level (01/12/2019 4:41 AM CDT) [facility] Magnesium 2.1 1.6 - 2.4 mg/dL [facility] Specimen Plasma specimen Performing Organization Address [facility] Phone Number [facility] DEPARTMENT [place] [address] [place] [address] PATHOLOGY AND GENOMIC MEDICINE [address] [place] [address] * Comprehensive metabolic panel (01/12/2019 4:41 AM CDT) Only the most recent of 2 results within the time period is included. Pathologist [facility] Sodium 132 (L) 135 - 148 mEq/L [facility] Potassium 5.2 (H) 3.5 - 5.0 mEq/L [facility] Chloride 97 (L) 98 - 112 mEq/L [facility] CO2 24 24 - 31 mEq/L [facility] Anion gap 11@ANIO 7 - 15 mEq/L [facility] BUN 28 (H) 8 - 23 mg/dL [facility] Creatinine 1.10 0.70 - 1.20 mg/dL [facility] Glucose 419 (HH) 65 - 99 mg/dL [place] Comment: [facility] Results called to and read [facility] back by ZAFAR at 01/12/2019 05:21 by [id number]. Calcium 9.1 8.8 - 10.2 mg/dL [facility] Protein 6.1 (L) 6.3 - 8.3 g/dL [place] Comment: [facility] 4.6-7.0 g/dL 1 week 4.4-7.6 g/dL 7 months-1year 5.1-7.3 g/dL 1-2 years5.6-7 .5 g/dL >3 years6.0-8 .0 g/dL 18-150 6.3-8.3 g/dL Albumin 3.6 3.5 - 5.0 g/dL [facility] A/G ratio 1.4 0.7 - 3.8 [facility] Alkaline 70 40 - 129 U/L [place] phosphatase [facility] AST 14 10 - 50 U/L [facility] ALT 39 5 - 50 U/L [facility] Total bilirubin 1.0 0.0 - 1.2 mg/dL [facility] Specimen Plasma specimen Performing Organization Address City/State/Zipcode [place] Number [place] [address] [place] [address] PATHOLOGY AND GENOMIC MEDICINE [facility] [address] [place] [address] [facility] * Partial thromboplastin time, activated (01/11/2019 9:57 PM CDT) Pathologist [facility] PTT 27.9 23.0 - 36.0 sec [place] Comment: BETSY STOKES PTT therapeutic range for [facility] unfractionated heparin is 61.0-112.0 seconds which corresponds to Anti-Xa 0.3-0.7 U/ml. Specimen Blood Performing Organization Address [facility] Phone Number [facility] DE[facility] [place] [address] PATHOLOGY AND [facility] MEDICINE [address] * Prothrombin time with INR (01/11/2019 9:57 PM CDT) Pathologist [facility] Prothrombin 14.4 11.5 - 14.5 sec [facility] INR 1.2 [place] Comment: BETSY STOKES The International Normalized [facility] Ratio (INR) is a therapeutic monitoring tool for patients who are stable on oral anticoagulant therapy. An INR of 2.0-3.0 is suggested for deep vein thrombosis/pulmonary embolism. Specimen Blood Performing Organization Address [facility] Phone Number [facility] DEPARTMENT [address] [place] [address] PATHOLOGY AND [facility] MEDICINE [address] [place] [address] * B natriuretic peptide (01/11/2019 9:57 PM CDT) Pathologist [facility] BNP 169 (H) 0 - 100 pg/mL [facility] Specimen Blood Performing Organization Address [facility] Phone Number [facility] DEPART[facility] [place] [address] [place] [address] PATHOLOGY AND [facility] MEDICINE [address] * Blood culture, aerobic & anaerobic (01/11/2019 9:50 PM CDT) Only the most recent of 2 results within the time period is included. Pathologist [facility] Blood culture No growth after 5 days of [place] isolate incubation. EPISCOPALIAN Comment: HOSPITAL Specimen Information Specimen Source: Blood Specimen Site: Hand, right Specimen Blood - Hand, right Performing Organization Address City/[facility] Phone Number [facility] DEPARTMENT OF [address] [place] [address] PATHOLOGY AND GENOMIC MEDICINE [address] * XR Tibia Fibula 2 Vw Left (01/11/2019 9:30 PM CDT) Specimen Narrative Performed At EXAM:XR TIBIA FIBULA 2 VW LEFT [facility] CLINICAL HISTORY:swelling LLE COMPARISON:None. IMPRESSION: No evidence of acute displaced fracture or dislocation of the left tibia or fibula. Soft tissues are unremarkable. Vascular calcifications are noted. Soft tissues are otherwise normal. [facility]-[id number] Procedure Note Interface, Radiology Results Incoming - 01/11/2019 10:06 PM CDT EXAM: XR TIBIA FIBULA 2 VW LEFT CLINICAL HISTORY: swelling LLE COMPARISON: None. IMPRESSION: No evidence of acute displaced fracture or dislocation of the left tibia or fibula. Soft tissues are unremarkable. Vascular calcifications are noted. Soft tissues are otherwise normal. [facility]-[id number] Performing Organization Address [facility] Phone Number [facility] [address] [place] [address] * XR Chest 1 Vw Portable (01/11/2019 [...] identified. No acute osseous abnormalities are visualized. [facility]-[id number] Procedure Note Interface, Radiology Results Incoming - [...] identified. No acute osseous abnormalities are visualized. [facility]-[id number] Performing Organization Address [facility] Phone Number [facility] [address] [place] [address] * ECG ED Preliminary Interpretation - Not an Order (01/11/2019 9:00 PM CDT) Narrative Performed At Murali Choudhury MD 01/12/2019 12:36 AM ECG ED Preliminary Interpretation - Not an Order Performed by: Murali Choudhury MD Authorized by: Murali Choudhury MD ECG reviewed by ED Physician in the absence of a physical therapy aides teacher: yes Interpretation: Interpretation: normal Rate: ECG rate:78 ECG rate assessment: normal Rhythm: Rhythm: sinus rhythm Ectopy: Ectopy: none QRS: QRS axis:Normal QRS intervals:Normal Conduction: Conduction: normal ST segments: ST segments:Normal T waves: T waves: normal * ECG 12 lead (01/11/2019 8:48 PM CDT) Ventricular 78 [facility] rate Atrial rate 78 [facility] NE interval 196 [facility] QRSD interval 98 [...] At Performing Organization Address City/State/Zipcode Phone Number [facility] MUSE [address] [place] [address] after 04/17/2018 Insurance Type Payer Benefit Subscriber ID Effective Phone Address Plan / Dates Group Medicare MEDICARE MEDICARE xxxxxxxxxxx 2010-P [place], PART A AND resent [place] Commercial COLONIAL COLONIAL xxxxxxxxxx 2010-P [facility] Advance Directives For more information, please contact: [phone] 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
--- OUTSIDE RECORDS SUMMARY | 2019-04-18 13:27 | XMS REPORT | Continuity of Care Document ---
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 [employer] Unavailable Unavailable Problems Problem Status Onset Date Classification Date Reported Comments Source Anemia Active 05/10/2015 Problem 05/13/2018 [facility] Renal failure Active 11/22/2014 Problem 05/13/2018 [facility] Back pain Active 06/08/2014 Problem 05/13/2018 [facility] Descending thoracic aortic dissection Active Problem [...] Cellulitis of left leg Active Problem 05/13/2018 [facility] Dyspnea Active Problem 05/13/2018 [facility] Pneumonia Active Problem 05/13/2018 [facility] Renal failure , acute on chronic Active Problem 05/13/2018 [facility] Medications Medication Details Route Status Patient Instructions Ordering Provider Order Date Source Amlodipine Besylate 1 tablet Orally Active 5 MG Orally Once a day Krystal 03/14/2018 Roger Luis Manuel Rice Aspirin 325 Mg Tablet, 325 Mg Oral Daily Active 11/13/2016 [facility] Irbesartan (Avapro) 75 Mg Tablet, 75 Mg Oral Twice A Day Active 11/13/2016 [facility] Silodosin (Rapaflo) 8 Mg Capsule, 8 Mg Oral Daily Active 07/20/2015 [facility] Warfarin Sodium (Coumadin) 5 Mg Tablet, 5 Mg Oral Today At 5:00PM Active 05/14/2015 [facility] Amphet Asp/Amphet/D-Amphet (Adderall 5 Mg Tablet) 5 Mg Tablet, 5 Mg Oral Twice A Day Active 05/11/2015 [facility] Cephalexin Monohydrate (Keflex) 500 Mg Capsule, Mg Oral Twice A Day Active 05/11/2015 [facility] Hydrocodone Bit/Acetaminophen (Weston 10-325 Tablet) 1 Each Tablet, 1 Tab Oral Every 4 Hours Active 05/11/2015 [facility] Insulin Detemir (Levemir) 100 Unit/1 Ml Vial, 40 Sub-Q Twice A Day Active 05/11/2015 [facility] Insulin Lispro (Humalog) 100 Unit/1 Ml Insuln.pen, 40 Sub-Q Three Times A Day Active 05/11/2015 [facility] Torsemide (Demadex) 20 Mg Tablet, 20 Mg Oral Twice A Day Active 11/24/2014 [facility] Insulin Aspart (Novolog) 100 Units/Ml Ml, 40 Sub-Q Before Meals Active 11/23/2014 [facility] Polyethylene Glycol 3350 (Miralax) 17 Gm Powd.pack, 1 Pkt Oral Every Morning Active 11/22/2014 [facility] Potassium Chloride 10 Meq Tablet.er, 10 Meq Oral Twice A Day Active 11/22/2014 [facility] Dabigatran Etexilate Mesylate (Pradaxa) 150 Mg Capsule, 150 Mg Oral Twice A Day Active 08/21/2014 [facility] Amphet Asp/Amphet/D-Amphet (Adderall 20 Mg Tablet) 20 Mg Tablet, 20 Mg Oral Twice A Day Active 08/14/2013 [facility] Irbesartan (Avapro) 300 Mg Tablet, 150 Mg Oral Daily Active 08/14/2013 [facility] Metolazone 5 Mg Tablet, 5 Mg Oral Daily Active 08/14/2013 [facility] Valsartan/Hydrochlorothiazide (Diovan Hct 160-12.5 Mg Tab) 1 Each Tablet, 1 Tab Oral Daily Active 08/14/2013 [facility] Dutasteride (Avodart) 0.5 Mg Capsule, Daily Active 02/13/2013 [facility] Methocarbamol (Robaxin-750) 750 Mg Tablet, Twice A Day Active 02/13/2013 [facility] Duaecch18ucvvo Daily , Active 02/13/2013 [facility] Valsartan/Hydrochlorothiazide (Diovan Hct 160-12.5 Mg Tab) 1 Each Tablet, 1 Each Oral Twice A Day Active 02/13/2013 [facility] Amlodipine Besylate 1 tablet Orally Active 5 MG Orally Once a day Krystal Rice Amlodipine Besylate TAKE 1 TABLET BY MOUTH EVERY DAY by mouth Active 5 MG by mouth once a day Krystal Rice Alprazolam (Xanax) 0.5 Mg Tablet Bedtime Active [facility] Amlodipine Besylate 5 Mg Tablet Daily Active [facility] Amphet Asp/Amphet/D-Amphet (Adderall 20 Mg Tablet) 20 Mg Tablet Every 12 Hours Active [facility] Docusate Calcium (Stool Softener) 240 Mg Capsule Daily Active [facility] Gabapentin 300 Mg Capsule Three Times A Day Active [facility] Hydrocodone Bit/Acetaminophen (Weston 10-325 Tablet) 1 Each Tablet Daily Active [facility] Insulin Aspart (Novolog) 100 Unit/1 Ml Cartridge Before Meals Active [facility] Insulin Detemir (Levemir) 100 Unit/1 Ml Vial Twice A Day Active [facility] Lisinopril (Prinavil / Zestril) 20 Mg Tablet Twice A Day Active [facility] Metformin Hcl (Glucophage) 500 Mg Tablet Twice A Day Active [facility] Metolazone 5 Mg Tablet Daily Active [facility] Metoprolol Tartrate 50 Mg Tablet Twice A Day Active [facility] Minoxidil 2.5 Mg Tablet Daily Active [facility] Movantik Daily Active [facility] Silodosin (Rapaflo) 8 Mg Capsule Daily Active [facility] Sucralfate (Carafate) 1 Gm/10 Ml Oral.susp Daily Active [facility] Torsemide (Demadex) 10 Mg Tablet Daily Active [facility] Allergies, Adverse Reactions, Alerts Substance Category Reaction Severity Reaction type Status Date Reported Comments Source No Known Drug Allergies Mild Allergy to Substance Active 05/02/2018 [facility] Immunizations No Data Provided for This Section Results Order Name Results Value Reference Range Date Interpretation Comments Source Capillary blood glucose measurement by glucometer (mass/volume) Capillary blood glucose measurement by glucometer (mass/volume) 163 70 - 120 05/13/2018 [facility] Automated blood basophil count (count/volume) Automated blood basophil count (count/volume) 0.0 0.0 - 0.1 05/13/2018 [facility] Automated blood basophil count as percentage of total leukocytes Automated blood basophil count as percentage of total leukocytes 0.3 0.0 - 1.0 05/13/2018 [facility] Automated blood eosinophil count Automated blood eosinophil count 0.1 0.0 - 0.4 05/13/2018 [facility] Automated blood eosinophil count as percentage of total leukocytes Automated blood eosinophil count as percentage of total leukocytes 2.0 0.0 - 6.0 05/13/2018 [facility] Automated blood hematocrit (volume fraction) Automated blood hematocrit (volume fraction) 39.6 38.2 - 49.6 05/13/2018 [facility] Automated blood lymphocyte count as percentage ot total leukocytes Automated blood lymphocyte count as percentage ot total leukocytes 15.0 18.0 - 39.1 05/13/2018 [facility] Automated blood monocyte count as percentage of total leukocytes Automated blood monocyte count as percentage of total leukocytes 7.1 4.4 - 11.3 05/13/2018 [facility] Automated blood neutrophil count Automated blood neutrophil count 5.1 2.1 - 6.9 05/13/2018 [facility] Automated blood platelet count (count/volume) Automated blood platelet count (count/volume) 300 140 - 360 05/13/2018 [facility] Automated blood segmented neutrophil count as percentage of total leukocytes Automated blood segmented neutrophil count as percentage of total leukocytes 73.7 38.7 - 80.0 05/13/2018 [facility] Automated erythrocyte mean corpuscular hemoglobin (mass per erythrocyte) Automated erythrocyte mean corpuscular hemoglobin (mass per erythrocyte) 28.1 28 - 32 05/13/2018 [facility] Automated erythrocyte mean corpuscular hemoglobin concentration measurement (mass/volume) Automated erythrocyte mean corpuscular hemoglobin concentration measurement (mass/volume) 31.8 31 - 35 05/13/2018 [facility] Automated erythrocyte mean corpuscular volume Automated erythrocyte mean corpuscular volume 88.2 81 - 99 05/13/2018 [facility] Blood erythrocytes automated count (number/volume) Blood erythrocytes automated count (number/volume) 4.49 4.3 - 5.7 05/13/2018 [facility] Blood hemoglobin measurement (moles/volume) Blood hemoglobin measurement (moles/volume) 12.6 14.0 - 18.0 05/13/2018 [facility] Blood leukocytes automated count (number/volume) Blood leukocytes automated count (number/volume) 6.93 4.8 - 10.8 05/13/2018 [facility] Blood lymphocytes count (number/volume) Blood lymphocytes count (number/volume) 1.0 1.0 - 3.2 05/13/2018 [facility] Blood monocytes automated count (number/volume) Blood monocytes automated count (number/volume) 0.5 0.2 - 0.8 05/13/2018 [facility] Estimated glomerular filtration rate (GFR) determination Estimated glomerular filtration rate (GFR) determination >60 60 05/13/2018 [facility] Glucose measurement Glucose measurement 222 74 - 118 05/13/2018 [facility] Plasma globulin measurement (mass/volume) Plasma globulin measurement (mass/volume) 4.3 2.3 - 3.5 05/13/2018 [facility] Serum or plasma alanine aminotransferase measurement (enzymatic activity/volume) Serum or plasma alanine aminotransferase measurement (enzymatic activity/volume) 24 0 - 55 05/13/2018 [facility] Serum or plasma albumin measurement (mass/volume) Serum or plasma albumin measurement (mass/volume) 3.1 3.5 - 5.0 05/13/2018 [facility] Serum or plasma albumin/globulin mass ratio Serum or plasma albumin/globulin mass ratio 0.7 0.8 - 2.0 05/13/2018 [facility] Serum or plasma alkaline phosphatase measurement (enzymatic activity/volume) Serum or plasma alkaline phosphatase measurement (enzymatic activity/volume) 65 40 - 150 05/13/2018 [facility] Serum or plasma anion gap Serum or plasma anion gap 15.6 8 - 16 05/13/2018 [facility] Serum or plasma calcium measurement (mass/volume) Serum or plasma calcium measurement (mass/volume) 9.6 8.4 - 10.2 05/13/2018 [facility] Serum or plasma carbon dioxide, total measurement (moles/volume) Serum or plasma carbon dioxide, total measurement (moles/volume) 28 22 - 29 05/13/2018 [facility] Serum or plasma chloride measurement (moles/volume) Serum or plasma chloride measurement (moles/volume) 99 98 - 107 05/13/2018 [facility] Serum or plasma creatinine measurement (mass/volume) Serum or plasma creatinine measurement (mass/volume) 0.87 0.72 - 1.25 05/13/2018 [facility] Serum or plasma potassium measurement (moles/volume) Serum or plasma potassium measurement (moles/volume) 3.6 3.5 - 5.1 05/13/2018 [facility] Serum or plasma protein measurement (mass/volume) Serum or plasma protein measurement (mass/volume) 7.4 6.5 - 8.1 05/13/2018 [facility] Serum or plasma sodium measurement (moles/volume) Serum or plasma sodium measurement (moles/volume) 139 136 - 145 05/13/2018 [facility] Serum or plasma total bilirubin measurement (mass/volume) Serum or plasma total bilirubin measurement (mass/volume) 0.5 0.2 - 1.2 05/13/2018 [facility] Serum or plasma urea nitrogen measurement (mass/volume) Serum or plasma urea nitrogen measurement (mass/volume) 12 7 - 26 05/13/2018 [facility] Serum or plasma urea nitrogen/creatinine mass ratio Serum or plasma urea nitrogen/creatinine mass ratio 14 6 - 25 05/13/2018 [facility] Red Cell Distribution Width 13.7 11.7 - 14.4 05/13/2018 [facility] IM GRANULOCYTES % 1.9 0.0 - 1.0 05/13/2018 [facility] Absolute Immature Granulocyte (auto 0.13 0 - 0.1 05/13/2018 [facility] Aspartate Amino Transf (AST/SGOT) 19 5 - 34 05/13/2018 [facility] Automated urine sediment leukocyte count by microscopy (number/high power field) Automated urine sediment leukocyte count by microscopy (number/high power field) <5 0 - 5 05/11/2018 [facility] Bacteria detection in urine sediment by light microscopy Bacteria detection in urine sediment by light microscopy RARE NONE 05/11/2018 [facility] Epithelial cells detection in urine sediment by light microscopy Epithelial cells detection in urine sediment by light microscopy FEW NONE 05/11/2018 [facility] Erythrocytes detection in urine sediment by light microscopy Erythrocytes detection in urine sediment by light microscopy <50 0 - 5 05/11/2018 [facility] Hyaline casts detection in urine sediment by light microscopy Hyaline casts detection in urine sediment by light microscopy <1 0 - 1 05/11/2018 [facility] Specific gravity of Urine by Test strip Specific gravity of Urine by Test strip 1.010 1.010 - 1.025 05/11/2018 [facility] Transitional cells detection in urine sediment by light microscopy Transitional cells detection in urine sediment by light microscopy FEW NONE 05/11/2018 [facility] Urine clarity Urine clarity CLEAR CLEAR 05/11/2018 [facility] Urine color determination Urine color determination YELLOW YELLOW 05/11/2018 [facility] Urine erythrocytes detection Urine erythrocytes detection 1+ NEGATIVE 05/11/2018 [facility] Urine glucose detection Urine glucose detection 2+ NEGATIVE 05/11/2018 [facility] Urine ketones detection by automated test strip Urine ketones detection by automated test strip NEGATIVE NEGATIVE 05/11/2018 [facility] Urine leukocyte esterase detection by dipstick Urine leukocyte esterase detection by dipstick TRACE NEGATIVE 05/11/2018 [facility] Urine nitrite detection Urine nitrite detection NEGATIVE NEGATIVE 05/11/2018 [facility] Urine pH measurement by automated test strip Urine pH measurement by automated test strip 8 5 - 7 05/11/2018 [facility] Urine protein measurement by test strip (mass/volume) Urine protein measurement by test strip (mass/volume) NEGATIVE NEGATIVE 05/11/2018 [facility] Urine total bilirubin measurement (mass/volume) Urine total bilirubin measurement (mass/volume) NEGATIVE NEGATIVE 05/11/2018 [facility] Urine urobilinogen measurement by test strip (mass/volume) Urine urobilinogen measurement by test strip (mass/volume) 0.2 0.2 - 1 05/11/2018 [facility] Blood culture Blood culture NO GROWTH AFTER 72 HOURS 05/10/2018 [facility] Serum or plasma trough vancomycin level at trough (mass/volume) Serum or plasma trough vancomycin level at trough (mass/volume) 24.3 5.0 - 10.0 05/06/2018 [facility] Blood anisocytosis detection by light microscopy Blood anisocytosis detection by light microscopy SLIGHT 05/06/2018 [facility] Blood platelets count by estimate (number/volume) Blood platelets count by estimate (number/volume) ADEQUATE 05/06/2018 [facility] Platelet morphology Platelet morphology NORMAL 05/06/2018 [facility] RBC morphology RBC morphology NORMAL 05/06/2018 [facility] Serum or plasma cholesterol in HDL measurement (mass/volume) Serum or plasma cholesterol in HDL measurement (mass/volume) 41 40 - 60 05/06/2018 [facility] Serum or plasma cholesterol in LDL measurement (mass/volume) Serum or plasma cholesterol in LDL measurement (mass/volume) 99 60 - 130 05/06/2018 [facility] Serum or plasma cholesterol measurement (mass/volume) Serum or plasma cholesterol measurement (mass/volume) 151 0 - 199 05/06/2018 [facility] Serum or plasma thyrotropin measurement by detection limit <=0.005 miu/l (units/volume) Serum or plasma thyrotropin measurement by detection limit <=0.005 miu/l (units/volume) 0.930 0.350 - 4.940 05/06/2018 [facility] Serum or plasma total cholesterol/cholesterol in HDL mass ratio Serum or plasma total cholesterol/cholesterol in HDL mass ratio 3.7 3.9 - 4.7 05/06/2018 [facility] Serum or plasma triglyceride measurement (mass/volume) Serum or plasma triglyceride measurement (mass/volume) 55 0 - 149 05/06/2018 [facility] Bacterial blood culture Bacterial blood culture Organism: STAPHYLOCOCCUS AUREUS 05/05/2018 [facility] Lactic Acid Level 13.2 4.5 - 19.8 05/05/2018 [facility] Serum or plasma creatine kinase MB measurement (mass/volume) Serum or plasma creatine kinase MB measurement (mass/volume) 2.40 0 - 5.0 05/04/2018 [facility] Serum or plasma creatine kinase measurement (enzymatic activity/volume) Serum or plasma creatine kinase measurement (enzymatic activity/volume) 532 30 - 200 05/04/2018 [facility] Troponin I measurement by highly sensitive enzyme immunoassay Troponin I measurement by highly sensitive enzyme immunoassay 0.197 0 - 0.300 05/04/2018 [facility] Serum or plasma magnesium measurement (mass/volume) Serum or plasma magnesium measurement (mass/volume) 1.8 1.3 - 2.1 05/04/2018 [facility] Manual blood lymphocytes/100 leukocytes Manual blood lymphocytes/100 leukocytes 7 19 - 48 05/03/2018 [facility] Manual blood monocytes/100 leukocytes Manual blood monocytes/100 leukocytes 8 3.4 - 9.0 05/03/2018 [facility] Manual blood neutrophils/100 leukocytes Manual blood neutrophils/100 leukocytes 85 40 - 74 05/03/2018 [facility] Differential Total Cells Counted 100 05/03/2018 [facility] Mucus detection in urine sediment by light microscopy Mucus detection in urine sediment by light microscopy FEW RARE 05/02/2018 [facility] Activated partial thromboplastin time (aPTT) in platelet poor plasma bycoagulation assay Activated partial thromboplastin time (aPTT) in platelet poor plasma bycoagulation assay 33.6 23.8 - 35.5 05/02/2018 [facility] Fibrin D-dimer DDU measurement in platelet poor plasma (mass/volume) Fibrin D-dimer DDU measurement in platelet poor plasma (mass/volume) 0.75 0.00 - 0.45 05/02/2018 [facility] INR in Platelet poor plasma by Coagulation assay INR in Platelet poor plasma by Coagulation assay 0.96 05/02/2018 [facility] Prothrombin time (PT) in platelet poor plasma by coagulation assay Prothrombin time (PT) in platelet poor plasma by coagulation assay 13.7 11.9 - 14.5 05/02/2018 [facility] Serum or plasma lipase measurement (enzymatic activity/volume) Serum or plasma lipase measurement (enzymatic activity/volume) <4 8 - 78 05/02/2018 [facility] B-Type Natriuretic Peptide 140.5 0 - 100 05/02/2018 [facility] Bacterial urine culture Bacterial urine culture Urine Culture [facility] Pathology Reports No Data Provided for [...] Date DC Date Status Source Discharged Inpatient [id number] GILBERT NAVARRO MD 05/02/2018 05/13/2018 [facility] Procedures Procedure Code Date Perfomer Comments Source Computed tomography of chest with contrast [id number] 05/10/2018 [facility] MRI joint extremity upper wo then w contrast [id number] 05/05/2018 [facility] Computed tomography of abdomen and pelvis with contrast [id number] 05/04/2018 [facility] Computed tomography of soft tissues of neck with contrast [id number] 05/04/2018 [facility] Assessment and Plan No Data Provided for This Section Plan of Care Plan of Care Date Source Discharge Date 05/13/18 12:14pm Disposition HOME, SELF-CARE Instructions/Education Provided Pneumonia - Bacterial Prescriptions See Medication Section Additional Instructions/Education Follow up in [address] Navarro 05/13/2018 [facility] Social History Social History Date Source [...] Start Date Stop Date Never Smoker 05/13/2018 [facility] Family History No Data Provided for This Section Advance Directives Order Name Results Value Date Source Advance Directives Advance Directives Directive Response Recorded Date/Time Does the patient have an advance directive? Yes 05/03/18 2:25am If yes, is advance directive on file with [facility]? Yes 05/03/18 2:25am If not on file with [facility] will patient provide a copy? Yes 05/03/18 2:25am Do you have a Directive to Physician? No 05/02/18 8:46pm Do you have a Medical Power of Certified Orthotist Practice Manager? No 05/02/18 8:46pm Do you have an [...] rights and responsibilities? Yes 05/02/18 8:46pm 05/13/2018 [facility] Functional Status No Data Provided for This Section
--- OUTSIDE RECORDS SUMMARY | 2019-04-18 13:38 | XMS REPORT | Continuity of Care Document ---
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 [...] Cellulitis of left leg Active Problem 05/13/2018 [facility] Dyspnea Active Problem 05/13/2018 [facility] Pneumonia Active Problem 05/13/2018 [facility] Renal failure , acute on chronic Active Problem 05/13/2018 [facility] Medications Medication Details Route Status Patient Instructions Ordering Provider Order Date Source Amlodipine Besylate 1 tablet Orally Active 5 MG Orally Once a day Krystal 03/14/2018 Roger Luis Manuel Rice Aspirin 325 Mg Tablet, 325 Mg Oral Daily Active 11/13/2016 [facility] Irbesartan (Avapro) 75 Mg Tablet, 75 Mg Oral Twice A Day Active 11/13/2016 [facility] Silodosin (Rapaflo) 8 Mg Capsule, 8 Mg Oral Daily Active 07/20/2015 [facility] Warfarin Sodium (Coumadin) 5 Mg Tablet, 5 Mg Oral Today At 5:00PM Active 05/14/2015 [facility] Amphet Asp/Amphet/D-Amphet (Adderall 5 Mg Tablet) 5 Mg Tablet, 5 Mg Oral Twice A Day Active 05/11/2015 [facility] Cephalexin Monohydrate (Keflex) 500 Mg Capsule, Mg Oral Twice A Day Active 05/11/2015 [facility] Hydrocodone Bit/Acetaminophen ([place] 10-325 Tablet) 1 Each Tablet, 1 Tab Oral Every 4 Hours Active 05/11/2015 [facility] Insulin Detemir (Levemir) 100 Unit/1 Ml Vial, 40 Sub-Q Twice A Day Active 05/11/2015 [facility] Insulin Lispro (Humalog) 100 Unit/1 Ml Insuln.pen, 40 Sub-Q Three Times A Day Active 05/11/2015 [facility] Torsemide (Demadex) 20 Mg Tablet, 20 Mg Oral Twice A Day Active 11/24/2014 [facility] Insulin Aspart (Novolog) 100 Units/Ml Ml, 40 Sub-Q Before Meals Active 11/23/2014 [facility] Polyethylene Glycol 3350 (Miralax) 17 Gm Powd.pack, 1 Pkt Oral Every Morning Active 11/22/2014 [facility] Potassium Chloride 10 Meq Tablet.er, 10 Meq Oral Twice A Day Active 11/22/2014 [facility] Dabigatran Etexilate Mesylate (Pradaxa) 150 Mg Capsule, 150 Mg Oral Twice A Day Active 08/21/2014 [facility] Amphet Asp/Amphet/D-Amphet (Adderall 20 Mg Tablet) 20 Mg Tablet, 20 Mg Oral Twice A Day Active 08/14/2013 [facility] Irbesartan (Avapro) 300 Mg Tablet, 150 Mg Oral Daily Active 08/14/2013 [facility] Metolazone 5 Mg Tablet, 5 Mg Oral Daily Active 08/14/2013 [facility] Valsartan/Hydrochlorothiazide (Diovan Hct 160-12.5 Mg Tab) 1 Each Tablet, 1 Tab Oral Daily Active 08/14/2013 [facility] Dutasteride (Avodart) 0.5 Mg Capsule, Daily Active 02/13/2013 [facility] Methocarbamol (Robaxin-750) 750 Mg Tablet, Twice A Day Active 02/13/2013 [facility] Eylmkwa99edago Daily , Active 02/13/2013 [facility] Valsartan/Hydrochlorothiazide (Diovan Hct 160-12.5 Mg Tab) 1 Each Tablet, 1 Each Oral Twice A Day Active 02/13/2013 [facility] Amlodipine Besylate 1 tablet Orally Active 5 MG Orally Once a day Krystal Rice Amlodipine Besylate TAKE 1 TABLET BY MOUTH EVERY DAY by mouth Active 5 MG by mouth once a day Krystal Rice Alprazolam (Xanax) 0.5 Mg Tablet Bedtime Active [facility] Amlodipine Besylate 5 Mg Tablet Daily Active [facility] Amphet Asp/Amphet/D-Amphet (Adderall 20 Mg Tablet) 20 Mg Tablet Every 12 Hours Active [facility] Docusate Calcium (Stool Softener) 240 Mg Capsule Daily Active [facility] Gabapentin 300 Mg Capsule Three Times A Day Active [facility] Hydrocodone Bit/Acetaminophen ([place]e 10-325 Tablet) 1 Each Tablet Daily Active [facility] Insulin Aspart (Novolog) 100 Unit/1 Ml Cartridge Before Meals Active [facility] Insulin Detemir (Levemir) 100 Unit/1 Ml Vial Twice A Day Active [facility] Lisinopril (Prinavil / Zestril) 20 Mg Tablet Twice A Day Active [facility] Metformin Hcl (Glucophage) 500 Mg Tablet Twice A Day Active [facility] Metolazone 5 Mg Tablet Daily Active [facility] Metoprolol Tartrate 50 Mg Tablet Twice A Day Active [facility] Minoxidil 2.5 Mg Tablet Daily Active [facility] Movantik Daily Active [facility] Silodosin (Rapaflo) 8 Mg Capsule Daily Active [facility] Sucralfate (Carafate) 1 Gm/10 Ml Oral.susp Daily Active [facility] Torsemide (Demadex) 10 Mg Tablet Daily Active [facility] Allergies, Adverse Reactions, Alerts Substance Category Reaction Severity Reaction type Status Date Reported Comments Source No Known Drug Allergies Mild Allergy to Substance Active 05/02/2018 [facility] Immunizations No Data Provided for This Section Results Order Name Results Value Reference Range Date Interpretation Comments Source Capillary blood glucose measurement by glucometer (mass/volume) Capillary blood glucose measurement by glucometer (mass/volume) 163 70 - 120 05/13/2018 [facility] Automated blood basophil count (count/volume) Automated blood basophil count (count/volume) 0.0 0.0 - 0.1 05/13/2018 [facility] Automated blood basophil count as percentage of total leukocytes Automated blood basophil count as percentage of total leukocytes 0.3 0.0 - 1.0 05/13/2018 [facility] Automated blood eosinophil count Automated blood eosinophil count 0.1 0.0 - 0.4 05/13/2018 [facility] Automated blood eosinophil count as percentage of total leukocytes Automated blood eosinophil count as percentage of total leukocytes 2.0 0.0 - 6.0 05/13/2018 [facility] Automated blood hematocrit (volume fraction) Automated blood hematocrit (volume fraction) 39.6 38.2 - 49.6 05/13/2018 [facility] Automated blood lymphocyte count as percentage ot total leukocytes Automated blood lymphocyte count as percentage ot total leukocytes 15.0 18.0 - 39.1 05/13/2018 [facility] Automated blood monocyte count as percentage of total leukocytes Automated blood monocyte count as percentage of total leukocytes 7.1 4.4 - 11.3 05/13/2018 [facility] Automated blood neutrophil count Automated blood neutrophil count 5.1 2.1 - 6.9 05/13/2018 [facility] Automated blood platelet count (count/volume) Automated blood platelet count (count/volume) 300 140 - 360 05/13/2018 [facility] Automated blood segmented neutrophil count as percentage of total leukocytes Automated blood segmented neutrophil count as percentage of total leukocytes 73.7 38.7 - 80.0 05/13/2018 [facility] Automated erythrocyte mean corpuscular hemoglobin (mass per erythrocyte) Automated erythrocyte mean corpuscular hemoglobin (mass per erythrocyte) 28.1 28 - 32 05/13/2018 [facility] Automated erythrocyte mean corpuscular hemoglobin concentration measurement (mass/volume) Automated erythrocyte mean corpuscular hemoglobin concentration measurement (mass/volume) 31.8 31 - 35 05/13/2018 [facility] Automated erythrocyte mean corpuscular volume Automated erythrocyte mean corpuscular volume 88.2 81 - 99 05/13/2018 [facility] Blood erythrocytes automated count (number/volume) Blood erythrocytes automated count (number/volume) 4.49 4.3 - 5.7 05/13/2018 [facility] Blood hemoglobin measurement (moles/volume) Blood hemoglobin measurement (moles/volume) 12.6 14.0 - 18.0 05/13/2018 [facility] Blood leukocytes automated count (number/volume) Blood leukocytes automated count (number/volume) 6.93 4.8 - 10.8 05/13/2018 [facility] Blood lymphocytes count (number/volume) Blood lymphocytes count (number/volume) 1.0 1.0 - 3.2 05/13/2018 [facility] Blood monocytes automated count (number/volume) Blood monocytes automated count (number/volume) 0.5 0.2 - 0.8 05/13/2018 [facility] Estimated glomerular filtration rate (GFR) determination Estimated glomerular filtration rate (GFR) determination >60 60 05/13/2018 [facility] Glucose measurement Glucose measurement 222 74 - 118 05/13/2018 [facility] Plasma globulin measurement (mass/volume) Plasma globulin measurement (mass/volume) 4.3 2.3 - 3.5 05/13/2018 [facility] Serum or plasma alanine aminotransferase measurement (enzymatic activity/volume) Serum or plasma alanine aminotransferase measurement (enzymatic activity/volume) 24 0 - 55 05/13/2018 [facility] Serum or plasma albumin measurement (mass/volume) Serum or plasma albumin measurement (mass/volume) 3.1 3.5 - 5.0 05/13/2018 [facility] Serum or plasma albumin/globulin mass ratio Serum or plasma albumin/globulin mass ratio 0.7 0.8 - 2.0 05/13/2018 [facility] Serum or plasma alkaline phosphatase measurement (enzymatic activity/volume) Serum or plasma alkaline phosphatase measurement (enzymatic activity/volume) 65 40 - 150 05/13/2018 [facility] Serum or plasma anion gap Serum or plasma anion gap 15.6 8 - 16 05/13/2018 [facility] Serum or plasma calcium measurement (mass/volume) Serum or plasma calcium measurement (mass/volume) 9.6 8.4 - 10.2 05/13/2018 [facility] Serum or plasma carbon dioxide, total measurement (moles/volume) Serum or plasma carbon dioxide, total measurement (moles/volume) 28 22 - 29 05/13/2018 [facility] Serum or plasma chloride measurement (moles/volume) Serum or plasma chloride measurement (moles/volume) 99 98 - 107 05/13/2018 [facility] Serum or plasma creatinine measurement (mass/volume) Serum or plasma creatinine measurement (mass/volume) 0.87 0.72 - 1.25 05/13/2018 [facility] Serum or plasma potassium measurement (moles/volume) Serum or plasma potassium measurement (moles/volume) 3.6 3.5 - 5.1 05/13/2018 [facility] Serum or plasma protein measurement (mass/volume) Serum or plasma protein measurement (mass/volume) 7.4 6.5 - 8.1 05/13/2018 [facility] Serum or plasma sodium measurement (moles/volume) Serum or plasma sodium measurement (moles/volume) 139 136 - 145 05/13/2018 [facility] Serum or plasma total bilirubin measurement (mass/volume) Serum or plasma total bilirubin measurement (mass/volume) 0.5 0.2 - 1.2 05/13/2018 [facility] Serum or plasma urea nitrogen measurement (mass/volume) Serum or plasma urea nitrogen measurement (mass/volume) 12 7 - 26 05/13/2018 [facility] Serum or plasma urea nitrogen/creatinine mass ratio Serum or plasma urea nitrogen/creatinine mass ratio 14 6 - 25 05/13/2018 [facility] Red Cell Distribution Width 13.7 11.7 - 14.4 05/13/2018 [facility] IM GRANULOCYTES % 1.9 0.0 - 1.0 05/13/2018 [facility] Absolute Immature Granulocyte (auto 0.13 0 - 0.1 05/13/2018 [facility] Aspartate Amino Transf (AST/SGOT) 19 5 - 34 05/13/2018 [facility] Automated urine sediment leukocyte count by microscopy (number/high power field) Automated urine sediment leukocyte count by microscopy (number/high power field) <5 0 - 5 05/11/2018 [facility] Bacteria detection in urine sediment by light microscopy Bacteria detection in urine sediment by light microscopy RARE NONE 05/11/2018 [facility] Epithelial cells detection in urine sediment by light microscopy Epithelial cells detection in urine sediment by light microscopy FEW NONE 05/11/2018 [facility] Erythrocytes detection in urine sediment by light microscopy Erythrocytes detection in urine sediment by light microscopy <50 0 - 5 05/11/2018 [facility] Hyaline casts detection in urine sediment by light microscopy Hyaline casts detection in urine sediment by light microscopy <1 0 - 1 05/11/2018 [facility] Specific gravity of Urine by Test strip Specific gravity of Urine by Test strip 1.010 1.010 - 1.025 05/11/2018 [facility] Transitional cells detection in urine sediment by light microscopy Transitional cells detection in urine sediment by light microscopy FEW NONE 05/11/2018 [facility] Urine clarity Urine clarity CLEAR CLEAR 05/11/2018 [facility] Urine color determination Urine color determination YELLOW YELLOW 05/11/2018 [facility] Urine erythrocytes detection Urine erythrocytes detection 1+ NEGATIVE 05/11/2018 [facility] Urine glucose detection Urine glucose detection 2+ NEGATIVE 05/11/2018 [facility] Urine ketones detection by automated test strip Urine ketones detection by automated test strip NEGATIVE NEGATIVE 05/11/2018 [facility] Urine leukocyte esterase detection by dipstick Urine leukocyte esterase detection by dipstick TRACE NEGATIVE 05/11/2018 [facility] Urine nitrite detection Urine nitrite detection NEGATIVE NEGATIVE 05/11/2018 [facility] Urine pH measurement by automated test strip Urine pH measurement by automated test strip 8 5 - 7 05/11/2018 [facility] Urine protein measurement by test strip (mass/volume) Urine protein measurement by test strip (mass/volume) NEGATIVE NEGATIVE 05/11/2018 [facility] Urine total bilirubin measurement (mass/volume) Urine total bilirubin measurement (mass/volume) NEGATIVE NEGATIVE 05/11/2018 [facility] Urine urobilinogen measurement by test strip (mass/volume) Urine urobilinogen measurement by test strip (mass/volume) 0.2 0.2 - 1 05/11/2018 [facility] Blood culture Blood culture NO GROWTH AFTER 72 HOURS 05/10/2018 [facility] Serum or plasma trough vancomycin level at trough (mass/volume) Serum or plasma trough vancomycin level at trough (mass/volume) 24.3 5.0 - 10.0 05/06/2018 [facility] Blood anisocytosis detection by light microscopy Blood anisocytosis detection by light microscopy SLIGHT 05/06/2018 [facility] Blood platelets count by estimate (number/volume) Blood platelets count by estimate (number/volume) ADEQUATE 05/06/2018 [facility] Platelet morphology Platelet morphology NORMAL 05/06/2018 [facility] RBC morphology RBC morphology NORMAL 05/06/2018 [facility] Serum or plasma cholesterol in HDL measurement (mass/volume) Serum or plasma cholesterol in HDL measurement (mass/volume) 41 40 - 60 05/06/2018 [facility] Serum or plasma cholesterol in LDL measurement (mass/volume) Serum or plasma cholesterol in LDL measurement (mass/volume) 99 60 - 130 05/06/2018 [facility] Serum or plasma cholesterol measurement (mass/volume) Serum or plasma cholesterol measurement (mass/volume) 151 0 - 199 05/06/2018 [facility] Serum or plasma thyrotropin measurement by detection limit <=0.005 miu/l (units/volume) Serum or plasma thyrotropin measurement by detection limit <=0.005 miu/l (units/volume) 0.930 0.350 - 4.940 05/06/2018 [facility] Serum or plasma total cholesterol/cholesterol in HDL mass ratio Serum or plasma total cholesterol/cholesterol in HDL mass ratio 3.7 3.9 - 4.7 05/06/2018 [facility] Serum or plasma triglyceride measurement (mass/volume) Serum or plasma triglyceride measurement (mass/volume) 55 0 - 149 05/06/2018 [facility] Bacterial blood culture Bacterial blood culture Organism: STAPHYLOCOCCUS AUREUS 05/05/2018 [facility] Lactic Acid Level 13.2 4.5 - 19.8 05/05/2018 [facility] Serum or plasma creatine kinase MB measurement (mass/volume) Serum or plasma creatine kinase MB measurement (mass/volume) 2.40 0 - 5.0 05/04/2018 [facility] Serum or plasma creatine kinase measurement (enzymatic activity/volume) Serum or plasma creatine kinase measurement (enzymatic activity/volume) 532 30 - 200 05/04/2018 [facility] Troponin I measurement by highly sensitive enzyme immunoassay Troponin I measurement by highly sensitive enzyme immunoassay 0.197 0 - 0.300 05/04/2018 [facility] Serum or plasma magnesium measurement (mass/volume) Serum or plasma magnesium measurement (mass/volume) 1.8 1.3 - 2.1 05/04/2018 [facility] Manual blood lymphocytes/100 leukocytes Manual blood lymphocytes/100 leukocytes 7 19 - 48 05/03/2018 [facility] Manual blood monocytes/100 leukocytes Manual blood monocytes/100 leukocytes 8 3.4 - 9.0 05/03/2018 [facility] Manual blood neutrophils/100 leukocytes Manual blood neutrophils/100 leukocytes 85 40 - 74 05/03/2018 [facility] Differential Total Cells Counted 100 05/03/2018 [facility] Mucus detection in urine sediment by light microscopy Mucus detection in urine sediment by light microscopy FEW RARE 05/02/2018 [facility] Activated partial thromboplastin time (aPTT) in platelet poor plasma bycoagulation assay Activated partial thromboplastin time (aPTT) in platelet poor plasma bycoagulation assay 33.6 23.8 - 35.5 05/02/2018 [facility] Fibrin D-dimer DDU measurement in platelet poor plasma (mass/volume) Fibrin D-dimer DDU measurement in platelet poor plasma (mass/volume) 0.75 0.00 - 0.45 05/02/2018 [facility] INR in Platelet poor plasma by Coagulation assay INR in Platelet poor plasma by Coagulation assay 0.96 05/02/2018 [facility] Prothrombin time (PT) in platelet poor plasma by coagulation assay Prothrombin time (PT) in platelet poor plasma by coagulation assay 13.7 11.9 - 14.5 05/02/2018 [facility] Serum or plasma lipase measurement (enzymatic activity/volume) Serum or plasma lipase measurement (enzymatic activity/volume) <4 8 - 78 05/02/2018 [facility] B-Type Natriuretic Peptide 140.5 0 - 100 05/02/2018 [facility] Bacterial urine culture Bacterial urine culture Urine Culture [facility] Pathology Reports No Data Provided for This [...] Date DC Date Status Source Discharged Inpatient [id number] GILBERT NAVARRO MD 05/02/2018 05/13/2018 [facility] Procedures Procedure Code Date Perfomer Comments Source Computed tomography of chest with contrast [id number] 05/10/2018 [facility] MRI joint extremity upper wo then w contrast [id number] 05/05/2018 [facility] Computed tomography of abdomen and pelvis with contrast [id number] 05/04/2018 [facility] Computed tomography of soft tissues of neck with contrast [id number] 05/04/2018 [facility] Assessment and Plan No Data Provided for This Section Plan of Care Plan of Care Date Source Discharge Date 05/13/18 12:14pm Disposition HOME, SELF-CARE Instructions/Education Provided Pneumonia - Bacterial Prescriptions See Medication Section Additional Instructions/Education Follow up in [address] Navarro 05/13/2018 [facility] Social History Social History Date Source Social [...] Start Date Stop Date Never Smoker 05/13/2018 [facility] Family History No Data Provided for This Section Advance Directives Order Name Results Value Date Source Advance Directives Advance Directives Directive Response Recorded Date/Time Does the patient have an advance directive? Yes 05/03/18 2:25am If yes, is advance directive on file with [facility]? Yes 05/03/18 2:25am If not on file with [facility] will patient provide a copy? Yes 05/03/18 2:25am Do you have a Directive to Physician? No 05/02/18 8:46pm Do you have a Medical Power of Biological Photographer? No 05/02/18 8:46pm Do you have an [...] rights and responsibilities? Yes 05/02/18 8:46pm 05/13/2018 [facility] Functional Status No Data Provided for This Section
--- OUTSIDE RECORDS SUMMARY | 2019-04-18 13:38 | XMS REPORT | Clinical Summary ---
Author Author [facility] [employer] Organization [facility] Address Unknown Phone Unavailable Care Team Providers Care Junior Oracle Dba Name Role Phone Manoj Navarro MD PCP [...] MMODE SPECTRAL 7:48 AM CDT COLOR DOPPLER ([id number]) POC GLUCOSE Routine 01/14/2019 5:37 AM CDT [...] glucose 190 (H) 65 - 99 mg/dL RONCO Comment: BAPTISM CLEAR Meter ID: [id number] [facility] Inspector Crystal: Paras Quevedo Specimen Performing Organization Address City/State/Zipcode Phone Number [place] [address] [place] [address] PATHOLOGY AND GENOMIC MEDICINE [facility] [id number] [place] [address] * Estimated GFR (01/15/2019 5:01 AM CDT) Only the most recent of 5 results within the time period is included. Estimated GFR 88 mL/min/1.73 m2 RONCO Comment: [facility] rpretation G1 >=90 Normal or high G2 60-89Mildly decreased T9d08-22 Mildly to moderately decreased O6u40-23 Moderately to severely decreased G4 15-29Severely decreased G5 <15Kidney failure The eGFR was calculated using the Chronic Kidney Disease Epidemiology Collaboration (CKD-EPI) equation. Interpretation is based on recommendations of the National Kidney Foundation-Kidney Disease Outcomes Quality Initiative (NKF-KDOQI) published in 2014. Specimen Plasma specimen Performing Organization Address City/[facility] Phone Number [facility] DEPARTMENT [address] [place] [address] PATHOLOGY AND GENOMIC MEDICINE [address] * Creatinine level (01/15/2019 5:01 AM CDT) Pathologist [facility] Creatinine 0.80 0.70 - 1.20 mg/dL [facility] Specimen Plasma specimen Performing Organization Address [facility] Phone Number [facility] DEPARTMENT [address] [place] [address] PATHOLOGY AND GENOMIC MEDICINE [address] * XR Chest 2 Vw (01/14/2019 5:18 PM CDT) Specimen Narrative Performed At EXAMINATION:XR CHEST 2 VW HM RADIANT CLINICAL HISTORY:hypoxia COMPARISON:January 11 IMPRESSION: Atelectasis in left lower lobe small left-sided pleural effusion Heart remains slightly enlarged 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 [id number] Performing Organization Address City/State/Zipcode Phone Number MATT MONTEMAYOR [address] [place] [address] * CBC with platelet and differential (01/14/2019 11:55 AM CDT) Only the most recent of 3 results within the time period is included. WBC 8.64Comment: Called Raquel on 4.50 - 11.00 k/uL [address] 01/14/2019 16:19 [facility] RBC 3.74 (L) 4.40 - 6.00 m/uL [facility] HGB 10.6 (L) 14.0 - 18.0 g/dL [facility] HCT 33.8 (L) 41.0 - 51.0 % [facility] MCV 90.4 82.0 - 100.0 fL [facility] MCH 28.3 27.0 - 34.0 pg [facility] MCHC 31.4 31.0 - 37.0 g/dL [facility] RDW - SD 43.6 37.0 - 55.0 fL [facility] MPV 11.5 8.8 - 13.2 fL [facility] Platelet count 144 (L) 150 - 400 k/uL [facility] Nucleated RBC 0.00 /100 WBC [facility] Neutrophils 82.4 (H) 39.0 - 69.0 % [facility] Lymphocytes 9.6 (L) 25.0 - 45.0 % [facility] Monocytes 6.5 0.0 - 10.0 % [facility] Eosinophils 1.2 0.0 - 5.0 % [facility] Basophils 0.0 0.0 - 1.0 % [facility] Specimen Blood Performing Organization Address City/State/Zipcode [place] Number [place] [address] [place] [address] PATHOLOGY AND GENOMIC MEDICINE [facility] [id number] [place] [address] [place] [address] [facility] * Vancomycin level, trough (01/14/2019 11:55 AM CDT) Pathologist [facility] Vancomycin, 14.1 10.0 - 20.0 ug/mL RONCO trough Comment: [facility] Therapeutic Ranges: [facility] Peak 30.0 - 40.0 ug/mL Seuxkj49.0 - 20.0 ug/mL Specimen Serum Performing Organization Address [facility] Phone Number [facility] DEPARTMENT OF [address] [place] [address] [place] [address] PATHOLOGY AND GENOMIC MEDICINE [address] * Basic metabolic panel (01/14/2019 11:55 AM CDT) Only the most recent of 2 results within the time period is included. [facility] Sodium 138 135 - 148 mEq/L [facility] Potassium 4.3 3.5 - 5.0 mEq/L [facility] Chloride 101 98 - 112 mEq/L [facility] CO2 30 24 - 31 mEq/L [facility] Anion gap 7@ANIO 7 - 15 mEq/L [facility] BUN 19 8 - 23 mg/dL [facility] Creatinine 0.80 0.70 - 1.20 mg/dL [facility] Glucose 154 (H) 65 - 99 mg/dL [facility] Calcium 8.6 (L) 8.8 - 10.2 mg/dL [facility] Specimen Plasma specimen Performing Organization Address [facility] Phone Number [facility] DEPARTMENT OF [address] [place] [address] [place] [address] PATHOLOGY AND GENOMIC MEDICINE [address] * Echocardiogram complete w contrast and 3D if needed (01/14/2019 7:48 AM CDT) [facility] AoV Area, Vmax 3.18 cm2 SYNGO AoV [...] LV EF,BP 47.51 % HM [facility] [place],d A2C 9.97 cm HM [facility] [place],d A4C 9.69 cm HM [facility] [place],s A2C 8.67 cm HM [facility] [place],s A4C 8.64 cm HM [facility]NGO LV,s 4.48 [...] RA pressure 10-15 mmHg. Performing Organization Address City/[facility]/Zipcode Phone Number [facility] [address] [place] [address] * Us duplex venous lower extremity (01/13/2019 2:40 PM CDT) Specimen Narrative Performed At SYNGO There is no evidence of DVT in the left lower extremity and right common femoral vein. Performing Organization Address City/[facility] Phone Number [facility] [address] [place] [address] * Arterial blood gas (01/12/2019 3:58 PM CDT) pH, arterial 7.55 (H) 7.35 - 7.45 [facility] pCO2, arterial 28 (L) 35 - 45 mmHg [facility] pO2, arterial 232 (H) 80 - 90 mmHg [facility] Bicarbonate, 27.2 21.0 - 28.0 mmol/L [facility] Base excess, 3 (H) -2 - 2 mEq/L [facility] O2 saturation, 100 95 - 100 % [facility] FiO2, inspired 50 % RONCO O2% [facility] Specimen Blood Performing Organization Address City/[facility]/Zipcode Phone Number [facility] DEPARTMENT OF [address] [place] [address] [place] [address] PATHOLOGY AND GENOMIC MEDICINE [address] [place] [id number] [facility] * Troponin (01/12/2019 4:41 AM CDT) Only the most recent of 3 results within the time period is included. Pathologist [facility] Troponin 0.022 0.000 - 0.040 ng/mL RONCO Comment: [facility] changed methodology effective: 12/03/2018 at 10:00 am The new method has a 99th percentile cutoff of 0.040 ng/mL Specimen Plasma specimen Performing Organization Address [facility] Phone Number [facility] DEPARTMENT [address] [place] [address] PATHOLOGY AND GENOMIC MEDICINE [address] * Manual differential (01/12/2019 4:41 AM CDT) [facility] Manual PERFORMED RONCO differential [facility] Neutrophils 93.0 (H) 39.0 - 69.0 % [facility] Lymphocytes 1.0 (L) 25.0 - 45.0 % [facility] Monocytes 5.0 0.0 - 10.0 % [facility] Eosinophils 0.0 0.0 - 5.0 % [facility] Basophils 0.0 0.0 - 1.0 % [facility] Metamyelocytes 1 % [facility] Promyelocytes 0 % [facility] Platelet slide Brian adequate RONCO review [facility] Specimen Performing Organization Address [facility] Phone Number [facility] DEPARTMENT [place] [address] [place] [address] PATHOLOGY AND [facility] MEDICINE [address] [place] [address] * Magnesium level (01/12/2019 4:41 AM CDT) [facility] Magnesium 2.1 1.6 - 2.4 mg/dL [facility] Specimen Plasma specimen Performing Organization Address [facility] Phone Number [facility] DEPARTMENT [place] [address] [place] [address] PATHOLOGY AND GENOMIC MEDICINE [address] [place] [address] * Comprehensive metabolic panel (01/12/2019 4:41 AM CDT) Only the most recent of 2 results within the time period is included. Pathologist [facility] Sodium 132 (L) 135 - 148 mEq/L [facility] Potassium 5.2 (H) 3.5 - 5.0 mEq/L [facility] Chloride 97 (L) 98 - 112 mEq/L [facility] CO2 24 24 - 31 mEq/L [facility] Anion gap 11@ANIO 7 - 15 mEq/L [facility] BUN 28 (H) 8 - 23 mg/dL [facility] Creatinine 1.10 0.70 - 1.20 mg/dL [facility] Glucose 419 (HH) 65 - 99 mg/dL RONCO Comment: [facility] Results called to and read [facility] back by ZAFAR at 01/12/2019 05:21 by [id number]. Calcium 9.1 8.8 - 10.2 mg/dL [facility] Protein 6.1 (L) 6.3 - 8.3 g/dL RONCO Comment: [facility] 4.6-7.0 g/dL 1 week 4.4-7.6 g/dL 7 months-1year 5.1-7.3 g/dL 1-2 years5.6-7 .5 g/dL >3 years6.0-8 .0 g/dL 18-150 6.3-8.3 g/dL Albumin 3.6 3.5 - 5.0 g/dL [facility] A/G ratio 1.4 0.7 - 3.8 [facility] Alkaline 70 40 - 129 U/L RONCO phosphatase [facility] AST 14 10 - 50 U/L [facility] ALT 39 5 - 50 U/L [facility] Total bilirubin 1.0 0.0 - 1.2 mg/dL [facility] Specimen Plasma specimen Performing Organization Address City/State/Zipcode [place] Number [place] [address] [place] [address] PATHOLOGY AND GENOMIC MEDICINE [facility] [address] [place] [address] [facility] * Partial thromboplastin time, activated (01/11/2019 9:57 PM CDT) Pathologist [facility] PTT 27.9 23.0 - 36.0 sec RONCO Comment: [facility]OKES PTT therapeutic range for [facility] unfractionated heparin is 61.0-112.0 seconds which corresponds to Anti-Xa 0.3-0.7 U/ml. Specimen Blood Performing Organization Address [facility] Phone Number [facility] DE[facility] OF [facility] [place] [address] PATHOLOGY AND [facility] MEDICINE [address] [place] [address] * Prothrombin time with INR (01/11/2019 9:57 PM CDT) Pathologist [facility] Prothrombin 14.4 11.5 - 14.5 sec [facility] INR 1.2 RONCO Comment: [facility] STOKES The International Normalized [facility] Ratio (INR) is a therapeutic monitoring tool for patients who are stable on oral anticoagulant therapy. An INR of 2.0-3.0 is suggested for deep vein thrombosis/pulmonary embolism. Specimen Blood Performing Organization Address [facility] Phone Number [facility] DEPARTMENT [address] [place] [address] PATHOLOGY AND [facility] MEDICINE [address] [place] [address] * B natriuretic peptide (01/11/2019 9:57 PM CDT) Pathologist [facility] BNP 169 (H) 0 - 100 pg/mL [facility] Specimen Blood Performing Organization Address [facility] Phone Number [facility] DEPARTMENT [place] [address] [place] [address] PATHOLOGY AND [facility] MEDICINE [address] [place] [address] * Blood culture, aerobic & anaerobic (01/11/2019 9:50 PM CDT) Only the most recent of 2 results within the time period is included. Pathologist [facility] Blood culture No growth after 5 days of RONCO isolate incubation. BAPTISM Comment: HOSPITAL Specimen Information Specimen Source: Blood Specimen Site: Hand, right Specimen Blood - Hand, right Performing Organization Address City/[facility] Phone Number [facility] DEPARTMENT OF [address] [place] [address] PATHOLOGY AND GENOMIC MEDICINE [address] * XR Tibia Fibula 2 Vw Left (01/11/2019 9:30 PM CDT) Specimen Narrative Performed At EXAM:XR TIBIA FIBULA 2 VW LEFT RADIANT CLINICAL HISTORY:swelling LLE COMPARISON:None. IMPRESSION: No evidence of acute displaced fracture or dislocation of the left tibia or fibula. Soft tissues are unremarkable. Vascular calcifications are noted. Soft tissues are otherwise normal. [id number] Procedure Note Interface, Radiology Results Incoming - 01/11/2019 10:06 PM CDT EXAM: XR TIBIA FIBULA 2 VW LEFT CLINICAL HISTORY: swelling LLE COMPARISON: None. IMPRESSION: No evidence of acute displaced fracture or dislocation of the left tibia or fibula. Soft tissues are unremarkable. Vascular calcifications are noted. Soft tissues are otherwise normal. [id number] Performing Organization Address [facility] Phone Number [facility] [address] [place] [address] * XR Chest 1 Vw Portable (01/11/2019 [...] identified. No acute osseous abnormalities are visualized. [facility]-[id number] Procedure Note Interface, Radiology Results Incoming - [...] identified. No acute osseous abnormalities are visualized. [id number] Performing Organization Address [facility] Phone Number [facility] [address] [place] [address] * ECG ED Preliminary Interpretation - Not an Order (01/11/2019 9:00 PM CDT) Narrative Performed At Murali Choudhury MD 01/12/2019 12:36 AM ECG ED Preliminary Interpretation - Not an Order Performed by: Murali Choudhury MD Authorized by: Murali Choudhury MD ECG reviewed by ED Physician in the absence of a singer and unloader: yes Interpretation: Interpretation: normal Rate: ECG rate:78 ECG rate assessment: normal Rhythm: Rhythm: sinus rhythm Ectopy: Ectopy: none QRS: QRS axis:Normal QRS intervals:Normal Conduction: Conduction: normal ST segments: ST segments:Normal T waves: T waves: normal * ECG 12 lead (01/11/2019 8:48 PM CDT) Ventricular 78 [facility] rate Atrial rate 78 [facility] FL interval 196 [facility] QRSD interval 98 [...] At Performing Organization Address City/State/Zipcode Phone Number [facility] MUSE [address] [place] [address] after 04/17/2018 Insurance Type Payer Benefit Subscriber ID Effective Phone Address Plan / Dates Group Medicare MEDICARE MEDICARE xxxxxxxxxxx 2010-P RONCO, PART A AND resent [place] B Commercial COLONIAL COLONIAL xxxxxxxxxx 2010-P [facility] Advance Directives For more information, please contact: [phone] Patient Curing Bin Operator Explanation Type Date Recorded Advance Directives, 01/11/2019 12:00 AM Living Will and Medical Power of Group Dynamics Instructor Date Inactivated Comments Code Status Date Activated 01/15/2019 7:05 PM Full Code 01/12/2019 12:49 AM Code Status decision reached by: Patient
--- NOTE | 2019-04-18 13:56 | NUR ---
DR. NIEVES AT BEDSIDE SPEAKING WITH PT.
[2019-04-18] MEDS ORDERED: HYDROMORPHONE 1MG/1ML INJ IV STA (14:07)
[2019-04-18] MEDS ORDERED: ONDANSETRON HCL INJ 2MG/ML 2ML 2 MG/ML VIAL IV STA (14:07)
[2019-04-18] MEDS ORDERED: SODIUM CHLORIDE 0.9% 500ML 500 ML IV ONE (14:15)
--- NOTE | 2019-04-18 15:28 | Diagnostic Imaging Report ---
Left knee, 3 views Clinical indication: Fall, knee pain Comparison: No comparisons available for review Findings: 3 views of the left knee were obtained. There is no radiographic evidence of acute fracture or dislocation. There is mild medial compartment joint space narrowing. There is no sizable knee effusion. Note is made of vascular calcifications. Impression: Mild left knee medial compartment osteoarthrosis without radiographic evidence of acute fracture or dislocation. Signed by: Gary Jimenez MD on 04/18/2019 3:24 PM
--- NOTE | 2019-04-18 15:31 | Diagnostic Imaging Report ---
AP view of the pelvis on 2 radiographs Clinical indications: Fall, pain Comparison: None Findings: AP view of the pelvis was obtained on 2 radiographs. There is no radiographic evidence of acute fracture or dislocation. Degenerative changes of the lower lumbar spine are identified which are most pronounced at L4-L5 and L5-S1. Surgical clips overlie the right inguinal region Impression: No radiographic evidence of acute fracture or dislocation. Signed by: Gary Jimenez MD on 04/18/2019 3:27 PM
--- NOTE | 2019-04-18 15:35 | Diagnostic Imaging Report ---
Left femur, 2 views of 4 radiographs Fall, pain Comparison: None Findings: AP and lateral views of the left femur were obtained. There is no radiographic evidence of acute fracture or dislocation. Impression: No radiographic evidence of acute fracture or dislocation. Signed by: Gary Jimenez MD on 04/18/2019 3:32 PM
--- NOTE | 2019-04-18 15:57 | NUR ---
[facility] CALLED FOR TRANSPORT HOME.
== END 2019-04-18 16:53 | disposition home or self-care (01) ==
LOC: ER 13:35
DX: S80.02XA Contusion of left knee, initial encounter (principal); W01.0XXA Fall on same level from slipping, tripping and stumbling without subsequent striking against object, initial encounter; Y93.01 Activity, walking, marching and hiking; Y92.091 Bathroom in other non-institutional residence as the place of occurrence of the external cause; I10 Essential (primary) hypertension; E11.9 Type 2 diabetes mellitus without complications; I50.9 Heart failure, unspecified; K21.9 Gastro-esophageal reflux disease without esophagitis; F41.9 Anxiety disorder, unspecified
CPT/HCPCS: 72170; 73552; 73562; 99284; J1170; J2405; J7040

== ENCOUNTER 2019-04-20 08:27 | Inpatient (IN) | payer MEDICARE, OTHER ==
[~2019-04-20] VITALS: Ht 193 cm; Wt 102.3 kg
--- OUTSIDE RECORDS SUMMARY | 2019-04-20 08:33 | XMS REPORT | Clinical Summary ---
Author Author [employer] Organization [employer] Address Unknown Phone Unavailable Care Team Providers Care Area Intelligence Technician Name Role Phone Manoj Navarro MD PCP [...] Hospital General Surgery - Encounter 01/15/2019 after 04/19/2018 Social History Date Tobacco Use Types Packs/Day [...] MMODE SPECTRAL 7:48 AM CDT COLOR DOPPLER ([id number]) POC GLUCOSE Routine 01/14/2019 5:37 AM CDT [...] 12-LEAD STAT 01/11/2019 8:48 PM CDT after 04/19/2018 Results * POC glucose (01/15/2019 11:52 AM CDT) Only the most recent of 14 results within the time period is included. POC glucose 190 (H) 65 - 99 mg/dL [place] Comment: ALEVISM CLEAR Meter ID: [id number] [facility] Indian Blanket Weaver: Paras Quevedo Specimen Performing Organization Address City/State/Zipcode [place] [address] [place] [address] PATHOLOGY AND GENOMIC MEDICINE [facility] ALICE [id number] [place] [address] * Estimated GFR (01/15/2019 5:01 AM CDT) Only the most recent of 5 results within the time period is included. Estimated GFR 88 mL/min/1.73 m2 [place] Comment: [facility] rpretation G1 >=90 Normal or high G2 60-89Mildly decreased [id number] Mildly to moderately decreased [id number] Moderately to severely decreased G4 15-29Severely decreased G5 <15Kidney failure The eGFR was calculated using the Chronic Kidney Disease Epidemiology Collaboration (CKD-EPI) equation. Interpretation is based on recommendations of the National Kidney Foundation-Kidney Disease Outcomes Quality Initiative (NKF-KDOQI) published in 2014. Specimen Plasma specimen Performing Organization Address City/[facility] Phone Number [facility] DEPARTMENT [address] [place] [address] PATHOLOGY AND GENOMIC MEDICINE [address] * Creatinine level (01/15/2019 5:01 AM CDT) Pathologist [facility] Creatinine 0.80 0.70 - 1.20 mg/dL [facility] Specimen Plasma specimen Performing Organization Address [facility] Phone Number [facility] DEPARTMENT [address] [place] [address] PATHOLOGY AND GENOMIC MEDICINE [address] * XR Chest 2 Vw (01/14/2019 5:18 PM CDT) Specimen Narrative Performed At EXAMINATION:XR CHEST 2 VW HM [facility] CLINICAL HISTORY:hypoxia COMPARISON:January 11 IMPRESSION: Atelectasis in left lower lobe small left-sided pleural effusion Heart remains slightly enlarged 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 [id number] Performing Organization Address City/State/Zipcode Phone Number MATT MONTEMAYOR [address] [place] [address] * CBC with platelet and differential (01/14/2019 11:55 AM CDT) Only the most recent of 3 results within the time period is included. WBC 8.64Comment: Called Raquel on 4.50 - 11.00 k/uL [address] 01/14/2019 16:19 [facility] RBC 3.74 (L) 4.40 - 6.00 m/uL [facility] HGB 10.6 (L) 14.0 - 18.0 g/dL [facility] HCT 33.8 (L) 41.0 - 51.0 % [facility] MCV 90.4 82.0 - 100.0 fL [facility] MCH 28.3 27.0 - 34.0 pg [facility] MCHC 31.4 31.0 - 37.0 g/dL [facility] RDW - SD 43.6 37.0 - 55.0 fL [facility] MPV 11.5 8.8 - 13.2 fL [facility] Platelet count 144 (L) 150 - 400 k/uL [facility] Nucleated RBC 0.00 /100 WBC [facility] Neutrophils 82.4 (H) 39.0 - 69.0 % [facility] Lymphocytes 9.6 (L) 25.0 - 45.0 % [facility] Monocytes 6.5 0.0 - 10.0 % [facility] Eosinophils 1.2 0.0 - 5.0 % [facility] Basophils 0.0 0.0 - 1.0 % [facility] Specimen Blood Performing Organization Address City/State/Zipcode Phone Number [place] [address] [place] [address] PATHOLOGY AND GENOMIC MEDICINE [facility] ALICE [id number] [place] [address] [place] [address] [facility] * Vancomycin level, trough (01/14/2019 11:55 AM CDT) Pathologist [facility] Vancomycin, 14.1 10.0 - 20.0 ug/mL [place] trough Comment: [facility] Therapeutic Ranges: [facility] Peak 30.0 - 40.0 ug/mL Vuavnf18.0 - 20.0 ug/mL Specimen Serum Performing Organization Address [facility] Phone Number [facility] DEPARTMENT OF [address] [place] [address] [place] [address] PATHOLOGY AND GENOMIC MEDICINE [address] * Basic metabolic panel (01/14/2019 11:55 AM CDT) Only the most recent of 2 results within the time period is included. [facility] Sodium 138 135 - 148 mEq/L [facility] Potassium 4.3 3.5 - 5.0 mEq/L [facility] Chloride 101 98 - 112 mEq/L [facility] CO2 30 24 - 31 mEq/L [facility] Anion gap 7@ANIO 7 - 15 mEq/L [facility] BUN 19 8 - 23 mg/dL [facility] Creatinine 0.80 0.70 - 1.20 mg/dL [facility] Glucose 154 (H) 65 - 99 mg/dL [facility] Calcium 8.6 (L) 8.8 - 10.2 mg/dL [facility] Specimen Plasma specimen Performing Organization Address [facility] Phone Number [facility] DEPARTMENT OF [address] [place] [address] [place] [address] PATHOLOGY AND GENOMIC MEDICINE [address] * Echocardiogram complete w contrast and 3D if needed (01/14/2019 7:48 AM CDT) [facility] AoV Area, Vmax 3.18 cm2 SYNGO [...] LV EF,BP 47.51 % HM [facility] [place],d A2C 9.97 cm [facility] [place],d A4C 9.69 cm [facility] [place],s A2C 8.67 cm [facility] [place],s A4C 8.64 cm [facility] LV,s 4.48 [...] RA pressure 10-15 mmHg. Performing Organization Address City/[facility]/Zipcode Phone Number [employer] [address] [place] [address] * Us duplex venous lower extremity (01/13/2019 2:40 PM CDT) Specimen Narrative Performed At SYNGO There is no evidence of DVT in the left lower extremity and right common femoral vein. Performing Organization Address City/[facility] Cent[facility] Phone Number [employer] [address] [place] [address] * Arterial blood gas (01/12/2019 3:58 PM CDT) pH, arterial 7.55 (H) 7.35 - 7.45 [facility] pCO2, arterial 28 (L) 35 - 45 mmHg [facility] pO2, arterial 232 (H) 80 - 90 mmHg [facility] Bicarbonate, 27.2 21.0 - 28.0 mmol/L [facility] Base excess, 3 (H) -2 - 2 mEq/L [facility] O2 saturation, 100 95 - 100 % [facility] FiO2, inspired 50 % [place] O2% [facility] Specimen Blood Performing Organization Address City/[facility]/Zipcode Phone Number [facility] DEPARTMENT OF [address] [place] [address] [place] [address] PATHOLOGY AND GENOMIC MEDICINE [address] [place] [id number] [facility] * Troponin (01/12/2019 4:41 AM CDT) Only the most recent of 3 results within the time period is included. Pathologist [facility] Troponin 0.022 0.000 - 0.040 ng/mL [place] Comment: [facility] changed methodology effective: 12/03/2018 at 10:00 am The new method has a 99th percentile cutoff of 0.040 ng/mL Specimen Plasma specimen Performing Organization Address [facility] Phone Number [facility] DEPARTMENT [address] [place] [address] PATHOLOGY AND GENOMIC MEDICINE [address] * Manual differential (01/12/2019 4:41 AM CDT) [facility] Manual PERFORMED [place] differential [facility] Neutrophils 93.0 (H) 39.0 - 69.0 % [facility] Lymphocytes 1.0 (L) 25.0 - 45.0 % [facility] Monocytes 5.0 0.0 - 10.0 % [facility] Eosinophils 0.0 0.0 - 5.0 % [facility] Basophils 0.0 0.0 - 1.0 % [facility] Metamyelocytes 1 % [facility] Promyelocytes 0 % [facility] Platelet slide Brian adequate [place] review [facility] Specimen Performing Organization Address [facility] Phone Number [facility] DEPARTMENT [place] [address] [place] [address] PATHOLOGY AND [facility] MEDICINE [address] [place] [address] * Magnesium level (01/12/2019 4:41 AM CDT) [facility] Magnesium 2.1 1.6 - 2.4 mg/dL [facility] Specimen Plasma specimen Performing Organization Address [facility] Phone Number [facility] DEPARTMENT [place] [address] [place] [address] PATHOLOGY AND GENOMIC MEDICINE [address] [place] [address] * Comprehensive metabolic panel (01/12/2019 4:41 AM CDT) Only the most recent of 2 results within the time period is included. Pathologist [facility] Sodium 132 (L) 135 - 148 mEq/L [facility] Potassium 5.2 (H) 3.5 - 5.0 mEq/L [facility] Chloride 97 (L) 98 - 112 mEq/L [facility] CO2 24 24 - 31 mEq/L [facility] Anion gap 11@ANIO 7 - 15 mEq/L [facility] BUN 28 (H) 8 - 23 mg/dL [facility] Creatinine 1.10 0.70 - 1.20 mg/dL [facility] Glucose 419 (HH) 65 - 99 mg/dL [place] Comment: [facility] Results called to and read [facility] back by ZAFAR at 01/12/2019 05:21 by [id number]. Calcium 9.1 8.8 - 10.2 mg/dL [facility] Protein 6.1 (L) 6.3 - 8.3 g/dL [place] Comment: [facility] 4.6-7.0 g/dL 1 week 4.4-7.6 g/dL 7 months-1year 5.1-7.3 g/dL 1-2 years5.6-7 .5 g/dL >3 years6.0-8 .0 g/dL 18-150 6.3-8.3 g/dL Albumin 3.6 3.5 - 5.0 g/dL [facility] A/G ratio 1.4 0.7 - 3.8 [facility] Alkaline 70 40 - 129 U/L [place] phosphatase [facility] AST 14 10 - 50 U/L [facility] ALT 39 5 - 50 U/L [facility] Total bilirubin 1.0 0.0 - 1.2 mg/dL [facility] Specimen Plasma specimen Performing Organization Address City/State/Zipcode [place] Number [place] [address] [place] [address] PATHOLOGY AND GENOMIC MEDICINE [facility] [address] [place] [address] [facility] * Partial thromboplastin time, activated (01/11/2019 9:57 PM CDT) Pathologist [facility] PTT 27.9 23.0 - 36.0 sec [place] Comment: BETSY STOKES PTT therapeutic range for [facility] unfractionated heparin is 61.0-112.0 seconds which corresponds to Anti-Xa 0.3-0.7 U/ml. Specimen Blood Performing Organization Address [facility] Phone Number [facility] [address] [address] PATHOLOGY AND [facility] MEDICINE [address] [place] [address] * Prothrombin time with INR (01/11/2019 9:57 PM CDT) Pathologist [facility] Prothrombin 14.4 11.5 - 14.5 sec [facility] INR 1.2 [place] Comment: BETSY STOKES The International Normalized [facility] Ratio (INR) is a therapeutic monitoring tool for patients who are stable on oral anticoagulant therapy. An INR of 2.0-3.0 is suggested for deep vein thrombosis/pulmonary embolism. Specimen Blood Performing Organization Address [facility] Phone Number [facility] DEPARTMENT [address] [place] [address] PATHOLOGY AND [facility] MEDICINE [address] [place] [address] * B natriuretic peptide (01/11/2019 9:57 PM CDT) Pathologist [facility] BNP 169 (H) 0 - 100 pg/mL [facility] Specimen Blood Performing Organization Address [facility] Phone Number [facility] DEPARTMENT [place] [address] [place] [address] PATHOLOGY AND [facility] MEDICINE [address] [place] [address] * Blood culture, aerobic & anaerobic (01/11/2019 9:50 PM CDT) Only the most recent of 2 results within the time period is included. Pathologist [facility] Blood culture No growth after 5 days of [place] isolate incubation. ALEVISM Comment: HOSPITAL Specimen Information Specimen Source: Blood Specimen Site: Hand, right Specimen Blood - Hand, right Performing Organization Address City/[facility] Cent[facility]ode Phone Number [facility] DEPARTMENT OF [address] [place] [address] PATHOLOGY AND GENOMIC MEDICINE [address] * XR Tibia Fibula 2 Vw Left (01/11/2019 9:30 PM CDT) Specimen Narrative Performed At EXAM:XR TIBIA FIBULA 2 VW LEFT RADIANT CLINICAL HISTORY:swelling LLE COMPARISON:None. IMPRESSION: No evidence of acute displaced fracture or dislocation of the left tibia or fibula. Soft tissues are unremarkable. Vascular calcifications are noted. Soft tissues are otherwise normal. [id number] Procedure Note Interface, Radiology Results Incoming - 01/11/2019 10:06 PM CDT EXAM: XR TIBIA FIBULA 2 VW LEFT CLINICAL HISTORY: swelling LLE COMPARISON: None. IMPRESSION: No evidence of acute displaced fracture or dislocation of the left tibia or fibula. Soft tissues are unremarkable. Vascular calcifications are noted. Soft tissues are otherwise normal. [id number] Performing Organization Address [facility] Phone Number [facility] [address] [place] [address] * XR Chest 1 Vw Portable (01/11/2019 [...] identified. No acute osseous abnormalities are visualized. [facility]-[id number] Procedure Note Interface, Radiology Results Incoming - [...] identified. No acute osseous abnormalities are visualized. [id number] Performing Organization Address [facility] Phone Number [facility] [address] [place] [address] * ECG ED Preliminary Interpretation - Not an Order (01/11/2019 9:00 PM CDT) Narrative Performed At Murali Choudhury MD 01/12/2019 12:36 AM ECG ED Preliminary Interpretation - Not an Order Performed by: Murali Choudhury MD Authorized by: Murali Choudhury MD ECG reviewed by ED Physician in the absence of a compliance nurse: yes Interpretation: Interpretation: normal Rate: ECG rate:78 [...] At Performing Organization Address City/State/Zipcode Phone Number [facility] MUSE [address] [place] [address] after 04/19/2018 Insurance Type Payer Benefit Subscriber ID Effective Phone Address Plan / Dates Group Medicare MEDICARE MEDICARE xxxxxxxxxxx 2010-P [place], PART A AND resent [place] B Commercial COLONIAL COLONIAL xxxxxxxxxx 2010-P [facility] Advance Directives For more information, please contact: [phone] 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
--- OUTSIDE RECORDS SUMMARY | 2019-04-20 08:34 | XMS REPORT | Continuity of Care Document ---
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 [...] Cellulitis of left leg Active Problem 05/13/2018 [facility] Dyspnea Active Problem 05/13/2018 [facility] Pneumonia Active Problem 05/13/2018 [facility] Renal failure , acute on chronic Active Problem 05/13/2018 [facility] Medications Medication Details Route Status Patient Instructions Ordering Provider Order Date Source Amlodipine Besylate 1 tablet Orally Active 5 MG Orally Once a day Krystal 03/14/2018 Roger Luis Manuel Rice Aspirin 325 Mg Tablet, 325 Mg Oral Daily Active 11/13/2016 [facility] Irbesartan (Avapro) 75 Mg Tablet, 75 Mg Oral Twice A Day Active 11/13/2016 [facility] Silodosin (Rapaflo) 8 Mg Capsule, 8 Mg Oral Daily Active 07/20/2015 [facility] Warfarin Sodium (Coumadin) 5 Mg Tablet, 5 Mg Oral Today At 5:00PM Active 05/14/2015 [facility] Amphet Asp/Amphet/D-Amphet (Adderall 5 Mg Tablet) 5 Mg Tablet, 5 Mg Oral Twice A Day Active 05/11/2015 [facility] Cephalexin Monohydrate (Keflex) 500 Mg Capsule, Mg Oral Twice A Day Active 05/11/2015 [facility] Hydrocodone Bit/Acetaminophen ([place] 10-325 Tablet) 1 Each Tablet, 1 Tab Oral Every 4 Hours Active 05/11/2015 [facility] Insulin Detemir (Levemir) 100 Unit/1 Ml Vial, 40 Sub-Q Twice A Day Active 05/11/2015 [facility] Insulin Lispro (Humalog) 100 Unit/1 Ml Insuln.pen, 40 Sub-Q Three Times A Day Active 05/11/2015 [facility] Torsemide (Demadex) 20 Mg Tablet, 20 Mg Oral Twice A Day Active 11/24/2014 [facility] Insulin Aspart (Novolog) 100 Units/Ml Ml, 40 Sub-Q Before Meals Active 11/23/2014 [facility] Polyethylene Glycol 3350 (Miralax) 17 Gm Powd.pack, 1 Pkt Oral Every Morning Active 11/22/2014 [facility] Potassium Chloride 10 Meq Tablet.er, 10 Meq Oral Twice A Day Active 11/22/2014 [facility] Dabigatran Etexilate Mesylate (Pradaxa) 150 Mg Capsule, 150 Mg Oral Twice A Day Active 08/21/2014 [facility] Amphet Asp/Amphet/D-Amphet (Adderall 20 Mg Tablet) 20 Mg Tablet, 20 Mg Oral Twice A Day Active 08/14/2013 [facility] Irbesartan (Avapro) 300 Mg Tablet, 150 Mg Oral Daily Active 08/14/2013 [facility] Metolazone 5 Mg Tablet, 5 Mg Oral Daily Active 08/14/2013 [facility] Valsartan/Hydrochlorothiazide (Diovan Hct 160-12.5 Mg Tab) 1 Each Tablet, 1 Tab Oral Daily Active 08/14/2013 [facility] Dutasteride (Avodart) 0.5 Mg Capsule, Daily Active 02/13/2013 [facility] Methocarbamol (Robaxin-750) 750 Mg Tablet, Twice A Day Active 02/13/2013 [facility] [id number] Daily , Active 02/13/2013 [facility] Valsartan/Hydrochlorothiazide (Diovan Hct 160-12.5 Mg Tab) 1 Each Tablet, 1 Each Oral Twice A Day Active 02/13/2013 [facility] Amlodipine Besylate 1 tablet Orally Active 5 MG Orally Once a day Krystal Rice Amlodipine Besylate TAKE 1 TABLET BY MOUTH EVERY DAY by mouth Active 5 MG by mouth once a day Krystal Rice Alprazolam (Xanax) 0.5 Mg Tablet Bedtime Active [facility] Amlodipine Besylate 5 Mg Tablet Daily Active [facility] Amphet Asp/Amphet/D-Amphet (Adderall 20 Mg Tablet) 20 Mg Tablet Every 12 Hours Active [facility] Docusate Calcium (Stool Softener) 240 Mg Capsule Daily Active [facility] Gabapentin 300 Mg Capsule Three Times A Day Active [facility] Hydrocodone Bit/Acetaminophen ([place] 10-325 Tablet) 1 Each Tablet Daily Active [facility] Insulin Aspart (Novolog) 100 Unit/1 Ml Cartridge Before Meals Active [facility] Insulin Detemir (Levemir) 100 Unit/1 Ml Vial Twice A Day Active [facility] Lisinopril (Prinavil / Zestril) 20 Mg Tablet Twice A Day Active [facility] Metformin Hcl (Glucophage) 500 Mg Tablet Twice A Day Active [facility] Metolazone 5 Mg Tablet Daily Active [facility] Metoprolol Tartrate 50 Mg Tablet Twice A Day Active [facility] Minoxidil 2.5 Mg Tablet Daily Active [facility] Movantik Daily Active [facility] Silodosin (Rapaflo) 8 Mg Capsule Daily Active [facility] Sucralfate (Carafate) 1 Gm/10 Ml Oral.susp Daily Active [facility] Torsemide (Demadex) 10 Mg Tablet Daily Active [facility] Allergies, Adverse Reactions, Alerts Substance Category Reaction Severity Reaction type Status Date Reported Comments Source No Known Drug Allergies Mild Allergy to Substance Active 05/02/2018 [facility] Immunizations No Data Provided for This Section Results Order Name Results Value Reference Range Date Interpretation Comments Source Capillary blood glucose measurement by glucometer (mass/volume) Capillary blood glucose measurement by glucometer (mass/volume) 163 70 - 120 05/13/2018 [facility] Automated blood basophil count (count/volume) Automated blood basophil count (count/volume) 0.0 0.0 - 0.1 05/13/2018 [facility] Automated blood basophil count as percentage of total leukocytes Automated blood basophil count as percentage of total leukocytes 0.3 0.0 - 1.0 05/13/2018 [facility] Automated blood eosinophil count Automated blood eosinophil count 0.1 0.0 - 0.4 05/13/2018 [facility] Automated blood eosinophil count as percentage of total leukocytes Automated blood eosinophil count as percentage of total leukocytes 2.0 0.0 - 6.0 05/13/2018 [facility] Automated blood hematocrit (volume fraction) Automated blood hematocrit (volume fraction) 39.6 38.2 - 49.6 05/13/2018 [facility] Automated blood lymphocyte count as percentage ot total leukocytes Automated blood lymphocyte count as percentage ot total leukocytes 15.0 18.0 - 39.1 05/13/2018 [facility] Automated blood monocyte count as percentage of total leukocytes Automated blood monocyte count as percentage of total leukocytes 7.1 4.4 - 11.3 05/13/2018 [facility] Automated blood neutrophil count Automated blood neutrophil count 5.1 2.1 - 6.9 05/13/2018 [facility] Automated blood platelet count (count/volume) Automated blood platelet count (count/volume) 300 140 - 360 05/13/2018 [facility] Automated blood segmented neutrophil count as percentage of total leukocytes Automated blood segmented neutrophil count as percentage of total leukocytes 73.7 38.7 - 80.0 05/13/2018 [facility] Automated erythrocyte mean corpuscular hemoglobin (mass per erythrocyte) Automated erythrocyte mean corpuscular hemoglobin (mass per erythrocyte) 28.1 28 - 32 05/13/2018 [facility] Automated erythrocyte mean corpuscular hemoglobin concentration measurement (mass/volume) Automated erythrocyte mean corpuscular hemoglobin concentration measurement (mass/volume) 31.8 31 - 35 05/13/2018 [facility] Automated erythrocyte mean corpuscular volume Automated erythrocyte mean corpuscular volume 88.2 81 - 99 05/13/2018 [facility] Blood erythrocytes automated count (number/volume) Blood erythrocytes automated count (number/volume) 4.49 4.3 - 5.7 05/13/2018 [facility] Blood hemoglobin measurement (moles/volume) Blood hemoglobin measurement (moles/volume) 12.6 14.0 - 18.0 05/13/2018 [facility] Blood leukocytes automated count (number/volume) Blood leukocytes automated count (number/volume) 6.93 4.8 - 10.8 05/13/2018 [facility] Blood lymphocytes count (number/volume) Blood lymphocytes count (number/volume) 1.0 1.0 - 3.2 05/13/2018 [facility] Blood monocytes automated count (number/volume) Blood monocytes automated count (number/volume) 0.5 0.2 - 0.8 05/13/2018 [facility] Estimated glomerular filtration rate (GFR) determination Estimated glomerular filtration rate (GFR) determination >60 60 05/13/2018 [facility] Glucose measurement Glucose measurement 222 74 - 118 05/13/2018 [facility] Plasma globulin measurement (mass/volume) Plasma globulin measurement (mass/volume) 4.3 2.3 - 3.5 05/13/2018 [facility] Serum or plasma alanine aminotransferase measurement (enzymatic activity/volume) Serum or plasma alanine aminotransferase measurement (enzymatic activity/volume) 24 0 - 55 05/13/2018 [facility] Serum or plasma albumin measurement (mass/volume) Serum or plasma albumin measurement (mass/volume) 3.1 3.5 - 5.0 05/13/2018 [facility] Serum or plasma albumin/globulin mass ratio Serum or plasma albumin/globulin mass ratio 0.7 0.8 - 2.0 05/13/2018 [facility] Serum or plasma alkaline phosphatase measurement (enzymatic activity/volume) Serum or plasma alkaline phosphatase measurement (enzymatic activity/volume) 65 40 - 150 05/13/2018 [facility] Serum or plasma anion gap Serum or plasma anion gap 15.6 8 - 16 05/13/2018 [facility] Serum or plasma calcium measurement (mass/volume) Serum or plasma calcium measurement (mass/volume) 9.6 8.4 - 10.2 05/13/2018 [facility] Serum or plasma carbon dioxide, total measurement (moles/volume) Serum or plasma carbon dioxide, total measurement (moles/volume) 28 22 - 29 05/13/2018 [facility] Serum or plasma chloride measurement (moles/volume) Serum or plasma chloride measurement (moles/volume) 99 98 - 107 05/13/2018 [facility] Serum or plasma creatinine measurement (mass/volume) Serum or plasma creatinine measurement (mass/volume) 0.87 0.72 - 1.25 05/13/2018 [facility] Serum or plasma potassium measurement (moles/volume) Serum or plasma potassium measurement (moles/volume) 3.6 3.5 - 5.1 05/13/2018 [facility] Serum or plasma protein measurement (mass/volume) Serum or plasma protein measurement (mass/volume) 7.4 6.5 - 8.1 05/13/2018 [facility] Serum or plasma sodium measurement (moles/volume) Serum or plasma sodium measurement (moles/volume) 139 136 - 145 05/13/2018 [facility] Serum or plasma total bilirubin measurement (mass/volume) Serum or plasma total bilirubin measurement (mass/volume) 0.5 0.2 - 1.2 05/13/2018 [facility] Serum or plasma urea nitrogen measurement (mass/volume) Serum or plasma urea nitrogen measurement (mass/volume) 12 7 - 26 05/13/2018 [facility] Serum or plasma urea nitrogen/creatinine mass ratio Serum or plasma urea nitrogen/creatinine mass ratio 14 6 - 25 05/13/2018 [facility] Red Cell Distribution Width 13.7 11.7 - 14.4 05/13/2018 [facility] IM GRANULOCYTES % 1.9 0.0 - 1.0 05/13/2018 [facility] Absolute Immature Granulocyte (auto 0.13 0 - 0.1 05/13/2018 [facility] Aspartate Amino Transf (AST/SGOT) 19 5 - 34 05/13/2018 [facility] Automated urine sediment leukocyte count by microscopy (number/high power field) Automated urine sediment leukocyte count by microscopy (number/high power field) <5 0 - 5 05/11/2018 [facility] Bacteria detection in urine sediment by light microscopy Bacteria detection in urine sediment by light microscopy RARE NONE 05/11/2018 [facility] Epithelial cells detection in urine sediment by light microscopy Epithelial cells detection in urine sediment by light microscopy FEW NONE 05/11/2018 [facility] Erythrocytes detection in urine sediment by light microscopy Erythrocytes detection in urine sediment by light microscopy <50 0 - 5 05/11/2018 [facility] Hyaline casts detection in urine sediment by light microscopy Hyaline casts detection in urine sediment by light microscopy <1 0 - 1 05/11/2018 [facility] Specific gravity of Urine by Test strip Specific gravity of Urine by Test strip 1.010 1.010 - 1.025 05/11/2018 [facility] Transitional cells detection in urine sediment by light microscopy Transitional cells detection in urine sediment by light microscopy FEW NONE 05/11/2018 [facility] Urine clarity Urine clarity CLEAR CLEAR 05/11/2018 [facility] Urine color determination Urine color determination YELLOW YELLOW 05/11/2018 [facility] Urine erythrocytes detection Urine erythrocytes detection 1+ NEGATIVE 05/11/2018 [facility] Urine glucose detection Urine glucose detection 2+ NEGATIVE 05/11/2018 [facility] Urine ketones detection by automated test strip Urine ketones detection by automated test strip NEGATIVE NEGATIVE 05/11/2018 [facility] Urine leukocyte esterase detection by dipstick Urine leukocyte esterase detection by dipstick TRACE NEGATIVE 05/11/2018 [facility] Urine nitrite detection Urine nitrite detection NEGATIVE NEGATIVE 05/11/2018 [facility] Urine pH measurement by automated test strip Urine pH measurement by automated test strip 8 5 - 7 05/11/2018 [facility] Urine protein measurement by test strip (mass/volume) Urine protein measurement by test strip (mass/volume) NEGATIVE NEGATIVE 05/11/2018 [facility] Urine total bilirubin measurement (mass/volume) Urine total bilirubin measurement (mass/volume) NEGATIVE NEGATIVE 05/11/2018 [facility] Urine urobilinogen measurement by test strip (mass/volume) Urine urobilinogen measurement by test strip (mass/volume) 0.2 0.2 - 1 05/11/2018 [facility] Blood culture Blood culture NO GROWTH AFTER 72 HOURS 05/10/2018 [facility] Serum or plasma trough vancomycin level at trough (mass/volume) Serum or plasma trough vancomycin level at trough (mass/volume) 24.3 5.0 - 10.0 05/06/2018 [facility] Blood anisocytosis detection by light microscopy Blood anisocytosis detection by light microscopy SLIGHT 05/06/2018 [facility] Blood platelets count by estimate (number/volume) Blood platelets count by estimate (number/volume) ADEQUATE 05/06/2018 [facility] Platelet morphology Platelet morphology NORMAL 05/06/2018 [facility] RBC morphology RBC morphology NORMAL 05/06/2018 [facility] Serum or plasma cholesterol in HDL measurement (mass/volume) Serum or plasma cholesterol in HDL measurement (mass/volume) 41 40 - 60 05/06/2018 [facility] Serum or plasma cholesterol in LDL measurement (mass/volume) Serum or plasma cholesterol in LDL measurement (mass/volume) 99 60 - 130 05/06/2018 [facility] Serum or plasma cholesterol measurement (mass/volume) Serum or plasma cholesterol measurement (mass/volume) 151 0 - 199 05/06/2018 [facility] Serum or plasma thyrotropin measurement by detection limit <=0.005 miu/l (units/volume) Serum or plasma thyrotropin measurement by detection limit <=0.005 miu/l (units/volume) 0.930 0.350 - 4.940 05/06/2018 [facility] Serum or plasma total cholesterol/cholesterol in HDL mass ratio Serum or plasma total cholesterol/cholesterol in HDL mass ratio 3.7 3.9 - 4.7 05/06/2018 [facility] Serum or plasma triglyceride measurement (mass/volume) Serum or plasma triglyceride measurement (mass/volume) 55 0 - 149 05/06/2018 [facility] Bacterial blood culture Bacterial blood culture Organism: STAPHYLOCOCCUS AUREUS 05/05/2018 [facility] Lactic Acid Level 13.2 4.5 - 19.8 05/05/2018 [facility] Serum or plasma creatine kinase MB measurement (mass/volume) Serum or plasma creatine kinase MB measurement (mass/volume) 2.40 0 - 5.0 05/04/2018 [facility] Serum or plasma creatine kinase measurement (enzymatic activity/volume) Serum or plasma creatine kinase measurement (enzymatic activity/volume) 532 30 - 200 05/04/2018 [facility] Troponin I measurement by highly sensitive enzyme immunoassay Troponin I measurement by highly sensitive enzyme immunoassay 0.197 0 - 0.300 05/04/2018 [facility] Serum or plasma magnesium measurement (mass/volume) Serum or plasma magnesium measurement (mass/volume) 1.8 1.3 - 2.1 05/04/2018 [facility] Manual blood lymphocytes/100 leukocytes Manual blood lymphocytes/100 leukocytes 7 19 - 48 05/03/2018 [facility] Manual blood monocytes/100 leukocytes Manual blood monocytes/100 leukocytes 8 3.4 - 9.0 05/03/2018 [facility] Manual blood neutrophils/100 leukocytes Manual blood neutrophils/100 leukocytes 85 40 - 74 05/03/2018 [facility] Differential Total Cells Counted 100 05/03/2018 [facility] Mucus detection in urine sediment by light microscopy Mucus detection in urine sediment by light microscopy FEW RARE 05/02/2018 [facility] Activated partial thromboplastin time (aPTT) in platelet poor plasma bycoagulation assay Activated partial thromboplastin time (aPTT) in platelet poor plasma bycoagulation assay 33.6 23.8 - 35.5 05/02/2018 [facility] Fibrin D-dimer DDU measurement in platelet poor plasma (mass/volume) Fibrin D-dimer DDU measurement in platelet poor plasma (mass/volume) 0.75 0.00 - 0.45 05/02/2018 [facility] INR in Platelet poor plasma by Coagulation assay INR in Platelet poor plasma by Coagulation assay 0.96 05/02/2018 [facility] Prothrombin time (PT) in platelet poor plasma by coagulation assay Prothrombin time (PT) in platelet poor plasma by coagulation assay 13.7 11.9 - 14.5 05/02/2018 [facility] Serum or plasma lipase measurement (enzymatic activity/volume) Serum or plasma lipase measurement (enzymatic activity/volume) <4 8 - 78 05/02/2018 [facility] B-Type Natriuretic Peptide 140.5 0 - 100 05/02/2018 [facility] Bacterial urine culture Bacterial urine culture Urine Culture [facility] Pathology Reports No Data Provided for This [...] Date DC Date Status Source Discharged Inpatient [id number] GILBERT NAVARRO MD 05/02/2018 05/13/2018 [facility] Procedures Procedure Code Date Perfomer Comments Source Computed tomography of chest with contrast [id number] 05/10/[address] [facility] MRI joint extremity upper wo then w contrast [id number] 05/05/[address] [facility] Computed tomography of abdomen and pelvis with contrast [id number] 05/04/[address] [facility] Computed tomography of soft tissues of neck with contrast [id number] 05/04/[address] [facility] Assessment and Plan No Data Provided for This Section Plan of Care Plan of Care Date Source Discharge Date 05/13/18 12:14pm Disposition HOME, SELF-CARE Instructions/Education Provided Pneumonia - Bacterial Prescriptions See Medication Section Additional Instructions/Education Follow up in [address] Navarro 05/13/2018 [facility] Social History Social History Date Source Social [...] Start Date Stop Date Never Smoker 05/13/2018 [facility] Family History No Data Provided for This Section Advance Directives Order Name Results Value Date Source Advance Directives Advance Directives Directive Response Recorded Date/Time Does the patient have an advance directive? Yes 05/03/18 2:25am If yes, is advance directive on file with [facility]? Yes 05/03/18 2:25am If not on file with [facility] will patient provide a copy? Yes 05/03/18 2:25am Do you have a Directive to Physician? No 05/02/18 8:46pm Do you have a Medical Power of Site Physician? No 05/02/18 8:46pm Do you have an [...] rights and responsibilities? Yes 05/02/18 8:46pm 05/13/2018 [facility] Functional Status No Data Provided for This Section
[2019-04-20] MEDS ORDERED: VANCOMYCIN 1GM/NS 250 ML 250 ML IV ONE (09:00)
--- NOTE | 2019-04-20 09:04 | NUR ---
pillows, blankets given. labs drawn from central line after 20cc waste.
[2019-04-20 09:31] LABS: BASOPHILS % 0.1 % (0.0-1.0); EOSINOPHILS # (AUTO) 0.2 (0.0-0.4); EOSINOPHILS % 2.1 % (0.0-6.0); HEMATOCRIT 32.6 % (38.2-49.6); LYMPHOCYTES # (AUTO) 0.6 (1.0-3.2); LYMPHOCYTES % 6.5 % (18.0-39.1); MEAN CORPUSCULAR HEMOGLOBIN 26.7 pg (28-32); MEAN CORPUSCULAR HGB CONC 30.7 g/dL (31-35); MEAN CORPUSCULAR VOLUME 87.2 fL (81-99); MONOCYTES # (AUTO) 0.6 (0.2-0.8); MONOCYTES % 5.7 % (4.4-11.3); NEUTROPHILS # (AUTO) 8.2 (2.1-6.9); NEUTROPHILS % 85.2 % (38.7-80.0); PLATELET COUNT 212 x10e3/uL (140-360); RED BLOOD COUNT 3.74 x10e6/uL (4.3-5.7); RED CELL DISTRIBUTION WIDTH 14.9 % (11.7-14.4)
[2019-04-20 09:51] LABS: INR 1.06; PROTHROMBIN TIME 14.3 seconds (11.9-14.5)
[2019-04-20 09:52] LABS: PARTIAL THROMBOPLASTIN TIME 30.3 seconds (23.8-35.5)
[2019-04-20 09:55] LABS: ALANINE AMINOTRANSFERASE 29 IU/L (0-55); ALBUMIN 3.1 g/dL (3.5-5.0); ALBUMIN/GLOBULIN RATIO 1.1 (0.8-2.0); ALKALINE PHOSPHATASE 84 IU/L (40-150); ANION GAP 14.2 mmol/L (8-16); BLOOD UREA NITROGEN 13 mg/dL (7-26); BUN/CREATININE RATIO 13 (6-25); CALCIUM 8.7 mg/dL (8.4-10.2); CARBON DIOXIDE 29 mmol/L (22-29); CHLORIDE 101 mmol/L (98-107); CREATINE KINASE 323 IU/L (30-200); CREATININE, SERUM 0.97 mg/dL (0.72-1.25); EST GLOMERULAR FILTRATION RATE > 60 ML/MIN (60-); GLUCOSE 256 mg/dL (74-118); POTASSIUM 4.2 mmol/L (3.5-5.1); SODIUM 140 mmol/L (136-145)
[2019-04-20] MEDS ORDERED: SODIUM CHLORIDE 0.9% 1000ML 1,000 ML IV ONE (10:00)
[2019-04-20] MEDS ORDERED: DEXTROSE 50% SYRINGE 50 ML IV PRN (10:00)
--- OUTSIDE RECORDS SUMMARY | 2019-04-20 10:05 | XMS REPORT | Clinical Summary ---
Author Author [facility] [employer] Address Unknown Phone Unavailable Care Team Providers Care Tubular Splitting Machine Tender Name Role Phone Manoj Navarro MD PCP [...] MMODE SPECTRAL 7:48 AM CDT COLOR DOPPLER ([id number]) POC GLUCOSE Routine 01/14/2019 5:37 AM CDT [...] glucose 190 (H) 65 - 99 mg/dL [place] Comment: CATHOLIC CLEAR Meter ID: [id number] [facility] Head Animal Trainer: Paras Quevedo Specimen Performing Organization Address City/State/Zipcode [place] [address] [place] [address] PATHOLOGY AND GENOMIC MEDICINE [facility] [id number] [place] [address] * Estimated GFR (01/15/2019 5:01 AM CDT) Only the most recent of 5 results within the time period is included. Estimated GFR 88 mL/min/1.73 m2 [place] Comment: [facility] rpretation G1 >=90 Normal or high G2 60-89Mildly decreased F2l90-60 Mildly to moderately decreased W6o37-54 Moderately to severely decreased G4 15-29Severely decreased G5 <15Kidney failure The eGFR was calculated using the Chronic Kidney Disease Epidemiology Collaboration (CKD-EPI) equation. Interpretation is based on recommendations of the National Kidney Foundation-Kidney Disease Outcomes Quality Initiative (NKF-KDOQI) published in 2014. Specimen Plasma specimen Performing Organization Address City/[facility] Phone Number [facility] DEPARTMENT [address] [place] [address] PATHOLOGY AND GENOMIC MEDICINE [address] * Creatinine level (01/15/2019 5:01 AM CDT) Pathologist [facility] Creatinine 0.80 0.70 - 1.20 mg/dL [facility] Specimen Plasma specimen Performing Organization Address 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 [id number] Performing Organization Address City/State/Zipcode Phone Number MATT MONTEMAYOR [address] [place] [address] * CBC with platelet and differential (01/14/2019 11:55 AM CDT) Only the most recent of 3 results within the time period is included. WBC 8.64Comment: Called Raquel on 4.50 - 11.00 k/uL [address] 01/14/2019 16:19 [facility] RBC 3.74 (L) 4.40 - 6.00 m/uL [facility] HGB 10.6 (L) 14.0 - 18.0 g/dL [facility] HCT 33.8 (L) 41.0 - 51.0 % [facility] MCV 90.4 82.0 - 100.0 fL [facility] MCH 28.3 27.0 - 34.0 pg [facility] MCHC 31.4 31.0 - 37.0 g/dL [facility] RDW - SD 43.6 37.0 - 55.0 fL [facility] MPV 11.5 8.8 - 13.2 fL [facility] Platelet count 144 (L) 150 - 400 k/uL [facility] Nucleated RBC 0.00 /100 WBC [facility] Neutrophils 82.4 (H) 39.0 - 69.0 % [facility] Lymphocytes 9.6 (L) 25.0 - 45.0 % [facility] Monocytes 6.5 0.0 - 10.0 % [facility] Eosinophils 1.2 0.0 - 5.0 % [facility] Basophils 0.0 0.0 - 1.0 % [facility] Specimen Blood Performing Organization Address City/State/Zipcode Phone Number [place] [address] [place] [address] PATHOLOGY AND GENOMIC MEDICINE [facility] [id number] [place] [address] [place] [address] [facility] * Vancomycin level, trough (01/14/2019 11:55 AM CDT) Pathologist [facility] Vancomycin, 14.1 10.0 - 20.0 ug/mL [place] trough Comment: [facility] Therapeutic Ranges: [facility] Peak 30.0 - 40.0 ug/mL Vbskzf30.0 - 20.0 ug/mL Specimen Serum Performing Organization Address [facility] Phone Number [facility] DEPARTMENT OF [address] [place] [address] [place] [address] PATHOLOGY AND GENOMIC MEDICINE [address] * Basic metabolic panel (01/14/2019 11:55 AM CDT) Only the most recent of 2 results within the time period is included. [facility] Sodium 138 135 - 148 mEq/L [facility] Potassium 4.3 3.5 - 5.0 mEq/L [facility] Chloride 101 98 - 112 mEq/L [facility] CO2 30 24 - 31 mEq/L [facility] Anion gap 7@ANIO 7 - 15 mEq/L [facility] BUN 19 8 - 23 mg/dL [facility] Creatinine 0.80 0.70 - 1.20 mg/dL [facility] Glucose 154 (H) 65 - 99 mg/dL [facility] Calcium 8.6 (L) 8.8 - 10.2 mg/dL [facility] Specimen Plasma specimen Performing Organization Address [facility] Phone Number [facility] DEPARTMENT OF [address] [place] [address] [place] [address] PATHOLOGY AND GENOMIC MEDICINE [address] * Echocardiogram complete w contrast and 3D if needed (01/14/2019 7:48 AM CDT) [facility] AoV Area, Vmax 3.18 cm2 [...] LV EF,BP 47.51 % [facility] [place],d A2C 9.97 cm [facility] [place],d A4C 9.69 cm [facility] [place],s A2C 8.67 cm [facility] [place],s A4C 8.64 cm [facility] LV,s 4.48 [...] RA pressure 10-15 mmHg. Performing Organization Address City/[facility]/Zipcode Phone Number [employer] [facility] [address] [place] [address] * Us duplex venous lower extremity (01/13/2019 2:40 PM CDT) Specimen Narrative Performed At SYN[facility] There is no evidence of DVT in the left lower extremity and right common femoral vein. Performing Organization Address City/[facility] Phone Number [employer] [address] [place] [address] * Arterial blood gas (01/12/2019 3:58 PM CDT) pH, arterial 7.55 (H) 7.35 - 7.45 [facility] pCO2, arterial 28 (L) 35 - 45 mmHg [facility] pO2, arterial 232 (H) 80 - 90 mmHg [facility] Bicarbonate, 27.2 21.0 - 28.0 mmol/L [facility] Base excess, 3 (H) -2 - 2 mEq/L [facility] O2 saturation, 100 95 - 100 % [facility] FiO2, inspired 50 % [place] O2% [facility] Specimen Blood Performing Organization Address City/[facility]/Zipcode Phone Number [facility] DEPARTMENT OF [address] [place] [address] [place] [address] PATHOLOGY AND GENOMIC MEDICINE [address] [place] [id number] [facility] * Troponin (01/12/2019 4:41 AM CDT) Only the most recent of 3 results within the time period is included. Pathologist [facility] Troponin 0.022 0.000 - 0.040 ng/mL [place] Comment: [facility] changed methodology effective: 12/03/2018 at 10:00 am The new method has a 99th percentile cutoff of 0.040 ng/mL Specimen Plasma specimen Performing Organization Address [facility] Phone Number [facility] DEPARTMENT [address] [place] [address] PATHOLOGY AND GENOMIC MEDICINE [address] * Manual differential (01/12/2019 4:41 AM CDT) [facility] Manual PERFORMED [place] differential [facility] Neutrophils 93.0 (H) 39.0 - 69.0 % [facility] Lymphocytes 1.0 (L) 25.0 - 45.0 % [facility] Monocytes 5.0 0.0 - 10.0 % [facility] Eosinophils 0.0 0.0 - 5.0 % [facility] Basophils 0.0 0.0 - 1.0 % [facility] Metamyelocytes 1 % [facility] Promyelocytes 0 % [facility] Platelet slide Brian adequate [place] review [facility] Specimen Performing Organization Address [facility] Phone Number [facility] DEPARTMENT [place] [address] [place] [address] PATHOLOGY AND [facility] MEDICINE [address] [place] [address] * Magnesium level (01/12/2019 4:41 AM CDT) [facility] Magnesium 2.1 1.6 - 2.4 mg/dL [facility] Specimen Plasma specimen Performing Organization Address [facility] Phone Number [facility] DEPARTMENT [place] [address] [place] [address] PATHOLOGY AND GENOMIC MEDICINE [address] [place] [address] * Comprehensive metabolic panel (01/12/2019 4:41 AM CDT) Only the most recent of 2 results within the time period is included. Pathologist [facility] Sodium 132 (L) 135 - 148 mEq/L [facility] Potassium 5.2 (H) 3.5 - 5.0 mEq/L [facility] Chloride 97 (L) 98 - 112 mEq/L [facility] CO2 24 24 - 31 mEq/L [facility] Anion gap 11@ANIO 7 - 15 mEq/L [facility] BUN 28 (H) 8 - 23 mg/dL [facility] Creatinine 1.10 0.70 - 1.20 mg/dL [facility] Glucose 419 (HH) 65 - 99 mg/dL [place] Comment: [facility] Results called to and read [facility] back by ZAFAR at 01/12/2019 05:21 by [id number]. Calcium 9.1 8.8 - 10.2 mg/dL [facility] Protein 6.1 (L) 6.3 - 8.3 g/dL [place] Comment: [facility] 4.6-7.0 g/dL 1 week 4.4-7.6 g/dL 7 months-1year 5.1-7.3 g/dL 1-2 years5.6-7 .5 g/dL >3 years6.0-8 .0 g/dL 18-150 6.3-8.3 g/dL Albumin 3.6 3.5 - 5.0 g/dL [facility] A/G ratio 1.4 0.7 - 3.8 [facility] Alkaline 70 40 - 129 U/L [place] phosphatase [facility] AST 14 10 - 50 U/L [facility] ALT 39 5 - 50 U/L [facility] Total bilirubin 1.0 0.0 - 1.2 mg/dL [facility] Specimen Plasma specimen Performing Organization Address City/State/Zipcode Phone Number [place] [address] [place] [address] PATHOLOGY AND GENOMIC MEDICINE [facility] [address] [place] [address] [facility] * Partial thromboplastin time, activated (01/11/2019 9:57 PM CDT) Pathologist [facility] PTT 27.9 23.0 - 36.0 sec [place] Comment: BETSY STOKES PTT therapeutic range for [facility] unfractionated heparin is 61.0-112.0 seconds which corresponds to Anti-Xa 0.3-0.7 U/ml. Specimen Blood Performing Organization Address [facility] Phone Number [facility] DEPART[facility] OF [facility] [address] [place] [address] PATHOLOGY AND [facility] MEDICINE [address] [place] [address] * Prothrombin time with INR (01/11/2019 9:57 PM CDT) Pathologist [facility] Prothrombin 14.4 11.5 - 14.5 sec [facility] INR 1.2 [place] Comment: BETSY STOKES The International Normalized [facility] Ratio (INR) is a therapeutic monitoring tool for patients who are stable on oral anticoagulant therapy. An INR of 2.0-3.0 is suggested for deep vein thrombosis/pulmonary embolism. Specimen Blood Performing Organization Address [facility] Phone Number [facility] DEPARTMENT [address] [place] [address] PATHOLOGY AND [facility] MEDICINE [address] [place] [address] * B natriuretic peptide (01/11/2019 9:57 PM CDT) Pathologist [facility] BNP 169 (H) 0 - 100 pg/mL [facility] Specimen Blood Performing Organization Address [facility] Phone Number [facility] DEPARTMENT [place] [address] [place] [address] PATHOLOGY AND [facility] MEDICINE [address] [place] [address] * Blood culture, aerobic & anaerobic (01/11/2019 9:50 PM CDT) Only the most recent of 2 results within the time period is included. Pathologist [facility] Blood culture No growth after 5 days of [place] isolate incubation. CATHOLIC Comment: HOSPITAL Specimen Information Specimen Source: Blood Specimen Site: Hand, right Specimen Blood - Hand, right Performing Organization Address City/[facility] Phone Number [facility] DEPARTMENT OF [address] [place] [address] PATHOLOGY AND GENOMIC MEDICINE [address] * XR Tibia Fibula 2 Vw Left (01/11/2019 9:30 PM CDT) Specimen Narrative Performed At EXAM:XR TIBIA FIBULA 2 VW LEFT RADI[facility] CLINICAL HISTORY:swelling LLE COMPARISON:None. IMPRESSION: No evidence of acute displaced fracture or dislocation of the left tibia or fibula. Soft tissues are unremarkable. Vascular calcifications are noted. Soft tissues are otherwise normal. [facility]-[id number] Procedure Note Interface, Radiology Results Incoming - 01/11/2019 10:06 PM CDT EXAM: XR TIBIA FIBULA 2 VW LEFT CLINICAL HISTORY: swelling LLE COMPARISON: None. IMPRESSION: No evidence of acute displaced fracture or dislocation of the left tibia or fibula. Soft tissues are unremarkable. Vascular calcifications are noted. Soft tissues are otherwise normal. [facility]-[id number] Performing Organization Address [facility] Phone Number [facility] [address] [place] [address] * XR Chest 1 Vw Portable (01/11/2019 [...] No acute osseous abnormalities are visualized. [facility]-[id number] Procedure Note Interface, Radiology Results Incoming - [...] No acute osseous abnormalities are visualized. [facility]-[id number] Performing Organization Address [facility] Phone Number [facility] [address] [place] [address] * ECG ED Preliminary Interpretation - Not an Order (01/11/2019 9:00 PM CDT) Narrative Performed At Murali Choudhury MD 01/12/2019 12:36 AM ECG ED Preliminary Interpretation - Not an Order Performed by: Murali Choudhury MD Authorized by: Murali Choudhury MD ECG reviewed by ED Physician in the absence of a field operations supervisor: yes Interpretation: Interpretation: normal Rate: ECG rate:78 [...] Performing Organization Address City/State/Zipcode Phone Number [facility] MUSE [address] [place] [address] after 04/19/2018 Insurance Type Payer Benefit Subscriber ID Effective Phone Address Plan / Dates Group Medicare MEDICARE MEDICARE xxxxxxxxxxx 2010-P [place], PART A AND resent [place] Commercial COLONIAL COLONIAL xxxxxxxxxx 2010-P [facility] Advance Directives For more information, please contact: [phone] Patient Brusher Warp Explanation Type Date Recorded Advance Directives, 01/11/2019 12:00 AM Living Will and Medical Power of Player Development Executive Date Inactivated Comments Code Status Date Activated 01/15/2019 7:05 PM Full Code 01/12/2019 12:49 AM Code Status decision reached by: Patient
--- OUTSIDE RECORDS SUMMARY | 2019-04-20 10:05 | XMS REPORT | Continuity of Care Document ---
Author Author [employer] Address Unknown Phone Unavailable Care Team Providers Care Licensing Services Clerk Name Role Phone [employer] Unavailable Unavailable Problems Problem Status Onset Date Classification Date Reported Comments Source Anemia Active 05/10/2015 Problem 05/13/2018 [facility] Renal failure Active 11/22/2014 Problem 05/13/2018 [facility] Back pain Active 06/08/2014 Problem 05/13/2018 [facility] Descending thoracic aortic dissection Active [...] Cellulitis of left leg Active Problem 05/13/2018 [facility] Dyspnea Active Problem 05/13/2018 [facility] Pneumonia Active Problem 05/13/2018 [facility] Renal failure , acute on chronic Active Problem 05/13/2018 [facility] Medications Medication Details Route Status Patient Instructions Ordering Provider Order Date Source Amlodipine Besylate 1 tablet Orally Active 5 MG Orally Once a day Krystal 03/14/2018 Roger Luis Manuel Rice Aspirin 325 Mg Tablet, 325 Mg Oral Daily Active 11/13/2016 [facility] Irbesartan (Avapro) 75 Mg Tablet, 75 Mg Oral Twice A Day Active 11/13/2016 [facility] Silodosin (Rapaflo) 8 Mg Capsule, 8 Mg Oral Daily Active 07/20/2015 [facility] Warfarin Sodium (Coumadin) 5 Mg Tablet, 5 Mg Oral Today At 5:00PM Active 05/14/2015 [facility] Amphet Asp/Amphet/D-Amphet (Adderall 5 Mg Tablet) 5 Mg Tablet, 5 Mg Oral Twice A Day Active 05/11/2015 [facility] Cephalexin Monohydrate (Keflex) 500 Mg Capsule, Mg Oral Twice A Day Active 05/11/2015 [facility] Hydrocodone Bit/Acetaminophen ([place] 10-325 Tablet) 1 Each Tablet, 1 Tab Oral Every 4 Hours Active 05/11/2015 [facility] Insulin Detemir (Levemir) 100 Unit/1 Ml Vial, 40 Sub-Q Twice A Day Active 05/11/2015 [facility] Insulin Lispro (Humalog) 100 Unit/1 Ml Insuln.pen, 40 Sub-Q Three Times A Day Active 05/11/2015 [facility] Torsemide (Demadex) 20 Mg Tablet, 20 Mg Oral Twice A Day Active 11/24/2014 [facility] Insulin Aspart (Novolog) 100 Units/Ml Ml, 40 Sub-Q Before Meals Active 11/23/2014 [facility] Polyethylene Glycol 3350 (Miralax) 17 Gm Powd.pack, 1 Pkt Oral Every Morning Active 11/22/2014 [facility] Potassium Chloride 10 Meq Tablet.er, 10 Meq Oral Twice A Day Active 11/22/2014 [facility] Dabigatran Etexilate Mesylate (Pradaxa) 150 Mg Capsule, 150 Mg Oral Twice A Day Active 08/21/2014 [facility] Amphet Asp/Amphet/D-Amphet (Adderall 20 Mg Tablet) 20 Mg Tablet, 20 Mg Oral Twice A Day Active 08/14/2013 [facility] Irbesartan (Avapro) 300 Mg Tablet, 150 Mg Oral Daily Active 08/14/2013 [facility] Metolazone 5 Mg Tablet, 5 Mg Oral Daily Active 08/14/2013 [facility] Valsartan/Hydrochlorothiazide (Diovan Hct 160-12.5 Mg Tab) 1 Each Tablet, 1 Tab Oral Daily Active 08/14/2013 [facility] Dutasteride (Avodart) 0.5 Mg Capsule, Daily Active 02/13/2013 [facility] Methocarbamol (Robaxin-750) 750 Mg Tablet, Twice A Day Active 02/13/2013 [facility] [id number] Daily , Active 02/13/2013 [facility] Valsartan/Hydrochlorothiazide (Diovan Hct 160-12.5 Mg Tab) 1 Each Tablet, 1 Each Oral Twice A Day Active 02/13/2013 [facility] Amlodipine Besylate 1 tablet Orally Active 5 MG Orally Once a day Krystal Rice Amlodipine Besylate TAKE 1 TABLET BY MOUTH EVERY DAY by mouth Active 5 MG by mouth once a day Krystal Rice Alprazolam (Xanax) 0.5 Mg Tablet Bedtime Active [facility] Amlodipine Besylate 5 Mg Tablet Daily Active [facility] Amphet Asp/Amphet/D-Amphet (Adderall 20 Mg Tablet) 20 Mg Tablet Every 12 Hours Active [facility] Docusate Calcium (Stool Softener) 240 Mg Capsule Daily Active [facility] Gabapentin 300 Mg Capsule Three Times A Day Active [facility] Hydrocodone Bit/Acetaminophen ([place] 10-325 Tablet) 1 Each Tablet Daily Active [facility] Insulin Aspart (Novolog) 100 Unit/1 Ml Cartridge Before Meals Active [facility] Insulin Detemir (Levemir) 100 Unit/1 Ml Vial Twice A Day Active [facility] Lisinopril (Prinavil / Zestril) 20 Mg Tablet Twice A Day Active [facility] Metformin Hcl (Glucophage) 500 Mg Tablet Twice A Day Active [facility] Metolazone 5 Mg Tablet Daily Active [facility] Metoprolol Tartrate 50 Mg Tablet Twice A Day Active [facility] Minoxidil 2.5 Mg Tablet Daily Active [facility] Movantik Daily Active [facility] Silodosin (Rapaflo) 8 Mg Capsule Daily Active [facility] Sucralfate (Carafate) 1 Gm/10 Ml Oral.susp Daily Active [facility] Torsemide (Demadex) 10 Mg Tablet Daily Active [facility] Allergies, Adverse Reactions, Alerts Substance Category Reaction Severity Reaction type Status Date Reported Comments Source No Known Drug Allergies Mild Allergy to Substance Active 05/02/2018 [facility] Immunizations No Data Provided for This Section Results Order Name Results Value Reference Range Date Interpretation Comments Source Capillary blood glucose measurement by glucometer (mass/volume) Capillary blood glucose measurement by glucometer (mass/volume) 163 70 - 120 05/13/2018 [facility] Automated blood basophil count (count/volume) Automated blood basophil count (count/volume) 0.0 0.0 - 0.1 05/13/2018 [facility] Automated blood basophil count as percentage of total leukocytes Automated blood basophil count as percentage of total leukocytes 0.3 0.0 - 1.0 05/13/2018 [facility] Automated blood eosinophil count Automated blood eosinophil count 0.1 0.0 - 0.4 05/13/2018 [facility] Automated blood eosinophil count as percentage of total leukocytes Automated blood eosinophil count as percentage of total leukocytes 2.0 0.0 - 6.0 05/13/2018 [facility] Automated blood hematocrit (volume fraction) Automated blood hematocrit (volume fraction) 39.6 38.2 - 49.6 05/13/2018 [facility] Automated blood lymphocyte count as percentage ot total leukocytes Automated blood lymphocyte count as percentage ot total leukocytes 15.0 18.0 - 39.1 05/13/2018 [facility] Automated blood monocyte count as percentage of total leukocytes Automated blood monocyte count as percentage of total leukocytes 7.1 4.4 - 11.3 05/13/2018 [facility] Automated blood neutrophil count Automated blood neutrophil count 5.1 2.1 - 6.9 05/13/2018 [facility] Automated blood platelet count (count/volume) Automated blood platelet count (count/volume) 300 140 - 360 05/13/2018 [facility] Automated blood segmented neutrophil count as percentage of total leukocytes Automated blood segmented neutrophil count as percentage of total leukocytes 73.7 38.7 - 80.0 05/13/2018 [facility] Automated erythrocyte mean corpuscular hemoglobin (mass per erythrocyte) Automated erythrocyte mean corpuscular hemoglobin (mass per erythrocyte) 28.1 28 - 32 05/13/2018 [facility] Automated erythrocyte mean corpuscular hemoglobin concentration measurement (mass/volume) Automated erythrocyte mean corpuscular hemoglobin concentration measurement (mass/volume) 31.8 31 - 35 05/13/2018 [facility] Automated erythrocyte mean corpuscular volume Automated erythrocyte mean corpuscular volume 88.2 81 - 99 05/13/2018 [facility] Blood erythrocytes automated count (number/volume) Blood erythrocytes automated count (number/volume) 4.49 4.3 - 5.7 05/13/2018 [facility] Blood hemoglobin measurement (moles/volume) Blood hemoglobin measurement (moles/volume) 12.6 14.0 - 18.0 05/13/2018 [facility] Blood leukocytes automated count (number/volume) Blood leukocytes automated count (number/volume) 6.93 4.8 - 10.8 05/13/2018 [facility] Blood lymphocytes count (number/volume) Blood lymphocytes count (number/volume) 1.0 1.0 - 3.2 05/13/2018 [facility] Blood monocytes automated count (number/volume) Blood monocytes automated count (number/volume) 0.5 0.2 - 0.8 05/13/2018 [facility] Estimated glomerular filtration rate (GFR) determination Estimated glomerular filtration rate (GFR) determination >60 60 05/13/2018 [facility] Glucose measurement Glucose measurement 222 74 - 118 05/13/2018 [facility] Plasma globulin measurement (mass/volume) Plasma globulin measurement (mass/volume) 4.3 2.3 - 3.5 05/13/2018 [facility] Serum or plasma alanine aminotransferase measurement (enzymatic activity/volume) Serum or plasma alanine aminotransferase measurement (enzymatic activity/volume) 24 0 - 55 05/13/2018 [facility] Serum or plasma albumin measurement (mass/volume) Serum or plasma albumin measurement (mass/volume) 3.1 3.5 - 5.0 05/13/2018 [facility] Serum or plasma albumin/globulin mass ratio Serum or plasma albumin/globulin mass ratio 0.7 0.8 - 2.0 05/13/2018 [facility] Serum or plasma alkaline phosphatase measurement (enzymatic activity/volume) Serum or plasma alkaline phosphatase measurement (enzymatic activity/volume) 65 40 - 150 05/13/2018 [facility] Serum or plasma anion gap Serum or plasma anion gap 15.6 8 - 16 05/13/2018 [facility] Serum or plasma calcium measurement (mass/volume) Serum or plasma calcium measurement (mass/volume) 9.6 8.4 - 10.2 05/13/2018 [facility] Serum or plasma carbon dioxide, total measurement (moles/volume) Serum or plasma carbon dioxide, total measurement (moles/volume) 28 22 - 29 05/13/2018 [facility] Serum or plasma chloride measurement (moles/volume) Serum or plasma chloride measurement (moles/volume) 99 98 - 107 05/13/2018 [facility] Serum or plasma creatinine measurement (mass/volume) Serum or plasma creatinine measurement (mass/volume) 0.87 0.72 - 1.25 05/13/2018 [facility] Serum or plasma potassium measurement (moles/volume) Serum or plasma potassium measurement (moles/volume) 3.6 3.5 - 5.1 05/13/2018 [facility] Serum or plasma protein measurement (mass/volume) Serum or plasma protein measurement (mass/volume) 7.4 6.5 - 8.1 05/13/2018 [facility] Serum or plasma sodium measurement (moles/volume) Serum or plasma sodium measurement (moles/volume) 139 136 - 145 05/13/2018 [facility] Serum or plasma total bilirubin measurement (mass/volume) Serum or plasma total bilirubin measurement (mass/volume) 0.5 0.2 - 1.2 05/13/2018 [facility] Serum or plasma urea nitrogen measurement (mass/volume) Serum or plasma urea nitrogen measurement (mass/volume) 12 7 - 26 05/13/2018 [facility] Serum or plasma urea nitrogen/creatinine mass ratio Serum or plasma urea nitrogen/creatinine mass ratio 14 6 - 25 05/13/2018 [facility] Red Cell Distribution Width 13.7 11.7 - 14.4 05/13/2018 [facility] IM GRANULOCYTES % 1.9 0.0 - 1.0 05/13/2018 [facility] Absolute Immature Granulocyte (auto 0.13 0 - 0.1 05/13/2018 [facility] Aspartate Amino Transf (AST/SGOT) 19 5 - 34 05/13/2018 [facility] Automated urine sediment leukocyte count by microscopy (number/high power field) Automated urine sediment leukocyte count by microscopy (number/high power field) <5 0 - 5 05/11/2018 [facility] Bacteria detection in urine sediment by light microscopy Bacteria detection in urine sediment by light microscopy RARE NONE 05/11/2018 [facility] Epithelial cells detection in urine sediment by light microscopy Epithelial cells detection in urine sediment by light microscopy FEW NONE 05/11/2018 [facility] Erythrocytes detection in urine sediment by light microscopy Erythrocytes detection in urine sediment by light microscopy <50 0 - 5 05/11/2018 [facility] Hyaline casts detection in urine sediment by light microscopy Hyaline casts detection in urine sediment by light microscopy <1 0 - 1 05/11/2018 [facility] Specific gravity of Urine by Test strip Specific gravity of Urine by Test strip 1.010 1.010 - 1.025 05/11/2018 [facility] Transitional cells detection in urine sediment by light microscopy Transitional cells detection in urine sediment by light microscopy FEW NONE 05/11/2018 [facility] Urine clarity Urine clarity CLEAR CLEAR 05/11/2018 [facility] Urine color determination Urine color determination YELLOW YELLOW 05/11/2018 [facility] Urine erythrocytes detection Urine erythrocytes detection 1+ NEGATIVE 05/11/2018 [facility] Urine glucose detection Urine glucose detection 2+ NEGATIVE 05/11/2018 [facility] Urine ketones detection by automated test strip Urine ketones detection by automated test strip NEGATIVE NEGATIVE 05/11/2018 [facility] Urine leukocyte esterase detection by dipstick Urine leukocyte esterase detection by dipstick TRACE NEGATIVE 05/11/2018 [facility] Urine nitrite detection Urine nitrite detection NEGATIVE NEGATIVE 05/11/2018 [facility] Urine pH measurement by automated test strip Urine pH measurement by automated test strip 8 5 - 7 05/11/2018 [facility] Urine protein measurement by test strip (mass/volume) Urine protein measurement by test strip (mass/volume) NEGATIVE NEGATIVE 05/11/2018 [facility] Urine total bilirubin measurement (mass/volume) Urine total bilirubin measurement (mass/volume) NEGATIVE NEGATIVE 05/11/2018 [facility] Urine urobilinogen measurement by test strip (mass/volume) Urine urobilinogen measurement by test strip (mass/volume) 0.2 0.2 - 1 05/11/2018 [facility] Blood culture Blood culture NO GROWTH AFTER 72 HOURS 05/10/2018 [facility] Serum or plasma trough vancomycin level at trough (mass/volume) Serum or plasma trough vancomycin level at trough (mass/volume) 24.3 5.0 - 10.0 05/06/2018 [facility] Blood anisocytosis detection by light microscopy Blood anisocytosis detection by light microscopy SLIGHT 05/06/2018 [facility] Blood platelets count by estimate (number/volume) Blood platelets count by estimate (number/volume) ADEQUATE 05/06/2018 [facility] Platelet morphology Platelet morphology NORMAL 05/06/2018 [facility] RBC morphology RBC morphology NORMAL 05/06/2018 [facility] Serum or plasma cholesterol in HDL measurement (mass/volume) Serum or plasma cholesterol in HDL measurement (mass/volume) 41 40 - 60 05/06/2018 [facility] Serum or plasma cholesterol in LDL measurement (mass/volume) Serum or plasma cholesterol in LDL measurement (mass/volume) 99 60 - 130 05/06/2018 [facility] Serum or plasma cholesterol measurement (mass/volume) Serum or plasma cholesterol measurement (mass/volume) 151 0 - 199 05/06/2018 [facility] Serum or plasma thyrotropin measurement by detection limit <=0.005 miu/l (units/volume) Serum or plasma thyrotropin measurement by detection limit <=0.005 miu/l (units/volume) 0.930 0.350 - 4.940 05/06/2018 [facility] Serum or plasma total cholesterol/cholesterol in HDL mass ratio Serum or plasma total cholesterol/cholesterol in HDL mass ratio 3.7 3.9 - 4.7 05/06/2018 [facility] Serum or plasma triglyceride measurement (mass/volume) Serum or plasma triglyceride measurement (mass/volume) 55 0 - 149 05/06/2018 [facility] Bacterial blood culture Bacterial blood culture Organism: STAPHYLOCOCCUS AUREUS 05/05/2018 [facility] Lactic Acid Level 13.2 4.5 - 19.8 05/05/2018 [facility] Serum or plasma creatine kinase MB measurement (mass/volume) Serum or plasma creatine kinase MB measurement (mass/volume) 2.40 0 - 5.0 05/04/2018 [facility] Serum or plasma creatine kinase measurement (enzymatic activity/volume) Serum or plasma creatine kinase measurement (enzymatic activity/volume) 532 30 - 200 05/04/2018 [facility] Troponin I measurement by highly sensitive enzyme immunoassay Troponin I measurement by highly sensitive enzyme immunoassay 0.197 0 - 0.300 05/04/2018 [facility] Serum or plasma magnesium measurement (mass/volume) Serum or plasma magnesium measurement (mass/volume) 1.8 1.3 - 2.1 05/04/2018 [facility] Manual blood lymphocytes/100 leukocytes Manual blood lymphocytes/100 leukocytes 7 19 - 48 05/03/2018 [facility] Manual blood monocytes/100 leukocytes Manual blood monocytes/100 leukocytes 8 3.4 - 9.0 05/03/2018 [facility] Manual blood neutrophils/100 leukocytes Manual blood neutrophils/100 leukocytes 85 40 - 74 05/03/2018 [facility] Differential Total Cells Counted 100 05/03/2018 [facility] Mucus detection in urine sediment by light microscopy Mucus detection in urine sediment by light microscopy FEW RARE 05/02/2018 [facility] Activated partial thromboplastin time (aPTT) in platelet poor plasma bycoagulation assay Activated partial thromboplastin time (aPTT) in platelet poor plasma bycoagulation assay 33.6 23.8 - 35.5 05/02/2018 [facility] Fibrin D-dimer DDU measurement in platelet poor plasma (mass/volume) Fibrin D-dimer DDU measurement in platelet poor plasma (mass/volume) 0.75 0.00 - 0.45 05/02/2018 [facility] INR in Platelet poor plasma by Coagulation assay INR in Platelet poor plasma by Coagulation assay 0.96 05/02/2018 [facility] Prothrombin time (PT) in platelet poor plasma by coagulation assay Prothrombin time (PT) in platelet poor plasma by coagulation assay 13.7 11.9 - 14.5 05/02/2018 [facility] Serum or plasma lipase measurement (enzymatic activity/volume) Serum or plasma lipase measurement (enzymatic activity/volume) <4 8 - 78 05/02/2018 [facility] B-Type Natriuretic Peptide 140.5 0 - 100 05/02/2018 [facility] Bacterial urine culture Bacterial urine culture Urine Culture [facility] Pathology Reports No Data Provided [...] Date DC Date Status Source Discharged Inpatient [id number] GILBERT NAVARRO MD 05/02/2018 05/13/2018 [facility] Procedures Procedure Code Date Perfomer Comments Source Computed tomography of chest with contrast [id number] 05/10/2018 [facility] MRI joint extremity upper wo then w contrast [id number] 05/05/2018 [facility] Computed tomography of abdomen and pelvis with contrast [id number] 05/04/2018 [facility] Computed tomography of soft tissues of neck with contrast [id number] 05/04/2018 [facility] Assessment and Plan No Data Provided for This Section Plan of Care Plan of Care Date Source Discharge Date 05/13/18 12:14pm Disposition HOME, SELF-CARE Instructions/Education Provided Pneumonia - Bacterial Prescriptions See Medication Section Additional Instructions/Education Follow up in [address] Navarro 05/13/2018 [facility] Social History Social History Date [...] Start Date Stop Date Never Smoker 05/13/2018 [facility] Family History No Data Provided for This Section Advance Directives Order Name Results Value Date Source Advance Directives Advance Directives Directive Response Recorded Date/Time Does the patient have an advance directive? Yes 05/03/18 2:25am If yes, is advance directive on file with [facility]? Yes 05/03/18 2:25am If not on file with [facility] will patient provide a copy? Yes 05/03/18 2:25am Do you have a Directive to Physician? No 05/02/18 8:46pm Do you have a Medical Power of Career Based Intervention Coordinator? No 05/02/18 8:46pm Do you have an [...] rights and responsibilities? Yes 05/02/18 8:46pm 05/13/2018 [facility] Functional Status No Data Provided for This Section
--- NOTE | 2019-04-20 10:09 | Diagnostic Imaging Report ---
Examination: Single AP view of the chest. COMPARISON: None. INDICATION: Fall DISCUSSION: Lines/tubes: Right PICC line with tip overlying the SVC. Aortic stent. Lungs: The lungs are well inflated and clear. No pneumonia or pulmonary edema. Pleura: No pleural effusion or pneumothorax. Heart and mediastinum: The heart and the mediastinum are unremarkable. Bones and soft tissues: No acute bony abnormalities. IMPRESSION: 1. No acute cardiopulmonary abnormalities. Signed by: Dr. Idris Alexander M.D. on 04/20/2019 10:05 AM
[2019-04-20] MEDS: MEROPENEM 1GM 100 ML IV SCH ×3 (10:12→23:00)
--- NOTE | 2019-04-20 10:23 | Diagnostic Imaging Report ---
Exams: Head and cervical spine CTs without IV contrast History: Generalized weakness, trauma, fall Comparison studies: Head CT 11/22/2014 Technique: Axial images were obtained from the brain and cervical spine. Coronal and sagittal images reconstructed from the axial data. Dose modulation, iterative reconstruction, and/or weight based adjustment of the mA/kV was utilized to reduce the radiation dose to as low as reasonably achievable. Intravenous contrast: None Findings: Head CT: Scalp: No abnormalities. Bones: No fractures, blastic or lytic lesions. Extra-axial spaces: No masses. No fluid collections. Brain sulci: Moderately prompt. Ventricles: Moderate compensatory dilatation. No hydrocephalus. Parenchyma: No mass, acute hemorrhage or acute cortical insult. Unchanged small chronic cortical-based insult in the left middle frontal gyrus. A few scattered hypodensities in the supratentorial white matter are nonspecific but are most compatible with chronic microvascular ischemic changes. Sellar/suprasellar region: No abnormalities. Craniocervical junction: The foramen magnum is patent. No Chiari one malformation. Incidental findings: Bilateral lens replacements related to previous cataract surgery. Atherosclerotic calcifications in the carotid siphons an in the intradural vertebral arteries. Cervical spine CT: Fractures: None. Soft tissues: No gross acute abnormalities. Atlantoaxial articulation: Intact. Alignment: Straightened cervical curvature may be positional. Minimal anterolisthesis of C3 on C4 and C4 on C5 are most likely degenerative in etiology. Cervicomedullary junction: No abnormalities. The foramen magnum is patent. Vertebrae: No infection or neoplasm. The C5 and C6 vertebral bodies and facet are fused which may be congenital or degenerative in etiology. Degenerative changes: Severe degenerative changes at the atlantal dental articulation. Multilevel disc degeneration, moderate at C6-C7 and mild from C2 to C5 and at C7-T1. Diffuse C5-C6 disc space. Disc osteophyte complexes at C2-C3, C3-C4 and at C6-C7 result in mild canal stenosis.. Advanced multilevel facet arthrosis. Multilevel uncovertebral and facet arthrosis result in multilevel foraminal stenosis (mild left at C2-C3, moderate bilaterally at C3-C4 mild left at C5-C6, mild to moderate bilaterally at C6-C7). Incidental findings: * Scattered calcified atherosclerosis within the neck including within the carotid bulbs. * Multinodular thyroid gland with a millimeter calcified nodule in the right thyroid lobe and 10 mm hypodense nodule in the left thyroid lobe. * Partially imaged right internal jugular central venous catheter. IMPRESSION: Head CT: No acute abnormalities. No significant changes from the prior head CT of 11/22/2014.. Chronic findings: 1. Moderate generalized parenchymal volume loss. 2. Small left middle frontal insult with encephalomalacia. 3. Mild microvascular ischemic changes. Cervical spine CT: 1. No cervical spine fracture. 2. Minimal anterolisthesis of C2 on C3 and C3 on C4 are most likely degenerative in etiology. 3. Additional moderate multilevel degenerative changes as described. 4. Cannot exclude ligament, spinal cord and or vascular abnormalities on the basis of this examination. Signed by: Dr. Clement Russell M.D. on 04/20/2019 10:19 AM
[2019-04-20] MEDS ORDERED: GABAPENTIN300 MG PO (10:38)
[2019-04-20] MEDS ORDERED: tylenol PO (10:38)
[2019-04-20] MEDS: INSULIN LISPRO 100 UNIT/1 ML 3ML VIAL SQ SCH ×3 (11:30→21:00)
[2019-04-20 12:05] VITALS: BP 150/68
--- NOTE | 2019-04-20 12:13 | NUR ---
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 Patient has had increased weakness and a fall at home,no able to take care of self fully, history of chronic osteomyelitis to left foot, Right chest wall picc line in place for abx infusion at home, followed by Dr. Cedeno out patient. He is a/ox3, pleasant gentleman, in no apparent distress, VSS, blood sugar elevated and medicated with insulin, call light within reach, IV abx running at this time, will monitor.
[2019-04-20 12:22] VITALS: BP 150/68
[2019-04-20] MEDS: HYDROMORPHONE 1MG/1ML INJ IV PRN ×3 (12:56→21:53)
[2019-04-20] MEDS ORDERED: METOPROLOL TARTRATE 50 MG TAB PO PRN (14:00)
[2019-04-20] MEDS ORDERED: HYDROCODONE/APAP 10MG-325MG TAB PO PRN (14:00)
[2019-04-20] MEDS ORDERED: TORSEMIDE 10 MG TAB PO PRN (14:00)
[2019-04-20] MEDS ORDERED: METOLAZONE 5 MG TAB PO PRN (14:00)
[2019-04-20] MEDS ORDERED: SODIUM CHLORIDE 0.9% 250ML 250 ML ONE (14:47)
[2019-04-20] MEDS: BACLOFEN 10 MG TAB PO SCH ×2 (15:00→21:05)
[2019-04-20] MEDS: GABAPENTIN 300 MG CAP PO SCH ×2 (15:00→21:08)
[2019-04-20] MEDS: NIACIN 500 MG TABSR PO SCH ×2 (15:00→21:08)
--- NOTE | 2019-04-20 15:03 | NUR ---
Consult to NILAM Cisneros notified and called back, orders for Cubicin 500mg q24 hours IV, orders in place,
[2019-04-20 15:50] VITALS: BP 128/60
--- NOTE | 2019-04-20 15:55 | History and Physical ---
REASON FOR ADMISSION: 1. Osteomyelitis of the left foot. 2. Weakness. 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 He was recently discharged on IV antibiotics with meropenem, who unfortunately at home fell a couple days ago, was unable to really get up. Therefore, the patient was then brought back to the emergency room and further admitted for possible rehabilitative care. PAST MEDICAL HISTORY: Significant for aortic dissection, hypertension, diabetes, sleep apnea, chronic kidney disease stage 3, chronic anemia, and osteoarthritis. MEDICATIONS: See MAR. ALLERGIES: NONE. SOCIAL HISTORY: Lives at home with his . Nonsmoker, nondrinker. 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 FAMILY HISTORY: Hypertension. PHYSICAL EXAMINATION: VITAL SIGNS: Temperature is 97.0, pulse 90, blood pressure 150/68, and saturations 96%. GENERAL: No apparent distress, lying in bed. NECK: Supple. CARDIOVASCULAR: Regular rate and rhythm. LUNGS: Decreased breath sounds bilaterally. ABDOMEN: Good bowel sounds. Soft, nontender. EXTREMITIES: No clubbing or cyanosis. His left foot has a stage IV ulcer with bone exposed. No discharge. NEUROLOGIC: Nonfocal. ASSESSMENT/PLAN: 1. Osteomyelitis of the left foot. Continue with current IV antibiotic care per Infectious Disease. 2. Diabetes. Continue with current care and monitoring. 3. Anemia. Continue to monitor. 4. Sleep apnea. Continue with BiPAP. 5. Obesity. Continue with diet. 6. Hypertension. Continue with current care. 7. Weakness. We will start physical therapy and consult Dr. Mendez at rehab. Please see hospital chart for full details. MD STEPHEN Cesar/MERA /[id number]
[2019-04-20] MEDS: LISINOPRIL 20 MG TAB PO SCH (16:21)
[2019-04-20] MEDS: BUSPIRONE HCL 10 MG TABLET PO SCH (16:21)
[2019-04-20 16:25] LABS: CREATINE KINASE MB 4.7 ng/mL (0-5.0)
[2019-04-20] MEDS ORDERED: INSULIN LISPRO 100 UNIT/1 ML 3ML VIAL SQ SCH (16:30)
[2019-04-20 20:03] VITALS: BP 120/57
[2019-04-20] MEDS: ALPRAZOLAM 0.5 MG TAB PO SCH (21:08)
[2019-04-20] MEDS: DAPTOMYCIN 500mg 10ML 500 MG in SODIUM CHLORIDE 0.9% 100 ML IV SCH (21:08)
[2019-04-21] VITALS (8 sets, daily range): BP systolic 103–132; BP diastolic 47–66
[2019-04-21] MEDS: HYDROMORPHONE 1MG/1ML INJ IV PRN ×3 (03:53→21:15)
[2019-04-21] MEDS: ONDANSETRON HCL INJ 2MG/ML 2ML 2 MG/ML VIAL IV PRN (04:06)
[2019-04-21 06:13] LABS: BASOPHILS % 0.4 % (0.0-1.0); EOSINOPHILS # (AUTO) 0.3 (0.0-0.4); HEMOGLOBIN 9.5 g/dL (14.0-18.0); LYMPHOCYTES % 13.1 % (18.0-39.1); MEAN CORPUSCULAR HEMOGLOBIN 26.5 pg (28-32); MEAN CORPUSCULAR HGB CONC 30.6 g/dL (31-35); MEAN CORPUSCULAR VOLUME 86.4 fL (81-99); MONOCYTES # (AUTO) 0.7 (0.2-0.8); MONOCYTES % 8.7 % (4.4-11.3); NEUTROPHILS # (AUTO) 5.6 (2.1-6.9); NEUTROPHILS % 73.4 % (38.7-80.0); PLATELET COUNT 210 x10e3/uL (140-360); RED BLOOD COUNT 3.59 x10e6/uL (4.3-5.7); RED CELL DISTRIBUTION WIDTH 15.2 % (11.7-14.4)
[2019-04-21 06:20] LABS: CLARITY,URINE HAZY (CLEAR); COLOR,URINE YELLOW (YELLOW)
[2019-04-21 06:22] LABS: LEUKOCYTE ESTERASE ,URINE NEGATIVE (NEGATIVE); NITRITE,URINE NEGATIVE (NEGATIVE); PROTEIN,URINE DIPSTICK TRACE (NEGATIVE)
[2019-04-21 06:23] LABS: BILIRUBIN,URINE NEGATIVE (NEGATIVE); KETONES,URINE NEGATIVE (NEGATIVE); URINE UROBILINOGEN 0.2 mg/dL (0.2 - 1)
[2019-04-21 06:39] LABS: ALANINE AMINOTRANSFERASE 26 IU/L (0-55); ALBUMIN 2.8 g/dL (3.5-5.0); ALBUMIN/GLOBULIN RATIO 0.9 (0.8-2.0); ALKALINE PHOSPHATASE 78 IU/L (40-150); BLOOD UREA NITROGEN 10 mg/dL (7-26); BUN/CREATININE RATIO 11 (6-25); CALCIUM 8.6 mg/dL (8.4-10.2); CARBON DIOXIDE 32 mmol/L (22-29); CHLORIDE 102 mmol/L (98-107); CREATININE, SERUM 0.88 mg/dL (0.72-1.25); EST GLOMERULAR FILTRATION RATE > 60 ML/MIN (60-); GLUCOSE 176 mg/dL (74-118); SODIUM 138 mmol/L (136-145)
[2019-04-21] MEDS: MEROPENEM 1GM 100 ML IV SCH ×3 (06:45→22:45)
[2019-04-21 06:57] LABS: BACTERIA,URINE FEW /HPF; EPITHELIAL CELLS,URINE FEW /LPF; RBC,URINE 0-5 /HPF (0-5)
--- NOTE | 2019-04-21 07:00 | NUR ---
BEDSIDE SHIFT REPORT RECEIVED FROM THE SPINNER CONCRETE PIPE RN. EDUCATED PT ABOUT FALL PRECAUTIONS. BED IS LOCKED. SIDE RAILS X2. PT REFUSED BED ALARM. CALL LIGHT IS WITH IN EASY REACH. INSTRUCTED PT TO USE CALL LIGHT FOR ANY NEEDS. PT VERBALIZED UNDERSTANDING. PT DENIES NEEDS AT THIS TIME.
--- NOTE | 2019-04-21 07:00 | NUR ---
BEDSIDE SHIFT REPORT RECEIVED FROM THE POCKET GRINDER OPERATOR RN. EDUCATED PT ABOUT FALL PRECAUTIONS. BED IS LOCKED. SIDE RAILS X2. PT REFUSED BED ALARM. CALL LIGHT IS WITH IN EASY REACH. INSTRUCTED PT TO USE CALL LIGHT FOR ANY NEEDS. PT VERBALIZED UNDERSTANDING. PT DENIES NEEDS AT THIS TIME.
--- NOTE | 2019-04-21 07:19 | NUR ---
REPORT GIVEN TO ONCOMING NURSE.WALKING ROUNDS MADE.PT RESTING IN BED WITH NO S/S OF DISTRESS.
[2019-04-21] MEDS: BUSPIRONE HCL 10 MG TABLET PO SCH ×2 (08:27→17:40)
[2019-04-21] MEDS: CITALOPRAM HYDROBROMIDE 20 MG TAB PO SCH (08:29)
[2019-04-21] MEDS: GABAPENTIN 300 MG CAP PO SCH ×3 (08:29→20:40)
[2019-04-21] MEDS: ALPRAZOLAM 0.5 MG TAB PO SCH ×2 (08:30→21:00)
[2019-04-21] MEDS: CHOLECALCIFEROL 1,000 UNIT TAB PO SCH (08:30)
--- NOTE | 2019-04-21 08:30 | NUR ---
PT VOICED CONCERNS ABOUT INSULIN DOSE. PER THE PT HE NEEDS ONLY SLIDING SCALE AND STANDING SCALE 25 UNITS OF HUMALOG NOT NEEDED. 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 INFORMED THE SAME TO DR. DOMINGUEZ. PER DR. DOMINGUEZ DISCONTINUE STANDING ORDER 25 UNITS HUMALOG.
[2019-04-21] MEDS: BACLOFEN 10 MG TAB PO SCH ×3 (08:31→20:40)
[2019-04-21] MEDS: MULTIVITAMINS/MINERALS TAB PO SCH (08:32)
[2019-04-21] MEDS: CYANOCOBALAMIN 1,000 MCG TAB PO SCH (08:33)
[2019-04-21] MEDS: TAMSULOSIN HCL 0.4 MG CAP PO SCH (08:34)
[2019-04-21] MEDS: NIACIN 500 MG TABSR PO SCH ×3 (08:35→20:40)
--- NOTE | 2019-04-21 08:40 | NUR ---
PER THE PT HIS BLOOD SUGAR WENT DOWN TO 30'S WITH STANDING SCALE MORE THAN 20 UNITS INSULIN ORDER FEW WEEKS BEFORE. SO PT WANTS ONLY SLIDING SCALE. INFORMED THE SAME TO .
[2019-04-21] MEDS: INSULIN LISPRO 100 UNIT/1 ML 3ML VIAL SQ SCH ×4 (09:00→21:15)
[2019-04-21] MEDS: LISINOPRIL 20 MG TAB PO SCH ×2 (10:00→17:41)
[2019-04-21] MEDS: MINOXIDIL 2.5 MG TAB PO SCH (10:00)
--- NOTE | 2019-04-21 16:38 | Consultation ---
DATE OF CONSULTATION: 04/21/2019 HISTORY OF PRESENT ILLNESS: This is patient of Dr. Navarro, located at [facility] in [place], [place]. This is a 73-year-old gentleman admitted after he was found to be debilitated, weak. Mr. Puga was recently discharged from hospital with diagnosis of osteomyelitis of the left foot, was placed on IV antibiotics at home, discharged home few days back. Apparently, he was placed in his bed by the ENT when he was transferred back home. Shortly after he tried to go to the bathroom, his legs states that collapsed and could not hold his weight, so with the help of his , he was placed on the floor for a few days after each multiple attempt for going back to the bed failed, so get to the point that he was extremely weak, could not able to move his legs and his arms started to get really worse. Therefore, the patient was transferred back to the hospital, and we were notified through the phone system. PAST MEDICAL HISTORY: Include diabetes mellitus type 2, renal insufficiency, osteomyelitis of the foot, anemia of chronic disease, osteoarthritis, sleep apnea, hypertension, aortic dissection, obesity, debility, chronic pain, neuropathy. ALLERGIES: NO KNOWN ALLERGIES. SOCIAL HISTORY: He is a nonsmoker, nondrinker. 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 MEDICATIONS: Medication list reviewed as far as Infectious Disease point of view, patient is on daptomycin and meropenem. LABORATORY STUDIES: White blood cells 7.69, hemoglobin is 9.5, platelet 210. Sodium 138, potassium 4, creatinine 0.88, BUN 10, estimated GFR of greater than 60. RADIOLOGY STUDIES: Had a CT of the head, C-spine, who is found no acute findings, was found to have minimal anterolisthesis of the C2 on C3 and C3 on C4 with most likely degenerative in etiology with additional moderate multilevel degenerative changes and also states that could not exclude ligament, spinal cord or vascular abnormalities on the basis of this examination. Microbiology, urine cultures pending. REVIEW OF SYSTEMS: No nausea, vomiting, fever, chills, chest pain, shortness of breath, headache, sweats, however, complaints that he is very weak but improved. He is able to lift his legs in the supine position up to 45 degrees and he thinks he is also stronger on his upper extremity. He is hoping to be able to discharge back home soon. PHYSICAL EXAMINATION: GENERAL: Alert and oriented, obese gentleman, supine position in bed, no acute findings. VITAL SIGNS: Clinically, temperature 98.5, pulse 81, respirations 17, blood pressure 123/57. CV: S1-S2. CHEST: Equal expansion. Clear to auscultation, no acute distress. ABDOMEN: Obese, soft, nontender. Bowel sounds positive. HEENT: Moist, no pallor. No JVD. EXTREMITIES: Left foot wound noted. Some macerations around the wound. There is no malodorous or black eschar or yellow slough tissues. No pus noted. No significant redness noted. ASSESSMENT AND PLAN: This is a 73-year-old gentleman with osteomyelitis of the lower extremities, who was discharged home with IV antibiotics, found to be weak and not able to get out after a fall, already feels better and wants to go home. Antibiotics were ordered over the phone. We adjust a dose of antibiotics since his kidney function has improved. I would continue with the same antibiotics at this point and monitor patient clinically, hopefully. The plan is to get some physical therapy and discharge him home if all workout and improved. This case was discussed with Dr. Cedeno in details multiple times and further management of this patient based on daily finding on laboratory and physical examination. Thank you very much for this consult. Dictated by Hernando Hernandez PA-C (Al) Gregor Cedeno MD /MODL /[id number]
--- NOTE | 2019-04-21 17:05 | NUR ---
WOUNDCARE CONSULT FOR 73YO MALE DIABETIC PATIENT HX OF OSTEO AND AMPUTATION LAST 4 DIGITS LFT FOOT BIRD IS 17 WITH MODERATE PUP PRECAUTIONS LABS: WBC-7.96,HGB-9.5L, GLUCOSE- 176 PT IS ON IV ANTIBIOTICS FOR + CULTURES RECOMMENDATIONS: NURSING TO MAINTAIN PROTECTION AND OFFLOADING AND MODERATE PUP PREVENTION WITH ALTERNATING MATTRESS NURSING TO ASSIST PATIENT OUT OF BED FOR MEALS AND TOLERATED NURSING TO APPLY DAILY SILVASORB GEL WITH 4X4 'S AND KERLIX SECURE WITH TAPE Addendum: 04/21/19 at 1718 by Chemo Huntley RN Amended: Links added.
--- NOTE | 2019-04-21 19:00 | NUR ---
BEDSIDE SHIFT REPORT GIVEN TO THE MACHINE PECAN GATHERER RN. PT DENIED FURTHER NEEDS.
[2019-04-21] MEDS: DAPTOMYCIN 500mg 10ML 500 MG in SODIUM CHLORIDE 0.9% 100 ML IV SCH (20:40)
[2019-04-22] VITALS (7 sets, daily range): BP systolic 110–148; BP diastolic 53–67
[2019-04-22] MEDS: ONDANSETRON HCL INJ 2MG/ML 2ML 2 MG/ML VIAL IV PRN ×3 (01:38→12:52)
[2019-04-22] MEDS: HYDROMORPHONE 1MG/1ML INJ IV PRN ×4 (01:38→12:52)
[2019-04-22] MEDS: MEROPENEM 1GM 100 ML IV SCH ×2 (06:03→14:46)
--- NOTE | 2019-04-22 06:37 | NUR ---
PAGED DR MIGUEL FOR CONSULTATION OF LEFT KNEE PAIN
--- NOTE | 2019-04-22 07:00 | NUR ---
BEDSIDE SHIFT REPORT RECEIVED FROM THE EXERCISE EQUIPMENT REPAIR TECHNICIAN RN. EDUCATED PT ABOUT FALL PRECAUTIONS. BED IS LOCKED AND BED ALARM IS ON. CALL LIGHT IS WITH IN EASY REACH. INSTRUCTED PT TO USE CALL LIGHT FOR ANY NEEDS. PT VERBALIZED UNDERSTANDING. PT DENIES NEEDS AT THIS TIME.
[2019-04-22] MEDS: TAMSULOSIN HCL 0.4 MG CAP PO SCH (08:28)
[2019-04-22] MEDS: CYANOCOBALAMIN 1,000 MCG TAB PO SCH (08:29)
[2019-04-22] MEDS: CHOLECALCIFEROL 1,000 UNIT TAB PO SCH (08:30)
[2019-04-22] MEDS: INSULIN LISPRO 100 UNIT/1 ML 3ML VIAL SQ SCH ×3 (08:30→16:30)
[2019-04-22] MEDS: BACLOFEN 10 MG TAB PO SCH ×2 (08:31→14:46)
[2019-04-22] MEDS: ALPRAZOLAM 0.5 MG TAB PO SCH (08:31)
[2019-04-22] MEDS: MULTIVITAMINS/MINERALS TAB PO SCH (08:31)
[2019-04-22] MEDS: MINOXIDIL 2.5 MG TAB PO SCH (08:33)
[2019-04-22] MEDS: NIACIN 500 MG TABSR PO SCH ×2 (08:34→14:46)
[2019-04-22] MEDS: BUSPIRONE HCL 10 MG TABLET PO SCH ×2 (08:34→16:39)
[2019-04-22] MEDS: GABAPENTIN 300 MG CAP PO SCH ×2 (08:34→14:46)
[2019-04-22] MEDS: CITALOPRAM HYDROBROMIDE 20 MG TAB PO SCH (08:35)
--- NOTE | 2019-04-22 08:45 | NUR ---
NEW CONSULT FOR DR. ENG PER DR. DOMINGUEZ
[2019-04-22] MEDS ORDERED: SILVER ANTIMICROBIAL WOUND GEL 45ML TP SCH (09:00)
--- NOTE | 2019-04-22 09:17 | Diagnostic Imaging Report ---
EXAMINATION: KNEE LEFT THREE VIEWS INDICATION: Left knee pain, fall COMPARISON: Left femur radiographs of 04/18/2019 FINDINGS: No acute fracture or dislocation. Mild tricompartmental degenerative changes. Heterotopic quadriceps ossification. Mild quadriceps enthesopathy. Atherosclerotic vascular calcifications. IMPRESSION: No acute osseous injury. Mild degenerative changes. Signed by: Azul Escobedo MD on 04/22/2019 9:13 AM
[2019-04-22] MEDS: LISINOPRIL 20 MG TAB PO SCH ×2 (10:00→16:40)
--- NOTE | 2019-04-22 15:40 | NUR ---
Spoke with Dr. Cedeno regarding home IV abx. Informed him that pt wants to return home on discharge. He states he will see pt and let CM know if current home IV abx order needs to be updated.
--- NOTE | 2019-04-22 16:00 | NUR ---
DR. HERNANDES OKAY TO D/C PT. PT DOESN'T NEED ANY PRESCRIPTIONS PER DR HERNANDES. PAGED DR. DOMINGUEZ REGARDING PT DISCHARGE AND RESUMING HOME HEALTH.
--- NOTE | 2019-04-22 16:10 | NUR ---
Per Dr. Cedeno, pt does not need any additional IV abx for home.
--- NOTE | 2019-04-22 16:25 | Consultation ---
DATE OF CONSULTATION: 04/22/2019 REASON FOR CONSULTATION: Osteomyelitis with ulcerations to the left foot with the patient being an insulin-dependent diabetic. HISTORY OF PRESENT ILLNESS: This is a very well known 73-year-old male, who has been previously admitted for osteomyelitis, who had a debridement of his ulcer where the head of the 1st metatarsal was removed at bedside after debridement. The patient was getting local wound care with SilvaSorb and diluted wet-to-dry Betadine and IV antibiotics at home and relates that he has been responding well. He was admitted secondary to a fall. Has a very swollen left knee with cellulitis of the leg but is denying any history of fever, chills, nausea, or vomiting. PAST MEDICAL HISTORY: Remarkable for insulin-dependent diabetes. PAST SURGICAL HISTORY: Remarkable for amputation 2nd through 5th digits of the left foot and heart stent surgery six years ago. ALLERGIES: THE PATIENT DENIES CURRENT MEDICATIONS: Note listed in the chart including IV meropenem. FAMILY HISTORY: Noncontributory. ALLERGIES: THE PATIENT DENIES. REVIEW OF SYSTEMS: CARDIAC: Denies any palpitations or arrhythmias. RESPIRATORY: Denies any shortness of breath or productive cough. GASTROINTESTINAL: Denies any diarrhea or constipation. GENITOURINARY: Denies hematuria or problems voiding. BODY AFTER ALLERGIES: LABS: Noted. He has a white blood cell count of 7.69, hemoglobin 9.5 with a platelet count of 210. INR of 1.06 with a glucose of 176. PHYSICAL EXAMINATION: VITAL SIGNS: Afebrile, pulse rate 73, respirations 16, blood pressure 121/60, O2 saturation 97%. Podiatric physical examination reveals the following: VASCULATURE: Pedal pulses of both the DP and PT are palpable. Skin temperature warm to touch. CFT to all toes less than 5 seconds. NEUROLOGICAL: Complete loss of protective sensation when utilizing Duncan-Marilee 5.07 monofilament wire. MUSCULOSKELETAL: Shows muscle mass to be asymmetrical. Some swelling and cellulitis noted to the left lower extremity. He has an ecchymotic left knee with muscle strength to be 4/5 to all muscle groups. DERMATOLOGICAL: Grade 3 ulceration with necrosis noted down to the muscle. No bone exposed. Some granulation tissue noted measuring 2 to 2.5 cm in diameter at the first metatarsal, left foot. ASSESSMENT: Osteomyelitis with grade 3 ulceration healing slowly with osteo. PLAN: We will continue meropenem. We will continue SilvaSorb followed by diluted wet-to-dry. Continue offloading. Continue to follow. DONNA Valladares/DEIONL /[id number]
--- NOTE | 2019-04-22 16:32 | NUR ---
SONIA TO D/C PT AND SONIA TO RESTART HOME HEALTH PER DR. DOMINGUEZ.
--- NOTE | 2019-04-22 16:45 | NUR ---
INFORMED PT ABOUT D/C ORDER. PT IS WAITING FOR FAMILY TO COME AND PICK. PT DENIES NEEDS AT THIS TIME.
--- NOTE | 2019-04-22 17:02 | NUR ---
Resumption order and clinical faxed to [facility] Informed Hannah in office that pt will be discharging today. IMM letter delivered and explained to pt. He verbalized understanding. Signed copy placed in chart. Copy to pt. PATIENT ADDRESS WHERE SERVICE WILL BE RECEIVED: [address] [place] [address] [place] [id number] PATIENT CONTACT NUMBER: [phone] NAME OF HOME HEALTH COMPANY: [facility] TELEPHONE/FAX NUMBER OF COMPANY: [phone] / SERVICES TO RECEIVE: long-term, PT / OT ANTICIPATED DATE SERVICES WILL BEGIN: 04/23/19 Please call the company above if you have not received a call to schedule a home visit within 24 hours of discharge.
--- NOTE | 2019-04-22 17:27 | NUR ---
KNEE IMMOBILIZER ARRIVED AND GIVEN TO THE PT. PT DENIED FURTHER NEEDS.
--- NOTE | 2019-04-22 18:11 | Consultation ---
DATE OF CONSULTATION: 04/22/2019 CHIEF COMPLAINT: Left knee weakness and locking. HISTORY OF PRESENT ILLNESS: The patient is a medically frail, 73-year-old gentleman, who has inability to bear weight on his left lower extremity. He states that he was able to walk yesterday while using a knee immobilizer. However, without the knee immobilizer, his knee victor hugo. He fell at home a few days ago. PAST MEDICAL HISTORY: Please see admission H and P for extensive details. PHYSICAL EXAMINATION: GENERAL: He is awake and alert, and in no obvious distress. He is generally deconditioned. EXTREMITIES: His left lower extremity is slightly bruised over the anterior aspect of the left knee. He has diminished quadriceps tone. There is a palpable defect at the superior pole of the patella. He cannot perform a straight leg raise. Passively, the knee will fully extend and flex to 120 degrees. He has a bandage on his left foot secondary to a diabetic foot ulcer. He has number of superficial abrasions around the left lower extremity. LABORATORY STUDIES: X-ray show no acute fractures of the left knee. IMPRESSION: Left quadriceps tendon rupture. We will obtain an MRI to confirm the diagnosis. We can discharge him home with a knee immobilizer and a walker. He wants to try to go to work this Sunday. 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 I explained the risks and benefits of surgical fixation. The increased risk for infection due to the open diabetic ulcer in his left foot was discussed. He understands and we will plan on electively repairing his quadriceps tendon next week. Clement Durant MD DR/MERA /[id number]
--- NOTE | 2019-04-22 18:15 | NUR ---
PT ARRIVED TO PICK THE PT.
--- NOTE | 2019-04-22 18:45 | NUR ---
PT WANTS TO TRY THE KNEE IMMOBILIZER BEFORE HE GOES HOME. HELPED PT TO TRY OUT THE IMMOBILIZER. PT WANTED THE LARGER SIZE 24 INCH KNEE IMMOBILIZER. INFORMED THE SAME TO THE RESPIRATORY THERAPIST.
--- NOTE | 2019-04-22 19:00 | NUR ---
BEDSIDE SHIFT REPORT GIVEN TO THE DIRECTOR ERP RN. PT WAITING FOR KNEE IMMOBILIZER.
--- NOTE | 2019-04-22 19:42 | Progress Note ---
DATE: SUBJECTIVE: Mr. Puga is doing well. No new complaints. He would like to go home. REVIEW OF SYSTEMS: Negative. LABORATORY DATA: His laboratory data reviewed. White count 7.6 and hemoglobin 9.5. PHYSICAL EXAMINATION: GENERAL: He is currently alert and oriented. Does not seem to be in acute distress. VITAL SIGNS: Stable. Currently afebrile. HEENT: Not icteric. NECK: Supple. CHEST: Clear. HEART: S1 and S2. No murmur. ABDOMEN: Soft. IMPRESSION: Fatigue and dehydration seems better. History of urinary tract infection, to finish 14 days of antibiotic. Apparently, he ruptured one of his tendon. He is going to see Orthopedic as an outpatient to do an orthopedic procedure in the next week. The patient will be discharged home to finish his course of antibiotic. MD MARVA Mckeon/MERA /[id number]
[2019-04-30] MEDS ORDERED: lantus INJ (12:47)
[2019-04-30] MEDS ORDERED: humalog INJ (12:47)
[2019-04-30] MEDS ORDERED: lioresal PO (12:47)
[2019-04-30] MEDS ORDERED: THERA-M1 EACH PO (12:47)
[2019-04-30] MEDS ORDERED: VITAMIN B-1100 MG PO (12:48)
== END 2019-04-22 20:35 | disposition home health service (06) | DRG 638 ==
LOC: ER 08:27 → ERHOLD 10:02 → MED/SURG2 11:40
PROVIDERS: ADMIT Internal Medicine; ATTEND Internal Medicine
DX: E11.69 Type 2 diabetes mellitus with other specified complication (principal); M86.672 Other chronic osteomyelitis, left ankle and foot; I13.0 Hypertensive heart and chronic kidney disease with heart failure and stage 1 through stage 4 chronic kidney disease, or unspecified chronic kidney disease; L97.526 Non-pressure chronic ulcer of other part of left foot with bone involvement without evidence of necrosis; N39.0 Urinary tract infection, site not specified; L03.116 Cellulitis of left lower limb; R53.1 Weakness; W01.0XXA Fall on same level from slipping, tripping and stumbling without subsequent striking against object, initial encounter; Y93.89 Activity, other specified; Y92.012 Bathroom of single-family (private) house as the place of occurrence of the external cause; I50.9 Heart failure, unspecified; D64.9 Anemia, unspecified; K21.9 Gastro-esophageal reflux disease without esophagitis; Z89.422 Acquired absence of other left toe(s); Z82.49 Family history of ischemic heart disease and other diseases of the circulatory system; N18.3 Chronic kidney disease, stage 3 (moderate); E11.22 Type 2 diabetes mellitus with diabetic chronic kidney disease; R06.81 Apnea, not elsewhere classified; E66.9 Obesity, unspecified; E86.0 Dehydration; M25.562 Pain in left knee; R53.81 Other malaise; Z68.27 Body mass index [BMI] 27.0-27.9, adult; Z79.4 Long term (current) use of insulin; S76.112A Strain of left quadriceps muscle, fascia and tendon, initial encounter
CPT/HCPCS: 36415; 70450; 71045; 72125; 72170; 80053; 81001; 82550; 82553; 82948; 83735; 84484; 85025; 85610; 85730; 87086; 93005; 97139; 99284; J1170; J2405; J3370; J7040; J7050

== ENCOUNTER 2019-04-23 17:01 | Emergency (ER) | payer MEDICARE, OTHER ==
[~2019-04-23] VITALS: Ht 193 cm; Wt 102.1 kg
[~2019-04-23 17:01] MED LIST changes: +tylenol PO
--- OUTSIDE RECORDS SUMMARY | 2019-04-23 17:05 | XMS REPORT | Clinical Summary ---
Author Author [employer] [facility] Organization [employer] Address Unknown Phone Unavailable Care Team Providers Care Business Banking Sales Assistant Name Role Phone Manoj Navarro MD PCP [...] Hospital General Surgery - Encounter 01/15/2019 after 04/22/2018 Social History Date Tobacco Use Types Packs/Day [...] MMODE SPECTRAL 7:48 AM CDT COLOR DOPPLER ([id number]) POC GLUCOSE Routine 01/14/2019 5:37 AM CDT [...] 12-LEAD STAT 01/11/2019 8:48 PM CDT after 04/22/2018 Results * POC glucose (01/15/2019 11:52 AM CDT) Only the most recent of 14 results within the time period is included. POC glucose 190 (H) 65 - 99 mg/dL [place] Comment: RASTAFARI CLEAR Meter ID: [id number] [facility] Vice President Of Talent Management: Paras Quevedo Specimen Performing Organization Address City/State/Zipcode [place] Number [place] [address] [place] [address] PATHOLOGY AND GENOMIC MEDICINE [facility] [id number] [place] [address] * Estimated GFR (01/15/2019 5:01 AM CDT) Only the most recent of 5 results within the time period is included. Estimated GFR 88 mL/min/1.73 m2 [place] Comment: [facility] rpretation G1 >=90 Normal or high G2 60-89Mildly decreased [id number] Mildly to moderately decreased H9o92-04 Moderately to severely decreased G4 15-29Severely decreased G5 <15Kidney failure The eGFR was calculated using the Chronic Kidney Disease Epidemiology Collaboration (CKD-EPI) equation. Interpretation is based on recommendations of the National Kidney Foundation-Kidney Disease Outcomes Quality Initiative (NKF-KDOQI) published in 2014. Specimen Plasma specimen Performing Organization Address City/[facility] Phone Number [facility] DEPARTMENT [address] [place] [address] PATHOLOGY AND GENOMIC MEDICINE [address] * Creatinine level (01/15/2019 5:01 AM CDT) Pathologist [facility] Creatinine 0.80 0.70 - 1.20 mg/dL [facility] Specimen Plasma specimen Performing Organization Address [facility] Phone Number [facility] DEPARTMENT [address] [place] [address] PATHOLOGY AND GENOMIC MEDICINE [address] * XR Chest 2 Vw (01/14/2019 5:18 PM CDT) Specimen Narrative Performed At EXAMINATION:XR CHEST 2 VW [facility] CLINICAL HISTORY:hypoxia COMPARISON:January 11 IMPRESSION: Atelectasis in left lower lobe small left-sided pleural effusion Heart remains slightly enlarged 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 [id number] Performing Organization Address City/State/Zipcode Phone Number MATT MONTEMAYOR [address] [place] [address] * CBC with platelet and differential (01/14/2019 11:55 AM CDT) Only the most recent of 3 results within the time period is included. WBC 8.64Comment: Called Raquel on 4.50 - 11.00 k/uL [address] 01/14/2019 16:19 [facility] RBC 3.74 (L) 4.40 - 6.00 m/uL [facility] HGB 10.6 (L) 14.0 - 18.0 g/dL [facility] HCT 33.8 (L) 41.0 - 51.0 % [facility] MCV 90.4 82.0 - 100.0 fL [facility] MCH 28.3 27.0 - 34.0 pg [facility] MCHC 31.4 31.0 - 37.0 g/dL [facility] RDW - SD 43.6 37.0 - 55.0 fL [facility] MPV 11.5 8.8 - 13.2 fL [facility] Platelet count 144 (L) 150 - 400 k/uL [facility] Nucleated RBC 0.00 /100 WBC [facility] Neutrophils 82.4 (H) 39.0 - 69.0 % [facility] Lymphocytes 9.6 (L) 25.0 - 45.0 % [facility] Monocytes 6.5 0.0 - 10.0 % [facility] Eosinophils 1.2 0.0 - 5.0 % [facility] Basophils 0.0 0.0 - 1.0 % [facility] Specimen Blood Performing Organization Address City/State/Zipcode Phone Number [place] [address] [place] [address] PATHOLOGY AND GENOMIC MEDICINE [facility] [id number] [place] [address] [place] [address] [facility] * Vancomycin level, trough (01/14/2019 11:55 AM CDT) Pathologist [facility] Vancomycin, 14.1 10.0 - 20.0 ug/mL [place] trough Comment: [facility] Therapeutic Ranges: [facility] Peak 30.0 - 40.0 ug/mL Ysrgzp38.0 - 20.0 ug/mL Specimen Serum Performing Organization Address [facility] Phone Number [facility] DEPARTMENT OF [address] [place] [address] [place] [address] PATHOLOGY AND GENOMIC MEDICINE [address] * Basic metabolic panel (01/14/2019 11:55 AM CDT) Only the most recent of 2 results within the time period is included. [facility] Sodium 138 135 - 148 mEq/L [facility] Potassium 4.3 3.5 - 5.0 mEq/L [facility] Chloride 101 98 - 112 mEq/L [facility] CO2 30 24 - 31 mEq/L [facility] Anion gap 7@ANIO 7 - 15 mEq/L [facility] BUN 19 8 - 23 mg/dL [facility] Creatinine 0.80 0.70 - 1.20 mg/dL [facility] Glucose 154 (H) 65 - 99 mg/dL [facility] Calcium 8.6 (L) 8.8 - 10.2 mg/dL [facility] Specimen Plasma specimen Performing Organization Address [facility] Phone Number [facility] DEPARTMENT OF [address] [place] [address] [place] [address] PATHOLOGY AND GENOMIC MEDICINE [address] * Echocardiogram complete w contrast and 3D if needed (01/14/2019 7:48 AM CDT) [facility] AoV Area, Vmax 3.18 cm2 [facility] AoV [...] LV EF,BP 47.51 % [facility] [place],d A2C 9.97 cm [facility] [place],d A4C 9.69 cm [facility] [place],s A2C 8.67 cm [facility] [place],s A4C 8.64 cm [facility] LV,s 4.48 [...] RA pressure 10-15 mmHg. Performing Organization Address City/[facility]/Zipcode Phone Number [employer] [address] [place] [address] * Us duplex venous lower extremity (01/13/2019 2:40 PM CDT) Specimen Narrative Performed At [facility] There is no evidence of DVT in the left lower extremity and right common femoral vein. Performing Organization Address City/[facility] Centercode Phone Number [facility] [address] [place] [address] * Arterial blood gas (01/12/2019 3:58 PM CDT) pH, arterial 7.55 (H) 7.35 - 7.45 [facility] pCO2, arterial 28 (L) 35 - 45 mmHg [facility] pO2, arterial 232 (H) 80 - 90 mmHg [facility] Bicarbonate, 27.2 21.0 - 28.0 mmol/L [facility] Base excess, 3 (H) -2 - 2 mEq/L [facility] O2 saturation, 100 95 - 100 % [facility] FiO2, inspired 50 % [place] O2% [facility] Specimen Blood Performing Organization Address City/[facility]/Zipcode Phone Number [facility] DEPARTMENT OF [address] [place] [address] [place] [address] PATHOLOGY AND GENOMIC MEDICINE [address] [place] [id number] [facility] * Troponin (01/12/2019 4:41 AM CDT) Only the most recent of 3 results within the time period is included. Pathologist [facility] Troponin 0.022 0.000 - 0.040 ng/mL [place] Comment: [facility] changed methodology effective: 12/03/2018 at 10:00 am The new method has a 99th percentile cutoff of 0.040 ng/mL Specimen Plasma specimen Performing Organization Address [facility] Phone Number [facility] DEPARTMENT [address] [place] [address] PATHOLOGY AND GENOMIC MEDICINE [address] * Manual differential (01/12/2019 4:41 AM CDT) [facility] Manual PERFORMED [place] differential [facility] Neutrophils 93.0 (H) 39.0 - 69.0 % [facility] Lymphocytes 1.0 (L) 25.0 - 45.0 % [facility] Monocytes 5.0 0.0 - 10.0 % [facility] Eosinophils 0.0 0.0 - 5.0 % [facility] Basophils 0.0 0.0 - 1.0 % [facility] Metamyelocytes 1 % [facility] Promyelocytes 0 % [facility] Platelet slide Brian adequate [place] review [facility] Specimen Performing Organization Address [facility] Phone Number [facility] DEPARTMENT [place] [address] [place] [address] PATHOLOGY AND [facility] MEDICINE [address] [place] [address] * Magnesium level (01/12/2019 4:41 AM CDT) [facility] Magnesium 2.1 1.6 - 2.4 mg/dL [facility] Specimen Plasma specimen Performing Organization Address [facility] Phone Number [facility] DEPARTMENT [place] [address] [place] [address] PATHOLOGY AND GENOMIC MEDICINE [address] [place] [address] * Comprehensive metabolic panel (01/12/2019 4:41 AM CDT) Only the most recent of 2 results within the time period is included. Pathologist [facility] Sodium 132 (L) 135 - 148 mEq/L [facility] Potassium 5.2 (H) 3.5 - 5.0 mEq/L [facility] Chloride 97 (L) 98 - 112 mEq/L [facility] CO2 24 24 - 31 mEq/L [facility] Anion gap 11@ANIO 7 - 15 mEq/L [facility] BUN 28 (H) 8 - 23 mg/dL [facility] Creatinine 1.10 0.70 - 1.20 mg/dL [facility] Glucose 419 (HH) 65 - 99 mg/dL [place] Comment: [facility] Results called to and read [facility] back by ZAFAR at 01/12/2019 05:21 by [id number]. Calcium 9.1 8.8 - 10.2 mg/dL [facility] Protein 6.1 (L) 6.3 - 8.3 g/dL [place] Comment: [facility] 4.6-7.0 g/dL 1 week 4.4-7.6 g/dL 7 months-1year 5.1-7.3 g/dL 1-2 years5.6-7 .5 g/dL >3 years6.0-8 .0 g/dL 18-150 6.3-8.3 g/dL Albumin 3.6 3.5 - 5.0 g/dL [facility] A/G ratio 1.4 0.7 - 3.8 [facility] Alkaline 70 40 - 129 U/L [place] phosphatase [facility] AST 14 10 - 50 U/L [facility] ALT 39 5 - 50 U/L [facility] Total bilirubin 1.0 0.0 - 1.2 mg/dL [facility] Specimen Plasma specimen Performing Organization Address City/State/Zipcode Phone Number [place] [address] [place] [address] PATHOLOGY AND GENOMIC MEDICINE [facility] [address] [place] [address] [facility] * Partial thromboplastin time, activated (01/11/2019 9:57 PM CDT) Pathologist [facility] PTT 27.9 23.0 - 36.0 sec [place] Comment: BETSY STOKES PTT therapeutic range for [facility] unfractionated heparin is 61.0-112.0 seconds which corresponds to Anti-Xa 0.3-0.7 U/ml. Specimen Blood Performing Organization Address [facility]coin Phone Number [facility] [address] [place] [address] PATHOLOGY AND [facility] MEDICINE [address] [place] [address] * Prothrombin time with INR (01/11/2019 9:57 PM CDT) Pathologist [facility] Prothrombin 14.4 11.5 - 14.5 sec [facility] INR 1.2 [place] Comment: BETSY STOKES The International Normalized [facility] Ratio (INR) is a therapeutic monitoring tool for patients who are stable on oral anticoagulant therapy. An INR of 2.0-3.0 is suggested for deep vein thrombosis/pulmonary embolism. Specimen Blood Performing Organization Address [facility] Phone Number [facility] DEPARTMENT [address] [place] [address] PATHOLOGY AND [facility] MEDICINE [address] [place] [address] * B natriuretic peptide (01/11/2019 9:57 PM CDT) Pathologist [facility] BNP 169 (H) 0 - 100 pg/mL [facility] Specimen Blood Performing Organization Address [facility] Phone Number [facility] DE[facility] [place] [address] [place] [address] PATHOLOGY AND [facility] MEDICINE [address] * Blood culture, aerobic & anaerobic (01/11/2019 9:50 PM CDT) Only the most recent of 2 results within the time period is included. Pathologist [facility] Blood culture No growth after 5 days of [place] isolate incubation. RASTAFARI Comment: HOSPITAL Specimen Information Specimen Source: Blood Specimen Site: Hand, right Specimen Blood - Hand, right Performing Organization Address City/[facility] Centercode Phone Number [facility] DEPARTMENT OF [address] [place] [address] PATHOLOGY AND GENOMIC MEDICINE [address] * XR Tibia Fibula 2 Vw Left (01/11/2019 9:30 PM CDT) Specimen Narrative Performed At EXAM:XR TIBIA FIBULA 2 VW LEFT [facility] CLINICAL HISTORY:swelling LLE COMPARISON:None. IMPRESSION: No evidence of acute displaced fracture or dislocation of the left tibia or fibula. Soft tissues are unremarkable. Vascular calcifications are noted. Soft tissues are otherwise normal. [facility]-[id number] Procedure Note Interface, Radiology Results Incoming - 01/11/2019 10:06 PM CDT EXAM: XR TIBIA FIBULA 2 VW LEFT CLINICAL HISTORY: swelling LLE COMPARISON: None. IMPRESSION: No evidence of acute displaced fracture or dislocation of the left tibia or fibula. Soft tissues are unremarkable. Vascular calcifications are noted. Soft tissues are otherwise normal. [facility]-[id number] Performing Organization Address [facility] Phone Number [facility] [address] [place] [address] * XR Chest 1 Vw Portable (01/11/2019 [...] identified. No acute osseous abnormalities are visualized. [facility]-[id number] Procedure Note Interface, Radiology Results Incoming - [...] identified. No acute osseous abnormalities are visualized. [facility]-[id number] Performing Organization Address [facility] Phone Number [facility] [address] [place] [address] * ECG ED Preliminary Interpretation - Not an Order (01/11/2019 9:00 PM CDT) Narrative Performed At Murali Choudhury MD 01/12/2019 12:36 AM ECG ED Preliminary Interpretation - Not an Order Performed by: Murali Choudhury MD Authorized by: Murali Choudhury MD ECG reviewed by ED Physician in the absence of a b2b appointment setter: yes Interpretation: Interpretation: normal Rate: ECG rate:78 ECG rate assessment: normal Rhythm: Rhythm: sinus rhythm Ectopy: Ectopy: none QRS: QRS axis:Normal QRS intervals:Normal Conduction: Conduction: normal ST segments: ST segments:Normal T waves: T waves: normal * ECG 12 lead (01/11/2019 8:48 PM CDT) Ventricular 78 [facility] rate Atrial rate 78 [facility] DE interval 196 [facility] QRSD interval 98 [...] At Performing Organization Address City/State/Zipcode Phone Number [facility] MUSE [address] [place] [address] after 04/22/2018 Insurance Type Payer Benefit Subscriber ID Effective Phone Address Plan / Dates Group Medicare MEDICARE MEDICARE xxxxxxxxxxx 2010-P [place], PART A AND resent [place] Commercial COLONIAL COLONIAL xxxxxxxxxx 2010-P [facility] Advance Directives For more information, please contact: [phone] 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
--- OUTSIDE RECORDS SUMMARY | 2019-04-23 17:06 | XMS REPORT | Continuity of Care Document ---
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 Mohjuan Rice Obesity Active Problem 06/11/2018 Mohamed O Krystal Hypercholesterolemia Active Problem 06/11/2018 Mohjuan Rice Anemia Active Problem 06/11/2018 Mohamed Luis Manuel Rice Acute on chronic diastolic congestive heart failure Active Problem 06/11/2018 Mohamed O Krystal Chronic diastolic heart failure Active Problem 06/11/2018 Mohamed O rKystal Bradycardia Active Problem 06/11/2018 Mohamed O Krystal [...] Cellulitis of left leg Active Problem 05/13/2018 [facility] Dyspnea Active Problem 05/13/2018 [facility] Pneumonia Active Problem 05/13/2018 [facility] Renal failure , acute on chronic Active Problem 05/13/2018 [facility] Medications Medication Details Route Status Patient Instructions Ordering Provider Order Date Source Amlodipine Besylate 1 tablet Orally Active 5 MG Orally Once a day Krystal 03/14/2018 Roger Luis Manuel Rice Aspirin 325 Mg Tablet, 325 Mg Oral Daily Active 11/13/2016 [facility] Irbesartan (Avapro) 75 Mg Tablet, 75 Mg Oral Twice A Day Active 11/13/2016 [facility] Silodosin (Rapaflo) 8 Mg Capsule, 8 Mg Oral Daily Active 07/20/2015 [facility] Warfarin Sodium (Coumadin) 5 Mg Tablet, 5 Mg Oral Today At 5:00PM Active 05/14/2015 [facility] Amphet Asp/Amphet/D-Amphet (Adderall 5 Mg Tablet) 5 Mg Tablet, 5 Mg Oral Twice A Day Active 05/11/2015 [facility] Cephalexin Monohydrate (Keflex) 500 Mg Capsule, Mg Oral Twice A Day Active 05/11/2015 [facility] Hydrocodone Bit/Acetaminophen ([place] 10-325 Tablet) 1 Each Tablet, 1 Tab Oral Every 4 Hours Active 05/11/2015 [facility] Insulin Detemir (Levemir) 100 Unit/1 Ml Vial, 40 Sub-Q Twice A Day Active 05/11/2015 [facility] Insulin Lispro (Humalog) 100 Unit/1 Ml Insuln.pen, 40 Sub-Q Three Times A Day Active 05/11/2015 [facility] Torsemide (Demadex) 20 Mg Tablet, 20 Mg Oral Twice A Day Active 11/24/2014 [facility] Insulin Aspart (Novolog) 100 Units/Ml Ml, 40 Sub-Q Before Meals Active 11/23/2014 [facility] Polyethylene Glycol 3350 (Miralax) 17 Gm Powd.pack, 1 Pkt Oral Every Morning Active 11/22/2014 [facility] Potassium Chloride 10 Meq Tablet.er, 10 Meq Oral Twice A Day Active 11/22/2014 [facility] Dabigatran Etexilate Mesylate (Pradaxa) 150 Mg Capsule, 150 Mg Oral Twice A Day Active 08/21/2014 [facility] Amphet Asp/Amphet/D-Amphet (Adderall 20 Mg Tablet) 20 Mg Tablet, 20 Mg Oral Twice A Day Active 08/14/2013 [facility] Irbesartan (Avapro) 300 Mg Tablet, 150 Mg Oral Daily Active 08/14/2013 [facility] Metolazone 5 Mg Tablet, 5 Mg Oral Daily Active 08/14/2013 [facility] Valsartan/Hydrochlorothiazide (Diovan Hct 160-12.5 Mg Tab) 1 Each Tablet, 1 Tab Oral Daily Active 08/14/2013 [facility] Dutasteride (Avodart) 0.5 Mg Capsule, Daily Active 02/13/2013 [facility] Methocarbamol (Robaxin-750) 750 Mg Tablet, Twice A Day Active 02/13/2013 [facility] [id number] Daily , Active 02/13/2013 [facility] Valsartan/Hydrochlorothiazide (Diovan Hct 160-12.5 Mg Tab) 1 Each Tablet, 1 Each Oral Twice A Day Active 02/13/2013 [facility] Amlodipine Besylate 1 tablet Orally Active 5 MG Orally Once a day Krystal Rice Amlodipine Besylate TAKE 1 TABLET BY MOUTH EVERY DAY by mouth Active 5 MG by mouth once a day Krystal Rice Alprazolam (Xanax) 0.5 Mg Tablet Bedtime Active [facility] Amlodipine Besylate 5 Mg Tablet Daily Active [facility] Amphet Asp/Amphet/D-Amphet (Adderall 20 Mg Tablet) 20 Mg Tablet Every 12 Hours Active [facility] Docusate Calcium (Stool Softener) 240 Mg Capsule Daily Active [facility] Gabapentin 300 Mg Capsule Three Times A Day Active [facility] Hydrocodone Bit/Acetaminophen ([place] 10-325 Tablet) 1 Each Tablet Daily Active [facility] Insulin Aspart (Novolog) 100 Unit/1 Ml Cartridge Before Meals Active [facility] Insulin Detemir (Levemir) 100 Unit/1 Ml Vial Twice A Day Active [facility] Lisinopril (Prinavil / Zestril) 20 Mg Tablet Twice A Day Active [facility] Metformin Hcl (Glucophage) 500 Mg Tablet Twice A Day Active [facility] Metolazone 5 Mg Tablet Daily Active [facility] Metoprolol Tartrate 50 Mg Tablet Twice A Day Active [facility] Minoxidil 2.5 Mg Tablet Daily Active [facility] Movantik Daily Active [facility] Silodosin (Rapaflo) 8 Mg Capsule Daily Active [facility] Sucralfate (Carafate) 1 Gm/10 Ml Oral.susp Daily Active [facility] Torsemide (Demadex) 10 Mg Tablet Daily Active [facility] Allergies, Adverse Reactions, Alerts Substance Category Reaction Severity Reaction type Status Date Reported Comments Source No Known Drug Allergies Mild Allergy to Substance Active 05/02/2018 [facility] Immunizations No Data Provided for This Section Results Order Name Results Value Reference Range Date Interpretation Comments Source Capillary blood glucose measurement by glucometer (mass/volume) Capillary blood glucose measurement by glucometer (mass/volume) 163 70 - 120 05/13/2018 [facility] Automated blood basophil count (count/volume) Automated blood basophil count (count/volume) 0.0 0.0 - 0.1 05/13/2018 [facility] Automated blood basophil count as percentage of total leukocytes Automated blood basophil count as percentage of total leukocytes 0.3 0.0 - 1.0 05/13/2018 [facility] Automated blood eosinophil count Automated blood eosinophil count 0.1 0.0 - 0.4 05/13/2018 [facility] Automated blood eosinophil count as percentage of total leukocytes Automated blood eosinophil count as percentage of total leukocytes 2.0 0.0 - 6.0 05/13/2018 [facility] Automated blood hematocrit (volume fraction) Automated blood hematocrit (volume fraction) 39.6 38.2 - 49.6 05/13/2018 [facility] Automated blood lymphocyte count as percentage ot total leukocytes Automated blood lymphocyte count as percentage ot total leukocytes 15.0 18.0 - 39.1 05/13/2018 [facility] Automated blood monocyte count as percentage of total leukocytes Automated blood monocyte count as percentage of total leukocytes 7.1 4.4 - 11.3 05/13/2018 [facility] Automated blood neutrophil count Automated blood neutrophil count 5.1 2.1 - 6.9 05/13/2018 [facility] Automated blood platelet count (count/volume) Automated blood platelet count (count/volume) 300 140 - 360 05/13/2018 [facility] Automated blood segmented neutrophil count as percentage of total leukocytes Automated blood segmented neutrophil count as percentage of total leukocytes 73.7 38.7 - 80.0 05/13/2018 [facility] Automated erythrocyte mean corpuscular hemoglobin (mass per erythrocyte) Automated erythrocyte mean corpuscular hemoglobin (mass per erythrocyte) 28.1 28 - 32 05/13/2018 [facility] Automated erythrocyte mean corpuscular hemoglobin concentration measurement (mass/volume) Automated erythrocyte mean corpuscular hemoglobin concentration measurement (mass/volume) 31.8 31 - 35 05/13/2018 [facility] Automated erythrocyte mean corpuscular volume Automated erythrocyte mean corpuscular volume 88.2 81 - 99 05/13/2018 [facility] Blood erythrocytes automated count (number/volume) Blood erythrocytes automated count (number/volume) 4.49 4.3 - 5.7 05/13/2018 [facility] Blood hemoglobin measurement (moles/volume) Blood hemoglobin measurement (moles/volume) 12.6 14.0 - 18.0 05/13/2018 [facility] Blood leukocytes automated count (number/volume) Blood leukocytes automated count (number/volume) 6.93 4.8 - 10.8 05/13/2018 [facility] Blood lymphocytes count (number/volume) Blood lymphocytes count (number/volume) 1.0 1.0 - 3.2 05/13/2018 [facility] Blood monocytes automated count (number/volume) Blood monocytes automated count (number/volume) 0.5 0.2 - 0.8 05/13/2018 [facility] Estimated glomerular filtration rate (GFR) determination Estimated glomerular filtration rate (GFR) determination >60 60 05/13/2018 [facility] Glucose measurement Glucose measurement 222 74 - 118 05/13/2018 [facility] Plasma globulin measurement (mass/volume) Plasma globulin measurement (mass/volume) 4.3 2.3 - 3.5 05/13/2018 [facility] Serum or plasma alanine aminotransferase measurement (enzymatic activity/volume) Serum or plasma alanine aminotransferase measurement (enzymatic activity/volume) 24 0 - 55 05/13/2018 [facility] Serum or plasma albumin measurement (mass/volume) Serum or plasma albumin measurement (mass/volume) 3.1 3.5 - 5.0 05/13/2018 [facility] Serum or plasma albumin/globulin mass ratio Serum or plasma albumin/globulin mass ratio 0.7 0.8 - 2.0 05/13/2018 [facility] Serum or plasma alkaline phosphatase measurement (enzymatic activity/volume) Serum or plasma alkaline phosphatase measurement (enzymatic activity/volume) 65 40 - 150 05/13/2018 [facility] Serum or plasma anion gap Serum or plasma anion gap 15.6 8 - 16 05/13/2018 [facility] Serum or plasma calcium measurement (mass/volume) Serum or plasma calcium measurement (mass/volume) 9.6 8.4 - 10.2 05/13/2018 [facility] Serum or plasma carbon dioxide, total measurement (moles/volume) Serum or plasma carbon dioxide, total measurement (moles/volume) 28 22 - 29 05/13/2018 [facility] Serum or plasma chloride measurement (moles/volume) Serum or plasma chloride measurement (moles/volume) 99 98 - 107 05/13/2018 [facility] Serum or plasma creatinine measurement (mass/volume) Serum or plasma creatinine measurement (mass/volume) 0.87 0.72 - 1.25 05/13/2018 [facility] Serum or plasma potassium measurement (moles/volume) Serum or plasma potassium measurement (moles/volume) 3.6 3.5 - 5.1 05/13/2018 [facility] Serum or plasma protein measurement (mass/volume) Serum or plasma protein measurement (mass/volume) 7.4 6.5 - 8.1 05/13/2018 [facility] Serum or plasma sodium measurement (moles/volume) Serum or plasma sodium measurement (moles/volume) 139 136 - 145 05/13/2018 [facility] Serum or plasma total bilirubin measurement (mass/volume) Serum or plasma total bilirubin measurement (mass/volume) 0.5 0.2 - 1.2 05/13/2018 [facility] Serum or plasma urea nitrogen measurement (mass/volume) Serum or plasma urea nitrogen measurement (mass/volume) 12 7 - 26 05/13/2018 [facility] Serum or plasma urea nitrogen/creatinine mass ratio Serum or plasma urea nitrogen/creatinine mass ratio 14 6 - 25 05/13/2018 [facility] Red Cell Distribution Width 13.7 11.7 - 14.4 05/13/2018 [facility] IM GRANULOCYTES % 1.9 0.0 - 1.0 05/13/2018 [facility] Absolute Immature Granulocyte (auto 0.13 0 - 0.1 05/13/2018 [facility] Aspartate Amino Transf (AST/SGOT) 19 5 - 34 05/13/2018 [facility] Automated urine sediment leukocyte count by microscopy (number/high power field) Automated urine sediment leukocyte count by microscopy (number/high power field) <5 0 - 5 05/11/2018 [facility] Bacteria detection in urine sediment by light microscopy Bacteria detection in urine sediment by light microscopy RARE NONE 05/11/2018 [facility] Epithelial cells detection in urine sediment by light microscopy Epithelial cells detection in urine sediment by light microscopy FEW NONE 05/11/2018 [facility] Erythrocytes detection in urine sediment by light microscopy Erythrocytes detection in urine sediment by light microscopy <50 0 - 5 05/11/2018 [facility] Hyaline casts detection in urine sediment by light microscopy Hyaline casts detection in urine sediment by light microscopy <1 0 - 1 05/11/2018 [facility] Specific gravity of Urine by Test strip Specific gravity of Urine by Test strip 1.010 1.010 - 1.025 05/11/2018 [facility] Transitional cells detection in urine sediment by light microscopy Transitional cells detection in urine sediment by light microscopy FEW NONE 05/11/2018 [facility] Urine clarity Urine clarity CLEAR CLEAR 05/11/2018 [facility] Urine color determination Urine color determination YELLOW YELLOW 05/11/2018 [facility] Urine erythrocytes detection Urine erythrocytes detection 1+ NEGATIVE 05/11/2018 [facility] Urine glucose detection Urine glucose detection 2+ NEGATIVE 05/11/2018 [facility] Urine ketones detection by automated test strip Urine ketones detection by automated test strip NEGATIVE NEGATIVE 05/11/2018 [facility] Urine leukocyte esterase detection by dipstick Urine leukocyte esterase detection by dipstick TRACE NEGATIVE 05/11/2018 [facility] Urine nitrite detection Urine nitrite detection NEGATIVE NEGATIVE 05/11/2018 [facility] Urine pH measurement by automated test strip Urine pH measurement by automated test strip 8 5 - 7 05/11/2018 [facility] Urine protein measurement by test strip (mass/volume) Urine protein measurement by test strip (mass/volume) NEGATIVE NEGATIVE 05/11/2018 [facility] Urine total bilirubin measurement (mass/volume) Urine total bilirubin measurement (mass/volume) NEGATIVE NEGATIVE 05/11/2018 [facility] Urine urobilinogen measurement by test strip (mass/volume) Urine urobilinogen measurement by test strip (mass/volume) 0.2 0.2 - 1 05/11/2018 [facility] Blood culture Blood culture NO GROWTH AFTER 72 HOURS 05/10/2018 [facility] Serum or plasma trough vancomycin level at trough (mass/volume) Serum or plasma trough vancomycin level at trough (mass/volume) 24.3 5.0 - 10.0 05/06/2018 [facility] Blood anisocytosis detection by light microscopy Blood anisocytosis detection by light microscopy SLIGHT 05/06/2018 [facility] Blood platelets count by estimate (number/volume) Blood platelets count by estimate (number/volume) ADEQUATE 05/06/2018 [facility] Platelet morphology Platelet morphology NORMAL 05/06/2018 [facility] RBC morphology RBC morphology NORMAL 05/06/2018 [facility] Serum or plasma cholesterol in HDL measurement (mass/volume) Serum or plasma cholesterol in HDL measurement (mass/volume) 41 40 - 60 05/06/2018 [facility] Serum or plasma cholesterol in LDL measurement (mass/volume) Serum or plasma cholesterol in LDL measurement (mass/volume) 99 60 - 130 05/06/2018 [facility] Serum or plasma cholesterol measurement (mass/volume) Serum or plasma cholesterol measurement (mass/volume) 151 0 - 199 05/06/2018 [facility] Serum or plasma thyrotropin measurement by detection limit <=0.005 miu/l (units/volume) Serum or plasma thyrotropin measurement by detection limit <=0.005 miu/l (units/volume) 0.930 0.350 - 4.940 05/06/2018 [facility] Serum or plasma total cholesterol/cholesterol in HDL mass ratio Serum or plasma total cholesterol/cholesterol in HDL mass ratio 3.7 3.9 - 4.7 05/06/2018 [facility] Serum or plasma triglyceride measurement (mass/volume) Serum or plasma triglyceride measurement (mass/volume) 55 0 - 149 05/06/2018 [facility] Bacterial blood culture Bacterial blood culture Organism: STAPHYLOCOCCUS AUREUS 05/05/2018 [facility] Lactic Acid Level 13.2 4.5 - 19.8 05/05/2018 [facility] Serum or plasma creatine kinase MB measurement (mass/volume) Serum or plasma creatine kinase MB measurement (mass/volume) 2.40 0 - 5.0 05/04/2018 [facility] Serum or plasma creatine kinase measurement (enzymatic activity/volume) Serum or plasma creatine kinase measurement (enzymatic activity/volume) 532 30 - 200 05/04/2018 [facility] Troponin I measurement by highly sensitive enzyme immunoassay Troponin I measurement by highly sensitive enzyme immunoassay 0.197 0 - 0.300 05/04/2018 [facility] Serum or plasma magnesium measurement (mass/volume) Serum or plasma magnesium measurement (mass/volume) 1.8 1.3 - 2.1 05/04/2018 [facility] Manual blood lymphocytes/100 leukocytes Manual blood lymphocytes/100 leukocytes 7 19 - 48 05/03/2018 [facility] Manual blood monocytes/100 leukocytes Manual blood monocytes/100 leukocytes 8 3.4 - 9.0 05/03/2018 [facility] Manual blood neutrophils/100 leukocytes Manual blood neutrophils/100 leukocytes 85 40 - 74 05/03/2018 [facility] Differential Total Cells Counted 100 05/03/2018 [facility] Mucus detection in urine sediment by light microscopy Mucus detection in urine sediment by light microscopy FEW RARE 05/02/2018 [facility] Activated partial thromboplastin time (aPTT) in platelet poor plasma bycoagulation assay Activated partial thromboplastin time (aPTT) in platelet poor plasma bycoagulation assay 33.6 23.8 - 35.5 05/02/2018 [facility] Fibrin D-dimer DDU measurement in platelet poor plasma (mass/volume) Fibrin D-dimer DDU measurement in platelet poor plasma (mass/volume) 0.75 0.00 - 0.45 05/02/2018 [facility] INR in Platelet poor plasma by Coagulation assay INR in Platelet poor plasma by Coagulation assay 0.96 05/02/2018 [facility] Prothrombin time (PT) in platelet poor plasma by coagulation assay Prothrombin time (PT) in platelet poor plasma by coagulation assay 13.7 11.9 - 14.5 05/02/2018 [facility] Serum or plasma lipase measurement (enzymatic activity/volume) Serum or plasma lipase measurement (enzymatic activity/volume) <4 8 - 78 05/02/2018 [facility] B-Type Natriuretic Peptide 140.5 0 - 100 05/02/2018 [facility] Bacterial urine culture Bacterial urine culture Urine Culture [facility] Pathology Reports No Data Provided for [...] Date DC Date Status Source Discharged Inpatient [id number] GILBERT NAVARRO MD 05/02/2018 05/13/2018 [facility] Procedures Procedure Code Date Perfomer Comments Source Computed tomography of chest with contrast [id number] 05/10/2018 [facility] MRI joint extremity upper wo then w contrast [id number] 05/05/2018 [facility] Computed tomography of abdomen and pelvis with contrast [id number] 05/04/2018 [facility] Computed tomography of soft tissues of neck with contrast [id number] 05/04/2018 [facility] Assessment and Plan No Data Provided for This Section Plan of Care Plan of Care Date Source Discharge Date 05/13/18 12:14pm Disposition HOME, SELF-CARE Instructions/Education Provided Pneumonia - Bacterial Prescriptions See Medication Section Additional Instructions/Education Follow up in [address] Navarro 05/13/2018 [facility] Social History Social History Date Source [...] Start Date Stop Date Never Smoker 05/13/2018 [facility] Family History No Data Provided for This Section Advance Directives Order Name Results Value Date Source Advance Directives Advance Directives Directive Response Recorded Date/Time Does the patient have an advance directive? Yes 05/03/18 2:25am If yes, is advance directive on file with [facility]? Yes 05/03/18 2:25am If not on file with [facility] will patient provide a copy? Yes 05/03/18 2:25am Do you have a Directive to Physician? No 05/02/18 8:46pm Do you have a Medical Power of Machine [employer]? No 05/02/18 8:46pm Do you have an [...] rights and responsibilities? Yes 05/02/18 8:46pm 05/13/2018 [facility] Functional Status No Data Provided for This Section
--- OUTSIDE RECORDS SUMMARY | 2019-04-23 17:56 | XMS REPORT | Clinical Summary ---
Author Author [employer] Organization [employer] Address Unknown Phone Unavailable Care Team Providers Care Claim Rep Name Role Phone Manoj Navarro MD PCP [...] MMODE SPECTRAL 7:48 AM CDT COLOR DOPPLER ([id number]) POC GLUCOSE Routine 01/14/2019 5:37 AM CDT [...] glucose 190 (H) 65 - 99 mg/dL FROST Comment: YAZIDI CLEAR Meter ID: [id number] [facility] Presser All Around: Paras Quevedo Specimen Performing Organization Address City/State/Zipcode Phone [place] [address] [place] [address] PATHOLOGY AND GENOMIC MEDICINE [facility] [id number] [place] [address] * Estimated GFR (01/15/2019 5:01 AM CDT) Only the most recent of 5 results within the time period is included. Estimated GFR 88 mL/min/1.73 m2 FROST Comment: [facility] rpretation G1 >=90 Normal or high G2 60-89Mildly decreased A6o30-04 Mildly to moderately decreased T5u35-14 Moderately to severely decreased G4 15-29Severely decreased G5 <15Kidney failure The eGFR was calculated using the Chronic Kidney Disease Epidemiology Collaboration (CKD-EPI) equation. Interpretation is based on recommendations of the National Kidney Foundation-Kidney Disease Outcomes Quality Initiative (NKF-KDOQI) published in 2014. Specimen Plasma specimen Performing Organization Address City/[facility] Phone Number [facility] DEPARTMENT [address] [place] [address] PATHOLOGY AND GENOMIC MEDICINE [address] * Creatinine level (01/15/2019 5:01 AM CDT) Pathologist [facility] Creatinine 0.80 0.70 - 1.20 mg/dL [facility] Specimen Plasma specimen Performing Organization Address 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 [id number] Performing Organization Address City/State/Zipcode Phone Number MATT MONTEMAYOR [address] [place] [address] * CBC with platelet and differential (01/14/2019 11:55 AM CDT) Only the most recent of 3 results within the time period is included. WBC 8.64Comment: Called Raquel on 4.50 - 11.00 k/uL [address] 01/14/2019 16:19 [facility] RBC 3.74 (L) 4.40 - 6.00 m/uL [facility] HGB 10.6 (L) 14.0 - 18.0 g/dL [facility] HCT 33.8 (L) 41.0 - 51.0 % [facility] MCV 90.4 82.0 - 100.0 fL [facility] MCH 28.3 27.0 - 34.0 pg [facility] MCHC 31.4 31.0 - 37.0 g/dL [facility] RDW - SD 43.6 37.0 - 55.0 fL [facility] MPV 11.5 8.8 - 13.2 fL [facility] Platelet count 144 (L) 150 - 400 k/uL [facility] Nucleated RBC 0.00 /100 WBC [facility] Neutrophils 82.4 (H) 39.0 - 69.0 % [facility] Lymphocytes 9.6 (L) 25.0 - 45.0 % [facility] Monocytes 6.5 0.0 - 10.0 % [facility] Eosinophils 1.2 0.0 - 5.0 % [facility] Basophils 0.0 0.0 - 1.0 % [facility] Specimen Blood Performing Organization Address City/State/Zipcode Phone Number [place] [address] [place] [address] PATHOLOGY AND GENOMIC MEDICINE [facility] [id number] [place] [address] [place] [address] [facility] * Vancomycin level, trough (01/14/2019 11:55 AM CDT) Pathologist [facility] Vancomycin, 14.1 10.0 - 20.0 ug/mL FROST trough Comment: [facility] Therapeutic Ranges: [facility] Peak 30.0 - 40.0 ug/mL Zteuyf37.0 - 20.0 ug/mL Specimen Serum Performing Organization Address [facility] Phone Number [facility] DEPARTMENT OF [address] [place] [address] [place] [address] PATHOLOGY AND GENOMIC MEDICINE [address] * Basic metabolic panel (01/14/2019 11:55 AM CDT) Only the most recent of 2 results within the time period is included. [facility] Sodium 138 135 - 148 mEq/L [facility] Potassium 4.3 3.5 - 5.0 mEq/L [facility] Chloride 101 98 - 112 mEq/L [facility] CO2 30 24 - 31 mEq/L [facility] Anion gap 7@ANIO 7 - 15 mEq/L [facility] BUN 19 8 - 23 mg/dL [facility] Creatinine 0.80 0.70 - 1.20 mg/dL [facility] Glucose 154 (H) 65 - 99 mg/dL [facility] Calcium 8.6 (L) 8.8 - 10.2 mg/dL [facility] Specimen Plasma specimen Performing Organization Address [facility] Phone Number [facility] DEPARTMENT OF [address] [place] [address] [place] [address] PATHOLOGY AND GENOMIC MEDICINE [address] * Echocardiogram complete w contrast and 3D if needed (01/14/2019 7:48 AM CDT) [facility] AoV Area, Vmax 3.18 cm2 [facility] AoV [...] LV EF,BP 47.51 % [facility] Dav Garrison,d A2C 9.97 cm [facility] [place],d A4C 9.69 cm [facility] [place]arrison,s A2C 8.67 cm [facility] Dav [place],s A4C 8.64 cm [facility] LV,s 4.48 [...] RA pressure 10-15 mmHg. Performing Organization Address City/[facility]/Zipcode Phone Number [facility] [address] [place] [address] * Us duplex venous lower extremity (01/13/2019 2:40 PM CDT) Specimen Narrative Performed At [facility] There is no evidence of DVT in the left lower extremity and right common femoral vein. Performing Organization Address City/[facility] Phone Number [facility] [address] [place] [address] * Arterial blood gas (01/12/2019 3:58 PM CDT) pH, arterial 7.55 (H) 7.35 - 7.45 [facility] pCO2, arterial 28 (L) 35 - 45 mmHg [facility] pO2, arterial 232 (H) 80 - 90 mmHg [facility] Bicarbonate, 27.2 21.0 - 28.0 mmol/L [facility] Base excess, 3 (H) -2 - 2 mEq/L [facility] O2 saturation, 100 95 - 100 % [facility] FiO2, inspired 50 % FROST O2% [facility] Specimen Blood Performing Organization Address City/[facility]/Zipcode Phone Number [facility] DEPARTMENT OF [address] [place] [address] [place] [address] PATHOLOGY AND GENOMIC MEDICINE [address] [place] [id number] [facility] * Troponin (01/12/2019 4:41 AM CDT) Only the most recent of 3 results within the time period is included. Pathologist [facility] Troponin 0.022 0.000 - 0.040 ng/mL FROST Comment: [facility] changed methodology effective: 12/03/2018 at 10:00 am The new method has a 99th percentile cutoff of 0.040 ng/mL Specimen Plasma specimen Performing Organization Address [facility] Phone Number [facility] DEPARTMENT [address] [place] [address] PATHOLOGY AND GENOMIC MEDICINE [address] * Manual differential (01/12/2019 4:41 AM CDT) [facility] Manual PERFORMED FROST differential [facility] Neutrophils 93.0 (H) 39.0 - 69.0 % [facility] Lymphocytes 1.0 (L) 25.0 - 45.0 % [facility] Monocytes 5.0 0.0 - 10.0 % [facility] Eosinophils 0.0 0.0 - 5.0 % [facility] Basophils 0.0 0.0 - 1.0 % [facility] Metamyelocytes 1 % [facility] Promyelocytes 0 % [facility] Platelet slide Brian adequate FROST review [facility] Specimen Performing Organization Address [facility] Phone Number [facility] DEPARTMENT [place] [address] [place] [address] PATHOLOGY AND [facility] MEDICINE [address] [place] [address] * Magnesium level (01/12/2019 4:41 AM CDT) [facility] Magnesium 2.1 1.6 - 2.4 mg/dL [facility] Specimen Plasma specimen Performing Organization Address [facility] Phone Number [facility] DEPARTMENT [place] [address] [place] [address] PATHOLOGY AND GENOMIC MEDICINE [address] [place] [address] * Comprehensive metabolic panel (01/12/2019 4:41 AM CDT) Only the most recent of 2 results within the time period is included. Pathologist [facility] Sodium 132 (L) 135 - 148 mEq/L [facility] Potassium 5.2 (H) 3.5 - 5.0 mEq/L [facility] Chloride 97 (L) 98 - 112 mEq/L [facility] CO2 24 24 - 31 mEq/L [facility] Anion gap 11@ANIO 7 - 15 mEq/L [facility] BUN 28 (H) 8 - 23 mg/dL [facility] Creatinine 1.10 0.70 - 1.20 mg/dL [facility] Glucose 419 (HH) 65 - 99 mg/dL FROST Comment: [facility] Results called to and read [facility] back by ZAFAR at 01/12/2019 05:21 by [id number]. Calcium 9.1 8.8 - 10.2 mg/dL [facility] Protein 6.1 (L) 6.3 - 8.3 g/dL FROST Comment: [facility] 4.6-7.0 g/dL 1 week 4.4-7.6 g/dL 7 months-1year 5.1-7.3 g/dL 1-2 years5.6-7 .5 g/dL >3 years6.0-8 .0 g/dL 18-150 6.3-8.3 g/dL Albumin 3.6 3.5 - 5.0 g/dL [facility] A/G ratio 1.4 0.7 - 3.8 [facility] Alkaline 70 40 - 129 U/L [facility]OST phosphatase [facility] AST 14 10 - 50 U/L [facility] ALT 39 5 - 50 U/L [facility] Total bilirubin 1.0 0.0 - 1.2 mg/dL [facility] Specimen Plasma specimen Performing Organization Address City/State/Zipcode [place] Number [place] [address] [place] [address] PATHOLOGY AND GENOMIC MEDICINE [facility] [address] [place] [address] [facility] * Partial thromboplastin time, activated (01/11/2019 9:57 PM CDT) Pathologist [facility] PTT 27.9 23.0 - 36.0 sec FROST Comment: [facility] PTT therapeutic range for [facility] unfractionated heparin is 61.0-112.0 seconds which corresponds to Anti-Xa 0.3-0.7 U/ml. Specimen Blood Performing Organization Address [facility] Phone Number [facility] DE[facility] [place] [address] PATHOLOGY AND [facility] MEDICINE [address] [place] [address] * Prothrombin time with INR (01/11/2019 9:57 PM CDT) Pathologist [facility] Prothrombin 14.4 11.5 - 14.[address] [facility] INR 1.2 FROST Comment: [facility] The International Normalized [facility] Ratio (INR) is a therapeutic monitoring tool for patients who are stable on oral anticoagulant therapy. An INR of 2.0-3.0 is suggested for deep vein thrombosis/pulmonary embolism. Specimen Blood Performing Organization Address [facility] Phone Number [facility] DEPARTMENT [address] [place] [address] PATHOLOGY AND [facility] MEDICINE [address] [place] [address] * B natriuretic peptide (01/11/2019 9:57 PM CDT) Pathologist [facility] BNP 169 (H) 0 - 100 pg/mL [facility] Specimen Blood Performing Organization Address [facility] Phone Number [facility] DEPARTMENT [place] [address] [place] [address] PATHOLOGY AND [facility] MEDICINE [address] [place] [address] * Blood culture, aerobic & anaerobic (01/11/2019 9:50 PM CDT) Only the most recent of 2 results within the time period is included. Pathologist [facility] Blood culture No growth after 5 days of FROST isolate incubation. YAZIDI Comment: HOSPITAL Specimen Information Specimen Source: Blood Specimen Site: Hand, right Specimen Blood - Hand, right Performing Organization Address City/[facility] Phone Number [facility] DEPARTMENT OF [address] [place] [address] PATHOLOGY AND GENOMIC MEDICINE [address] * XR Tibia Fibula 2 Vw Left (01/11/2019 9:30 PM CDT) Specimen Narrative Performed At EXAM:XR TIBIA FIBULA 2 VW LEFT [facility] CLINICAL HISTORY:swelling LLE COMPARISON:None. IMPRESSION: No evidence of acute displaced fracture or dislocation of the left tibia or fibula. Soft tissues are unremarkable. Vascular calcifications are noted. Soft tissues are otherwise normal. [facility]-[id number] Procedure Note Interface, Radiology Results Incoming - 01/11/2019 10:06 PM CDT EXAM: XR TIBIA FIBULA 2 VW LEFT CLINICAL HISTORY: swelling LLE COMPARISON: None. IMPRESSION: No evidence of acute displaced fracture or dislocation of the left tibia or fibula. Soft tissues are unremarkable. Vascular calcifications are noted. Soft tissues are otherwise normal. [facility]-[id number] Performing Organization Address [facility] Phone Number [facility] [address] [place] [address] * XR Chest 1 Vw Portable (01/11/2019 [...] No acute osseous abnormalities are visualized. [facility]-[id number] Procedure Note Interface, Radiology Results Incoming - [...] No acute osseous abnormalities are visualized. [facility]-[id number] Performing Organization Address [facility] Phone Number [facility] [address] [place] [address] * ECG ED Preliminary Interpretation - Not an Order (01/11/2019 9:00 PM CDT) Narrative Performed At Murali Choudhury MD 01/12/2019 12:36 AM ECG ED Preliminary Interpretation - Not an Order Performed by: Murali Choudhury MD Authorized by: Murali Choudhury MD ECG reviewed by ED Physician in the absence of a global clinical leader: yes Interpretation: Interpretation: normal Rate: ECG rate:78 ECG rate assessment: normal Rhythm: Rhythm: sinus rhythm Ectopy: Ectopy: none QRS: QRS axis:Normal QRS intervals:Normal Conduction: Conduction: normal ST segments: ST segments:Normal T waves: T waves: normal * ECG 12 lead (01/11/2019 8:48 PM CDT) Ventricular 78 [facility] rate Atrial rate 78 [facility] OR interval 196 [facility] QRSD interval 98 [...] Performing Organization Address City/State/Zipcode Phone Number [facility] MUSE [address] [place] [address] after 04/22/2018 Insurance Type Payer Benefit Subscriber ID Effective Phone Address Plan / Dates Group Medicare MEDICARE MEDICARE xxxxxxxxxxx 2010-P [place], PART A AND resent [place] Commercial COLONIAL COLONIAL xxxxxxxxxx 2010-P [facility] Advance Directives For more information, please contact: [phone] Administrator Explanation Type Date Recorded Advance Directives, 01/11/2019 12:00 AM Living Will and Medical Power of Development Chemist Date Inactivated Comments Code Status Date Activated 01/15/2019 7:05 PM Full Code 01/12/2019 12:49 AM Code Status decision reached by: Patient
--- OUTSIDE RECORDS SUMMARY | 2019-04-23 17:57 | XMS REPORT | Continuity of Care Document ---
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 Phone [employer] Unavailable Unavailable Problems Problem Status Onset Date Classification Date Reported Comments Source Anemia Active 05/10/2015 Problem 05/13/2018 [facility] Renal failure Active 11/22/2014 Problem 05/13/2018 [facility] Back pain Active 06/08/2014 Problem 05/13/2018 [facility] Descending thoracic aortic dissection Active Problem [...] Cellulitis of left leg Active Problem 05/13/2018 [facility] Dyspnea Active Problem 05/13/2018 [facility] Pneumonia Active Problem 05/13/2018 [facility] Renal failure , acute on chronic Active Problem 05/13/2018 [facility] Medications Medication Details Route Status Patient Instructions Ordering Provider Order Date Source Amlodipine Besylate 1 tablet Orally Active 5 MG Orally Once a day Krystal 03/14/2018 Roger Luis Manuel Rice Aspirin 325 Mg Tablet, 325 Mg Oral Daily Active 11/13/2016 [facility] Irbesartan (Avapro) 75 Mg Tablet, 75 Mg Oral Twice A Day Active 11/13/2016 [facility] Silodosin (Rapaflo) 8 Mg Capsule, 8 Mg Oral Daily Active 07/20/2015 [facility] Warfarin Sodium (Coumadin) 5 Mg Tablet, 5 Mg Oral Today At 5:00PM Active 05/14/2015 [facility] Amphet Asp/Amphet/D-Amphet (Adderall 5 Mg Tablet) 5 Mg Tablet, 5 Mg Oral Twice A Day Active 05/11/2015 [facility] Cephalexin Monohydrate (Keflex) 500 Mg Capsule, Mg Oral Twice A Day Active 05/11/2015 [facility] Hydrocodone Bit/Acetaminophen ([place] 10-325 Tablet) 1 Each Tablet, 1 Tab Oral Every 4 Hours Active 05/11/2015 [facility] Insulin Detemir (Levemir) 100 Unit/1 Ml Vial, 40 Sub-Q Twice A Day Active 05/11/2015 [facility] Insulin Lispro (Humalog) 100 Unit/1 Ml Insuln.pen, 40 Sub-Q Three Times A Day Active 05/11/2015 [facility] Torsemide (Demadex) 20 Mg Tablet, 20 Mg Oral Twice A Day Active 11/24/2014 [facility] Insulin Aspart (Novolog) 100 Units/Ml Ml, 40 Sub-Q Before Meals Active 11/23/2014 [facility] Polyethylene Glycol 3350 (Miralax) 17 Gm Powd.pack, 1 Pkt Oral Every Morning Active 11/22/2014 [facility] Potassium Chloride 10 Meq Tablet.er, 10 Meq Oral Twice A Day Active 11/22/2014 [facility] Dabigatran Etexilate Mesylate (Pradaxa) 150 Mg Capsule, 150 Mg Oral Twice A Day Active 08/21/2014 [facility] Amphet Asp/Amphet/D-Amphet (Adderall 20 Mg Tablet) 20 Mg Tablet, 20 Mg Oral Twice A Day Active 08/14/2013 [facility] Irbesartan (Avapro) 300 Mg Tablet, 150 Mg Oral Daily Active 08/14/2013 [facility] Metolazone 5 Mg Tablet, 5 Mg Oral Daily Active 08/14/2013 [facility] Valsartan/Hydrochlorothiazide (Diovan Hct 160-12.5 Mg Tab) 1 Each Tablet, 1 Tab Oral Daily Active 08/14/2013 [facility] Dutasteride (Avodart) 0.5 Mg Capsule, Daily Active 02/13/2013 [facility] Methocarbamol (Robaxin-750) 750 Mg Tablet, Twice A Day Active 02/13/2013 [facility] [id number] Daily , Active 02/13/2013 [facility] Valsartan/Hydrochlorothiazide (Diovan Hct 160-12.5 Mg Tab) 1 Each Tablet, 1 Each Oral Twice A Day Active 02/13/2013 [facility] Amlodipine Besylate 1 tablet Orally Active 5 MG Orally Once a day Krystal Rice Amlodipine Besylate TAKE 1 TABLET BY MOUTH EVERY DAY by mouth Active 5 MG by mouth once a day Krystal Rice Alprazolam (Xanax) 0.5 Mg Tablet Bedtime Active [facility] Amlodipine Besylate 5 Mg Tablet Daily Active [facility] Amphet Asp/Amphet/D-Amphet (Adderall 20 Mg Tablet) 20 Mg Tablet Every 12 Hours Active [facility] Docusate Calcium (Stool Softener) 240 Mg Capsule Daily Active [facility] Gabapentin 300 Mg Capsule Three Times A Day Active [facility] Hydrocodone Bit/Acetaminophen ([place] 10-325 Tablet) 1 Each Tablet Daily Active [facility] Insulin Aspart (Novolog) 100 Unit/1 Ml Cartridge Before Meals Active [facility] Insulin Detemir (Levemir) 100 Unit/1 Ml Vial Twice A Day Active [facility] Lisinopril (Prinavil / Zestril) 20 Mg Tablet Twice A Day Active [facility] Metformin Hcl (Glucophage) 500 Mg Tablet Twice A Day Active [facility] Metolazone 5 Mg Tablet Daily Active [facility] Metoprolol Tartrate 50 Mg Tablet Twice A Day Active [facility] Minoxidil 2.5 Mg Tablet Daily Active [facility] Movantik Daily Active [facility] Silodosin (Rapaflo) 8 Mg Capsule Daily Active [facility] Sucralfate (Carafate) 1 Gm/10 Ml Oral.susp Daily Active [facility] Torsemide (Demadex) 10 Mg Tablet Daily Active [facility] Allergies, Adverse Reactions, Alerts Substance Category Reaction Severity Reaction type Status Date Reported Comments Source No Known Drug Allergies Mild Allergy to Substance Active 05/02/2018 [facility] Immunizations No Data Provided for This Section Results Order Name Results Value Reference Range Date Interpretation Comments Source Capillary blood glucose measurement by glucometer (mass/volume) Capillary blood glucose measurement by glucometer (mass/volume) 163 70 - 120 05/13/2018 [facility] Automated blood basophil count (count/volume) Automated blood basophil count (count/volume) 0.0 0.0 - 0.1 05/13/2018 [facility] Automated blood basophil count as percentage of total leukocytes Automated blood basophil count as percentage of total leukocytes 0.3 0.0 - 1.0 05/13/2018 [facility] Automated blood eosinophil count Automated blood eosinophil count 0.1 0.0 - 0.4 05/13/2018 [facility] Automated blood eosinophil count as percentage of total leukocytes Automated blood eosinophil count as percentage of total leukocytes 2.0 0.0 - 6.0 05/13/2018 [facility] Automated blood hematocrit (volume fraction) Automated blood hematocrit (volume fraction) 39.6 38.2 - 49.6 05/13/2018 [facility] Automated blood lymphocyte count as percentage ot total leukocytes Automated blood lymphocyte count as percentage ot total leukocytes 15.0 18.0 - 39.1 05/13/2018 [facility] Automated blood monocyte count as percentage of total leukocytes Automated blood monocyte count as percentage of total leukocytes 7.1 4.4 - 11.3 05/13/2018 [facility] Automated blood neutrophil count Automated blood neutrophil count 5.1 2.1 - 6.9 05/13/2018 [facility] Automated blood platelet count (count/volume) Automated blood platelet count (count/volume) 300 140 - 360 05/13/2018 [facility] Automated blood segmented neutrophil count as percentage of total leukocytes Automated blood segmented neutrophil count as percentage of total leukocytes 73.7 38.7 - 80.0 05/13/2018 [facility] Automated erythrocyte mean corpuscular hemoglobin (mass per erythrocyte) Automated erythrocyte mean corpuscular hemoglobin (mass per erythrocyte) 28.1 28 - 32 05/13/2018 [facility] Automated erythrocyte mean corpuscular hemoglobin concentration measurement (mass/volume) Automated erythrocyte mean corpuscular hemoglobin concentration measurement (mass/volume) 31.8 31 - 35 05/13/2018 [facility] Automated erythrocyte mean corpuscular volume Automated erythrocyte mean corpuscular volume 88.2 81 - 99 05/13/2018 [facility] Blood erythrocytes automated count (number/volume) Blood erythrocytes automated count (number/volume) 4.49 4.3 - 5.7 05/13/2018 [facility] Blood hemoglobin measurement (moles/volume) Blood hemoglobin measurement (moles/volume) 12.6 14.0 - 18.0 05/13/2018 [facility] Blood leukocytes automated count (number/volume) Blood leukocytes automated count (number/volume) 6.93 4.8 - 10.8 05/13/2018 [facility] Blood lymphocytes count (number/volume) Blood lymphocytes count (number/volume) 1.0 1.0 - 3.2 05/13/2018 [facility] Blood monocytes automated count (number/volume) Blood monocytes automated count (number/volume) 0.5 0.2 - 0.8 05/13/2018 [facility] Estimated glomerular filtration rate (GFR) determination Estimated glomerular filtration rate (GFR) determination >60 60 05/13/2018 [facility] Glucose measurement Glucose measurement 222 74 - 118 05/13/2018 [facility] Plasma globulin measurement (mass/volume) Plasma globulin measurement (mass/volume) 4.3 2.3 - 3.5 05/13/2018 [facility] Serum or plasma alanine aminotransferase measurement (enzymatic activity/volume) Serum or plasma alanine aminotransferase measurement (enzymatic activity/volume) 24 0 - 55 05/13/2018 [facility] Serum or plasma albumin measurement (mass/volume) Serum or plasma albumin measurement (mass/volume) 3.1 3.5 - 5.0 05/13/2018 [facility] Serum or plasma albumin/globulin mass ratio Serum or plasma albumin/globulin mass ratio 0.7 0.8 - 2.0 05/13/2018 [facility] Serum or plasma alkaline phosphatase measurement (enzymatic activity/volume) Serum or plasma alkaline phosphatase measurement (enzymatic activity/volume) 65 40 - 150 05/13/2018 [facility] Serum or plasma anion gap Serum or plasma anion gap 15.6 8 - 16 05/13/2018 [facility] Serum or plasma calcium measurement (mass/volume) Serum or plasma calcium measurement (mass/volume) 9.6 8.4 - 10.2 05/13/2018 [facility] Serum or plasma carbon dioxide, total measurement (moles/volume) Serum or plasma carbon dioxide, total measurement (moles/volume) 28 22 - 29 05/13/2018 [facility] Serum or plasma chloride measurement (moles/volume) Serum or plasma chloride measurement (moles/volume) 99 98 - 107 05/13/2018 [facility] Serum or plasma creatinine measurement (mass/volume) Serum or plasma creatinine measurement (mass/volume) 0.87 0.72 - 1.25 05/13/2018 [facility] Serum or plasma potassium measurement (moles/volume) Serum or plasma potassium measurement (moles/volume) 3.6 3.5 - 5.1 05/13/2018 [facility] Serum or plasma protein measurement (mass/volume) Serum or plasma protein measurement (mass/volume) 7.4 6.5 - 8.1 05/13/2018 [facility] Serum or plasma sodium measurement (moles/volume) Serum or plasma sodium measurement (moles/volume) 139 136 - 145 05/13/2018 [facility] Serum or plasma total bilirubin measurement (mass/volume) Serum or plasma total bilirubin measurement (mass/volume) 0.5 0.2 - 1.2 05/13/2018 [facility] Serum or plasma urea nitrogen measurement (mass/volume) Serum or plasma urea nitrogen measurement (mass/volume) 12 7 - 26 05/13/2018 [facility] Serum or plasma urea nitrogen/creatinine mass ratio Serum or plasma urea nitrogen/creatinine mass ratio 14 6 - 25 05/13/2018 [facility] Red Cell Distribution Width 13.7 11.7 - 14.4 05/13/2018 [facility] IM GRANULOCYTES % 1.9 0.0 - 1.0 05/13/2018 [facility] Absolute Immature Granulocyte (auto 0.13 0 - 0.1 05/13/2018 [facility] Aspartate Amino Transf (AST/SGOT) 19 5 - 34 05/13/2018 [facility] Automated urine sediment leukocyte count by microscopy (number/high power field) Automated urine sediment leukocyte count by microscopy (number/high power field) <5 0 - 5 05/11/2018 [facility] Bacteria detection in urine sediment by light microscopy Bacteria detection in urine sediment by light microscopy RARE NONE 05/11/2018 [facility] Epithelial cells detection in urine sediment by light microscopy Epithelial cells detection in urine sediment by light microscopy FEW NONE 05/11/2018 [facility] Erythrocytes detection in urine sediment by light microscopy Erythrocytes detection in urine sediment by light microscopy <50 0 - 5 05/11/2018 [facility] Hyaline casts detection in urine sediment by light microscopy Hyaline casts detection in urine sediment by light microscopy <1 0 - 1 05/11/2018 [facility] Specific gravity of Urine by Test strip Specific gravity of Urine by Test strip 1.010 1.010 - 1.025 05/11/2018 [facility] Transitional cells detection in urine sediment by light microscopy Transitional cells detection in urine sediment by light microscopy FEW NONE 05/11/2018 [facility] Urine clarity Urine clarity CLEAR CLEAR 05/11/2018 [facility] Urine color determination Urine color determination YELLOW YELLOW 05/11/2018 [facility] Urine erythrocytes detection Urine erythrocytes detection 1+ NEGATIVE 05/11/2018 [facility] Urine glucose detection Urine glucose detection 2+ NEGATIVE 05/11/2018 [facility] Urine ketones detection by automated test strip Urine ketones detection by automated test strip NEGATIVE NEGATIVE 05/11/2018 [facility] Urine leukocyte esterase detection by dipstick Urine leukocyte esterase detection by dipstick TRACE NEGATIVE 05/11/2018 [facility] Urine nitrite detection Urine nitrite detection NEGATIVE NEGATIVE 05/11/2018 [facility] Urine pH measurement by automated test strip Urine pH measurement by automated test strip 8 5 - 7 05/11/2018 [facility] Urine protein measurement by test strip (mass/volume) Urine protein measurement by test strip (mass/volume) NEGATIVE NEGATIVE 05/11/2018 [facility] Urine total bilirubin measurement (mass/volume) Urine total bilirubin measurement (mass/volume) NEGATIVE NEGATIVE 05/11/2018 [facility] Urine urobilinogen measurement by test strip (mass/volume) Urine urobilinogen measurement by test strip (mass/volume) 0.2 0.2 - 1 05/11/2018 [facility] Blood culture Blood culture NO GROWTH AFTER 72 HOURS 05/10/2018 [facility] Serum or plasma trough vancomycin level at trough (mass/volume) Serum or plasma trough vancomycin level at trough (mass/volume) 24.3 5.0 - 10.0 05/06/2018 [facility] Blood anisocytosis detection by light microscopy Blood anisocytosis detection by light microscopy SLIGHT 05/06/2018 [facility] Blood platelets count by estimate (number/volume) Blood platelets count by estimate (number/volume) ADEQUATE 05/06/2018 [facility] Platelet morphology Platelet morphology NORMAL 05/06/2018 [facility] RBC morphology RBC morphology NORMAL 05/06/2018 [facility] Serum or plasma cholesterol in HDL measurement (mass/volume) Serum or plasma cholesterol in HDL measurement (mass/volume) 41 40 - 60 05/06/2018 [facility] Serum or plasma cholesterol in LDL measurement (mass/volume) Serum or plasma cholesterol in LDL measurement (mass/volume) 99 60 - 130 05/06/2018 [facility] Serum or plasma cholesterol measurement (mass/volume) Serum or plasma cholesterol measurement (mass/volume) 151 0 - 199 05/06/2018 [facility] Serum or plasma thyrotropin measurement by detection limit <=0.005 miu/l (units/volume) Serum or plasma thyrotropin measurement by detection limit <=0.005 miu/l (units/volume) 0.930 0.350 - 4.940 05/06/2018 [facility] Serum or plasma total cholesterol/cholesterol in HDL mass ratio Serum or plasma total cholesterol/cholesterol in HDL mass ratio 3.7 3.9 - 4.7 05/06/2018 [facility] Serum or plasma triglyceride measurement (mass/volume) Serum or plasma triglyceride measurement (mass/volume) 55 0 - 149 05/06/2018 [facility] Bacterial blood culture Bacterial blood culture Organism: STAPHYLOCOCCUS AUREUS 05/05/2018 [facility] Lactic Acid Level 13.2 4.5 - 19.8 05/05/2018 [facility] Serum or plasma creatine kinase MB measurement (mass/volume) Serum or plasma creatine kinase MB measurement (mass/volume) 2.40 0 - 5.0 05/04/2018 [facility] Serum or plasma creatine kinase measurement (enzymatic activity/volume) Serum or plasma creatine kinase measurement (enzymatic activity/volume) 532 30 - 200 05/04/2018 [facility] Troponin I measurement by highly sensitive enzyme immunoassay Troponin I measurement by highly sensitive enzyme immunoassay 0.197 0 - 0.300 05/04/2018 [facility] Serum or plasma magnesium measurement (mass/volume) Serum or plasma magnesium measurement (mass/volume) 1.8 1.3 - 2.1 05/04/2018 [facility] Manual blood lymphocytes/100 leukocytes Manual blood lymphocytes/100 leukocytes 7 19 - 48 05/03/2018 [facility] Manual blood monocytes/100 leukocytes Manual blood monocytes/100 leukocytes 8 3.4 - 9.0 05/03/2018 [facility] Manual blood neutrophils/100 leukocytes Manual blood neutrophils/100 leukocytes 85 40 - 74 05/03/2018 [facility] Differential Total Cells Counted 100 05/03/2018 [facility] Mucus detection in urine sediment by light microscopy Mucus detection in urine sediment by light microscopy FEW RARE 05/02/2018 [facility] Activated partial thromboplastin time (aPTT) in platelet poor plasma bycoagulation assay Activated partial thromboplastin time (aPTT) in platelet poor plasma bycoagulation assay 33.6 23.8 - 35.5 05/02/2018 [facility] Fibrin D-dimer DDU measurement in platelet poor plasma (mass/volume) Fibrin D-dimer DDU measurement in platelet poor plasma (mass/volume) 0.75 0.00 - 0.45 05/02/2018 [facility] INR in Platelet poor plasma by Coagulation assay INR in Platelet poor plasma by Coagulation assay 0.96 05/02/2018 [facility] Prothrombin time (PT) in platelet poor plasma by coagulation assay Prothrombin time (PT) in platelet poor plasma by coagulation assay 13.7 11.9 - 14.5 05/02/2018 [facility] Serum or plasma lipase measurement (enzymatic activity/volume) Serum or plasma lipase measurement (enzymatic activity/volume) <4 8 - 78 05/02/2018 [facility] B-Type Natriuretic Peptide 140.5 0 - 100 05/02/2018 [facility] Bacterial urine culture Bacterial urine culture Urine Culture [facility] Pathology Reports No Data Provided for [...] Date DC Date Status Source Discharged Inpatient [id number] GILBERT NAVARRO MD 05/02/2018 05/13/2018 [facility] Procedures Procedure Code Date Perfomer Comments Source Computed tomography of chest with contrast [id number] 05/10/2018 [facility] MRI joint extremity upper wo then w contrast [id number] 05/05/2018 [facility] Computed tomography of abdomen and pelvis with contrast [id number] 05/04/2018 [facility] Computed tomography of soft tissues of neck with contrast [id number] 05/04/2018 [facility] Assessment and Plan No Data Provided for This Section Plan of Care Plan of Care Date Source Discharge Date 05/13/18 12:14pm Disposition HOME, SELF-CARE Instructions/Education Provided Pneumonia - Bacterial Prescriptions See Medication Section Additional Instructions/Education Follow up in [address] Navarro 05/13/2018 [facility] Social History Social History Date Source [...] Start Date Stop Date Never Smoker 05/13/2018 [facility] Family History No Data Provided for This Section Advance Directives Order Name Results Value Date Source Advance Directives Advance Directives Directive Response Recorded Date/Time Does the patient have an advance directive? Yes 05/03/18 2:25am If yes, is advance directive on file with [facility]? Yes 05/03/18 2:25am If not on file with [facility] will patient provide a copy? Yes 05/03/18 2:25am Do you have a Directive to Physician? No 05/02/18 8:46pm Do you have a Medical Power of Purification Supervisor? No 05/02/18 8:46pm Do you have an [...] rights and responsibilities? Yes 05/02/18 8:46pm 05/13/2018 [facility] Functional Status No Data Provided for This Section
--- NOTE | 2019-04-23 18:26 | NUR ---
[facility] STAFF HERE TO EVALUATE PT FOR REHAB PLACEMENT.
[2019-04-23 18:27] LABS: BASOPHILS % 0.3 % (0.0-1.0); EOSINOPHILS # (AUTO) 0.1 (0.0-0.4); EOSINOPHILS % 1.5 % (0.0-6.0); HEMATOCRIT 32.9 % (38.2-49.6); HEMOGLOBIN 10.1 g/dL (14.0-18.0); LYMPHOCYTES # (AUTO) 0.8 (1.0-3.2); LYMPHOCYTES % 11.6 % (18.0-39.1); MEAN CORPUSCULAR HEMOGLOBIN 26.4 pg (28-32); MEAN CORPUSCULAR HGB CONC 30.7 g/dL (31-35); MEAN CORPUSCULAR VOLUME 86.1 fL (81-99); MONOCYTES # (AUTO) 0.4 (0.2-0.8); MONOCYTES % 6.2 % (4.4-11.3); NEUTROPHILS # (AUTO) 5.3 (2.1-6.9); NEUTROPHILS % 80.1 % (38.7-80.0); PLATELET COUNT 237 x10e3/uL (140-360); RED BLOOD COUNT 3.82 x10e6/uL (4.3-5.7); RED CELL DISTRIBUTION WIDTH 14.8 % (11.7-14.4)
[2019-04-23 18:46] LABS: ALANINE AMINOTRANSFERASE 29 IU/L (0-55); ALBUMIN/GLOBULIN RATIO 0.9 (0.8-2.0); ALKALINE PHOSPHATASE 84 IU/L (40-150); ANION GAP 13.3 mmol/L (8-16); BLOOD UREA NITROGEN 11 mg/dL (7-26); BUN/CREATININE RATIO 13 (6-25); CALCIUM 8.9 mg/dL (8.4-10.2); CARBON DIOXIDE 28 mmol/L (22-29); CHLORIDE 101 mmol/L (98-107); CREATINE KINASE 72 IU/L (30-200); CREATININE, SERUM 0.87 mg/dL (0.72-1.25); EST GLOMERULAR FILTRATION RATE > 60 ML/MIN (60-); GLUCOSE 231 mg/dL (74-118); POTASSIUM 4.3 mmol/L (3.5-5.1); SODIUM 138 mmol/L (136-145)
--- NOTE | 2019-04-23 21:05 | NUR ---
[facility] staff in room with pt. at this time. 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
--- NOTE | 2019-04-23 21:20 | NUR ---
blue top re-drawn and sent off to the lab
--- NOTE | 2019-04-23 21:36 | NUR ---
RITO HAS SPOKE WITH PT AND HE'S AGREED TO GO TO [facility]
[2019-04-23 21:40] LABS: INR 1.03
--- NOTE | 2019-04-23 21:50 | NUR ---
ALL LABS PRINTED AND GIVEN TO RITO
--- NOTE | 2019-04-23 21:58 | NUR ---
PT INFORMED OF TX TO [facility]. [employer] FOR [employer] /Garret MAYNARD NOTIFIED
--- NOTE | 2019-04-23 22:21 | NUR ---
SPOKE WITH PINA AGOSTO AND WAS TOLD TO CALL THE [facility] FOR THIS PT'S ADMIT
--- NOTE | 2019-04-23 22:26 | NUR ---
CALLED THE [facility] AND SPOKE WITH PINA MALDONADO FOR THIS PT. AND WAS TOLD THEY WERE NOT EXPECTING THE PATEINT. HARDIK HELLER --CHARGE NURSE;NOTIFIED
--- NOTE | 2019-04-23 23:03 | NUR ---
CALLED [facility] FOR THIS PT RE CONTACTING THIS PT'S ; LEFT VM
--- NOTE | 2019-04-23 23:09 | NUR ---
SPOKE WITH PT'S DIRECTLY; SHE'S ON HER WAY HERE. PT INFORMED
[2019-04-23 23:12] VITALS: BP 150/53
--- NOTE | 2019-04-23 23:30 | NUR ---
SPOUSE IN ROOM AT THIS TIME
--- NOTE | 2019-04-23 23:38 | NUR ---
[facility] HERE TO TX PT. TO [facility].
--- NOTE | 2019-04-23 23:43 | NUR ---
REPORT GIVEN TO [facility] FOR THIS PT.
[2019-04-30] MEDS ORDERED: humalog INJ (12:47)
[2019-04-30] MEDS ORDERED: lantus INJ (12:47)
[2019-04-30] MEDS ORDERED: lioresal PO (12:47)
[2019-04-30] MEDS ORDERED: THERA-M1 EACH PO (12:47)
[2019-04-30] MEDS ORDERED: VITAMIN B-1100 MG PO (12:48)
== END 2019-04-23 23:59 ==
LOC: ER 17:53
DX: R53.1 Weakness (principal)
CPT/HCPCS: 36415; 80053; 82550; 82553; 84484; 85025; 85610; 85730; 99284

== ENCOUNTER 2019-05-05 08:58 | Inpatient (IN) | payer MEDICARE, OTHER ==
[~2019-05-05] VITALS: Ht 195.6 cm; Wt 127.0 kg
[~2019-05-05 08:58] MED LIST changes: +THERA-M1 EACH PO; +VITAMIN B-1100 MG PO; +humalog INJ; +lantus INJ; +lioresal PO
[2019-05-05] MEDS ORDERED: CEFAZOLIN SOD 1 GM/NS 50ML 50 ML IV ONE (09:18)
[2019-05-05] MEDS ORDERED: BUPIVACAINE 0.25%/EPI 30ML SDV INJ ONE (09:57)
[2019-05-05] MEDS ORDERED: MUPIROCIN 2% OINT 22 GM TUBE ONE (09:58)
[2019-05-05] MEDS ORDERED: PREDNISONE5 MG PO (09:58)
[2019-05-05] MEDS ORDERED: SODIUM CHLORIDE 0.9% 1000ML 1,000 ML IV SCH (11:34)
[2019-05-05] MEDS ORDERED: HYDROCODONE/APAP 7.5MG-325MG 1 EA TAB PO PRN (11:45)
[2019-05-05] MEDS ORDERED: PROMETHAZINE HCL (IM) 25 MG/ML VIAL INJ PRN (11:45)
[2019-05-05] MEDS ORDERED: DOCUSATE SODIUM 100 MG CAP PO PRN (11:45)
[2019-05-05] MEDS ORDERED: ACETAMINOPHEN 650 MG SUPP PR PRN (11:45)
[2019-05-05] MEDS ORDERED: HYDROCODONE/APAP 5MG-325MG TAB PO PRN (11:45)
[2019-05-05] MEDS ORDERED: ZOLPIDEM TARTRATE 5 MG TAB PO PRN (11:45)
[2019-05-05] MEDS ORDERED: DIPHENHYDRAMINE HCL INJ 50 MG/ML VIAL IM/IV PRN (11:45)
[2019-05-05] MEDS ORDERED: HYDROMORPHONE 1MG/1ML INJ ONE ×2 (11:58→12:53)
[2019-05-05] MEDS ORDERED: ACETAMINOPHEN 1000 MG/100 ML IV SCH (12:00)
[2019-05-05] MEDS: KETOROLAC TROMETHAMINE 30 MG/ML VIAL IV PRN ×2 (12:15→17:55)
[2019-05-05] MEDS: ONDANSETRON HCL INJ 2MG/ML 2ML 2 MG/ML VIAL IV PRN ×2 (12:15→17:55)
[2019-05-05] MEDS: FENTANYL CITRATE/PF 100MCG/2 ML INJ ONE ×2 (12:15→12:50)
[2019-05-05 14:11] VITALS: BP 175/88
--- NOTE | 2019-05-05 14:38 | NUR ---
CALLED [facility] TO SEE WHAT NEED TO DO TO FACILITATE THE REFERRAL, SHE WILL GET BACK TO ME.
[2019-05-05 15:03] VITALS: BP 175/88
[2019-05-05 15:04] VITALS: BP 175/88
[2019-05-05 15:53] VITALS: BP 148/79
--- NOTE | 2019-05-05 16:26 | NUR ---
GOT CHOICE FORM SIGNED FOR [facility] FILED IN CHART, COPIED SURGICAL NOTES, (ONLY ONES AVAILABLE AT THIS TIME) FAXED TO [phone], REP WILL BE OUT IN AM TO GET UPDATED NOTES AND REVIEW FOR ADMISSION. MOT STARTED AND PUT WITH PACKET ON CM DESK FOR FOLLOW UP IN MORNING
[2019-05-05] MEDS: CELECOXIB 200 MG CAP PO SCH (17:00)
[2019-05-05] MEDS: ASPIRIN 325 MG TAB PO SCH (17:00)
--- NOTE | 2019-05-05 17:45 | Diagnostic Imaging Report ---
EXAMINATION: CHEST SINGLE (PORTABLE) INDICATION: Line placement COMPARISON: Chest are graft 04/20/2019 FINDINGS: LINES/TUBES:Right PICC line terminates near the superior cavoatrial junction. LUNGS:The lungs are well-inflated. There is perihilar fullness and indistinctness of the pulmonary vasculature. PLEURA:No pleural effusion or pneumothorax. MEDIASTINUM:The cardia mediastinal silhouette remains mildly enlarged. Status post thoracic aortic stent graft. BONES/SOFT TISSUES:No acute osseous injury. ABDOMEN:No free air under the diaphragm. IMPRESSION: Right PICC line terminates at the superior vena cava. Pulmonary edema and unchanged mild cardiomegaly. Signed by: Azul Escobedo MD on 05/05/2019 5:42 PM
[2019-05-05] MEDS ORDERED: MIDAZOLAM HCL 2 MG/2 ML VIAL ONE (18:08)
[2019-05-05] MEDS ORDERED: FENTANYL CITRATE/PF 100MCG/2 ML INJ ONE (18:08)
[2019-05-05] MEDS: CEFAZOLIN SOD 1 GM/NS 50ML 50 ML IV SCH (18:29)
--- NOTE | 2019-05-05 18:30 | NUR ---
Debridement and wound care done by Dr. Diez at this time, cultures sent off to lab per order.
[2019-05-05 18:50] LABS: BASOPHILS % 0.2 % (0.0-1.0); EOSINOPHILS # (AUTO) 0.1 (0.0-0.4); EOSINOPHILS % 1.1 % (0.0-6.0); HEMATOCRIT 33.1 % (38.2-49.6); HEMOGLOBIN 10.2 g/dL (14.0-18.0); LYMPHOCYTES # (AUTO) 0.8 (1.0-3.2); LYMPHOCYTES % 12.6 % (18.0-39.1); MEAN CORPUSCULAR HEMOGLOBIN 26.6 pg (28-32); MEAN CORPUSCULAR HGB CONC 30.8 g/dL (31-35); MEAN CORPUSCULAR VOLUME 86.4 fL (81-99); MONOCYTES # (AUTO) 0.5 (0.2-0.8); MONOCYTES % 8.1 % (4.4-11.3); NEUTROPHILS % 77.7 % (38.7-80.0); PLATELET COUNT 98 x10e3/uL (140-360); RED BLOOD COUNT 3.83 x10e6/uL (4.3-5.7); RED CELL DISTRIBUTION WIDTH 14.6 % (11.7-14.4)
[2019-05-05 19:08] LABS: ANION GAP 8.2 mmol/L (8-16); BLOOD UREA NITROGEN 10 mg/dL (7-26); BUN/CREATININE RATIO 11 (6-25); CALCIUM 8.3 mg/dL (8.4-10.2); CARBON DIOXIDE 31 mmol/L (22-29); CHLORIDE 101 mmol/L (98-107); CREATININE, SERUM 0.92 mg/dL (0.72-1.25); EST GLOMERULAR FILTRATION RATE > 60 ML/MIN (60-); GLUCOSE 208 mg/dL (74-118); POTASSIUM 4.2 mmol/L (3.5-5.1); SODIUM 136 mmol/L (136-145)
--- NOTE | 2019-05-05 19:28 | Diagnostic Imaging Report ---
Exam: Left foot 3 views History: Foot ulcer Comparison: None. Findings: No acute fracture. Prior second through fifth metatarsal amputation. Erosive change and periostitis involving the first through third metatarsal stumps and first proximal phalanx. Impression: No acute osseous abnormality Osteomyelitis of the medial forefoot. MRI may be of benefit to evaluate the extent. Signed by: Dr. Idris Alexander M.D. on 05/05/2019 7:25 PM
[2019-05-05] MEDS ORDERED: PROPOFOL IV EMULSION 10 MG/ML 20 ML VIAL ONE (19:34)
[2019-05-05] MEDS ORDERED: ONDANSETRON HCL INJ 2MG/ML 2ML 2 MG/ML VIAL ONE (19:34)
[2019-05-05] MEDS ORDERED: DEXAMETHASONE SOD PHOS INJ 4 MG/ML VIAL ONE (19:34)
[2019-05-05] MEDS ORDERED: SEVOFLURANE INHAL SOLN 250 ML PEN BTL ONE (19:34)
[2019-05-05] MEDS ORDERED: LIDOCAINE HCL 2% LOCAL INJ 5 ML SDV VIAL INJ ONE (19:34)
--- NOTE | 2019-05-05 19:45 | NUR ---
patient is complaining of pain to the left foot that is not being relieved with current pain medication regiment. Vital signs obtained. Blood pressure is 188/88 heart rate 91. Patient states when his heart rate is elevated he takes Lopressor 25mg. MD de la fuente. Received new order for dilaudid 1mg IV q 6 hours for pain. Also received order for one time dose of Lopressor 25mg for elevated heart rate. Will continue to monitor patient for pain, and will also monitor heart rate.
[2019-05-05 20:00] VITALS: BP 188/88
[2019-05-05] MEDS ORDERED: METOPROLOL TARTRATE 25 MG TAB PO ONE (20:45)
[2019-05-05] MEDS: MEROPENEM 500MG/ NS 50ML 50 ML IV SCH (20:53)
[2019-05-05] MEDS: HYDROMORPHONE 1MG/1ML INJ IV PRN (20:54)
[2019-05-05] MEDS: ACETAMINOPHEN 1000 MG/100 ML IV SCH (21:00)
--- NOTE | 2019-05-05 22:50 | Operative Report ---
DATE OF PROCEDURE: 05/05/2019 SURGEON: Clement Durant MD [facility] TEACHER: Saturnino Zavala, certified PA. PREOPERATIVE DIAGNOSIS: Left quadriceps tendon rupture. POSTOPERATIVE DIAGNOSIS: Left quadriceps tendon rupture. PROCEDURE: Left quadriceps tendon repair. INDICATIONS: The patient is a medically frail 73-year-old gentleman, who has a left quadriceps tendon rupture. The findings and options have been discussed with the patient. We initially planned on a surgical repair about a week or two ago. The patient has had multiple medical issues and is deconditioned. He was unable to provide for himself at home. He ended up getting admitted to a rehab facility. We have now coordinated the surgery and plan on proceeding as originally planned. He states he has no further questions and understands the potential risk. PROCEDURE IN DETAIL: The patient was brought to the operating room and placed under general anesthetic. He received prophylactic antibiotics in the holding area. He has ongoing treatment for diabetic foot ulcers in his left foot. We therefore draped out the left lower leg. His left foot was further prepped and draped in a sterile manner. A preoperative time-out was performed. The extremity was exsanguinated and a proximal tourniquet was inflated to 300 mmHg. An anterior incision was made over the left knee. A large intra-articular hemarthrosis was evacuated. There was an obvious rupture of the quadriceps tendon extending down into the medial and lateral retinaculum. The end of the quadriceps tendon was debrided back to healthy tissue. The proximal pole of the patella was debrided. A combination of a curved curette and a rongeur forceps were used to fashion. A trough of bleeding cancellous bone in the superior pole of the patella. Two separate #2 FiberWire stitches were placed in a Krackow type weave into the quadriceps tendon. These were tensioned and noted to have an excellent fixation. Drill holes were placed vertically in the patella. Three separate drill holes were created. A Bello suture passer was used to pass the #2 FiberWire. These were secured over the distal pole of the patella. The retinaculum was repaired with #1 Ethibond in a modified Frank type of stitch. The #2 FiberWire was then passed back superiorly. A free needle was attached and additional stitches were placed into the quadriceps tendon. This was then secured. The wound was then further irrigated and closed with subcuticular Vicryl and genevieve. An augmented knee immobilizer with vertical 6 inch fiberglass struts were placed. An additional knee immobilizer was placed over this. The patient was extubated and transported to the recovery room in stable condition. There was no blood loss and all needle and sponge counts were correct. Clement Durant MD DR/MERA /[id number]
[2019-05-06] VITALS (8 sets, daily range): BP systolic 125–195; BP diastolic 72–105
--- NOTE | 2019-05-06 00:05 | Consultation ---
DATE OF CONSULTATION: REASON FOR CONSULTATION: Recommendation of antibiotic. HISTORY OF PRESENT ILLNESS: Mr. Edd Vidal is well known to me from previously. He is very pleasant 73-year-old white male, who had multiple infection before, multiple sepsis before, who was admitted because he has torn ligament in his knee. The patient was here back in April 22. At that time, he was seen by Dr. Castillo. He had left quadriceps tendon repair. Recommended of surgery once clinically stable. The patient at that time was seen by me. He has history of osteomyelitis, aspiration of the left foot. The patient has diabetes mellitus. He had debridement of his ulcer where the head of the 1st metatarsal was removed. He had debridement. He continue to deteriorate while on antibiotic oral and had to be admitted. He is on IV antibiotic. The patient who is known to me because he has history of diabetes mellitus, obesity, neuropathy, renal insufficiency, several osteomyelitis before, seven infection before, anemia of chronic disease, osteoarthritis, sleep apnea, aortic dissection, at one point I am concerned that he may have infection in the aorta, hypertension, debility, chronic pain, neuropathy. The patient was admitted at this time to undergo repair of his knee. The patient did well. I was asked to see him. Currently, the patient has no complaints except he is really weak. His lab data reviewed. His blood cultures have been negative. He grew gram-negative rods, although I do not have an access to it at the present time. He was on meropenem the last time he was here. He is currently lying in bed comfortably. PAST MEDICAL HISTORY: As above. PAST SURGICAL HISTORY: As above. ALLERGIES: NKA. SOCIAL HISTORY: There is no smoking, drug abuse, or alcohol abuse. FAMILY HISTORY: Otherwise unremarkable. He does have history of diabetes in the family. REVIEW OF SYSTEMS: HEENT: Negative. PULMONARY: Negative. CARDIAC: Negative. NEURO: Except for the weakness, he denies any. MEDICATIONS: His medication list reviewed. He is currently on acetaminophen, Toradol, Zofran, Celebrex, aspirin, and Colace. LABORATORY DATA: His laboratory data reviewed. Chart from before reviewed. PHYSICAL EXAMINATION: GENERAL: He is currently alert, oriented, does not seem to be in acute distress. VITAL SIGNS: Stable, currently afebrile. HEENT: He is not icteric. NECK: Supple. CHEST: Clear bilateral. HEART: S1, S2. No S3, S4, or murmur. ABDOMEN: Soft. Bowel sounds present. No tenderness. EXTREMITIES: No edema. SKIN: No rash. The knee was wrapped. IMPRESSION: 1. Osteomyelitis of the foot, failed oral antibiotic, who seems to be clinically improving with meropenem. We will continue meropenem. We will get a sedimentation rate, C-reactive protein, chemistry panel, and CBC. 2. Status post repair of the tendon quadriceps, seems to be doing good. 3. Diabetes mellitus with neuropathy. 4. Obesity. 5. Underlying chronic kidney disease. 6. Debility. 7. We will follow with you. MD MARVA Mckeon/MERA /[id number]
--- NOTE | 2019-05-06 00:35 | NUR ---
patients blood pressure is 195/85. paged. Awaiting call back from .
--- NOTE | 2019-05-06 00:42 | NUR ---
MD returned call. received new order for 0.1mg of clonidine q 6 hours as needed for elevated blood pressure. Also received new order for Hydralazine 10mg IV q 6 hours as needed for elevated blood pressure. Will continue to monitor patients blood pressure.
--- NOTE | 2019-05-06 01:10 | Consultation ---
DATE OF CONSULTATION: 05/05/2019 Consultation Report REASON FOR CONSULTATION: Nonhealing ulceration with osteomyelitis left foot with the patient being an insulin-dependent diabetic. HISTORY OF PRESENT ILLNESS: This is a pleasant 73-year-old white male, who is very well known to me from previous admissions and following up in the office, who relates that he has no history of fever or chills, but has a nonhealing ulceration to the left foot, which he does relate that he is getting better. He was admitted for left knee surgery and had surgery per Dr. Durant this morning to his left knee. PAST MEDICAL HISTORY: Remarkable for insulin-dependent diabetes. He is also on antianxiety and antidepressants. PAST SURGICAL HISTORY: Remarkable for left foot ulceration and debridement multiple times and amputations to 2nd through 5th digits left foot. ALLERGIES: THE PATIENT DENIES. CURRENT MEDICATIONS: Note listed in the chart including IV cefazolin. SOCIAL HISTORY: Denies any smoking, drinking, or recreational drug use. Lives with his . FAMILY HISTORY: Noncontributory. REVIEW OF SYSTEMS: CARDIAC: He is denying any palpitations or arrhythmias. RESPIRATORY: Denies any shortness of breath or productive cough. GASTROINTESTINAL: Denies any diarrhea or constipation. GENITOURINARY: Denies any problems with voiding or hematuria. PHYSICAL EXAMINATION: VITAL SIGNS: Afebrile, pulse rate 100, respirations 20, blood pressure 148/79, O2 saturation 98%. Podiatric physical examination reveals the following: VASCULATURE: Pedal pulses of both DP and PT are palpable. CFT to all toes less than 4 seconds. NEUROLOGIC: Reveals complete loss of protective sensation when utilizing [place] 5% monofilament wire. MUSCULOSKELETAL: Muscle mass to be symmetrical. Muscle strength to be 4/5 to all groups of the right foot. Cannot move his left lower extremity, secondary to being braced due to his left knee surgery per Dr. Durant. DERMATOLOGICAL: He has a grade 4 ulcer measuring 2.5 to 3 cm in diameter to the plantar aspect of the 1st metatarsophalangeal joint. Some bone exposed with minimal foul smell present. Cellulitis to the dorsal aspect left foot since he has been seen is significantly better. LABORATORY DATA: Labs noted. Has a blood glucose of 114. ASSESSMENT: Grade 4 ulcer with osteomyelitis with diabetic neuropathy. PLAN: Under no anesthesia secondary to his diabetic neuropathy, sharp excisional debridement of the ulcer was carried down to bone. Devitalized tissue was excised until good viable bleeding tissue was achieved. Deep cultures were taken for aerobic and anaerobic growth. A chunk of bone was also debrided out of his wound measuring approximately 1 cm in diameter and sent for pathological analysis. Sterile dressing was applied. We will start applying Santyl followed by diluted wet-to-dry Betadine. We will treat conservatively. The patient understands if not responsive, may need a possible transmetatarsal amputation down the road. DONNA Valladares/MODL /[id number]
[2019-05-06] MEDS: HYDRALAZINE HCL 20 MG/ML VIAL IV PRN ×2 (01:14→07:40)
[2019-05-06] MEDS: CEFAZOLIN SOD 1 GM/NS 50ML 50 ML IV SCH ×2 (01:15→09:27)
--- NOTE | 2019-05-06 02:00 | NUR ---
patient is complaining of difficulty catching his breath. vital signs obtained BP 187/74 HR 65 O2 sat 99%. MD de la fuente. received new order for chest x-ray, Bipap, and consultation with environmental sampler. Will continue to monitor patient.
--- NOTE | 2019-05-06 02:10 | Consultation ---
DATE OF CONSULTATION: Medical Management Consult HISTORY OF PRESENT ILLNESS: The patient is status post left quadriceps rupture repair. The patient is currently status post surgery, was taken to the OR. PAST MEDICAL HISTORY: History of diabetes, heart disease, high blood pressure, chronic kidney disease, obstructive sleep apnea and hypertension. MEDICATIONS: Include alpha-lipoic acid 20 mg, alprazolam 0.5 mg twice a day, baclofen 10 mg b.i.d. to t.i.d., BuSpar 10 mg daily, cyanocobalamin 1000 mcg daily, hydrocodone 10/325 mg p.o. q.6 hours p.r.n., lisinopril 20 mg b.i.d., lycopene 10 mg daily, metolazone 5 mg daily, minoxidil 10 mg daily. The patient also takes torsemide 10 mg daily and thiamine 100 mg daily. The patient also takes Lantus 15 mg and Tylenol as needed. PAST SURGICAL HISTORY: History of amputation of 2nd and 5th digit of the left toe, herniorrhaphy and also tonsillectomy. SOCIAL HISTORY: Noncontributory. No EtOH. No IV drug abuse. No history of smoking either. REVIEW OF SYSTEMS: The patient is status post surgery. Pain is still considerable. PHYSICAL EXAMINATION: GENERAL: The patient is in no acute distress at this time other than pain. Alert and oriented x3. NECK: Supple. No JVD is present. CHEST: S1, S2 normal. Regular rhythm. Ejection systolic murmur present. ABDOMEN: Soft, nontender, nondistended. SKIN: Status post surgical site is clean. NEUROLOGIC: Alert and oriented x3 sensory deficit in the lower extremities. ASSESSMENT: Injury of the left quadriceps, status post quadriceps tendon repair. The patient also has history of podiatric surgery recently, we will consult Podiatry for it and continue with wound management. The patient is also on antibiotic. We will continue with antibiotic at this time as per Podiatry. Restart all his home medications and continue monitoring his H and H. laboratory values are pending. Hemoglobin prior to surgery was 10.2, hematocrit of 33.2. We will trend hemoglobin, hematocrit, and continue monitoring his glucoses and insulin sliding scale will be instituted. Further recommendation per clinical course. We will continue to monitor the patient along with the consultants. MD ROEL Arnett/MERA /[id number]
--- NOTE | 2019-05-06 02:27 | NUR ---
irrigation system operator called back, gave new orders for STAT CT chest with PE Protocol. Will continue to monitor patient.
[2019-05-06] MEDS: ALPRAZOLAM 0.5 MG TAB PO PRN (02:43)
[2019-05-06] MEDS ORDERED: SODIUM CHLORIDE 0.9% 50ML 50 ML ONE (02:52)
[2019-05-06] MEDS ORDERED: IOPAMIDOL 370 MG/ML 200 ML INFUS..BTL INJ ONE (02:52)
[2019-05-06] MEDS: ACETAMINOPHEN 1000 MG/100 ML IV SCH ×2 (03:00→09:00)
--- NOTE | 2019-05-06 03:53 | Diagnostic Imaging Report ---
EXAMINATION: CHEST SINGLE (PORTABLE) INDICATION: Shortness of breath. COMPARISON: 05/05/2019. FINDINGS: LINES/TUBES:Right PICC line terminates near the superior cavoatrial junction, unchanged. LUNGS:Bilateral pulmonary venous congestion and interstitial edema again observed. PLEURA:No pleural effusion or pneumothorax. MEDIASTINUM:The cardia mediastinal silhouette is moderately enlarged.. Status post thoracic aortic stent graft again observed. BONES/SOFT TISSUES:No acute osseous injury. ABDOMEN:No free air under the diaphragm. IMPRESSION: Bilateral pulmonary venous congestion and pulmonary edema, unchanged. Signed by: Dr. Rock Quintana M.D. on 05/06/2019 3:50 AM
[2019-05-06] MEDS: MEROPENEM 500MG/ NS 50ML 50 ML IV SCH ×3 (03:55→21:28)
--- NOTE | 2019-05-06 04:09 | Diagnostic Imaging Report ---
EXAM: CT Chest WITH contrast 05/06/2019 2:28 AM INDICATION: Shortness of breath . Pulmonary embolism. COMPARISON: None. TECHNIQUE: Chest was scanned utilizing a multidetector helical scanner from the lung apex through the level of the adrenal glands without administration of IV contrast. Coronal and sagittal reformations were obtained. Pulmonary embolism protocol was performed. IV CONTRAST: 100 mL of Isovue 300 RADIATION DOSE: Total DLP: 672.95 mGy*cm Estimated effective dose: (DLP x 0.014 x size factor) mSv COMPLICATIONS: None FINDINGS: Beam hardening artifact slightly limits evaluation. LINES/ TUBES: None. There is a stent graft extending from the proximal aortic arch to the distal thoracic aorta, with patency not evaluated due to the lack of opacification of the arterial system (pulmonary arterial system optimized study). LUNGS AND AIRWAYS: Bilateral lower lobe compressive atelectasis. Area of low attenuation in the posterior left lower lobe pulmonary artery on images 70 series 2 with normal flow distal to it likely represents artifact. Bilateral pulmonary venous congestion and interstitial edema. PLEURA: Moderate right and small left pleural effusions. HEART AND MEDIASTINUM: 1.4 cm low-attenuation nodule in the left thyroid lobe on image 8 series 2. No mediastinal, hilar or axillary lymphadenopathy. The heart is moderately enlarged. There is no pericardial effusion. The pulmonary trunk measures 4.2 cm in diameter, dilated. Multivessel coronary artery calcifications. UPPER ABDOMEN: Limited non-contrast views of the upper abdomen show extensive atherosclerotic calcifications of the imaged aorta and major branches particularly in the splenic artery. The adrenal glands are normal. BONES: There are degenerative changes in the thoracic spine. SOFT TISSUES: Unremarkable. IMPRESSION: 1. No evidence of pulmonary embolism to the resolved lobar level. 2. Decompensated CHF: Bilateral pulmonary venous congestion and interstitial edema. 3. Moderate right and small left pleural effusions associated with bibasilar compressive lower lobe atelectasis. Signed by: Dr. Rock Quintana M.D. on 05/06/2019 4:06 AM
[2019-05-06] MEDS: CLONIDINE HCL 0.1 MG TAB PO PRN ×2 (05:40→21:38)
[2019-05-06] MEDS: HYDROMORPHONE 1MG/1ML INJ IV PRN ×4 (07:10→22:31)
--- NOTE | 2019-05-06 07:16 | NUR ---
report given to day nurse. patient is resting comfortably in bed. bed is in lowest position and call schmitz is within reach.
[2019-05-06] MEDS ORDERED: FUROSEMIDE INJ 10 MG/ML 4 ML VIAL IV ONE ×2 (07:50→12:00)
[2019-05-06 08:12] LABS: BASOPHILS % 0.3 % (0.0-1.0); EOSINOPHILS # (AUTO) 0.2 (0.0-0.4); EOSINOPHILS % 2.9 % (0.0-6.0); HEMATOCRIT 32.4 % (38.2-49.6); HEMOGLOBIN 9.9 g/dL (14.0-18.0); LYMPHOCYTES # (AUTO) 0.7 (1.0-3.2); LYMPHOCYTES % 11.6 % (18.0-39.1); MEAN CORPUSCULAR HEMOGLOBIN 26.5 pg (28-32); MEAN CORPUSCULAR HGB CONC 30.6 g/dL (31-35); MEAN CORPUSCULAR VOLUME 86.6 fL (81-99); MONOCYTES # (AUTO) 0.5 (0.2-0.8); MONOCYTES % 8.9 % (4.4-11.3); NEUTROPHILS # (AUTO) 4.5 (2.1-6.9); PLATELET COUNT 118 x10e3/uL (140-360); RED BLOOD COUNT 3.74 x10e6/uL (4.3-5.7); RED CELL DISTRIBUTION WIDTH 14.6 % (11.7-14.4)
[2019-05-06 08:13] LABS: ALANINE AMINOTRANSFERASE 21 IU/L (0-55); ALBUMIN 2.8 g/dL (3.5-5.0); ALBUMIN/GLOBULIN RATIO 1.1 (0.8-2.0); ALKALINE PHOSPHATASE 76 IU/L (40-150); ANION GAP 9.1 mmol/L (8-16); BLOOD UREA NITROGEN 12 mg/dL (7-26); BUN/CREATININE RATIO 14 (6-25); CALCIUM 8.3 mg/dL (8.4-10.2); CARBON DIOXIDE 30 mmol/L (22-29); CHLORIDE 101 mmol/L (98-107); CREATININE, SERUM 0.83 mg/dL (0.72-1.25); EST GLOMERULAR FILTRATION RATE > 60 ML/MIN (60-); GLUCOSE 206 mg/dL (74-118); POTASSIUM 4.1 mmol/L (3.5-5.1); SODIUM 136 mmol/L (136-145)
[2019-05-06] MEDS: ASPIRIN 325 MG TAB PO SCH ×2 (09:00→17:00)
[2019-05-06] MEDS: CELECOXIB 200 MG CAP PO SCH ×2 (09:00→17:00)
[2019-05-06] MEDS: COLLAGENASE 5 GM TUBE TOP SCH (10:00)
--- NOTE | 2019-05-06 10:46 | Progress Note ---
DATE: SUBJECTIVE: This patient came in with a left quadriceps tendon repair. The patient had some difficulty bleeding yesterday. Shortness of breath increased. The patient also had some elevated blood pressures, hydralazine and clonidine were given. Pain is not very well controlled. OBJECTIVE: VITAL SIGNS: Temperature is 98.6, pulse of 62, blood pressure is 195/88, and pulse oximetry of 99%. HEENT: Normocephalic and atraumatic. Pupils are reactive to light and accommodation. The patient is on BiPAP right now. CVS: S1 and S2 normal. Regular rate and rhythm. ABDOMEN: Nontender and nondistended. EXTREMITIES: Left leg in a cast, status post surgery. No signs of leakage or drainage found. LABORATORY VALUES: White count is within normal limits. Chemistry, blood glucose is running in the 213. No labs done today. ASSESSMENT: 1. A 73-year-old gentleman, status post left quadriceps tendon repair. 2. History of hypertension. 3. History of sleep apnea. 4. Diabetes mellitus. PLAN: Continue with home medication. Increase in blood pressure, probably related to pain. We will increase the pain medication 1 mg every 6 hours to every 3 hours. We will continue monitoring his status. The patient had a CT scan done stat yesterday secondary to shortness of breath, no evidence of pulmonary embolism seen, decompensated CHF and bilateral pulmonary venous congestion seen. The patient also had moderate amount of pleural effusion. We are going to ahead and give him IV Lasix 40 mg right now. Also restart his home medications and increase the pain medicine to 1 mg every 3 hours. Further recommendation per clinical course. We will continue to monitor the patient along with Orthopedics and Cardiology consult has been done to. MD ORLANDO ArnettJ/MODL /[id number]
[2019-05-06] MEDS ORDERED: ACETAMINOPHEN 1000 MG/100 ML IV PRN (11:45)
--- NOTE | 2019-05-06 12:30 | NUR ---
ALESSIA EXPLAINED TO PATIENT, PATIENT SIGNED, PLACED IN CHART. COPY PLACED IN CARE TRANSITIONS FOLDER
[2019-05-06] MEDS: METOLAZONE 5 MG TAB PO SCH (13:15)
--- NOTE | 2019-05-06 14:45 | NUR ---
Visit made by the Spiritual Care Department Pastoral Visitor, Kayla Peres. PV provided pastoral presence, prayer, hospitality, and supportive listening. Pastoral Visitor informed pt/family of the scope of [employer] and availability. OZ RICHMOND Nurse Practitioner Hospitalist Spiritual Care Department O: [phone] Pager: [phone] ([phone] calling from)
[2019-05-06] MEDS: ONDANSETRON HCL INJ 2MG/ML 2ML 2 MG/ML VIAL IV PRN (15:15)
--- NOTE | 2019-05-06 15:47 | Progress Note ---
DATE: 05/06/2019 SUBJECTIVE: The patient at bedside, having some discomfort to the left knee. Denies any history of fever, chills, nausea, or vomiting. OBJECTIVE: VITAL SIGNS: Afebrile, pulse rate 60, respirations 17, blood pressure 160/105, and O2 saturation 99%. LABORATORY DATA: Noted. White blood cell count of 5.93, hemoglobin 9.9. X-rays report were reviewed revealing osteomyelitic changes to the first metatarsal head. No gas in the tissue noted. Ulceration to the plantar aspect left foot, first MPJ is approximately 2 to 2.5 cm in diameter with bone and tendon exposed with some granulation tissue negative, foul smell present. ASSESSMENT: Grade 4 ulceration, osteomyelitis of left foot with diabetic neuropathy. PLAN: We will continue local wound care with Santyl followed by diluted wet-to-dry Betadine. Continue IV antibiotics as per Dr. Cedeno. Continue offloading. We will continue to follow and treat the patient conservatively for now. DONNA Valladares/MERA /[id number]
[2019-05-06] MEDS: LISINOPRIL 20 MG TAB PO SCH (17:45)
[2019-05-06] MEDS: MINOXIDIL 2.5 MG TAB PO SCH (17:45)
--- NOTE | 2019-05-06 18:33 | Consultation ---
DATE OF CONSULTATION: 05/06/2019 Cardiac Consultation REASON FOR CONSULTATION: Shortness of breath. HISTORY: A 73-year-old gentleman, who is known with very complex medical health problems. He is known to have hypertension, dyslipidemia, diabetes mellitus, type B aortic dissection, treated with stenting distal to the left subclavian artery as well as thoracic descending aorta, atrial flutter, status post ablation in May 2014; severe hypertension, chronic venous stasis and repeat cellulitis of the lower extremities, severe peripheral neuropathy. Amputation of all the left toes with exception of the great toe. Chronic nonhealing ulcers of the lower extremities. Chronic venous stasis and skin changes. Repeated osteomyelitis. Recent admission with osteomyelitis and removal of the 1st metatarsal bone. Nonhealing ulcer. Subsequently, the patient had injury to his left knee and he is admitted and yesterday he had left quad tendon repair. I was consulted truss puller helper hours. The patient having severe shortness of breath. I ordered a stat CT, which showed no pulmonary embolism, but volume overload. The patient medication adjusted since admission he is off large dose of antibiotics which he take. The patient other health problem include arrhythmias and possible sick sinus syndrome. His dose of beta-rishi markedly decreased and he still like to take it to keep his heart rate between 60 to 80. The patient's main problem "cannot breathe." Denied having angina. He denied having a pleuritic or pericarditic chest pain. He denied having any cough. PAST MEDICAL HISTORY: 1. 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 2. Hypertension. 3. Diabetes mellitus. 4. Obesity. 5. Sleep apnea. 6. Atrial flutter, status post ablation. 7. Possible sick sinus syndrome. 8. Morbid obesity. 9. Spinal stenosis with degenerative joint disease. 10. Severe peripheral neuropathy. 11. Venous stasis with repeated skin infection and cellulitis. 12. Amputation of all the toes of the left foot except the great toe, but recently he had osteo, and need to remove his 1st metatarsal. His most recent x-ray this admission, showed osteomyelitis of the mid foot. 13. Repeated ulcers. 14. Chronic skin changes. 15. History of Staph scrotal infection. 16. Tonsillectomy. 17. Orchiectomy. 18. This admission with repair of left quadruple tendon. SOCIAL HISTORY: He is . He is nonsmoker and non-alcohol drinker. 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 FAMILY HISTORY: Mother at age 84 with liver tumor. Father at age 55 with severe complication of diabetes. HOME MEDICATIONS: Long list including; Zaroxolyn 5 mg a day, lisinopril 20 mg twice a day, minoxidil 10 mg twice a day, torsemide 20 mg a day, metoprolol 25 mg t.i.d., Flomax 0.4 mg a day, insulin, Xanax, citalopram, buspirone, vitamin D3, vitamin C, baclofen, Proscar, vitamin B12. The patient also on antibiotics, imipenem, and Ancef. ALLERGIES: NONE. REVIEW OF SYSTEMS: GENERAL: Weakness, fatigue. SKIN: Chronic skin changes. Repeated infection of the lower extremities. HEENT: No hearing problem. No vision problem. PULMONARY: Shortness of breath, cannot catch his breathe. No pleuritic chest pain, sleep apnea, obesity. CARDIAC: No angina surprisingly. GI: No hematemesis. No melena. : Increased frequency of urination. EXTREMITIES: Severe infection and repeated skin infection. MUSCULOSKELETAL: Back pain and knee pain, status post repair during that admission. HEMATOLOGY: Easy bruising, but no bleeding. PHYSICAL EXAMINATION: GENERAL: Obese gentleman, having his own sleep BiPAP machine to breathe. VITAL SIGNS: Height of 6 feet 2 inches, weight of 273 pounds, blood pressure 130/50, heart rate of 70, and respiratory rate of 18. HEENT: Pupils are reactive. NECK: No elevation of jugular venous pulsation. CHEST: Decreased lung expansion and crackles. HEART: PMI 5th left intercostal space. Normal first and second heart sounds. ABDOMEN: Soft with no organomegaly. No abdominal bruits. EXTREMITIES: Severe skin changes and there is immobilizer on the left leg. NEUROLOGIC: Awake, alert, and oriented. LABORATORY DATA: BUN of 12, creatinine 0.83. White blood cell count of 5.9, hemoglobin of 9.9, hematocrit 32%, and platelet count of 118,000. Chest x-ray by report showing cardiomegaly, volume overload. CT scan showed no acute PE and only volume overload and pleural effusion. EKG, no acute ST-segment changes. IMPRESSION AND PLAN: 1. Shortness of breath, most likely diagnosis by history is pulmonary embolism; however, workup CT scan is negative, it showed volume overload. 2. Volume overload, will be treated by resuming the patient diuretics and will give extra Lasix IV with observation. 3. Hypertension. 4. Status post repair of thoracic vascular aortic aneurysm. 5. Admission with left quad tendon repair. 6. Atrial arrhythmia, possible sick sinus syndrome. 7. Left ventricular diastolic dysfunction. Cardiac lugo, we should observe the patient renal function carefully. We will should observe his volume status. Deep venous thrombosis prophylaxis will be of great help, timing of starting the patient on Lovenox subcu as per Orthopedic Surgery. His most recent x-ray still showing osteomyelitis of the left midfoot. Long-term prognosis is guarded. MD MICKI Avalos/MODL /[id number]
--- NOTE | 2019-05-06 19:10 | NUR ---
bedside report given to night clerk nurse, patient aware of change and in no distress. call schmitz within reach and bed in lowest position
--- NOTE | 2019-05-06 19:17 | NUR ---
Received bedside report from day nurse. Patient awake and sitting up in bed, no s/s of distress at this time. All safety measures in place. Will continue to monitor.
[2019-05-06] MEDS: TAMSULOSIN HCL 0.4 MG CAP PO SCH (21:30)
--- NOTE | 2019-05-06 22:49 | NUR ---
Patient states that he has been receiving Lantus for the past two nights, but there is no record of it in the order history or on the eMAR. He is very concerned about his elevated blood sugar of 215 and requested a scheduled dose of 5 units of Lantus before bedtime. Called Dr. Galvin and received orders for Lantus.
[2019-05-06] MEDS: INSULIN GLARGINE 100 UNITS/ML VIAL SQ SCH (23:28)
[2019-05-07] VITALS (8 sets, daily range): BP systolic 152–193; BP diastolic 67–81
[2019-05-07] MEDS: HYDRALAZINE HCL 20 MG/ML VIAL IV PRN ×2 (00:15→11:28)
[2019-05-07] MEDS: MEROPENEM 500MG/ NS 50ML 50 ML IV SCH (03:49)
[2019-05-07] MEDS: HYDROMORPHONE 1MG/1ML INJ IV PRN ×2 (03:54→07:56)
[2019-05-07] MEDS ORDERED: MAGNESIUM/ALUMINUM/SIMETHICONE 30 ML UDC PO PRN (04:45)
[2019-05-07] MEDS ORDERED: BUMETANIDE INJ 0.25MG/ML 4ML VIAL IV ONE (04:45)
--- NOTE | 2019-05-07 04:45 | NUR ---
[employer] BOX #23, PT CURRENTLY RUNNING NSR AND AFIB. MD DOMINGUEZ MADE AWARE OF RHYTHM.
[2019-05-07] MEDS ORDERED: BUSPIRONE HCL 10 MG TABLET PO SCH (05:05)
[2019-05-07] MEDS: ALPRAZOLAM 0.5 MG TAB PO PRN ×3 (05:12→22:11)
[2019-05-07 05:57] LABS: BASOPHILS % 0.2 % (0.0-1.0); EOSINOPHILS # (AUTO) 0.2 (0.0-0.4); EOSINOPHILS % 2.7 % (0.0-6.0); HEMATOCRIT 33.2 % (38.2-49.6); HEMOGLOBIN 10.4 g/dL (14.0-18.0); LYMPHOCYTES # (AUTO) 0.6 (1.0-3.2); LYMPHOCYTES % 10.5 % (18.0-39.1); MEAN CORPUSCULAR HEMOGLOBIN 26.7 pg (28-32); MEAN CORPUSCULAR HGB CONC 31.3 g/dL (31-35); MEAN CORPUSCULAR VOLUME 85.1 fL (81-99); MONOCYTES # (AUTO) 0.5 (0.2-0.8); NEUTROPHILS # (AUTO) 4.6 (2.1-6.9); NEUTROPHILS % 77.3 % (38.7-80.0); PLATELET COUNT 93 x10e3/uL (140-360); RED CELL DISTRIBUTION WIDTH 14.6 % (11.7-14.4)
[2019-05-07 06:18] LABS: ALANINE AMINOTRANSFERASE 21 IU/L (0-55); ALKALINE PHOSPHATASE 80 IU/L (40-150); ANION GAP 9.6 mmol/L (8-16); BLOOD UREA NITROGEN 10 mg/dL (7-26); BUN/CREATININE RATIO 13 (6-25); CALCIUM 8.6 mg/dL (8.4-10.2); CARBON DIOXIDE 33 mmol/L (22-29); CHLORIDE 98 mmol/L (98-107); CREATININE, SERUM 0.78 mg/dL (0.72-1.25); EST GLOMERULAR FILTRATION RATE > 60 ML/MIN (60-); GLUCOSE 202 mg/dL (74-118); POTASSIUM 3.6 mmol/L (3.5-5.1); SODIUM 137 mmol/L (136-145)
--- NOTE | 2019-05-07 07:02 | NUR ---
Gave bedside report to day nurse. Patient awake and sitting up in bed, no s/s of distress at this time. All safety measures in place.
--- NOTE | 2019-05-07 07:10 | NUR ---
Received patient lying in bed wit eyes open. Respiration even and unlabored without SOB. Call light in reach.
[2019-05-07] MEDS: PANTOPRAZOLE SOD 40 MG TABEC PO SCH (07:55)
--- NOTE | 2019-05-07 07:55 | NUR ---
Patient refused most of his scheduled medications. Education given regarding the Aspirin and Lisinopril. Patient continued to refused and states " I will clarify all those medication to Dr. Durant'.
[2019-05-07] MEDS: COLLAGENASE 5 GM TUBE TOP SCH (08:01)
[2019-05-07] MEDS: MINOXIDIL 2.5 MG TAB PO SCH ×2 (09:00→16:25)
[2019-05-07] MEDS: CELECOXIB 200 MG CAP PO SCH ×2 (09:00→16:25)
[2019-05-07] MEDS: TORSEMIDE 10 MG TAB PO SCH ×2 (09:00→11:44)
[2019-05-07] MEDS: ASPIRIN 325 MG TAB PO SCH (09:00)
[2019-05-07] MEDS: METOLAZONE 5 MG TAB PO SCH ×2 (09:00→11:42)
[2019-05-07] MEDS: LISINOPRIL 20 MG TAB PO SCH ×2 (09:00→16:25)
[2019-05-07] MEDS: KETOROLAC TROMETHAMINE 30 MG/ML VIAL IV PRN (10:19)
[2019-05-07] MEDS: ACETAMINOPHEN/CODEINE 300MG - 30MG TAB PO PRN ×3 (11:06→19:18)
[2019-05-07] MEDS: ENOXAPARIN SOD INJ 40 MG/0.4 ML SYR SC SCH ×2 (11:42→23:00)
--- NOTE | 2019-05-07 12:11 | NUR ---
DISCUSSED IN [facility] ROUNDS PLAN IS DC WHEN RESP STABLE DC BACK TO [facility]
[2019-05-07] MEDS: MEROPENEM 1GM 100 ML IV SCH ×2 (13:29→21:51)
--- NOTE | 2019-05-07 14:37 | Progress Note ---
DATE: 05/07/2019 SUBJECTIVE: The patient at bedside, doing somewhat better. Still having some discomfort to the left knee. Denies any history of fever, chills, nausea, or vomiting. OBJECTIVE: VITAL SIGNS: Afebrile, pulse rate 52, respirations 21, blood pressure 165/71, O2 saturation 98%. LABORATORY DATA: Labs show white blood cell count of 5.89. Ulceration to the plantar aspect left foot is healing less than 2.5 cm in diameter. Some granulation tissue noted. Still some tendon exposed, but more superficial. No bone exposed at this point. Pedal pulses are palpable. ASSESSMENT: Grade 3/4 ulceration with osteomyelitis left foot. PLAN: Continue meropenem. IV piggyback. Continue local wound care with Santyl followed by diluted wet-to-dry, which was changed this morning. Continue follow. Continue offloading. DONNA Valladares/MERA /[id number]
[2019-05-07] MEDS ORDERED: ONDANSETRON HCL 4 MG ORAL DISINTEGRATING TAB PO PRN (15:00)
--- NOTE | 2019-05-07 18:55 | NUR ---
Report given to mini shifter. Respiration even and unlabored without SOB. Call light in reach.
--- NOTE | 2019-05-07 19:17 | NUR ---
Bedside shift report taken from morning Rn.pain voiced 03/08.medicated with Tylenol#3 .Lyeing in the bed.stable condition.
[2019-05-07] MEDS: TAMSULOSIN HCL 0.4 MG CAP PO SCH (20:42)
[2019-05-07] MEDS ORDERED: ENOXAPARIN SOD INJ 40 MG/0.4 ML SYR SC SCH (21:00)
[2019-05-07] MEDS: INSULIN GLARGINE 100 UNITS/ML VIAL SQ SCH (21:00)
--- NOTE | 2019-05-07 22:20 | NUR ---
Assessment done.no resp.distress.pain medicine given.dressing changed to right leg.on c pap.stable condition.bed locked and in lowest position.phone and call light within reach.instructed to call for assistance as needed.
[2019-05-08] VITALS (9 sets, daily range): BP systolic 120–187; BP diastolic 56–78
[2019-05-08] MEDS: MEROPENEM 1GM 100 ML IV SCH ×3 (06:31→21:58)
[2019-05-08] MEDS: ACETAMINOPHEN/CODEINE 300MG - 30MG TAB PO PRN ×4 (06:36→22:05)
--- NOTE | 2019-05-08 06:50 | NUR ---
rounded with night manager nurse, patient aware of change and in no distress. call schmitz within reach and bed in lowest position.
--- NOTE | 2019-05-08 06:55 | NUR ---
Bed side shift report given to the oncoming Rn.stable condition.
[2019-05-08] MEDS: PANTOPRAZOLE SOD 40 MG TABEC PO SCH (07:30)
[2019-05-08] MEDS: ALPRAZOLAM 0.5 MG TAB PO PRN ×2 (07:30→22:00)
[2019-05-08] MEDS: CELECOXIB 200 MG CAP PO SCH ×2 (08:00→16:44)
[2019-05-08] MEDS: LISINOPRIL 20 MG TAB PO SCH ×2 (08:00→16:44)
[2019-05-08] MEDS: TORSEMIDE 10 MG TAB PO SCH (08:00)
[2019-05-08] MEDS: AMLODIPINE BESYLATE 5 MG TAB PO SCH (08:00)
[2019-05-08] MEDS: BUSPIRONE HCL 10 MG TABLET PO SCH (08:00)
[2019-05-08] MEDS: MINOXIDIL 2.5 MG TAB PO SCH ×2 (08:00→16:44)
[2019-05-08] MEDS: METOLAZONE 5 MG TAB PO SCH (08:01)
[2019-05-08] MEDS: HYDRALAZINE HCL 25 MG TAB PO SCH ×3 (08:48→21:00)
[2019-05-08] MEDS: HYDRALAZINE HCL 20 MG/ML VIAL IV PRN (08:49)
[2019-05-08] MEDS: KETOROLAC TROMETHAMINE 30 MG/ML VIAL IV PRN (08:49)
[2019-05-08] MEDS: COLLAGENASE 5 GM TUBE TOP SCH (09:05)
--- NOTE | 2019-05-08 10:43 | Progress Note ---
DATE: 05/08/2019 SUBJECTIVE: The patient is at bedside resting, in no distress, sleeping. OBJECTIVE: VITAL SIGNS: Afebrile, pulse rate 66, respirations 16, blood pressure 185/78, O2 saturation 100% with an O2 flow of 3 L/minute via nasal cannula. EXTREMITIES: Ulceration to the left lower extremity is looking significantly better. It is less than 2 cm in diameter. There is some tendon exposed with some bone seen through the ulceration. Granulation tissue noted. Negative foul smell. Decreased cellulitis with minimal to no drainage. ASSESSMENT: Grade 4 ulcer with osteomyelitis with diabetic neuropathy. PLAN: We will continue local wound care with Santyl followed by diluted wet-to-dry Betadine. Continue meropenem. We will continue to follow. DONNA Valladares/MERA /[id number]
[2019-05-08] MEDS: ENOXAPARIN SOD INJ 40 MG/0.4 ML SYR SC SCH ×2 (11:30→23:40)
--- NOTE | 2019-05-08 12:39 | NUR ---
PT BREATHING MUCH BETTER CLINICAL UPDATES FAXED TO [facility] AT [phone] CONFIRMATION RECEIVED CALL PLACED TO DR LIND TO GET CARDIAC CLEARANCE FOR TRANSFER TO [facility] IN AM NOTE ON CHART FOR TENTATIVE DC BACK TO [facility] TOMORROW
[2019-05-08] MEDS: NYSTATIN 15 GM POWDER UD BTL TOP SCH (16:44)
--- NOTE | 2019-05-08 18:45 | NUR ---
rounded with retail shift supervisor nurse, patient aware of change and in no distress. call schmitz within reach and bed in lowest position.
--- NOTE | 2019-05-08 19:00 | NUR ---
Received the patient from neftali Shelley in the bed .stable condition.
[2019-05-08] MEDS ORDERED: TAMSULOSIN HCL 0.4 MG CAP PO SCH (21:00)
[2019-05-08] MEDS: INSULIN GLARGINE 100 UNITS/ML VIAL SQ SCH (21:20)
[2019-05-09 00:37] VITALS: BP 103/54
[2019-05-09 04:00] VITALS: BP 141/65
[2019-05-09] MEDS: MEROPENEM 1GM 100 ML IV SCH (05:49)
[2019-05-09 05:56] LABS: BASOPHILS % 0.3 % (0.0-1.0); EOSINOPHILS # (AUTO) 0.1 (0.0-0.4); EOSINOPHILS % 3.3 % (0.0-6.0); HEMATOCRIT 32.4 % (38.2-49.6); HEMOGLOBIN 10.2 g/dL (14.0-18.0); LYMPHOCYTES # (AUTO) 0.8 (1.0-3.2); LYMPHOCYTES % 20.7 % (18.0-39.1); MEAN CORPUSCULAR HEMOGLOBIN 26.5 pg (28-32); MEAN CORPUSCULAR HGB CONC 31.5 g/dL (31-35); MEAN CORPUSCULAR VOLUME 84.2 fL (81-99); MONOCYTES # (AUTO) 0.4 (0.2-0.8); MONOCYTES % 11.4 % (4.4-11.3); NEUTROPHILS # (AUTO) 2.4 (2.1-6.9); PLATELET COUNT 134 x10e3/uL (140-360); RED BLOOD COUNT 3.85 x10e6/uL (4.3-5.7); RED CELL DISTRIBUTION WIDTH 14.5 % (11.7-14.4)
[2019-05-09 06:17] LABS: ALANINE AMINOTRANSFERASE 14 IU/L (0-55); ALBUMIN 2.9 g/dL (3.5-5.0); ALBUMIN/GLOBULIN RATIO 1.1 (0.8-2.0); ALKALINE PHOSPHATASE 76 IU/L (40-150); ANION GAP 12.4 mmol/L (8-16); BLOOD UREA NITROGEN 11 mg/dL (7-26); BUN/CREATININE RATIO 13 (6-25); CALCIUM 8.7 mg/dL (8.4-10.2); CARBON DIOXIDE 33 mmol/L (22-29); CHLORIDE 96 mmol/L (98-107); CREATININE, SERUM 0.84 mg/dL (0.72-1.25); EST GLOMERULAR FILTRATION RATE > 60 ML/MIN (60-); GLUCOSE 218 mg/dL (74-118); POTASSIUM 3.4 mmol/L (3.5-5.1); SODIUM 138 mmol/L (136-145)
[2019-05-09] MEDS: ACETAMINOPHEN/CODEINE 300MG - 30MG TAB PO PRN ×2 (06:20→10:19)
--- NOTE | 2019-05-09 07:00 | NUR ---
PICC LINE DRESSING CHANGED.BED SIDE SHIFT REPORT GIVEN TO THE ONCOMING RN.STABLE CONDITION.
[2019-05-09 07:29] VITALS: BP 129/62
[2019-05-09] MEDS: LISINOPRIL 20 MG TAB PO SCH (09:00)
[2019-05-09] MEDS: HYDRALAZINE HCL 25 MG TAB PO SCH (09:00)
[2019-05-09] MEDS: PANTOPRAZOLE SOD 40 MG TABEC PO SCH (10:11)
[2019-05-09] MEDS: COLLAGENASE 5 GM TUBE TOP SCH (10:12)
[2019-05-09] MEDS: AMLODIPINE BESYLATE 5 MG TAB PO SCH (10:12)
[2019-05-09] MEDS: BUSPIRONE HCL 10 MG TABLET PO SCH (10:12)
[2019-05-09] MEDS: CELECOXIB 200 MG CAP PO SCH (10:12)
[2019-05-09] MEDS: NYSTATIN 15 GM POWDER UD BTL TOP SCH (10:12)
[2019-05-09] MEDS: TORSEMIDE 10 MG TAB PO SCH (10:12)
[2019-05-09] MEDS: MINOXIDIL 2.5 MG TAB PO SCH (10:12)
[2019-05-09] MEDS: METOLAZONE 5 MG TAB PO SCH (10:12)
[2019-05-09 10:32] VITALS: BP 129/62
[2019-05-09 12:32] VITALS: BP 150/70
[2019-05-09] MEDS: ENOXAPARIN SOD INJ 40 MG/0.4 ML SYR SC SCH (13:12)
--- NOTE | 2019-05-09 15:21 | Progress Note ---
DATE: 05/09/2019 SUBJECTIVE: The patient at bedside, doing better. Denies any history of fever, chills, nausea, or vomiting. OBJECTIVE: VITAL SIGNS: Afebrile, pulse rate 69, respirations 18, blood pressure 129/62, O2 saturation 100%. LABORATORY DATA: Noted has a white blood cell count of 3.68, hemoglobin 10.2. Ulceration to the left lower extremity continues to improve, it is down to muscle and bone. There is negative foul smell. Decreased cellulitis and edema. ASSESSMENT: Grade 4 ulcer measuring less than 2.5 cm in diameter, left foot, getting better with cultures positive for yeast species. PLAN: We will continue IV antibiotics such as meropenem and continue local wound care with Santyl followed by diluted wet-to-dry Betadine. The patient seems responding to conservative care. Continue offloading. We will continue to follow. DONNA Valladares/MERA /[id number]
--- NOTE | 2019-05-12 02:27 | Discharge Summary ---
DISCHARGE DIAGNOSES: 1. Left tendon quadriceps repair. 2. Hypertension. 3. Diabetes. 4. Chronic diastolic heart failure. HISTORY OF PRESENT ILLNESS AND HOSPITAL COURSE: See hospital chart for full details. The patient is a gentleman, who came in with an elective outpatient left quadriceps tendon repair, which was done without any complications. Postoperatively, the patient has felt like he was having some increasing shortness of breath, that was found to be secondary to his [id number] diastolic heart failure, so he was given extra diuretics with significant improvement of his symptoms. At the time of discharge, the patient was then transferred back to [facility] for further rehabilitative care. Please see hospital chart for full details. MD STEPHEN Cesar/MERA /[id number]
== END 2019-05-09 14:05 | DRG 502 ==
LOC: OR 08:58 → PACU V 11:37 → MED/SURG 13:51 → OBSVTOIN 05-07 08:43
PROVIDERS: ADMIT Internal Medicine; ATTEND Internal Medicine
PROC: 0LQM0ZZ Repair Left Upper Leg Tendon, Open Approach (ICD-10-PCS; principal; 2019-05-05 10:41)
DX: S76.112A Strain of left quadriceps muscle, fascia and tendon, initial encounter (principal); E11.621 Type 2 diabetes mellitus with foot ulcer; L97.529 Non-pressure chronic ulcer of other part of left foot with unspecified severity; Z79.4 Long term (current) use of insulin
CPT/HCPCS: 36415; 71045; 71260; 80048; 80053; 82948; 83880; 85025; 85651; 86140; 87071; 87205; 94660; 96372; 97139; G0378; J0360; J0690; J1100; J1170; J1650; J1815; J1885; J1940; J2001; J2250; J2405; J3010; J7030; Q9967

== ENCOUNTER 2019-07-11 20:37 | Inpatient (IN) | payer MEDICARE, OTHER ==
[~2019-07-11] VITALS: Ht 195.6 cm; Wt 113.4 kg
[~2019-07-11 20:37] MED LIST changes: +PREDNISONE5 MG PO
[2019-07-11] MEDS ORDERED: VANCOMYCIN 1GM/NS 250 ML 250 ML IV ONE (21:07)
[2019-07-11] MEDS ORDERED: SODIUM CHLORIDE 0.9% 1000ML 1,000 ML IV STA (21:07)
[2019-07-11] MEDS ORDERED: CEFEPIME 1GM/NS 0.9% 50 ML 50 ML IV ONE (21:07)
[2019-07-11] MEDS ORDERED: ACETAMINOPHEN 325 MG TAB PO ONE (21:15)
[2019-07-11] MEDS ORDERED: ACETAMINOPHEN 325 MG TAB ONE (21:16)
[2019-07-11] MEDS ORDERED: SODIUM CHLORIDE 0.9% 1000ML 1,000 ML ONE (21:16)
[2019-07-11 21:26] LABS: BASOPHILS % 0.1 % (0.0-1.0); EOSINOPHILS % 0.1 % (0.0-6.0); HEMATOCRIT 28.3 % (38.2-49.6); HEMOGLOBIN 9.4 g/dL (14.0-18.0); LYMPHOCYTES # (AUTO) 0.2 (1.0-3.2); LYMPHOCYTES % 1.7 % (18.0-39.1); MEAN CORPUSCULAR HEMOGLOBIN 28.1 pg (28-32); MEAN CORPUSCULAR HGB CONC 33.2 g/dL (31-35); MEAN CORPUSCULAR VOLUME 84.5 fL (81-99); MONOCYTES # (AUTO) 0.9 (0.2-0.8); MONOCYTES % 6.8 % (4.4-11.3); NEUTROPHILS # (AUTO) 12.1 (2.1-6.9); NEUTROPHILS % 90.5 % (38.7-80.0); PLATELET COUNT 107 x10e3/uL (140-360); RED BLOOD COUNT 3.35 x10e6/uL (4.3-5.7); RED CELL DISTRIBUTION WIDTH 16.1 % (11.7-14.4)
[2019-07-11 21:39] LABS: ALANINE AMINOTRANSFERASE 22 IU/L (0-55); ALBUMIN 3.4 g/dL (3.5-5.0); ALBUMIN/GLOBULIN RATIO 1.2 (0.8-2.0); ALKALINE PHOSPHATASE 53 IU/L (40-150); ANION GAP 14.9 mmol/L (8-16); BLOOD UREA NITROGEN 21 mg/dL (7-26); BUN/CREATININE RATIO 18 (6-25); CALCIUM 8.8 mg/dL (8.4-10.2); CARBON DIOXIDE 24 mmol/L (22-29); CHLORIDE 99 mmol/L (98-107); CREATININE, SERUM 1.18 mg/dL (0.72-1.25); EST GLOMERULAR FILTRATION RATE > 60 ML/MIN (60-); GLUCOSE 256 mg/dL (74-118); POTASSIUM 3.9 mmol/L (3.5-5.1); SODIUM 134 mmol/L (136-145)
[2019-07-11] MEDS ORDERED: FENTANYL CITRATE/PF 100MCG/2 ML INJ IV ONE (21:45)
[2019-07-11] MEDS ORDERED: FENTANYL CITRATE/PF 100MCG/2 ML INJ ONE (21:51)
[2019-07-11] MEDS ORDERED: IOPAMIDOL 370 MG/ML 200 ML INFUS..BTL INJ ONE (22:26)
[2019-07-11] MEDS ORDERED: SODIUM CHLORIDE 0.9% 50ML 50 ML ONE (22:26)
--- NOTE | 2019-07-11 23:27 | Diagnostic Imaging Report ---
EXAM: CT Chest WITH contrast 07/11/2019 9:56 PM INDICATION: Short of breath, hypoxic COMPARISON: chest CT 05/06/2019 TECHNIQUE: Chest was scanned utilizing a multidetector helical scanner from the lung apex through the level of the adrenal glands with administration of IV contrast. Coronal and sagittal reformations were obtained. Routine protocol was performed. IV CONTRAST: 82 mL of Isovue 370 COMPLICATIONS: None RADIATION DOSE: Total DLP: 682 mGy*cm Estimated effective dose: (DLP x 0.014 x size factor) mSv CTDIvol has been reviewed. It is below the limits set by the Radiation Protocol Committee (RPC). Dose modulation, iterative reconstruction, and/or weight based adjustment of the mA/kV was utilized to reduce the radiation dose to as low as reasonably achievable. FINDINGS: LINES/ TUBES: None. LUNGS AND AIRWAYS: A 4 mm subsolid/ground glass nodule in the right middle lobe (series 3 image 59) and subtle focal groundglass opacities in the lower medial segment of the right middle lobe. Subtle bibasilar atelectasis. Subtle distal bronchial airway plugging in the left lung base. Prominent pulmonary vasculature. PLEURA: The pleural spaces are clear. HEART AND MEDIASTINUM: The thyroid gland is normal. No mediastinal, hilar or axillary lymphadenopathy. Intact distal thoracic arch/descending thoracic aorta stent. Mild cardiomegaly with left atrial enlargement. Triple vessel coronary artery calcifications. Aortic valve calcifications. Mitral annular calcifications. Main pulmonary artery dilated up to 4.2 cm in diameter. Ascending aorta 4 cm in diameter. UPPER ABDOMEN: Unremarkable. BONES: The visualized bony thorax is within normal limits. Advanced right sternoclavicular degenerative changes in spine. SOFT TISSUES: Unremarkable. IMPRESSION: 1. Mild cardiomegaly and left atrial enlargement, dilated main pulmonary artery indicative of pulmonary hypertension. 2. Subtle ground glass opacities in the right middle lobe and mucous plugging in the left lower lobe with bibasilar atelectasis, aspiration and/or pneumonia is possible. 3. Intact descending thoracic aorta stent. 4. Triple vessel coronary artery calcific atherosclerosis. 5. Calcific aortic valvular disease. Signed by: Ed Morgan DO on 07/11/2019 11:23 PM
--- NOTE | 2019-07-11 23:30 | Diagnostic Imaging Report ---
X-ray left knee 3 views HISTORY: Pain. Infection COMPARISON: Left knee x-ray 04/22/2019 FINDINGS: Bones: No acute displaced fracture. No osseous erosions. Osseous alignment is within normal limits. Joints: Large knee joint effusion, new since 04/22/2019, with possible internal foci. Soft tissues: Soft tissue edema about the knee Vascular calcifications. IMPRESSION: Large nonspecific knee joint effusion is new since 04/22/2019, possibly with internal air foci, concerning for abscess or septic arthritis. Soft tissue edema about the knee. Signed by: Ed Morgan DO on 07/11/2019 11:27 PM
[2019-07-12] VITALS (11 sets, daily range): BP systolic 102–121; BP diastolic 51–58
--- NOTE | 2019-07-12 01:05 | NUR ---
RECEIVED REPORT FROM [facility] ER NURSE. PATIENT ARRIVED VIA STRETCHER. BELONGINGS WITH THE PATIENT. PATIENT IS A&OX4. CALL LIGHT WITHIN REACH
[2019-07-12] MEDS: HYDROMORPHONE 1MG/1ML INJ IV PRN ×4 (01:08→21:25)
[2019-07-12] MEDS: ONDANSETRON HCL INJ 2MG/ML 2ML 2 MG/ML VIAL IV PRN ×2 (01:08→06:54)
[2019-07-12 02:58] LABS: HYPOCHROMASIA SLIGHT; LYMPHOCYTES % (MANUAL) 3 % (19-48); MONOCYTES % (MANUAL) 3 % (3.4-9.0); NEUTROPHILS % (MANUAL) 94 % (40-74)
[2019-07-12 02:59] LABS: PLATELET ESTIMATE SLIGHTLY DECREASED; PLATELET MORPHOLOGY COMMENT NORMAL; POIKILOCYTOSIS SLIGHT
--- NOTE | 2019-07-12 07:06 | NUR ---
GAVE REPORT TO ONCOMING NURSE. CALL LIGHT WITHIN REACH. PATIENT IN BED.
[2019-07-12] MEDS ORDERED: METOPROLOL TARTRATE 50 MG TAB PO PRN (08:15)
[2019-07-12] MEDS ORDERED: TORSEMIDE 10 MG TAB PO PRN (08:15)
[2019-07-12] MEDS ORDERED: METOLAZONE 5 MG TAB PO PRN (08:15)
[2019-07-12] MEDS: MINOXIDIL 2.5 MG TAB PO SCH (08:36)
[2019-07-12] MEDS: LISINOPRIL 20 MG TAB PO SCH ×2 (08:37→15:12)
[2019-07-12] MEDS ORDERED: CITALOPRAM HYDROBROMIDE 20 MG TAB PO SCH (09:00)
[2019-07-12] MEDS ORDERED: BACLOFEN 10 MG TAB PO SCH (09:00)
[2019-07-12] MEDS ORDERED: TAMSULOSIN HCL 0.4 MG CAP PO SCH (09:00)
[2019-07-12] MEDS: BUSPIRONE HCL 10 MG TABLET PO SCH (09:13)
[2019-07-12] MEDS: GABAPENTIN 300 MG CAP PO SCH ×3 (09:13→21:11)
[2019-07-12] MEDS: THIAMINE HCL 100 MG TAB PO SCH (09:13)
[2019-07-12] MEDS: INSULIN LISPRO 100 UNIT/1 ML 3ML VIAL SQ SCH ×4 (09:13→21:13)
[2019-07-12] MEDS: TAMSULOSIN HCL 0.4 MG CAP PO SCH (09:13)
[2019-07-12] MEDS: NIACIN 500 MG TABSR PO SCH ×3 (09:13→21:11)
[2019-07-12] MEDS: ALPRAZOLAM 0.5 MG TAB PO SCH ×2 (09:13→16:18)
[2019-07-12] MEDS: CYANOCOBALAMIN 1,000 MCG TAB PO SCH (09:13)
[2019-07-12] MEDS: CHOLECALCIFEROL 1,000 UNIT TAB PO SCH (09:13)
--- NOTE | 2019-07-12 09:55 | NUR ---
spoke with fadia Valentino regarding cx. states he will see him tomorrow parameters to metoprolol given md aware pt reading on tele and reason for admission
[2019-07-12] MEDS: HYDROCODONE/APAP 10MG-325MG TAB PO PRN (11:10)
[2019-07-12] MEDS ORDERED: LIDOCAINE HCL 2% LOCAL 20 ML VIAL INJ NR (13:45)
--- NOTE | 2019-07-12 14:10 | NUR ---
anne mayer aspirated and flushed left knee at bedside pt tolerated procedure cultures sent to lab
[2019-07-12] MEDS: MEROPENEM 1GM 100 ML IV SCH ×2 (14:36→21:13)
--- NOTE | 2019-07-12 14:53 | History and Physical ---
A 73-year-old gentleman comes in with left knee pain. HISTORY OF PRESENTING ILLNESS: This is MrEdilson Puga, who has a history of chronic renal failure, hypertension, hyperlipidemia, uncontrolled diabetes, history of chronic osteomyelitis of the foot, and history of cellulitis in the past, who was in his usual state of health until the patient had quadriceps surgery by Dr. Durant and the patient was in rehabilitation. The patient went home, started working and about 3 to 4 days prior to this admission, the patient started noticing some redness and also erythema in the legs and pain that proceeded the redness. The patient continued to work with it but, however, yesterday, the patient came in and was found to have sepsis, septic arthritis, and admitted to the hospital for orthopedic care and also for further care. PAST MEDICAL HISTORY: As mentioned above, 1. Renal failure, chronic. 2. History of anemia of chronic disease. 3. Diabetes mellitus. 4. Diabetes mellitus with nephropathy and neuropathy. 5. History of chronic osteomyelitis. 6. History of hypertension. 7. History of coronary artery disease. 8. History of chronic pain. 9. History of benign prostatic hypertrophy. 10. History of depression and chronic low back pain and history of anxiety. MEDICATIONS: He takes at home are alpha-lipoic acid 300 mg daily, alprazolam 0.5 mg twice a day as needed, amphetamine salts and Adderall 20 mg, 30 mg twice a day, baclofen 10 mg 3 times a day, BuSpar 10 mg daily, vitamin B12 once a day, gabapentin 300 mg 3 times a day, hydrocodone/[place] 10/325 three times a day as needed, lycopene, lisinopril 20 mg b.i.d., metoprolol 50 mg t.i.d. p.r.n., minoxidil 2.5 mg daily, niacin 500 mg daily, prednisone 2.5 mg daily, tamsulosin 0.4 mg daily, thiamine 100 mg daily, and torsemide 20 mg daily. The patient also takes Lantus 15 units and Humalog 25 units 3 times a day. He also takes Tylenol 500 mg as needed. PAST SURGICAL HISTORY: History of orchiectomy, history of C5-C6 fusion, and history of left foot debridement multiple times for chronic osteomyelitis. The patient also has history of atrial fibrillation and repair of thoracic aortic dissection and cervical discectomy with fusion as mentioned above. FAMILY HISTORY: History of anxiety disorders, history of diabetes, and history of hypertension also. ALLERGIES: NO DRUG ALLERGIES. REVIEW OF SYSTEMS: Negative for chest pain. Positive for some chills, also some fever. No nausea. No vomiting. No diarrhea. No constipation. No rectal bleeding. No hematochezia. No hematemesis. No blurry vision and positive for some headaches. PHYSICAL EXAMINATION: VITAL SIGNS: Temperature is 97.0, pulse of 88, respirations of 18, blood pressure is 112/53, and pulse oximetry of 98%, O2 at 2 L. HEENT: Normocephalic and atraumatic. Pupils are reactive. CVS: S1 and S2. Regular. ABDOMEN: Nontender and nondistended. Reducible umbilical hernia is present. LUNGS: Clear to auscultation bilaterally. EXTREMITIES: Lower extremities, trophic changes of diabetes present. Left lower extremity has erythema and also some increased swelling in the left lower extremity. Knee, left knee with increased redness, increased warmth, increased tenderness, and also global swelling present with erythema surrounding the whole knee extending all the way to mid calf. The patient has signs of diabetic skin changes with vascular changes in the lower extremities. Pedal pulses are very diminished. LABORATORY VALUES: Initial white count is 3.31, hemoglobin of 9.4, and hematocrit of 28.3. Chemistry shows sodium of 134, potassium of 3.9, BUN of 21, creatinine of 1.18, and glucose of 256. IMAGING DATA: Chest CT was done yesterday shows mild cardiomegaly, left atrial enlargements, subtle ground-glass opacities in right middle lobe, mucous plugging, intact thoracic aorta stent, triple-vessel coronary artery atherosclerosis, and calcific aortic valve disease. Knee x-ray done yesterday in the ER shows large nonspecific joint effusion new and soft tissue edema above the knee. ASSESSMENT: Mr. Puga is a 73-year-old gentleman with, 1. Left knee sepsis, septic arthritis possibly. Plan, consult Dr. Durant. Sedimentation rate and CRP will be done. The patient also needs an ID consult with Dr. Cedeno. The patient was on minocycline and Cipro on a daily basis and was on Merrem prior to this. We will restart the Merrem 1 g q.8 hours at this time until Dr. Cedeno sees the patient. 2. Diabetes mellitus, uncontrolled. Continue with insulin sliding scale. We will up titrate his sliding scale. 3. Hypertension with palpitations. Continue metoprolol. 4. Sepsis. Again, continue monitoring his blood work on a regular basis. Further recommendation per clinical course. We will also go ahead and do a left lower extremity Doppler. Further recommendation per clinical course and we will follow the patient along with the consultants. MD ORLANDO ArnettJ/MODL /[id number]
[2019-07-12] MEDS: ACETAMINOPHEN 325 MG TAB PO PRN (16:18)
--- NOTE | 2019-07-12 18:50 | NUR ---
RECEIVED REPORT FROM PREVIOUS NURSE. CALL LIGHT WITHIN REACH. PATIENT IN BED ASLEEP
[2019-07-12 20:06] LABS: BODY FLUID TYPE SYNOVIAL
[2019-07-12 20:07] LABS: BODY FLUID APPEARANCE TURBID; BODY FLUID COLOR YELLOW
[2019-07-12 20:10] LABS: RBC,BODY FLUID 15444 cells/uL; WBC,BODY FLUID 38610 cells/uL
[2019-07-12] MEDS: CITALOPRAM HYDROBROMIDE 20 MG TAB PO SCH (21:11)
[2019-07-12] MEDS: INSULIN GLARGINE 100 UNITS/ML VIAL SQ SCH (21:12)
[2019-07-12] MEDS ORDERED: SODIUM CHLORIDE 0.9% 250ML 250 ML ONE (21:42)
[2019-07-12 21:56] LABS: LYMPHOCYTES,BODY FLUID 1 %; MONO/MACROPHG,BODY FLUID 2 %; NEUTROPHILS,BODY FLUID 97 %
[2019-07-12] MEDS: VANCOMYCIN 1GM/NS 250 ML 250 ML IV SCH (22:20)
--- NOTE | 2019-07-12 22:35 | Consultation ---
DATE OF CONSULTATION: 07/12/2019 REASON FOR CONSULTATION: Infection in the knee. HISTORY OF PRESENT ILLNESS: This patient is well known to me from previous admission. He is a very pleasant 73-year-old male with history of obesity, history of diabetes mellitus, history of chronic kidney disease, hypertension, hyperlipidemia, severe peripheral neuropathy, multiple infections before including MRSA, sepsis including osteomyelitis of the clavicle with MRSA, most recently he had an abscess of his foot with osteomyelitis, which was ESBL. The patient also has history of quadriceps surgery, done by Dr. Durant. He was in rehab. He has an open wound on his leg on the left. He is coming with redness and swelling of his left knee and effusion, started 2 days ago, feeling feverish. The patient came to the emergency room. He was admitted. Orthopedic saw the patient. Aspiration of the knee showed there is pus . The patient is being admitted. I am asked to see him. The patient is currently lying in bed comfortably, complaining of severe pain in his knee. PAST MEDICAL HISTORY: Obesity, renal failure, anemia of chronic disease, diabetes mellitus, neuropathy, retinopathy, chronic osteomyelitis of his foot, hypertension, coronary artery disease, chronic pain, benign post hypertrophy, chronic back pain. PAST SURGICAL HISTORY: Knee surgery as mentioned above recently, orchiectomy, C5-C6 fusion, left foot debridement multiple times, chronic osteomyelitis, several course of IV antibiotic recently. FAMILY HISTORY: Anxiety. REVIEW OF SYSTEMS: GENERAL: He is just weak, complaining of pain. HEENT: Negative. PULMONARY: Negative. CARDIAC: Negative. Review of systems as mentioned above. He denies any other symptoms. PHYSICAL EXAMINATION: GENERAL: He is currently alert, oriented, does not seem to be in acute distress. VITAL SIGNS: Stable, afebrile, temperature of 99.2, heart rate of 99, respirations 18, blood pressure 105/53. HEENT: He is not icteric. NECK: Supple. CHEST: Clear bilateral. HEART: S1 and S2. No S3, S4, or murmur. ABDOMEN: Soft. Bowel sounds present. No tenderness. EXTREMITIES: No edema. In the knee, there is no effusion now, but when he first came, apparently there was effusion with redness. IMPRESSION: 1. Left knee infection. 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 The plan is to aspirate, which was done by Orthopedics and sent for cell count, diff, protein, glucose, and culture and sensitivity. We will start the patient on meropenem 1 g IV and vancomycin 1 g IV q.12, meropenem 500 mg IV q.8. Check vancomycin trough. 2. Other medical problem listed all above, to continue with all his home medications. Internal Medicine is following him. Discussed with the patient at length. Discussed with the medical team. We will follow with you. Further recommendations to follow. Time spent 1 hour. MD MARVA Mckeon/MERA /[id number]
[2019-07-13] VITALS (7 sets, daily range): BP systolic 101–155; BP diastolic 52–82
[2019-07-13] MEDS: HYDROMORPHONE 1MG/1ML INJ IV PRN ×4 (03:24→21:15)
[2019-07-13] MEDS: MEROPENEM 1GM 100 ML IV SCH ×3 (06:16→21:02)
[2019-07-13 06:37] LABS: BASOPHILS % 0.2 % (0.0-1.0); EOSINOPHILS # (AUTO) 0.1 (0.0-0.4); EOSINOPHILS % 0.6 % (0.0-6.0); HEMOGLOBIN 8.2 g/dL (14.0-18.0); LYMPHOCYTES # (AUTO) 0.6 (1.0-3.2); LYMPHOCYTES % 6.1 % (18.0-39.1); MEAN CORPUSCULAR HEMOGLOBIN 27.1 pg (28-32); MEAN CORPUSCULAR HGB CONC 31.5 g/dL (31-35); MEAN CORPUSCULAR VOLUME 85.8 fL (81-99); MONOCYTES # (AUTO) 1.2 (0.2-0.8); MONOCYTES % 11.5 % (4.4-11.3); NEUTROPHILS # (AUTO) 8.2 (2.1-6.9); PLATELET COUNT 108 x10e3/uL (140-360); RED BLOOD COUNT 3.03 x10e6/uL (4.3-5.7); RED CELL DISTRIBUTION WIDTH 15.9 % (11.7-14.4)
[2019-07-13] MEDS: HYDROCODONE/APAP 10MG-325MG TAB PO PRN ×2 (07:11→23:08)
[2019-07-13 07:25] LABS: ALANINE AMINOTRANSFERASE 16 IU/L (0-55); ALBUMIN 2.6 g/dL (3.5-5.0); ALBUMIN/GLOBULIN RATIO 0.9 (0.8-2.0); ALKALINE PHOSPHATASE 56 IU/L (40-150); BLOOD UREA NITROGEN 15 mg/dL (7-26); BUN/CREATININE RATIO 19 (6-25); CALCIUM 8.5 mg/dL (8.4-10.2); CARBON DIOXIDE 26 mmol/L (22-29); CHLORIDE 99 mmol/L (98-107); CREATININE, SERUM 0.79 mg/dL (0.72-1.25); EST GLOMERULAR FILTRATION RATE > 60 ML/MIN (60-); GLUCOSE 157 mg/dL (74-118); SODIUM 132 mmol/L (136-145)
--- NOTE | 2019-07-13 07:31 | NUR ---
Gave report to oncoming nurse. Call light within reach. Patient in bed.
[2019-07-13] MEDS: TAMSULOSIN HCL 0.4 MG CAP PO SCH (08:44)
[2019-07-13] MEDS: BUSPIRONE HCL 10 MG TABLET PO SCH (08:44)
[2019-07-13] MEDS: MINOXIDIL 2.5 MG TAB PO SCH (08:45)
[2019-07-13] MEDS: NIACIN 500 MG TABSR PO SCH ×3 (08:45→21:02)
[2019-07-13] MEDS: GABAPENTIN 300 MG CAP PO SCH ×3 (08:45→21:02)
[2019-07-13] MEDS: CHOLECALCIFEROL 1,000 UNIT TAB PO SCH (08:46)
[2019-07-13] MEDS: LISINOPRIL 20 MG TAB PO SCH ×2 (08:46→17:34)
[2019-07-13] MEDS: CYANOCOBALAMIN 1,000 MCG TAB PO SCH (08:46)
[2019-07-13] MEDS: THIAMINE HCL 100 MG TAB PO SCH (08:46)
[2019-07-13] MEDS: ALPRAZOLAM 0.5 MG TAB PO SCH ×2 (08:46→17:34)
[2019-07-13] MEDS: VANCOMYCIN 1GM/NS 250 ML 250 ML IV SCH ×2 (08:47→23:00)
[2019-07-13] MEDS: INSULIN LISPRO 100 UNIT/1 ML 3ML VIAL SQ SCH ×4 (09:23→21:00)
--- NOTE | 2019-07-13 10:24 | Progress Note ---
DATE: 07/13/2019 SUBJECTIVE: The patient came in with septic knee yesterday and aspiration was done. The patient's microbiology is still pending. Currently still continues to be in pain. No chest pain. No shortness of breath. The patient's pain is more related to the lower calf area. PHYSICAL EXAMINATION: VITAL SIGNS: Temperature is 99.7, pulse of 97, respirations are at 18, blood pressure is 139/60, pulse oximetry of 95%. HEENT: Normocephalic, atraumatic. The patient appears to be in pain, moderate. CVS: S1 and S2 normal. Regular rate and rhythm. ABDOMEN: Nontender, nondistended. EXTREMITIES: Left knee with decreased amount of fluids, decreased amount of erythema, decreased amount of tenderness. Also, the patient's calf with diabetic changes, trophic changes, and changes in the skin. The patient's pulses are decreased, but there with also ulceration on the toes. IMAGING STUDIES: Venous Doppler was negative yesterday. LABORATORY DATA: Today's white count has come down to 10,000, hemoglobin of 8.2, hematocrit of 26.0. Chemistry shows sodium 132, potassium is 4, BUN and creatinine 15 and 0.79 with glucose is 157. ASSESSMENT: Mr. Edd Vidal is a 73-year-old male with: 1. Septic knee, septic arthritis, sepsis. 2. Diabetes mellitus, uncontrolled. 3. Hypertension. 4. Sepsis. 5. Hyperlipidemia. 6. Chronic pain. 7. The patient with benign prostatic hypertrophy and anxiety. PLAN: Continue on antibiotics. The patient is currently on Merrem and vancomycin. PICC line has been ordered. Consultants are on case. We will continue to monitor the patient and also follow with cultures on aspirate. Further recommendation per clinical course. We will continue to monitor the patient. MD ROEL Arnett/DEIONL /[id number]
[2019-07-13 11:43] LABS: EOSINOPHILS % (MANUAL) 2 % (0-7); LYMPHOCYTES % (MANUAL) 6 % (19-48); MONOCYTES % (MANUAL) 5 % (3.4-9.0); NEUTROPHILS % (MANUAL) 87 % (40-74); PLATELET ESTIMATE SLIGHTLY DECREASED; PLATELET MORPHOLOGY COMMENT NORMAL; RBC MORPHOLOGY COMMENT NORMAL
--- NOTE | 2019-07-13 12:39 | NUR ---
paged md holcomb regarding positive blood cultures awaiting for call back
[2019-07-13] MEDS: METOPROLOL TARTRATE 50 MG TAB PO SCH ×2 (13:55→21:02)
[2019-07-13] MEDS ORDERED: GENTAMICIN SULFATE 400 MG in SODIUM CHLORIDE 0.9% 100 ML 100 ML IV ONE (14:00)
--- NOTE | 2019-07-13 18:17 | Consultation ---
DATE OF CONSULTATION: 07/13/2019 Cardiology Consultation REASON FOR CONSULTATION: Evaluate cardiac status. HISTORY OF PRESENT ILLNESS: Mr. Puga is a 73-year-old gentleman with past medical history of hypertension, type 2 diabetes with complications of hypercholesteremia, history of descending thoracic aortic dissection, status post repair with Dr. Nolan, advanced venous disease with bilateral chronic venous stasis changes of the lower extremities, history of atrial fibrillation, status post atrial fibrillation ablation with Dr. Meyers in the remote past. History of diastolic heart failure, malignant hypertension, and multiple chronic issues including hypogonadism, issues etc. He had a left quadriceps tendon rupture and had a tendon rupture repair on May 05, 2019. He has had a lengthy course with prolonged recovery and essentially came in to this hospitalization with increased swelling, pain, and worsening redness over the left leg and the incision site as well. He has been having fevers, chills, and overall malaise. Orthopedic Service saw the patient and aspiration of the knee revealed ynes pus. ID has been consulted for antibiotic management for presumed left lower extremity infection. This unfortunately is not his first infection, which he has had previous MRSA infections, osteomyelitis to the clavicle before as well as abscess to his foot with ESBL. As far as his cardiac condition is concerned, the patient was noted to be in seemingly atrial fibrillation with heart rates in the 90s to 100s range in this setting. Cardiology was consulted for further care and management. In visiting the patient, the patient denies any subjective palpitations. He feels malaise when his heart rate races. Overall, his main complaint is pain in his left leg, which has slowly improved over the past 24 hours. PAST MEDICAL HISTORY: 1. Hypertension. 2. BRUCE, on CPAP. 3. Atrial flutter, status post ablation, May of 2014. 4. Type 2 diabetes. 5. Morbid obesity. 6. severe DJD, spinal stenosis. 7. History of anemia with blood product transfusions. 8. Obesity. 9. History of TEVAR for complicated aortic dissection in October of 2013. PAST SURGICAL HISTORY: 1. History of tonsillectomy. 2. History of toes' amputations. 3. History of flutter ablation in May of 2014. 4. History of orchectomy in August 2014. FAMILY HISTORY: Mother at 84 with liver tumor. Father at 65 with complication of strokes. SOCIAL HISTORY: He is a nonsmoker. Denies any alcohol or illicit drug use. 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 ALLERGIES: NO KNOWN DRUG ALLERGIES. HOME MEDICATIONS: See electronic medical record for complete list. REVIEW OF SYSTEMS: GENERAL: Poor exercise tolerance. Poor overall state of health. Has been having fevers and chills. HEENT: No headaches, visual complaints, has nasal stuffiness nor sore throat. RESPIRATORY: Denies any pleuritic chest pain. Has moderate severe exertional dyspnea, has CPAP use for BRUCE. CARDIOVASCULAR: Denies any chest pain or discomfort. Does have palpitations. No orthopnea, PND, improving left leg swelling. GI: Poor appetite. No GERD, bright red blood per rectum, melena, or hematemesis. Positive for constipation. Hematology positive for easy bruising, no bleeding. : Positive for urinary frequency. No incontinence. MUSCULOSKELETAL: Positive for left knee pain and swelling in the leg with the warmth as per HPI. NEUROLOGIC: Fair strength, abnormal gait and lower extremity slightly weak bilaterally. PSYCH: Normal mood. No obsessions or compulsions. PHYSICAL EXAMINATION: VITAL SIGNS: Height of 77 inches, weight of 250 pounds, BMI is 29.6, blood pressure of 155/82, pulse of 101, temperature of 99.8, O2 saturation 95% on 2 L nasal cannula. GENERAL: This is a chronically ill-appearing gentleman, is currently in no apparent distress. HEENT: Normocephalic and atraumatic. Pupils are equal, round, and reactive to light. Extraocular movements are intact. Oropharynx is clear. Wears corrective lenses. NECK: No lymphadenopathy. No thyromegaly. CARDIOVASCULAR: Irregularly regular rate and rhythm. Normal S1, S2. Soft 2/6 systolic murmur at the left lower sternal border. LUNGS: Show diminished bibasilar breath sounds. No crackles. ABDOMEN: Soft, nontender, obese. Normoactive bowel sounds. No hepatosplenomegaly. BACK: No costovertebral angle tenderness. EXTREMITIES: Warm with severe venous stasis changes in bilateral ourml-fcs-criv shins. There is erythema and warmth over the left knee region and left leg. There is a scar over his left knee from previous surgery. NEUROLOGIC: Alert and oriented. Cranial nerves II through XII are intact. Strength is 5/5 in all four extremities. PSYCH: Normal mood. No obsessions or compulsions. LABORATORY DATA: White count of 10.1, hemoglobin 8.2, hematocrit 26.0, and platelets of 108. Sodium 132, potassium 4.0, chloride 99, bicarb 26, BUN 15, creatinine 0.79, glucose is 157, calcium 8.5, AST 12, ALT 16, alkaline phosphatase 56, total protein 5.4, albumin 2.6. His fluid sample from the knee shows very turbid yellow and elevated white count of 38,000 in that sample. Gram-negative rods are growing from the wound culture and blood culture shows no growth. Telemetry reveals atrial fibrillation. Chest CT shows descending thoracic aortic stent, calcified aortic valve. Knee x-ray reveals a large nonspecific knee effusion. DIAGNOSES: 1. Septic joint of the left knee with sepsis. 2. Atrial fibrillation, likely triggered by sepsis. 3. Type 2 diabetes. 4. Hypertension. 5. Hypercholesteremia. 6. Obesity. 7. History of descending thoracic aortic aneurysm repair. PLAN/RECOMMENDATIONS: 1. From a cardiovascular standpoint, we will defer management to ID Service for antibiotic therapy. 2. Supportive from a cardiovascular standpoint. 3. We will put his metoprolol therapy as scheduled for improved rate control. 4. For right now, we are holding off anticoagulant therapy in light of if he needs any further surgical washouts or procedures. 5. We will continue to follow this patient. Thank you for this referral. MD ENRIKE Arce/MERA /[id number]
--- NOTE | 2019-07-13 19:53 | NUR ---
RECEIVED REPORT FROM PREVIOUS NURSE. CALL LIGHT WITHIN REACH. PATIENT IN BED.
[2019-07-13] MEDS: CITALOPRAM HYDROBROMIDE 20 MG TAB PO SCH (21:01)
[2019-07-13] MEDS: INSULIN GLARGINE 100 UNITS/ML VIAL SQ SCH (21:06)
[2019-07-14] VITALS: BP 95/49
--- NOTE | 2019-07-14 03:50 | Consultation ---
DATE OF CONSULTATION: 07/12/2019 REASON FOR CONSULTATION: Left knee pain and swelling. HISTORY OF PRESENT ILLNESS: This patient is a medically frail, 73-year-old gentleman, who is well known to us, who suffered a left quadriceps tendon rupture several months ago. This was repaired on our service on 05/05/2019. The patient went on to have a difficult recovery secondary to his debility, but there were no signs of infection or failure of the repair. I saw him in the office roughly a month ago. He was doing well. The patient presented to the hospital complaining of left knee pain and swelling for roughly three days. He states he has had redness and swelling in both lower extremities. He has a significant history of osteomyelitis in the left foot, which is being treated by another physician. He states that he has had trouble bearing weight on the left leg because of the pain in the knee. He states he has trouble bending the knee. PAST MEDICAL HISTORY: The patient has extensive past medical history with hypertension, insulin-dependent diabetes mellitus, obesity, sleep apnea, severe peripheral neuropathy, chronic venous stasis with repeated skin infection, and lower extremity cellulitis. 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 SOCIAL HISTORY: He is . He denies smoking or drinking. 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 MEDICATIONS: See MAR. ALLERGIES: NONE. PHYSICAL EXAMINATION: GENERAL: This is a morbidly obese, deconditioned gentleman, who is in no apparent distress. He is awake, alert, and oriented appropriately. EXTREMITIES: Gross inspection of his left knee shows a 2+ effusion. There is no cellulitis or redness around the knee. The knee is diffusely tender to palpation. He has painful limited range of motion from roughly -5 degrees to 60 degrees of flexion. The knee is grossly stable. He has chronic venous stasis skin changes in both lower extremities with rubor of the skin. There were scattered ulcerations. Pedal pulses faintly palpable. He has subjective decrease in sensation in the entire foot. Otherwise, the foot is grossly sensate. IMAGING: X-rays of the left knee were obtained and show a large joint effusion. No osseous abnormalities. ASSESSMENT AND PLAN: This is a 73-year-old male with potentially septic left knee. The findings and options were discussed with the patient. After discussing the options, we elected to proceed with an aspiration of the left knee. After obtaining verbal consent, I prepped the left knee in a sterile manner. Using an 18-gauge needle, I aspirated roughly 60 mL of ynes pus. The findings of the synovial fluid were immediately discussed with the patient. I discussed further options. There is not currently surgical ortho available. At this time, he would have to wait until Sunday to consider left knee arthroscopy with irrigation and debridement. We elected to proceed with serial irrigation and aspiration using the 18-gauge needle that I used to aspirate the knee. I used 10 mL syringes of sterile saline to superiorly irrigate and aspirate the knee. I used 220 mL of sterile saline in total after introducing 50 mL of saline each time, I used a 60 mL syringe to aspirate the knee. This was done a total of five times after the initial aspiration. Each subsequent aspiration revealed clearing of the synovial fluid. The last aspiration showed slightly cloudy reddish fluid. The purulence was cleared. The patient tolerated the procedure well. A Band-Aid was applied. The patient reported improvement in his discomfort after the procedure. The initial aspiration synovial sample will be sent for cell count, Gram stain, anaerobic and aerobic cultures. We will follow the patient. We will await culture results and determine further treatment given his multiple medical issues and frailty. It would be optimal to avoid surgical intervention, which would require anesthesia. If he improves with the sterile irrigation and aspiration, we can treat this with IV antibiotics. We will defer to Infectious Diseases for antibiotic choices. Thank you for the consultation. Dictated by Saturnino Zavala PA-C MD MICHAEL Quigley/MODL /[id number]
[2019-07-14 04:00] VITALS: BP 107/53
[2019-07-14] MEDS: HYDROMORPHONE 1MG/1ML INJ IV PRN ×2 (04:56→09:00)
[2019-07-14 05:44] LABS: BASOPHILS % 0.1 % (0.0-1.0); EOSINOPHILS % 0.3 % (0.0-6.0); HEMATOCRIT 26.3 % (38.2-49.6); HEMOGLOBIN 8.5 g/dL (14.0-18.0); LYMPHOCYTES # (AUTO) 0.7 (1.0-3.2); LYMPHOCYTES % 7.3 % (18.0-39.1); MEAN CORPUSCULAR HEMOGLOBIN 27.8 pg (28-32); MEAN CORPUSCULAR HGB CONC 32.3 g/dL (31-35); MEAN CORPUSCULAR VOLUME 85.9 fL (81-99); MONOCYTES % 11.3 % (4.4-11.3); NEUTROPHILS # (AUTO) 7.1 (2.1-6.9); NEUTROPHILS % 80.5 % (38.7-80.0); PLATELET COUNT 106 x10e3/uL (140-360); RED BLOOD COUNT 3.06 x10e6/uL (4.3-5.7); RED CELL DISTRIBUTION WIDTH 15.8 % (11.7-14.4)
[2019-07-14 06:07] LABS: ALANINE AMINOTRANSFERASE 18 IU/L (0-55); ALBUMIN 2.4 g/dL (3.5-5.0); ALBUMIN/GLOBULIN RATIO 0.9 (0.8-2.0); ALKALINE PHOSPHATASE 53 IU/L (40-150); ANION GAP 12.1 mmol/L (8-16); BLOOD UREA NITROGEN 23 mg/dL (7-26); BUN/CREATININE RATIO 23 (6-25); CALCIUM 8.6 mg/dL (8.4-10.2); CARBON DIOXIDE 26 mmol/L (22-29); CHLORIDE 99 mmol/L (98-107); CREATININE, SERUM 0.98 mg/dL (0.72-1.25); EST GLOMERULAR FILTRATION RATE > 60 ML/MIN (60-); GLUCOSE 198 mg/dL (74-118); MAGNESIUM 2.1 MG/DL (1.3-2.1); POTASSIUM 4.1 mmol/L (3.5-5.1); SODIUM 133 mmol/L (136-145)
[2019-07-14] MEDS: MEROPENEM 1GM 100 ML IV SCH ×3 (06:11→20:07)
--- NOTE | 2019-07-14 07:10 | NUR ---
walking rounds completed, change of shift report received from monty shift RN, pt in stable condition, all safety measures in place.
--- NOTE | 2019-07-14 07:11 | NUR ---
Gave report to oncoming nurse. Call light within reach. Patient in bed asleep.
[2019-07-14 07:59] VITALS: BP 112/59
[2019-07-14 08:17] VITALS: BP 112/59
[2019-07-14] MEDS: INSULIN LISPRO 100 UNIT/1 ML 3ML VIAL SQ SCH ×4 (08:58→20:09)
[2019-07-14] MEDS: MINOXIDIL 2.5 MG TAB PO SCH (09:00)
[2019-07-14] MEDS: NIACIN 500 MG TABSR PO SCH ×3 (09:00→20:07)
[2019-07-14] MEDS: METOPROLOL TARTRATE 50 MG TAB PO SCH ×3 (09:00→20:06)
[2019-07-14] MEDS: TAMSULOSIN HCL 0.4 MG CAP PO SCH (09:00)
[2019-07-14] MEDS: CYANOCOBALAMIN 1,000 MCG TAB PO SCH (09:00)
[2019-07-14] MEDS: CHOLECALCIFEROL 1,000 UNIT TAB PO SCH (09:00)
[2019-07-14] MEDS: GABAPENTIN 300 MG CAP PO SCH ×3 (09:00→20:07)
[2019-07-14] MEDS: THIAMINE HCL 100 MG TAB PO SCH (09:00)
[2019-07-14] MEDS: LISINOPRIL 20 MG TAB PO SCH ×2 (09:00→17:58)
[2019-07-14] MEDS: ALPRAZOLAM 0.5 MG TAB PO SCH ×2 (09:00→16:12)
[2019-07-14] MEDS: BUSPIRONE HCL 10 MG TABLET PO SCH (09:00)
--- NOTE | 2019-07-14 09:09 | NUR ---
pt being transported down to MRI; left in stable condition.
[2019-07-14] MEDS ORDERED: GADOBENATE DIMEGLUMINE 1 ML IV ONE (09:34)
[2019-07-14] MEDS: MUPIROCIN 2% OINT 22 GM TUBE TOP SCH (10:00)
--- NOTE | 2019-07-14 10:05 | NUR ---
Lab came to draw Vancomycin trough, but pt has not returned to floor. per Radiology, they are going to take pt for foot X-ray once MRI is complete.
--- NOTE | 2019-07-14 10:15 | NUR ---
OR team came to floor to transport pt for surgery, but pt has not yet returned to bedside. OR tech states to page them once pt has returned to the floor so that he can go to surgery.
[2019-07-14] MEDS ORDERED: BACITRACIN 50,000 UNIT VIAL ONE (10:49)
[2019-07-14] MEDS ORDERED: ACETAMINOPHEN 1000 MG/100 ML 100 ML IV ONE (11:22)
--- NOTE | 2019-07-14 12:11 | NUR ---
paging Dr Cedeno regarding micro culture results from knee aspirate.
--- NOTE | 2019-07-14 12:23 | Diagnostic Imaging Report ---
TECHNIQUE: Magnetic resonance imaging of the LEFT KNEE was performed without and with injected contrast. 20 cc of MultiHance HISTORY: Cellulitis, sepsis COMPARISON: None available. FINDINGS: Large joint effusion with mildly thickened enhancement. Foci of signal void within the effusion. Prior quadriceps repair with near complete re-tear. Few fibers of the vastus lateralis preserved. No T1 marrow replacement. Mild subchondral edema involving the distal femur and proximal tibia. Cruciate ligaments intact. Collateral ligaments intact. Complex tearing of the medial meniscus with extrusion. IMPRESSION: Large enhancing joint effusion with foci of signal void may reflect gas. May be reflective of septic arthritis. Prior quadriceps tendon repair with near complete re-tear. Signed by: Dr. Idris Alexander M.D. on 07/14/2019 12:19 PM
--- NOTE | 2019-07-14 12:34 | Progress Note ---
DATE: 07/14/2019 SUBJECTIVE: Mr. Puga, who is lying in bed comfortably. There is no new complaint. His blood cultures showing gram-negative rods. There is plan for him to have surgery tomorrow. PHYSICAL EXAMINATION: GENERAL: He is currently alert and oriented. Does not seem to be in acute distress. VITAL SIGNS: Stable, currently afebrile. HEENT: Not icteric. NECK: Supple. CHEST: Clear. ABDOMEN: Soft and obese. No tenderness. EXTREMITIES: No edema. IMPRESSION: Sepsis with gram-negative bacteremia. Infected knee with gram-negative bacteremia. The patient is known to be colonized with Pseudomonas. The plan is to continue with meropenem at 1 g IV q.8. Recheck CBC. Recheck chem panel. We will give one dose of gentamicin. The patient is going for debridement tomorrow. He would need a PICC line long-term and IV antibiotic again. We will discuss with Dr. Durant. We will plan on 8 weeks of IV antibiotic. I am concerned that this is recurrent infection, probably started in his foot and spread to the leg and the knee and now bacteremic. The patient is at risk for recurrent infection and sepsis. We will await sensitivity. Recheck blood cultures. MD MARVA Mckeon/MERA /[id number]
[2019-07-14] MEDS ORDERED: DIPHENHYDRAMINE HCL INJ 50 MG/ML VIAL IM/IV PRN (13:30)
[2019-07-14] MEDS ORDERED: PROMETHAZINE HCL (IM) 25 MG/ML VIAL INJ PRN (13:30)
[2019-07-14] MEDS ORDERED: ACETAMINOPHEN 650 MG SUPP PR PRN (13:30)
[2019-07-14] MEDS ORDERED: ZOLPIDEM TARTRATE 5 MG TAB PO PRN (13:30)
[2019-07-14] MEDS ORDERED: HYDROCODONE/APAP 5MG-325MG TAB PO PRN (13:30)
[2019-07-14] MEDS ORDERED: DOCUSATE SODIUM 100 MG CAP PO PRN (13:30)
[2019-07-14] MEDS ORDERED: ONDANSETRON HCL INJ 2MG/ML 2ML 2 MG/ML VIAL IV PRN (13:30)
[2019-07-14] MEDS ORDERED: HYDROMORPHONE 1MG/1ML INJ ONE (14:05)
--- NOTE | 2019-07-14 14:13 | NUR ---
received report from CHAIRMAN PRESIDENT AND CHIEF EXECUTIVE OFFICER, Fatou; pt had left knee scope and I&D; has immobilizer with Xeroform, Kerlix, and Quang wrap. pt got 1mg Dilaudid, on 3L NC due to being sleepy, 100% O2 sat. also received 2 mg versed, 100 mcg Fentanyl, Propofol, 10 mg Decadron, 4 mg Zofran, and 1gram Tylenol. pt weight bearing as tolerated, can presume pre-op diet, reinforce the dressing as needed.
--- NOTE | 2019-07-14 14:33 | NUR ---
Pt returned from PACU;pt awake, alert, no signs of distress.
--- NOTE | 2019-07-14 15:00 | Consultation ---
DATE OF CONSULTATION: 07/14/2019 REASON FOR CONSULTATION: Ulcerations to both lower extremities with the patient being an insulin-dependent diabetic. HISTORY OF PRESENT ILLNESS: This is a pleasant 73-year-old male, who is very well known to me, was admitted secondary to having some swelling and tenderness to the left knee. He is currently denying any history of fever, chills, nausea, or vomiting. The left knee was tapped yesterday and the patient relates he had some milky substance removed from his left knee. PAST MEDICAL HISTORY: Remarkable for insulin-dependent diabetes, sleep apnea, morbid obesity, and peripheral neuropathy. PAST SURGICAL HISTORY: Remarkable for left foot surgery with amputation of 2nd through 5th digits left foot, tonsillectomy, and adenoidectomy. SOCIAL HISTORY: . Does not do any smoking, drinking, or recreational drug use. ALLERGIES: THE PATIENT DENIES. CURRENT MEDICATIONS: Note, listed in the chart including IV vancomycin and meropenem. FAMILY HISTORY: Noncontributory. REVIEW OF SYSTEMS: CARDIAC: Denies any palpitations or arrhythmias. RESPIRATORY: Denies any shortness of breath or productive cough. GASTROINTESTINAL: Denies any diarrhea or constipation. GENITOURINARY: Denies any problems voiding. PHYSICAL EXAMINATION: VITAL SIGNS: Afebrile, pulse rate 68, respirations 16, blood pressure 112/59, and O2 saturation 100%. PODIATRIC PHYSICAL EXAMINATION: VASCULATURE: Pedal pulses of both the DP and PT are palpable, but diminished. Skin temperature warm to touch. NEUROLOGICAL: There was a complete loss of protective sensation when utilizing [place] 5.07 monofilament wire. Muscle mass is asymmetrical. Some swelling noted to the left lower extremity when compared to the right. Muscle strength is 4 to 5/5 to all muscle groups. DERMATOLOGICAL: Shows multiple grade 2 ulcerations to the left lower extremity measuring 1.5 to 2 cm diameter, plantar forefoot aspect left foot with some periwound cellulitis present. No drainage. Has a grade 1 ulceration to the 3rd toe right foot, measuring 1 cm in diameter distal aspect. LABORATORY DATA: Labs noted. He has a white blood cell count of 8.8, hemoglobin 8.5, hematocrit 26.3 with a platelet count of 106. ASSESSMENT: Diabetic neuropathy, multiple grade 2 ulcerations and one to both lower extremities as described above. PLAN: We will start Bactroban ointment followed by diluted wet-to-dry. Ulcerations will be debrided at bedside tomorrow. We will continue IV antibiotics. The patient instructed on proper diabetic management. DONNA Valladares/MODL /[id number]
[2019-07-14] MEDS ORDERED: LIDOCAINE HCL 1% LOCAL INJ 20 ML VIAL ONE (15:41)
[2019-07-14] MEDS ORDERED: SODIUM CHLORIDE 0.9% 250ML 250 ML ONE (15:47)
--- NOTE | 2019-07-14 16:09 | NUR ---
pt left for CVC placement with computer technical support specialist. left in stable condition.
--- NOTE | 2019-07-14 16:17 | NUR ---
spoke with PT who recommends SNF based on pt's ability today, however pt c/o pain with ambulation. PT will re-eval pt again tomorrow.
[2019-07-14 16:18] VITALS: BP 143/65
[2019-07-14] MEDS ORDERED: CELECOXIB 100 MG CAP PO SCH (17:00)
[2019-07-14] MEDS ORDERED: SODIUM CHLORIDE 0.9% IV ONE (17:00)
[2019-07-14] MEDS ORDERED: GENTAMICIN SULFATE IV ONE (17:00)
--- NOTE | 2019-07-14 17:45 | NUR ---
pt returned to room 286 after CVC placement; pt awake, alert, no signs of distress.
--- NOTE | 2019-07-14 17:56 | Progress Note ---
DATE: 07/14/2019 SUBJECTIVE: Mr. Puga is doing better overall. No new complaint. He did undergo surgery today by Dr. Durant. The patient is status post left knee scope, I and D under anesthesia. He is currently lying in bed comfortably. His blood cultures show Serratia marcescens. His blood culture showing gram-negative rods. It was sensitive to meropenem. REVIEW OF SYSTEMS: HEENT: Negative. PULMONARY: Negative. CARDIAC: Negative. PHYSICAL EXAMINATION: GENERAL: He is currently alert, oriented, does not seem in acute distress. VITAL SIGNS: Stable, currently afebrile. HEENT: He does not appear icteric. NECK: Supple. CHEST: Clear. COR: S1, S2. No S3, S4, murmurs. ABDOMEN: Soft. IMPRESSION: Sepsis, present on admission, gram-negative Serratia with infected knee, status post debridement. The plan is to continue with IV meropenem. Discontinue vancomycin. We will give gentamicin. We will get the central line. Recheck blood cultures. Obtain CBC, obtain sedimentation rate, C-reactive protein. Follow up as outpatient. We will see if we can arrange eight weeks of IV antibiotics since the patient wished to go back to work. We will follow. MD MARVA Mckeon/MERA /[id number]
[2019-07-14] MEDS: HYDROCODONE/APAP 7.5MG-325MG 1 EA TAB PO PRN ×2 (17:58→19:28)
--- NOTE | 2019-07-14 18:04 | NUR ---
spoke with pharmacy, who is still preparing the Gentamicin IV antibiotic.
[2019-07-14] MEDS: CELECOXIB 200 MG CAP PO SCH (18:05)
[2019-07-14] MEDS: KETOROLAC TROMETHAMINE 30 MG/ML VIAL IV PRN (18:15)
[2019-07-14] MEDS ORDERED: FENTANYL CITRATE/PF 100MCG/2 ML INJ ONE (18:52)
[2019-07-14] MEDS ORDERED: MIDAZOLAM HCL 2 MG/2 ML VIAL ONE (18:52)
--- NOTE | 2019-07-14 19:05 | NUR ---
received report from day nurse. patient is resting comfortably in bed. bed is in lowest position and call light is within reach. will continue to monitor patient.
[2019-07-14 20:00] VITALS: BP 117/57
[2019-07-14] MEDS: CITALOPRAM HYDROBROMIDE 20 MG TAB PO SCH (20:06)
[2019-07-14] MEDS: INSULIN GLARGINE 100 UNITS/ML VIAL SQ SCH (20:08)
[2019-07-14] MEDS ORDERED: ONDANSETRON HCL INJ 2MG/ML 2ML 2 MG/ML VIAL ONE (20:15)
[2019-07-14] MEDS ORDERED: LIDOCAINE HCL 2% LOCAL INJ 5 ML SDV VIAL INJ ONE (20:15)
[2019-07-14] MEDS ORDERED: PROPOFOL IV EMULSION 10 MG/ML 20 ML VIAL ONE (20:15)
[2019-07-14] MEDS ORDERED: SEVOFLURANE INHAL SOLN 250 ML PEN BTL ONE (20:15)
[2019-07-14] MEDS ORDERED: DEXAMETHASONE SOD PHOS INJ 4 MG/ML VIAL ONE (20:15)
[2019-07-15] VITALS (7 sets, daily range): BP systolic 98–156; BP diastolic 46–80
--- NOTE | 2019-07-15 00:38 | Diagnostic Imaging Report ---
EXAMINATION: CHEST SINGLE (PORTABLE) INDICATION: ^check placement of tunneled catheter ^[id number] ^[id number] COMPARISON: Chest CT dated 07/11/2019 FINDINGS: AP view TUBES and LINES: Right subclavian central line in place. Tip projecting over inferior SVC. LUNGS: Lower lung umaña are outside the ridfq-[id number]. Lungs are well inflated. Pulmonary vascular congestion and mild additional edema. PLEURA: No visible pneumothorax. Pleural effusion cannot be evaluated as the lower lung umaña are excluded from the [id number]. HEART AND MEDIASTINUM: The cardiomediastinal silhouette is enlarged. Aortic arch and descending thoracic aortic stent is visualized. BONES AND SOFT TISSUES: No acute osseous lesion. Soft tissues are unremarkable. UPPER ABDOMEN: No free air under the diaphragm. IMPRESSION: Right subclavian central line in place with tip projecting over inferior SVC. No visible pneumothorax. Pulmonary vascular congestion and mild additional edema. Signed by: Dr. Tray Medina MD on 07/15/2019 12:34 AM
[2019-07-15] MEDS: MEROPENEM 1GM 100 ML IV SCH ×3 (05:16→22:10)
[2019-07-15] MEDS: KETOROLAC TROMETHAMINE 30 MG/ML VIAL IV PRN ×3 (05:50→17:53)
--- NOTE | 2019-07-15 06:00 | Progress Note ---
DATE: 07/15/2019 SUBJECTIVE: Mr. Puga overnight slept pretty well. He states he feels really tired from yesterday's procedures. He did have an MRI done that shows near-complete rupture of his quadriceps tendon repair from earlier this year. He has already started to grow organisms from his culture with Serratia. OBJECTIVE: VITAL SIGNS: Currently, his vital signs are stable. He is afebrile. GENERAL: He is in no apparent distress, lying in bed. CARDIOVASCULAR: Regular rate and rhythm. LUNGS: Clear to auscultation bilaterally. ABDOMEN: Good bowel sounds. Soft, nontender. EXTREMITIES: No clubbing or cyanosis. NEUROLOGIC: He moves all extremities x4. ASSESSMENT AND PLAN: 1. Septic arthritis of the left knee. Continue with IV antibiotics per Dr. Cedeno. 2. Left quadriceps tendon tear. We will defer to Dr. Durant. 3. Diabetes. Continue with current care monitoring. 4. Hypertension. Continue with current care monitoring. 5. Anemia. Continue to monitor. Please see hospital chart for full details. MD STEPHEN Cesar/MERA /[id number]
--- NOTE | 2019-07-15 06:42 | NUR ---
Patient is resting comfortably in the bed, bed is in lowest position and call schmitz is within reach.
[2019-07-15] MEDS: INSULIN LISPRO 100 UNIT/1 ML 3ML VIAL SQ SCH ×4 (07:30→22:12)
[2019-07-15] MEDS: MUPIROCIN 2% OINT 22 GM TUBE TOP SCH (09:00)
[2019-07-15] MEDS: BUSPIRONE HCL 10 MG TABLET PO SCH (09:15)
[2019-07-15] MEDS: TAMSULOSIN HCL 0.4 MG CAP PO SCH (09:15)
[2019-07-15] MEDS: CELECOXIB 200 MG CAP PO SCH ×2 (09:15→16:40)
[2019-07-15] MEDS: MINOXIDIL 2.5 MG TAB PO SCH (09:15)
[2019-07-15] MEDS: THIAMINE HCL 100 MG TAB PO SCH (09:16)
[2019-07-15] MEDS: CYANOCOBALAMIN 1,000 MCG TAB PO SCH (09:16)
[2019-07-15] MEDS: ALPRAZOLAM 0.5 MG TAB PO SCH ×2 (09:16→17:43)
[2019-07-15] MEDS: LISINOPRIL 20 MG TAB PO SCH ×2 (09:16→16:50)
[2019-07-15] MEDS: METOPROLOL TARTRATE 50 MG TAB PO SCH ×3 (09:16→21:00)
[2019-07-15] MEDS: NIACIN 500 MG TABSR PO SCH ×3 (09:16→22:10)
[2019-07-15] MEDS: CHOLECALCIFEROL 1,000 UNIT TAB PO SCH (09:16)
[2019-07-15] MEDS: GABAPENTIN 300 MG CAP PO SCH ×3 (09:16→22:10)
[2019-07-15] MEDS: HYDROCODONE/APAP 7.5MG-325MG 1 EA TAB PO PRN ×2 (09:33→16:40)
--- NOTE | 2019-07-15 10:41 | NUR ---
Paged to notify of blood culture results. Awaiting for call back
--- NOTE | 2019-07-15 10:48 | NUR ---
aware of blood culture results. No new orders at this time
--- NOTE | 2019-07-15 11:01 | Progress Note ---
DATE: 07/15/2019 SUBJECTIVE: The patient is seen at bedside, status post I and D, left knee, having some discomfort to both lower extremities. Denies any history of fever, chills, nausea, or vomiting. OBJECTIVE: VITAL SIGNS: Afebrile, pulse rate 63, respirations 18, blood pressure 154/80, and O2 saturation 100%. EXTREMITIES: Ulcerations to both lower extremities, stable. Has 2 grade 2 ulcerations plantar aspect left foot and a grade 1 ulcer to the distal aspect of 3rd digit, right foot. Ulcer to the left, measuring 1.5 to 2 cm in diameter. Ulcer to the right, measuring 1 cm in diameter to the distal aspect of the 3rd toe down to dermis, right foot; down to subcutaneous tissue, left. Pedal pulses palpable. LABORATORY DATA: Labs noted, has a white blood cell count of 8.87, dropping from a high of 13.3. ASSESSMENT: Diabetic neuropathy, multiple grade 2 ulcerations, left foot; grade 1 ulcer, right with diabetic neuropathy and cellulitis. PLAN: Under no anesthesia secondary to his neuropathy, sharp excisional debridement of the ulcers were performed down the subcutaneous tissue and dermis respectively utilizing a sterile 10 blade. Devitalized tissue sharply excised until good viable bleeding tissue achieved. Sterile dressing was applied. We will continue local wound care. Continue offloading. We will continue to follow. DONNA Valladares/MERA /[id number]
--- NOTE | 2019-07-15 11:15 | NUR ---
PT WAS DISCUSSED IN [facility]. PT HAS + BC. MET W THE PT AND [facility] W [facility]. DISCUSSED LTAC TO FOR ABX AND WOUND CARE. PT OK W GOING TO AN LTAC IF RECOMMENDED. STATES HE WOULD LIKE TO GO TO [facility] [address], BECAUSE HIS IS THERE IN [address]. THE PT'S DTR WAS PRESENT FROM [place]. ASKED IF THEY COULD BE PLACED IN [place] NEXT DOOR TO EACH OTHER. CHOICE LETTER WAS SIGNED AND COPY TO THE CHART. BEDSIDE NURSE / SUSHIL TO CONTACT DR. DOMINGUEZ FOR ORDER.
[2019-07-15] MEDS ORDERED: SODIUM CHLORIDE 0.9% 250ML 250 ML ONE (12:00)
--- NOTE | 2019-07-15 13:09 | NUR ---
ORDER RECEIVED FOR LTAC. NOTIFIED MORIAH ALVARES OF REFERRAL.
[2019-07-15] MEDS: ACETAMINOPHEN 325 MG TAB PO PRN ×2 (13:20→19:11)
[2019-07-15] MEDS ORDERED: AMIKACIN SULFATE 500 MG in SODIUM CHLORIDE 0.9% 100 ML IV SCH (14:00)
--- NOTE | 2019-07-15 17:56 | NUR ---
aware room available at [place]. Dr. Mae states "hold transfer to [place]. Patient may transfer tomorrow after I see him." Phoebe with [facility] aware
--- NOTE | 2019-07-15 19:19 | NUR ---
Report given to oncoming nurse of patient's status. Resting in bed. No s/s of acute distress noted. Side rails upx2, call light within reach.
[2019-07-15] MEDS: CITALOPRAM HYDROBROMIDE 20 MG TAB PO SCH (22:10)
[2019-07-15] MEDS: INSULIN GLARGINE 100 UNITS/ML VIAL SQ SCH (22:13)
[2019-07-16] VITALS (7 sets, daily range): BP systolic 109–133; BP diastolic 53–59
[2019-07-16] MEDS: MEROPENEM 1GM 100 ML IV SCH ×2 (05:06→13:02)
[2019-07-16] MEDS: KETOROLAC TROMETHAMINE 30 MG/ML VIAL IV PRN (05:06)
--- NOTE | 2019-07-16 05:48 | Progress Note ---
DATE: 07/16/2019 SUBJECTIVE: The patient did okay overnight. He states his pain is doing a little bit better. He did get up with physical therapy. OBJECTIVE: VITAL SIGNS: Yesterday, his vital signs, temperature 97.3, pulse 56, blood pressure 98/46, sats 93%. GENERAL: He is no apparent distress, lying in bed. NECK: Supple. CARDIOVASCULAR: Regular rate and rhythm. LUNGS: Decreased breath sounds bilaterally. ABDOMEN: Good bowel sounds. Soft and nontender. EXTREMITIES: No clubbing, cyanosis. NEUROLOGIC: Moves all extremities x4. ASSESSMENT AND PLAN: 1. Septic, left knee. Continue with his antibiotics and start arranging for transfer to LTAC today. 2. Hypertension. Continue with his medication. 3. Diabetes. Continue with his medication. 4. Benign prostatic hypertrophy. Continue with his tamsulosin. 5. Anemia. We will continue to monitor p.r.n. Please see hospital chart for full details. MD STEPHEN Cesar/MERA /[id number]
--- NOTE | 2019-07-16 07:00 | NUR ---
Dr. Diez in to see patient. Clearance given for patient to transfer to [facility].
--- NOTE | 2019-07-16 08:00 | NUR ---
received patient from NOC shift RN, patient sleeping, respirations even and unlabored, oxygen therapy in place, Nasal cannula 2 liters, VSS, accheck performed this am, coverage given as ordered, no s/sx of hypoglycemia noted, call light within reach, bed in lowest position, patient repositioned for comfort will continue to monitor
[2019-07-16] MEDS: INSULIN LISPRO 100 UNIT/1 ML 3ML VIAL SQ SCH ×2 (08:45→11:48)
[2019-07-16] MEDS: CELECOXIB 200 MG CAP PO SCH (08:56)
[2019-07-16] MEDS: BUSPIRONE HCL 10 MG TABLET PO SCH (08:56)
[2019-07-16] MEDS: TAMSULOSIN HCL 0.4 MG CAP PO SCH (08:56)
[2019-07-16] MEDS: METOPROLOL TARTRATE 50 MG TAB PO SCH (08:57)
[2019-07-16] MEDS: MINOXIDIL 2.5 MG TAB PO SCH (08:57)
[2019-07-16] MEDS: GABAPENTIN 300 MG CAP PO SCH (08:57)
[2019-07-16] MEDS: THIAMINE HCL 100 MG TAB PO SCH (08:58)
[2019-07-16] MEDS: NIACIN 500 MG TABSR PO SCH (08:58)
[2019-07-16] MEDS: LISINOPRIL 20 MG TAB PO SCH (08:58)
[2019-07-16] MEDS: ALPRAZOLAM 0.5 MG TAB PO SCH (08:59)
[2019-07-16] MEDS: CHOLECALCIFEROL 1,000 UNIT TAB PO SCH (08:59)
[2019-07-16] MEDS ORDERED: AMIKACIN SULFATE 250 MG/ML 2ML VIAL IV SCH (09:00)
[2019-07-16] MEDS: CYANOCOBALAMIN 1,000 MCG TAB PO SCH (09:15)
[2019-07-16] MEDS: HYDROCODONE/APAP 7.5MG-325MG 1 EA TAB PO PRN (09:15)
[2019-07-16] MEDS: MUPIROCIN 2% OINT 22 GM TUBE TOP SCH (09:17)
--- NOTE | 2019-07-16 10:00 | NUR ---
schedule medication given PO as ordered w/o difficulty noted, patient reports pain level 10/10, PRN pain medication given as ordered for severe pain, will reassess pain level per protocol
--- NOTE | 2019-07-16 10:50 | NUR ---
MD mccormack notified that MD Diez cleared patient for discharge, ordered by MD Penny to discharge patient to [facility]
--- NOTE | 2019-07-16 12:56 | NUR ---
report called to [facility] report given to nurse shelley, patient pending discharge today, warehouse administrator made aware that task is completed, will set up transport, patient and family made aware of pending discharge
[2019-07-16] MEDS ORDERED: ONDANSETRON HCL 4 MG ORAL DISINTEGRATING TAB PO PRN (13:45)
--- NOTE | 2019-07-16 15:27 | Progress Note ---
DATE: 07/16/2019 SUBJECTIVE: The patient is seen at bedside, doing somewhat better, having some pain to the left knee. Doing better to his left and right foot. Denies any history of fever, chills, nausea, or vomiting. OBJECTIVE: VITAL SIGNS: Afebrile, pulse rate 62, respirations 20, blood pressure 122/59, and O2 saturation 95%. EXTREMITIES: Ulcerations to both lower extremities improving down to subcutaneous tissue to the left lower extremity and down to the dermis of the right foot. Periwound cellulitis present. Negative drainage. ASSESSMENT: Multiple grade 2 ulcerations, left foot, diabetic neuropathy grade 1 ulcer right with cellulitis. PLAN: We will continue local wound care. The patient will be transferred to [facility] for IV antibiotics. We will continue to follow in [place]. Okay to be discharged on this date. DONNA Valladares/MERA /[id number]
--- NOTE | 2019-07-16 15:45 | NUR ---
PATIENT DISCHARGE OUT OF FACILITY VIA STRETCHER, AWAKE ALERT, IMMOBILIZER ON LEFT LEG, VSS, AFEBRILE, ALL PERSONAL BELONGING GIVEN TO DELINQUENT ACCOUNT CLERK, TAKEN TO [facility]
--- NOTE | 2019-07-17 08:52 | Diagnostic Imaging Report ---
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 IMPRESSION: Insertion of right-sided dual-lumen tunneled Proline central venous catheter, with tip in the expected location of the cavoatrial junction. Plan: The catheter may be used immediately. PROCEDURE SUMMARY: - Venous access with ultrasound guidance - Tunneled central venous catheter insertion with fluoroscopic guidance - Additional procedure(s): None PROCEDURE DETAILS: Pre-procedure Consent: Informed consent for the procedure including risks, benefits and alternatives was obtained and time-out was performed prior to the procedure. Preparation (MIPS): The site was prepared and draped using all elements of maximal sterile barrier technique including sterile gloves, sterile gown, cap, mask, large sterile sheet, sterile ultrasound probe cover, hand hygiene and cutaneous antisepsis with 2% chlorhexidine. Medical reason for site preparation exception (MIPS): Not applicable Anesthesia/sedation Level of anesthesia/sedation: No sedation Anesthesia/sedation administered by: Independent trained observer under attending supervision with continuous monitoring of the patient?s level of consciousness and physiologic status Access Local anesthesia was administered. The vessel was sonographically evaluated and determined to be patent. Real time ultrasound was used to visualize needle entry into the vessel and a permanent image was stored. Vein accessed: Internal jugular vein Access technique: Micropuncture set with 21 gauge needle Catheter placement An incision was made near the venous access site and the catheter was tunneled subcutaneously to the venous access site and trimmed to appropriate length. The catheter was advanced via a peel-away sheath into the vein under fluoroscopic guidance. Catheter tip location was fluoroscopically verified and a permanent image was stored. Catheter placed: Medcomp Proline Catheter size (Ivorian): 6 Catheter flush: Normal saline Closure A sterile dressing was applied. Access site closure technique: Tissue adhesive Catheter securement technique: Non-absorbable suture Contrast Contrast agent: None Radiation Dose Fluoroscopy time (minutes): 0.3 Reference air kerma (mGy): 4.6 Additional Details Additional description of procedure: None Equipment details: None Specimens removed: None Estimated blood loss (mL): Less than 10 Standardized report: [email or web address] Attestation Signer name: Azul Escobedo MD I attest that I was present for the entire procedure. I reviewed the stored images and agree with the report as written. Signed by: Azul Escobedo MD on 07/17/2019 8:49 AM
--- NOTE | 2019-07-20 16:01 | Discharge Summary ---
DISCHARGE DIAGNOSES: 1. Septic left knee arthritis. 2. Diabetes. 3. Hypertension. DISPOSITION: The patient was transferred over to LTAC. HISTORY OF PRESENT ILLNESS AND HOSPITAL COURSE: The patient is a gentleman, who started having left knee pain where he had some swelling . He had a left septic knee arthritis with Serratia organism was most likely coming from his open wound of the left foot from his diabetes, and severe peripheral neuropathy. He has also noticed that he had a near complete tear of his recent quadriceps tendon repair. He was brought in and placed on IV antibiotics seen both by Infectious Disease and Orthopedics where he was placed on IV antibiotics and due to the complex nature of the patient, he was then sent over to LTAC for continued IV antibiotics and therapy since he cannot have surgery on that tendon at this time, so the patient was transferred in good condition. Please see also chart for full details. MD STEPHEN Cesar/MERA /[id number]
[2019-08-13] MEDS ORDERED: CELEXA10 MG PO (17:42)
[2019-08-13] MEDS ORDERED: ULTRAM50 MG PO (17:42)
[2019-08-13] MEDS ORDERED: TEMAZEPAM15 MG PO (17:45)
== END 2019-07-16 15:40 | DRG 854 ==
LOC: ER 20:37 → ERHOLD 21:53 → MED/SURG3 07-12 00:23
PROVIDERS: ADMIT Internal Medicine; ATTEND Internal Medicine
PROC: 0S9D4ZZ Drainage of Left Knee Joint, Percutaneous Endoscopic Approach (ICD-10-PCS; principal; 2019-07-12)
PROC: 0JH63XZ Insertion of Tunneled Vascular Access Device into Chest Subcutaneous Tissue and Fascia, Percutaneous Approach (ICD-10-PCS; 2019-07-14)
PROC: 02HV33Z Insertion of Infusion Device into Superior Vena Cava, Percutaneous Approach (ICD-10-PCS; 2019-07-14)
PROC: 0JBP0ZZ Excision of Left Lower Leg Subcutaneous Tissue and Fascia, Open Approach (ICD-10-PCS; 2019-07-15)
PROC: 0JBN0ZZ Excision of Right Lower Leg Subcutaneous Tissue and Fascia, Open Approach (ICD-10-PCS; 2019-07-15)
DX: A41.53 Sepsis due to Serratia (principal); M00.9 Pyogenic arthritis, unspecified; L03.116 Cellulitis of left lower limb; L97.928 Non-pressure chronic ulcer of unspecified part of left lower leg with other specified severity; L97.918 Non-pressure chronic ulcer of unspecified part of right lower leg with other specified severity; I50.32 Chronic diastolic (congestive) heart failure; L03.115 Cellulitis of right lower limb; I10 Essential (primary) hypertension; Z68.29 Body mass index [BMI] 29.0-29.9, adult; E11.65 Type 2 diabetes mellitus with hyperglycemia; E11.40 Type 2 diabetes mellitus with diabetic neuropathy, unspecified; Z79.4 Long term (current) use of insulin; E11.21 Type 2 diabetes mellitus with diabetic nephropathy; N40.0 Benign prostatic hyperplasia without lower urinary tract symptoms; I25.10 Atherosclerotic heart disease of native coronary artery without angina pectoris; F32.9 Major depressive disorder, single episode, unspecified; F41.9 Anxiety disorder, unspecified; B96.89 Other specified bacterial agents as the cause of diseases classified elsewhere; E11.622 Type 2 diabetes mellitus with other skin ulcer; E78.00 Pure hypercholesterolemia, unspecified; I87.2 Venous insufficiency (chronic) (peripheral); I11.0 Hypertensive heart disease with heart failure; E29.1 Testicular hypofunction; G47.33 Obstructive sleep apnea (adult) (pediatric); I48.91 Unspecified atrial fibrillation; G89.29 Other chronic pain; E11.628 Type 2 diabetes mellitus with other skin complications
CPT/HCPCS: 36415; 36558; 71045; 71260; 76937; 77003; 80053; 82948; 83605; 83735; 85025; 85651; 86140; 87040; 87071; 87075; 87186; 87205; 89051; 93970; 96361; 96374; 97139; 99284; C1769; J0692; J1100; J1170; J1580; J1815; J1885; J2001; J2250; J2405; J3010; J3370; J3411; J7030; J7050; Q9967

== ENCOUNTER 2019-09-21 17:01 | Emergency (ER) | payer MEDICARE, OTHER ==
[~2019-09-21] VITALS: Ht 195.6 cm; Wt 113.4 kg
[~2019-09-21 17:01] MED LIST changes: +CELEXA10 MG PO; +TEMAZEPAM15 MG PO; +ULTRAM50 MG PO
--- NOTE | 2019-09-21 19:04 | Diagnostic Imaging Report ---
Exam: Head CT without contrast History: Unwitnessed fall Comparison studies: Head CT 04/20/2019 Technique: Axial images were obtained from the skull base to the vertex. Coronal and sagittal images reconstructed from the axial data. Dose modulation, iterative reconstruction, and/or weight based adjustment of the mA/kV was utilized to reduce the radiation dose to as low as reasonably achievable. Radiation dose: Total DLP: 1036.57 mGy*cm. Estimated effective dose: DLP x 0.015 Intravenous contrast: None Findings: Scalp: No abnormalities. Bones: No fractures, blastic or lytic lesions. Brain sulci: Moderately prompt. Ventricles: Moderate compensatory dilatation. No hydrocephalus. Extra-axial spaces: No masses, no fluid collection. Parenchyma: Chronic infarct with encephalomalacia and gliosis centered in the right inferior parietal lobule along the supramarginal gyrus is new from the 04/20/[address] Chronic cortical insult along the left middle frontal gyrus is unchanged. Small chronic right lateral occipital infarct is unchanged and retrospectively visualized on the prior exam. A few scattered hypodensities in the supratentorial white matter are nonspecific but are most compatible with chronic microvascular ischemic changes. Sellar/suprasellar region: No abnormalities. Craniocervical junction: Patent foramen magnum. No Chiari one malformation. Included paranasal sinuses: Clear. Middle ear mastoid cavities: Clear. Incidental findings: Bilateral intraocular lens replacements. Atherosclerotic calcifications in the carotid siphons and intradural vertebral arteries. IMPRESSION: No acute abnormalities. Chronic findings: 1. Chronic right parietal infarct, new from the prior 04/20/2019 CT. 2. Unchanged small chronic left middle frontal and right occipital infarcts. 3. Mild microvascular ischemic changes. 4. Moderate generalized parenchymal volume loss. Signed by: Dr. Clement Russell M.D. on 09/21/2019 7:02 PM
[2019-09-21 21:28] VITALS: BP 153/80
== END 2019-09-21 22:20 ==
LOC: ER 17:01
DX: S00.83XA Contusion of other part of head, initial encounter (principal); W01.0XXA Fall on same level from slipping, tripping and stumbling without subsequent striking against object, initial encounter; Y92.128 Other place in nursing home as the place of occurrence of the external cause; E11.9 Type 2 diabetes mellitus without complications; I51.9 Heart disease, unspecified; I25.10 Atherosclerotic heart disease of native coronary artery without angina pectoris
CPT/HCPCS: 70450; 99283